=== PATIENT | male | born 1955 | race Caucasian/White ===

== ENCOUNTER 2020-12-04 16:47 | Emergency (ER) | payer BC, SELFPAY ==
--- NOTE | ~2020-12-04 | US_ITS ---
EXAMINATION: US VENOUS ULTRASOUND WITH DOPPLER LOWER EXTREMITY, RIGHT CLINICAL INFORMATION: Right lower extremity swelling COMPARISON: None TECHNIQUE: Ultrasound of the deep veins is performed from the hip to the calf with compression sonography and color and pulse Doppler assessment. Spectral analysis with color-flow imaging is performed. FINDINGS: There is normal venous compression and respiratory variation and augmented flow. The visualized common femoral vein, superficial femoral vein, profunda femoral vein, popliteal vein, and the trifurcation region shows no evidence of deep venous thrombosis. There is no significant popliteal fossa cyst. Prominent right groin lymph nodes are seen. If the patient's symptoms persist, followup ultrasound in 5 days 7 days might be of value to exclude proximal propagation from a non-visualized calf vein. US/US venous duplex LE RT IMPRESSION: No DVT demonstrated in the right lower extremity.
--- NOTE | ~2020-12-04 | XR_ITS ---
EXAMINATION: XR TIBIA AND FIBULA, RIGHT CLINICAL INFORMATION: Leg swelling and tenderness. Concern for osteomyelitis. COMPARISON: None TECHNIQUE: AP and lateral views of the right tibia and fibula were obtained. FINDINGS: No radiographic evidence for ostomy myelitis. No bone destruction or abnormal periosteal reaction. The bones and soft tissues are normal. No fracture. No osseous lesions. Small vessel calcifications in the distal calf. XR/XR tibia fibula RT 2V IMPRESSION: Normal right tibia and fibula.
[2020-12-04 16:50] VITALS: BP 137/77; PULSE 130; RESP 18; TEMP 37.7; O2SAT 96; BMI 37.8
--- NOTE | 2020-12-04 18:47 | ED.EXTPRO ---
HPI - Extremity Problem General Chief complaint: Extremity Problem Stated complaint: CELLULITIS? Time Seen by Provider: 12/04/20 18:42 History of Present Illness HPI Narrative: Patient presents to ED for right lower quadrant swelling and redness. Patient states known history of cellulitis. Pain, shortness of breath, dizziness, weakness, chest pain, or shortness of breath. Related Data Previous Rx's Medication Instructions Recorded cephalexin 500 mg PO Q12H #28 cap 12/04/20 doxycycline hyclate 100 mg PO BID #14 tab 12/04/20 Allergies Allergy/AdvReac Type Severity Reaction Status Date / Time No Known Allergies Allergy Unverified 06/06/20 14:40 Review of Systems Review of Systems: Yes all other systems are reviewed and are negative Constitutional: Constitutional: Reports as per HPI and Reports no additional constitutional complaints Eyes: Eyes: Reports as per HPI and Reports no additional eye complaints ENT: Reports system reviewed and no additional complaints, except as documented and Reports as per HPI Cardiovascular: Cardiovascular: Reports as per HPI and Reports no additional cardiovascular complaints Respiratory: Respiratory: Reports as per HPI and Reports no additional respiratory complaints Gastrointestinal: Gastrointestinal: Reports as per HPI and Reports no additional gastrointestinal complaints Genitourinary: Genitourinary: Reports no additional male genitourinary complaints and Reports as per HPI Musculoskeletal: Musculoskeletal: Reports no additional musculoskeletal complaints and Reports as per HPI Comments: Right leg swelling and redness Neurologic: Reports system reviewed and no additional complaints, except as documented and Reports as per HPI Psychiatric: Psychiatric: Reports no additional psychiatric complaints and Reports as per HPI [facility] Past Medical History Medical History (Updated 12/04/20 @ 21:47 by CINDA Garibay) No known health problems Social History Social History Advance Directives: No Advance Directives Information Provided: No Physical Exam Vital Signs: Vital Signs: Last Vital Signs Temp 98.7 F 12/04/20 20:33 Pulse 92 12/04/20 20:33 Resp 18 12/04/20 20:33 BP 144/95 H 12/04/20 20:33 Pulse Ox 95 12/04/20 20:33 Body Mass Index 37.8 Const: General: cooperative, healthy appearing, comfortable, no acute distress, well developed, alert, awake and Physically active Orientation/consciousness: patient oriented x3 HENMT: Head: Yes normal to inspection, Yes No palpable skull fracture present, Yes normocephalic, Yes atraumatic and No abrasion Eyes: General: appearance normal, both eyes and all related structures Neck: Neck: Yes normal visual inspection, Yes full ROM, Yes no lymphadenopathy, Yes no meningeal signs, Yes trachea midline, Yes supple and No tender Chest: Chest palpation & inspection: normal inspection of the chest and normal palpation of entire chest wall Resp: Effort & Inspection: normal respiratory effort and able to speak in complete sentences Auscultation: clear to auscultation bilaterally Cardio: Jugular venous distension: no JVD Heart sounds: S1 normal heart sound present and S2 normal heart sound present GI: Inspection: Yes normal to inspection and No abdominal wall ecchymosis Palpation (GI): Soft to palpation, not firm, nontender, no guarding and not rigid : General: No CVA tenderness and Yes no CVA tenderness Back/Spine/Pelvis: Back: no CVA tenderness, No CVA tenderness and No back tenderness Skin: General skin exam: no rashes or lesions noted and elasticity normal Neuro: General: patient oriented x3, no meningeal signs and CN's II-XI intact bilaterally Cranial nerves: Yes CN's II-XII intact bilaterally Extrem: Other: Right lower extremity positive for swelling, redness, and pitting edema. ( negative calf tenderness) Left lower extremity normal General: Yes normal to inspection and Yes full ROM Course Course Course Narrative: Patient diagnosis seems more cellulitis but due to swelling of 1 leg patient was sent for ultrasound to rule out DVT. Reevaluation(s) Reevaluation #1: Ultrasound negative for DVT. X-ray negative for osteomyelitis. Patient has mild white blood cell count. Are improved. ESR normal. Patient's chemistry hemolyzed. Will be signed out DANYELLE Riddle and she will follow up chemistry. Discharge papers will be prepared Time: 21:46 MDM - Extremity (Nontraumatic) MDM Narrative Medical decision making narrative: Cellulitis Lab Data Result diagrams: 12/04/20 19:13 12/04/20 19:13 Labs: Lab Results 12/04/20 12/04/20 12/04/20 Range/Units 19:13 19:13 19:13 WBC 14.1 H (4.8-10.8) X10*3/uL RBC 4.93 (4.60-5.80) X10*6/uL Hgb 15.2 (14.0-18.0) g/dl Hct 44.3 (42-52) % MCV 89.9 (80-98) fL MCH 30.8 (27.0-33.0) pg MCHC 34.3 (31.0-36.0) g/dl RDW 13.1 (11.0-16.0) % Plt Count 87 L (160-400) X10*3/uL MPV 10.8 (9.4-12.4) fL Immature Gran % (Auto) 0.7 H (0.0-0.4) % Neut % (Auto) 92.8 H (45-73) % Lymph % (Auto) 4.2 L (20-40) % [place] % (Auto) 2.1 (2-11) % Eos % (Auto) 0.1 (0-4) % Baso % (Auto) 0.1 (0-2) % Lymph # (Auto) 0.6 L (1.2-4.9) X10*3/uL [place] # (Auto) 0.3 (0.1-1.2) X10*3/uL Eos # (Auto) 0.0 (0.0-0.4) X10*3/uL Baso # (Auto) 0.0 (0.0-0.2) X10*3/uL Abs Immat Gran (auto) 0.10 H (0.00-0.03) X10*3/uL Absolute Neuts (auto) 13.0 H (2.0-8.3) X10*3/uL Absolute Nucleated RBC 0.000 (0.0-0.012) X10*3/uL Nucleated RBC % (auto) 0.0 (0.0-0.2) /100WBC Smear Tech's Comments VERIFIED ESR 5 (0-15) MM/HR PT 14.8 H (10.8-13.0) SEC INR 1.2 H (0.9-1.1) APTT 35.7 (24.1-38.0) SEC Lactic Acid (0.5-2.0) mmol/L COVID-19 ([facility]LAN) (Negative) COVID-19 Clin Com 12/04/20 12/04/20 Range/Units 19:13 19:13 WBC (4.8-10.8) X10*3/uL RBC (4.60-5.80) X10*6/uL Hgb (14.0-18.0) g/dl Hct (42-52) % MCV (80-98) fL MCH (27.0-33.0) pg MCHC (31.0-36.0) g/dl RDW (11.0-16.0) % Plt Count (160-400) X10*3/uL MPV (9.4-12.4) fL Immature Gran % (Auto) (0.0-0.4) % Neut % (Auto) (45-73) % Lymph % (Auto) (20-40) % [place] % (Auto) (2-11) % Eos % (Auto) (0-4) % Baso % (Auto) (0-2) % Lymph # (Auto) (1.2-4.9) X10*3/uL [place] # (Auto) (0.1-1.2) X10*3/uL Eos # (Auto) (0.0-0.4) X10*3/uL Baso # (Auto) (0.0-0.2) X10*3/uL Abs Immat Gran (auto) (0.00-0.03) X10*3/uL Absolute Neuts (auto) (2.0-8.3) X10*3/uL Absolute Nucleated RBC (0.0-0.012) X10*3/uL Nucleated RBC % (auto) (0.0-0.2) /100WBC Smear Tech's Comments ESR (0-15) MM/HR PT (10.8-13.0) SEC INR (0.9-1.1) APTT (24.1-38.0) SEC Lactic Acid 1.2 (0.5-2.0) mmol/L COVID-19 ([facility]LAN) Negative (Negative) COVID-19 Clin Com See Note Discharge Plan Discharge Clinical Impression: Cellulitis Patient Disposition: Home, Self-Care Instructions: Cellulitis (ED) Additional Instructions: Return to the ED immediately for any increased leg swelling, worsening redness, chest pain, shortness of breath, dizziness, intractable fever, chills, weakness, or any other concerning symptoms. Patient follow-up with PCP Prescriptions: New cephalexin 500 mg capsule 500 mg PO Q12H Qty: 28 RF: 0 doxycycline hyclate 100 mg tablet 100 mg PO BID Qty: 14 RF: 0 Print Language: Bulgarian
[2020-12-04 19:22] LABS: Basophils Percent Auto 0.1 % (0-2); Eosinophils Percent Auto 0.1 % (0-4); MANUAL DIFF FLAG SCAN; Mean Corpuscular Hemoglobin 30.8 pg (27.0-33.0); PLT CLUMP 1; Red Cell Distribution Width 13.1 % (11.0-16.0); SCAN SMEAR FLAG 1
--- NOTE | 2020-12-04 19:23 | PC.NURSE ---
20g IV Access established in right hand. Labs drawn and sent for analysis. Awaiting results. Pt away for ultrasound at this time, will initiate NS infusion upon return to ED bed 4. Pt's brother (Raf) at bedside.
[2020-12-04 19:24] LABS: Hematocrit 44.3 % (42-52); Hemoglobin 15.2 g/dl (14.0-18.0); Imm Gran Pct Auto 0.7 % (0.0-0.4); Lymphocytes Absolute Auto 0.6 X10*3/uL (1.2-4.9); Lymphocytes Percent Auto 4.2 % (20-40); Mean Corpuscular HGB Conc 34.3 g/dl (31.0-36.0); Mean Corpuscular Volume 89.9 fL (80-98); Mean Platelet Volume 10.8 fL (9.4-12.4); Monocytes Absolute Auto 0.3 X10*3/uL (0.1-1.2); Monocytes Percent Auto 2.1 % (2-11); Neutrophils Percent Auto 92.8 % (45-73); Red Blood Count 4.93 X10*6/uL (4.60-5.80); White Blood Count 14.1 X10*3/uL (4.8-10.8)
[2020-12-04 19:29] LABS: INTERNATIONAL NORM RATIO 1.2 (0.9-1.1); Prothrombin Time 14.8 SEC (10.8-13.0)
[2020-12-04 19:32] LABS: Partial Thromboplastin Time 35.7 SEC (24.1-38.0)
[2020-12-04 19:40] LABS: COVID-19 Test Negative (Negative)
[2020-12-04 19:45] LABS: Platelet Count 87 X10*3/uL (160-400); SLIDE REVIEW VERIFIED
[2020-12-04 19:53] LABS: Lactic Acid 1.2 mmol/L (0.5-2.0)
[2020-12-04 20:01] LABS: Erythrocyte Sedimentation Rate 5 MM/HR (0-15)
[2020-12-04 20:33] VITALS: BP 144/95; PULSE 92; RESP 18; TEMP 37.1; O2SAT 95
[2020-12-04] MEDS: 0.9 % Sodium Chloride 1,000 ML 999 ML IV (20:33)
--- NOTE | 2020-12-04 21:54 | PC.NURSE ---
Spoke with pharmacy regarding pending Chemistry. Chemistry needs to be re-collected. Pt aware, agrees to Chemistry recollect, but states I just really don't want to stay here if I don't have to . CINDA Anderson aware. Plan for discharge pending chemistry results.
[2020-12-04 22:31] LABS: Alanine Aminotransferase 55 U/L (0-40); Albumin Level 3.3 g/dL (3.5-5.0); Alkaline Phosphatase 52 U/L (39-117); Anion Gap 13 (12-20); Aspartate Amino Transferase 43 U/L (5-37); Bilirubin Total 1.6 mg/dL (0.0-1.0); Blood Urea Nitrogen 19 mg/dL (9-16); Calcium 8.1 mg/dL (8.4-10.2); Carbon Dioxide 23 mmol/L (22-29); Chloride 104 mmol/L (96-108); Creatinine Clr Calc Pharmacy 124.5; Estimated Glomerular Filt Rate > 60; Glucose Random 105 mg/dL (60-115); Potassium 3.9 mmol/L (3.3-5.1); Sodium 136 mmol/L (135-145); Total Protein 6.3 g/dL (6.5-8.0)
== END 2020-12-04 23:00 | disposition home or self-care (01) ==
PROVIDERS: Physician Assistant; Emergency Provider Emergency Medicine Emergency Medical Services
DX: L03.115 Cellulitis of right lower limb (principal); Z20.822 Contact with and (suspected) exposure to COVID-19; R74.01 Elevation of levels of liver transaminase levels
CPT/HCPCS: 36415; 73590; 80053; 83605; 85025; 85610; 85652; 85730; 86140; 87040; 87635; 93971; 96360; 99283; 99284

== ENCOUNTER 2020-12-09 13:53 | Emergency (ER) | payer BC, SELFPAY ==
--- NOTE | ~2020-12-09 | US_ITS ---
EXAMINATION: US VENOUS ULTRASOUND WITH DOPPLER LOWER EXTREMITY, RIGHT CLINICAL INFORMATION: Right lower extremity swelling. Assess for occult DVT. COMPARISON: Right lower extremity venous ultrasound with Doppler 12/04/2020. Radiographs right lower extremity 12/04/2020. TECHNIQUE: Ultrasound of the deep veins is performed from the hip to the calf with compression sonography and color and pulse Doppler assessment. Spectral analysis with color-flow imaging is performed. FINDINGS: There is normal venous compression and respiratory variation and augmented flow. The visualized common femoral vein, superficial femoral vein, profunda femoral vein, popliteal vein, and the trifurcation region shows no evidence of deep venous thrombosis. There is no popliteal fossa cyst. Right inguinal nodes are again noted measuring up to 1.1 cm short axis with normal dru architecture. US/US venous duplex LE RT IMPRESSION: No DVT demonstrated in the right lower extremity.
[2020-12-09 14:04] VITALS: BP 155/88; PULSE 88; RESP 16; TEMP 36.8; O2SAT 97; BMI 37.8
--- NOTE | 2020-12-09 14:32 | ED_ITS ---
HPI - Extremity Problem General Chief complaint: Extremity Problem Stated complaint: rt leg cellulitis Time Seen by Provider: 12/09/20 14:13 Source: patient Mode of arrival: ambulatory Limitations: no limitations History of Present Illness HPI Narrative: 65 y/o male with history of recurrent LE cellulitis, diabetes who was seen here on 12/04 for RLE swelling and redness and diagnosed with cellulitis presents back to the ED today with worsening LE swelling. He reports the redness is improving but the swelling is worsening. He has been taking the cephalexin and doxycycline that he was prescribed. He admits to not sitting with his legs elevated and he does not own compression stockings. He denies fevers at home. No chills. MD Complaint: extremity swelling Onset (ago): day(s) (5) Pain Consistency: constant Location: right and lower extremity Severity scale (1-10): 5 Quality: aching Radiation: none Relieving factors: immobilization Exacerbating factors: palpation Related Data Previous Rx's Medication Instructions Recorded cephalexin 500 mg PO Q12H #28 cap 12/04/20 doxycycline hyclate 100 mg PO BID #14 tab 12/04/20 Allergies Allergy/AdvReac Type Severity Reaction Status Date / Time No Known Allergies Allergy Verified 12/09/20 14:11 Review of Systems Review of Systems: Constitutional: No Fever, No Chills Cardiovascular: No Chest Pain, No SOB, No Orthopnea, + Edema Respiratory: No Cough, No Sputum Gastrointestinal: No Nausea, No Vomiting, No Diarrhea, No abdominal Pain Musculoskeletal: No joint pain, + Myalgias Skin: + Skin Lesions, No rash Neuro: No Weakness, No Numbness Heme/Lymph: No Bruising, No Lymphadenopathy PMFSH Past Medical History Attestation statement: The following information was validated with the patient. Medical History No known health problems Social History Social History Advance Directives: No Advance Directives Information Provided: Yes Physical Exam Vital Signs: Vital Signs: Last Vital Signs Temp 98.2 F 12/09/20 14:04 Pulse 88 12/09/20 14:04 Resp 16 12/09/20 14:04 BP 155/88 H 12/09/20 14:04 Pulse Ox 97 12/09/20 14:04 Body Mass Index 37.8 Appearance: Alert. Oriented X3. No acute distress. HEENT: normal inspection CVS: Normal heart rate and rhythm. Pulses normal. Respiratory: No respiratory distress. Skin: Skin warm and dry. Normal skin color. Normal skin turgor. No rashes. Extremities: RLE with 3+ pitting edema to below the knee, erythema of lower leg, chronic venous stasis changes of bilateral lower legs. NV intact distally. Neuro: Oriented X 3. No motor deficit. No sensory deficit. Steady gait Course Course Course Narrative: 65 y/o male presenting with worsening LE edema in the setting of cellulitis. He recently had negative XR and U/S on 12/04. It seems like the infection is improving with decrease in redness, warmth. No fevers at home. Will need to r/o DVT with repeat U/S given worsening swelling. Concern he has underlying PVD that is also contributing. He has no history of heart failure and is not on diuretics. He has chronic venous stasis changes on both lower extremities. Reevaluation(s) Reevaluation #1: LE doppler negative for DVT. Will plan to continue treatment with oral antibiotics as overall his symptoms are improving. Recommend referral to Vascular to evaluation for venous ins ufficiency. Stable for d/c - encouraged to come back to the ER if symptoms worse. Patient agrees with plan. Critical Care Time Critical Care Time Critical Care Time: No Discharge Plan Discharge Clinical Impression: Cellulitis Qualifiers: Site of cellulitis: extremity Site of cellulitis of extremity: lower extremity Laterality: right Qualified Code(s): L03.115 - Cellulitis of right lower limb Patient Disposition: Home, Self-Care Instructions: Cellulitis (ED), Leg Edema (ED) Additional Instructions: Your ultrasound was negative for blood clot. It is likely the swelling is due to poorly functioning veins as well as slowly improving skin infection. Continue to take the antibiotics as previously prescribed. Recommend compression stockings that go up to your knees to help with swelling. You must sit with your legs elevated whenever possible. Follow up with your doctor this week. Follow up with Vascular doctor for further assessment of your swelling. Prescriptions: No Action cephalexin 500 mg capsule 500 mg PO Q12H Qty: 28 RF: 0 doxycycline hyclate 100 mg tablet 100 mg PO BID Qty: 14 RF: 0 Referrals: Joshua Angel MD [Physician] - 2 days (acute on chronic LE swelling)
--- NOTE | 2020-12-09 14:42 | PC.NURSE ---
US TECH AT BEDSIDE FOR EXAM AT PRESENT TIME
== END 2020-12-09 15:53 | disposition home or self-care (01) ==
PROVIDERS: Emergency Provider Emergency Medicine
DX: L03.115 Cellulitis of right lower limb (principal); M79.661 Pain in right lower leg; I87.8 Other specified disorders of veins
CPT/HCPCS: 93971; 99283; 99284

== ENCOUNTER → 2020-12-19 09:49 | Outpatient (BNVA) | payer BC, SELFPAY | PROVIDERS: Visit Provider Surgery Vascular Surgery ==

== ENCOUNTER 2020-12-31 12:42 | Outpatient (REF) | payer BC, SELFPAY ==
--- NOTE | ~2020-12-31 | US_ITS ---
EXAMINATION: US VENOUS DOPPLER LOWER EXTREMITY, BILATERAL ) CLINICAL INFORMATION: Lower extremity varicose veins. Concern for venous insufficiency. COMPARISON: Venous Doppler ultrasound, right, on 12/09/2020. TECHNIQUE: Color-flow triplex imaging and compression Doppler were performed to evaluate both the deep and the superficial systems bilaterally. To evaluate the superficial system, the examination was performed in the upright position. Color-flow Doppler ultrasound and compression ultrasound were utilized. In addition, maneuvers were utilized to demonstrate reflux. FINDINGS: 1. DEEP VENOUS ULTRASOUND OF THE RIGHT LOWER EXTREMITY: Common Femoral Vein: Compressible, normal respiratory variation and augmented flow. Femoral vein: Compressible, normal color flow and augmentation. Popliteal Vein: Compressible, normal augmentation. Deep Reflux: There is no evidence of reflux in the deep system in either the common femoral vein or the popliteal vein. There is no evidence of a [place]'s cyst. 2. SUPERFICIAL ULTRASOUND WITH DOPPLER OF RIGHT LOWER EXTREMITY: GREAT SAPHENOUS VEIN: Saphenofemoral Junction: 0.7 cm. No evidence of reflux. Proximal Thigh: 0.5 cm. No evidence of reflux. Mid Thigh: 0.5 cm. No evidence of reflux. Above Knee: 0.5 cm. No evidence of reflux. At Knee: 0.5 cm. No evidence of reflux. Below Knee: 0.5 cm. No evidence of reflux. Mid Calf: 0.4 cm. No evidence of reflux. Ankle: 0.3 cm. No evidence of reflux. DUPLICATED GREAT SAPHENOUS VEIN: Lateral, 0.3 cm, no reflux. SMALL SAPHENOUS VEIN: Saphenopopliteal Junction: 0.3 cm. No evidence of reflux. Mid Calf: 0.3 cm. No evidence of reflux. Distal Calf: 0.3 cm. No evidence of reflux. VEIN OF GIACOMINI: None imaged. PERFORATORS: Mid thigh, 0.2 cm, no reflux. VARICOSITIES: Proximal thigh, 0.3 cm, no reflux. Proximal calf, 0.3 cm, no reflux. 3. DEEP VENOUS ULTRASOUND OF THE LEFT LOWER EXTREMITY: Common Femoral Vein: Compressible, normal respiratory variation and augmented flow. Femoral vein: Compressible, normal color-flow and augmentation. Popliteal Vein: Compressible, normal augmentation. Deep Reflux: There is no evidence of reflux in the deep system in either the common femoral vein or the popliteal vein. There is no evidence of a [place]'s cyst. 4. SUPERFICIAL ULTRASOUND WITH DOPPLER OF LEFT LOWER EXTREMITY: GREAT SAPHENOUS VEIN: Saphenofemoral Junction: 0.8 cm. No evidence of reflux. Proximal Thigh: 0.5 cm. No evidence of reflux. Mid Thigh: 0.3 cm. No evidence of reflux. Above Knee: 0.4 cm. No evidence of reflux. At Knee: 0.4 cm. No evidence of reflux. Below Knee: 0.3 cm. No evidence of reflux. Mid Calf: 0.3 cm; greater than 0.7 seconds of reflux. Ankle: 0.2 cm; greater than 1 second of reflux. DUPLICATED GREAT SAPHENOUS VEIN: Medial, 0.3 cm, no reflux. SMALL SAPHENOUS VEIN: Saphenopopliteal Junction: 0.4 cm. No evidence of reflux. Mid Calf: 0.3 cm. No evidence of reflux. Distal Calf: 0.2 cm. No evidence of reflux. VEIN OF GIACOMINI: None imaged. PERFORATORS: Proximal thigh, 0.2 cm, greater than 1.8 seconds of reflux. Mid thigh, 0.3 cm, no reflux. Proximal thigh, 0.2 cm, no reflux. VARICOSITIES: Proximal thigh, 0.4 cm, no reflux. Proximal thigh, 0.3 cm, no reflux. US/US venous duplex LE BI IMPRESSION: 1. No evidence of DVT or deep venous reflux. 2. No evidence of right great or small saphenous venous insufficiency. 3. There is reflux involving the distal left GSV at the mid calf and ankle. 4. Bilateral non-refluxing varicosities.
== END 2020-12-31 12:43 | disposition home or self-care (01) ==
LOC: HO.US 12:42
PROVIDERS: Visit Provider Surgery Vascular Surgery
DX: I83.893 Varicose veins of bilateral lower extremities with other complications (principal); I83.11 Varicose veins of right lower extremity with inflammation
CPT/HCPCS: 93970

== ENCOUNTER → 2021-01-14 10:02 | Outpatient (BNVA) | payer BC, SELFPAY | PROVIDERS: Visit Provider Surgery Vascular Surgery ==

== ENCOUNTER 2021-05-14 07:21 | Emergency (ER) | payer BC, SELFPAY ==
--- NOTE | ~2021-05-14 | XR_ITS ---
EXAMINATION: XR TIBIA AND FIBULA, LEFT CLINICAL INFORMATION: Left lower extremity cellulitis, erythema, swelling. Assess for osteomyelitis. COMPARISON: None TECHNIQUE: AP and lateral views of the left lower leg are obtained with additional AP and lateral views coned to the knee. There are total of 4 views. Marker denoting site of symptoms is pointed to the lower third of the lower leg, 16 cm proximal to the ankle. FINDINGS: There is no acute or healing fracture, dislocation, destructive process. There is no focal periostitis or focal cortical decreased attenuation. There is no gas tracking in soft tissue planes. Hoffa's fat pad appears normal. There is trace suprapatellar effusion. The deep infrapatellar recess is preserved. No joint narrowing or erosive change or chondrocalcinosis. XR/XR tibia fibula LT 2V IMPRESSION: 1. No bony destructive process. No periostitis. 2. Trace suprapatellar effusion.
--- NOTE | ~2021-05-14 | US_ITS ---
EXAMINATION: US VENOUS ULTRASOUND WITH DOPPLER LOWER EXTREMITY, LEFT CLINICAL INFORMATION: Cellulitis. Assess for occult DVT COMPARISON: Leg venous ultrasound with Doppler 12/31/2020 TECHNIQUE: Ultrasound of the deep veins is performed from the hip to the calf with compression sonography and color and pulse Doppler assessment. Spectral analysis with color-flow imaging is performed. FINDINGS: There is normal venous compression and respiratory variation and augmented flow. The visualized common femoral vein, superficial femoral vein, profunda femoral vein, popliteal vein, and the trifurcation region shows no evidence of deep venous thrombosis. No popliteal fossa cyst. There are some nodes seen in the inguinal region, largest only 0.9 cm short axis with normal dru architecture. US/US venous duplex LE LT IMPRESSION: No DVT demonstrated in the left lower extremity.
[2021-05-14 07:28] VITALS: BP 129/84; PULSE 81; RESP 16; TEMP 36.5; O2SAT 100; BMI 37.2
--- NOTE | 2021-05-14 07:35 | ED_ITS ---
HPI - Skin/Abscess/Foreign Bdy General Chief complaint: Skin/Abscess/Foreign Body Stated complaint: ?cellulitis Time Seen by Provider: 05/14/21 07:33 Source: patient Mode of arrival: ambulatory Limitations: no limitations History of Present Illness HPI narrative: 65 years old male came in for evaluation of left leg cellulitis. Left leg redness and hotness started 2 days ago, no fever, no chills, no trauma to the left leg. Patient had a previous episode of cellulitis in both legs. Related Data Previous Rx's Medication Instructions Recorded cephalexin 500 mg capsule 500 mg PO Q12H #28 cap 12/04/20 doxycycline hyclate 100 mg tablet 100 mg PO BID #14 tab 12/04/20 doxycycline hyclate 100 mg tablet 100 mg PO BID #20 tab 05/14/21 Allergies Allergy/AdvReac Type Severity Reaction Status Date / Time No Known Allergies Allergy Verified 05/14/21 07:30 Review of Systems Review of Systems: All other systems are reviewed and are negative Constitutional: Reports as per HPI and Reports no additional constitutional complaints Eyes: Reports as per HPI and Reports no additional eye complaints Reports system reviewed and no additional complaints, except as documented Cardiovascular: Reports as per HPI and Reports no additional cardiovascular complaints Respiratory: Reports as per HPI and Reports no additional respiratory complaints Gastrointestinal: Reports as per HPI and Reports no additional gastrointestinal complaints Genitourinary: Reports no additional female genitourinary complaints Musculoskeletal: Reports no additional musculoskeletal complaints Skin/Breast: Reports system reviewed and no additional complaints, except as docu Psychiatric: Reports no additional psychiatric complaints Endocrine: Reports no additional endocrine complaints Hematologic/Lymphatic: Reports no additional hematologic/lymphatic complaints Allergic/Immunologic: Reports no additional allergic/immunologic complaints Reports system reviewed and no additional complaints, except as documented and Reports Abnormal speech present [facility] Past Medical History Medical History No known health problems Social History Social History Cigarette Packs Per Day: 1 Years Smoked: 30 Advance Directives: Yes Advance Directives Information Provided: Yes Advance Directives on File: No Physical Exam Vital Signs: Vital Signs: Last Vital Signs Temp 97.7 F 05/14/21 07:28 Pulse 81 05/14/21 07:28 Resp 18 05/14/21 09:14 BP 116/85 05/14/21 09:14 Pulse Ox 99 05/14/21 09:14 Body Mass Index 37.2 Vital signs have been reviewed as appeared to be correct. Blood pressure normal. Heart rate normal. Respiration rate normal. Temperature normal. Oxygen saturation normal. Appearance: Alert. Oriented X3. No acute distress. Head: Normal external exam. Normocephalic. Atraumatic. No Miner signs noted. No raccoon eyes noted Eyes: PERRLA. EOMI. Conjunctiva and sclera normal. Eyelids normal. ENT: TM's Normal. Pharynx normal. Uvula midline. Moist mucous membranes. No trismus noted. No drooling noted. No muffled voice noted. Neck: Normal inspection. Neck supple. FROM. No adenopathy. Thyroid Normal. No meningeal signs. No neck mass noted. CVS: Normal heart rate and rhythm. Heart sound normal. No murmurs noted. Pulses normal throughout. Respiratory: No respiratory distress. Painless inspiration. Breath sounds normal. No wheezes/rales/rhonchi noted. Chest nontender. No accessory muscle usage noted or decreased air movement noted. Abdomen: Soft and nontender. Bowel sounds normal in all 4 quadrants. No distention noted. No organomegaly noted. No visible injury noted. Back: No CVA tenderness. Full range of motion noted. Skin: Skin warm and dry. Normal skin color. Normal skin turgor. No rashes/lesions/lacerations noted. Extremities: 3 x 5 cm area of redness, hotness, mild tenderness, no fluctuation or abscess. Neuro: Oriented X 3. Cranial nerve exam: II-XII are grossly intact No motor deficit. No sensory deficit. Reflexes normal. Course Course Course Narrative: Assessment and plan. 65-year-old male came in for evaluation of left leg cellulitis, patient has no DVT, no osteomyelitis, do not meet criteria for SIRS. Start the patient on doxycycline as oral antibiotic. MDM - Skin/Abscess/Foreign Bdy Lab Data Attestation: I reviewed the patient's lab results. Result diagrams: 05/14/21 07:57 05/14/21 07:57 Labs: Lab Results 05/14/21 05/14/21 05/14/21 Range/Units 07:57 07:57 07:57 WBC 3.7 L (4.8-10.8) X10*3/uL RBC 4.71 (4.60-5.80) X10*6/uL Hgb 14.5 (14.0-18.0) g/dl Hct 42.3 (42-52) % MCV 89.8 (80-98) fL MCH 30.8 (27.0-33.0) pg MCHC 34.3 (31.0-36.0) g/dl RDW 13.2 (11.0-16.0) % Plt Count 87 L (160-400) X10*3/uL MPV 10.9 (9.4-12.4) fL Immature Gran % (Auto) 0.3 (0.0-0.4) % Neut % (Auto) 59.4 (45-73) % Lymph % (Auto) 29.2 (20-40) % Mcduffie % (Auto) 8.9 (2-11) % Eos % (Auto) 1.9 (0-4) % Baso % (Auto) 0.3 (0-2) % Lymph # (Auto) 1.1 L (1.2-4.9) X10*3/uL Mcduffie # (Auto) 0.3 (0.1-1.2) X10*3/uL Eos # (Auto) 0.1 (0.0-0.4) X10*3/uL Baso # (Auto) 0.0 (0.0-0.2) X10*3/uL Abs Immat Gran (auto) 0.01 (0.00-0.03) X10*3/uL Absolute Neuts (auto) 2.2 (2.0-8.3) X10*3/uL Absolute Nucleated RBC 0.000 (0.0-0.012) X10*3/uL Nucleated RBC % (auto) 0.0 (0.0-0.2) /100WBC Sodium 139 (135-145) mmol/L Potassium 4.0 (3.3-5.1) mmol/L Chloride 108 (96-108) mmol/L Carbon Dioxide 23 (22-29) mmol/L Anion Gap 12 (12-20) BUN 17 H (9-16) mg/dL Creatinine 0.76 (0.5-1.4) mg/dL Estim Creat Clear Calc 139.7 Estimated GFR > 60 Random Glucose 109 (60-115) mg/dL Lactic Acid 0.8 (0.5-2.0) mmol/L Calcium 8.7 D (8.4-10.2) mg/dL Imaging Data Left leg x-ray: Radiologist's impression: 1. No bony destructive process. No periostitis. 2. Trace suprapatellar effusion. ? Venous Doppler left lower extremity: Radiologist's impression: No DVT demonstrated in the left lower extremity. Discharge Plan Discharge Clinical Impression: Cellulitis Qualifiers: Site of cellulitis of extremity: lower extremity Laterality: left Patient Disposition: Home, Self-Care Instructions: Cellulitis (ED) Prescriptions: New doxycycline hyclate 100 mg tablet 100 mg PO BID Qty: 20 RF: 0 No Action cephalexin 500 mg capsule 500 mg PO Q12H Qty: 28 RF: 0 doxycycline hyclate 100 mg tablet 100 mg PO BID Qty: 14 RF: 0 Referrals: Physician,None [Primary Care Provider] - 2 days
[2021-05-14 08:04] LABS: MANUAL DIFF FLAG NO
[2021-05-14 08:06] LABS: Basophils Percent Auto 0.3 % (0-2); Eosinophils Absolute Auto 0.1 X10*3/uL (0.0-0.4); Eosinophils Percent Auto 1.9 % (0-4); Hematocrit 42.3 % (42-52); Hemoglobin 14.5 g/dl (14.0-18.0); Imm Gran Abs Auto 0.01 X10*3/uL (0.00-0.03); Imm Gran Pct Auto 0.3 % (0.0-0.4); Lymphocytes Absolute Auto 1.1 X10*3/uL (1.2-4.9); Lymphocytes Percent Auto 29.2 % (20-40); Mean Corpuscular HGB Conc 34.3 g/dl (31.0-36.0); Mean Corpuscular Hemoglobin 30.8 pg (27.0-33.0); Mean Corpuscular Volume 89.8 fL (80-98); Mean Platelet Volume 10.9 fL (9.4-12.4); Monocytes Absolute Auto 0.3 X10*3/uL (0.1-1.2); Monocytes Percent Auto 8.9 % (2-11); Neutrophils Absolute Auto 2.2 X10*3/uL (2.0-8.3); Neutrophils Percent Auto 59.4 % (45-73); Red Blood Count 4.71 X10*6/uL (4.60-5.80); Red Cell Distribution Width 13.2 % (11.0-16.0); White Blood Count 3.7 X10*3/uL (4.8-10.8)
[2021-05-14 08:10] LABS: Platelet Count 87 X10*3/uL (160-400)
[2021-05-14 08:40] LABS: Lactic Acid 0.8 mmol/L (0.5-2.0)
[2021-05-14 08:43] LABS: Anion Gap 12 (12-20); Blood Urea Nitrogen 17 mg/dL (9-16); Calcium 8.7 mg/dL (8.4-10.2); Carbon Dioxide 23 mmol/L (22-29); Chloride 108 mmol/L (96-108); Creatinine Clr Calc Pharmacy 139.7; Estimated Glomerular Filt Rate > 60; Glucose Random 109 mg/dL (60-115); Sodium 139 mmol/L (135-145)
[2021-05-14 09:14] VITALS: BP 116/85; RESP 18; O2SAT 99
--- NOTE | 2021-05-14 09:36 | PC.NURSE ---
patient brought to ultrasound
== END 2021-05-14 11:04 | disposition home or self-care (01) ==
PROVIDERS: Emergency Provider Emergency Medicine
DX: L03.116 Cellulitis of left lower limb (principal); R60.0 Localized edema; Z87.891 Personal history of nicotine dependence; Z79.899 Other long term (current) drug therapy
CPT/HCPCS: 36415; 73590; 80048; 83605; 85025; 87040; 93971; 99284

== ENCOUNTER 2021-10-08 12:34 | Emergency (ER) | payer MEDICARE, SELFPAY ==
[2021-10-08 13:46] VITALS: BP 149/83; PULSE 100; RESP 19; TEMP 36.6; O2SAT 96; BMI 38.1
[2021-10-08 14:06] LABS: MANUAL DIFF FLAG NO
[2021-10-08 14:08] LABS: Basophils Percent Auto 0.1 % (0-2); Hemoglobin 14.9 g/dl (14.0-18.0); Imm Gran Abs Auto 0.05 X10*3/uL (0.00-0.03); Imm Gran Pct Auto 0.3 % (0.0-0.4); Lymphocytes Percent Auto 6.6 % (20-40); Mean Corpuscular HGB Conc 34.7 g/dl (31.0-36.0); Mean Corpuscular Hemoglobin 30.8 pg (27.0-33.0); Mean Corpuscular Volume 88.8 fL (80.0-98.0); Mean Platelet Volume 10.6 fL (9.4-12.4); Monocytes Absolute Auto 0.5 X10*3/uL (0.1-1.2); Monocytes Percent Auto 3.5 % (2-11); Neutrophils Absolute Auto 12.9 x10*3/uL (2.0-8.3); Neutrophils Percent Auto 89.5 % (45-73); Red Blood Count 4.84 X10*6/uL (4.60-5.80); Red Cell Distribution Width 12.9 % (11.0-16.0); White Blood Count 14.4 X10*3/uL (4.8-10.8)
[2021-10-08 14:09] LABS: Platelet Count 78 X10*3/uL (160-400)
[2021-10-08 14:23] LABS: Anion Gap 12 (12-20); Blood Urea Nitrogen 13 mg/dL (9-16); Carbon Dioxide 23 mmol/L (22-29); Chloride 105 mmol/L (96-108); Creatinine Clr Calc Pharmacy 112.7; Estimated Glomerular Filt Rate > 60; Glucose Random 176 mg/dL (60-115); Potassium 3.7 mmol/L (3.3-5.1); Sodium 136 mmol/L (135-145)
== END 2021-10-08 16:11 | disposition left against medical advice (07) ==
PROVIDERS: Emergency Provider Emergency Medicine
DX: L03.119 Cellulitis of unspecified part of limb (principal); Z79.899 Other long term (current) drug therapy
CPT/HCPCS: 36415; 80048; 85025; 99282; 99283

== ENCOUNTER 2021-10-09 04:44 | Emergency (ER) | payer MEDICARE, SELFPAY ==
[2021-10-09 04:54] VITALS: BP 146/86; PULSE 88; RESP 20; TEMP 36.9; O2SAT 97; BMI 38.1
--- NOTE | 2021-10-09 08:12 | ED_ITS ---
HPI - Skin/Abscess/Foreign Bdy General Chief complaint: Skin/Abscess/Foreign Body Stated complaint: cellulitis reccurring Time Seen by Provider: 10/09/21 07:43 Source: patient Mode of arrival: ambulatory Limitations: no limitations History of Present Illness HPI narrative: 65-year-old male who presents emergency department for evaluation of cellulitis of his left lower extremity. Patient states that he gets recur rent cellulitis of both lower extremities. His last episode of cellulitis was in May of 2021. Patient states that approximately 4 days prior he notice redness and swelling of his left lower extremity. He states that the redness and swelling got worse so yesterday he came to the emergency department for evaluation. However, given the long wait, the patient went home. He states that he return in the morning cuts he was concerned that he still had cellulitis. He states that his left lower leg is swollen, red and mildly painful. He describes the pain is a constant, dull ache. He has had similar pain in the past with his cellulitis. He denied fever, chills, nausea, vomiting or fatigue. He states he has had multiple episodes and is only had to be hospitalized once overnight for the cellulitis. Related Data Previous Rx's Medication Instructions Recorded cephalexin 500 mg capsule 500 mg PO Q12H #28 cap 12/04/20 doxycycline hyclate 100 mg tablet 100 mg PO BID #14 tab 12/04/20 doxycycline hyclate 100 mg tablet 100 mg PO BID #20 tab 05/14/21 cephalexin 500 mg capsule 500 mg PO QID 10 Days #40 cap 10/09/21 doxycycline hyclate 100 mg tablet 100 mg PO Q12H 10 Days #20 tab 10/09/21 Allergies Allergy/AdvReac Type Severity Reaction Status Date / Time No Known Allergies Allergy Verified 10/09/21 05:00 Review of Systems Review of Systems: Yes all other systems are reviewed and are negative [facility] Past Medical History [facility] Narrative: Past medical history: Recurrent cellulitis of the lower extremities. Past surgical history, right knee arthroscopic surgery. Social history: He smokes 1/2 pack of cigarettes per day times 30 years. He occasionally drinks alcohol. He denies drug use. Medical History No known health problems Social History Social History Cigarette Packs Per Day: 1 Years Smoked: 30 Advance Directives: No Advance Directives Information Provided: No Physical Exam Vital Signs: Vital Signs: Last Vital Signs Temp 98.5 F 10/09/21 04:54 Pulse 88 10/09/21 04:54 Resp 20 10/09/21 04:54 BP 146/86 H 10/09/21 04:54 Pulse Ox 97 10/09/21 04:54 BMI result Body Mass Index 38.1 Const: Other: Awake, alert, male patient, very pleasant and cooperative, does not appear to be in distress, answers all questions appropriately. HENMT: Head: Yes normal to inspection, Yes normocephalic and Yes atraumatic Ears: external ears normal General nose exam: Normal external nose present Face and sinus: Yes normal facial exam Mouth: Normal oral and palatal mucosa present Throat: Yes posterior oropharynx normal Eyes: General: appearance normal, both eyes and all related structures Pupils: Equal, round and reactive pupils present Neck: Neck: Yes normal visual inspection, Yes no lymphadenopathy, Yes trachea midline and Yes supple Chest: Chest palpation & inspection: normal inspection of the chest and normal palpation of entire chest wall Resp: Effort & Inspection: normal respiratory effort and able to speak in complete sentences Auscultation: clear to auscultation bilaterally Cardio: Rate: regular rate Rhythm: regular rhythm Heart sounds: S1 normal heart sound present, S2 normal heart sound present and no murmurs GI: Inspection: Yes normal to inspection Palpation (GI): Soft to palpation, nontender and no guarding Auscultation: normal bowel sounds : General: Yes no CVA tenderness Back/Spine/Pelvis: Back: no CVA tenderness Skin: Other: Cellulitis to the left lower extremity, see extremity exam Neuro: Cranial nerves: Yes CN's II-XII intact bilaterally and Yes Equal, round and reactive pupils present Cognition (Neuro): normal cognition Motor exam (neuro): 5/5 motor strength present throughout Extrem: Other: Patient has circumferential erythema of from his mid calf to his ankle, the erythema is warm to the touch and blanches minimally with pressure, there is no skin breakdown, there is no drainage of fluid noted, patient has trace to 1+ pitting edema Psych: Appearance: grossly normal Speech and movement: Normal speech and movement present Affect: normal affect Attitude: cooperative Thought process: Normal thought process present Thought content: Normal thought content present Course Course Course Narrative: 65-year-old male who presents emergency department for evaluation of recurrent cellulitis of his right lower extremity. Vital signs revealed an elevated blood pressure otherwise were unremarkable. Exam is consistent with circumferential cellulitis from the mid calf to the ankle on the right lower extremity. The patient had blood work yesterday which [place] [address] [place] [address]. The patient was unaware of having thrombocytopenia and he has been thrombocytopenic as far back as 12/04/2020 was platelet count was 16702. Patient has had no evidence of increased bleeding. The patient will be treated for cellulitis with doxycycline 100 mg twice a day for 10 days and Keflex 500 mg 4 times a day for 10 days. He was given printed and verbal instructions. I did tell me should talk to his PCP about his low platelet count and he was also given the name of our school standards coach, Dr. Kingsley advised to follow-up for further evaluation of his thrombocytopenia. Discharge Plan Discharge Clinical Impression: Thrombocytopenia Cellulitis Qualifiers: Site of cellulitis: extremity Site of cellulitis of extremity: lower extremity Laterality: left Qualified Code(s): L03.116 - Cellulitis of left lower limb Patient Disposition: Home, Self-Care Instructions: Cellulitis (ED), Thrombocytopenia (ED) Additional Instructions: Cellulitis Discharge Instructions You have an infection of your skin. This is called cellulitis. This is usually caused by bacteria on your skin that gets under your skin and then causes the infection Take doxycycline 100 mg every 12 hours for 10 days. Take Keflex (cephalexin) 500 mg 4 times a day for 10 days. These medications are antibiotic that should help your body fight off the infection. Keep the area of cellulitis elevated to help reduce swelling in the infected area and this helps with the healing process Also apply a heating pad on low or a warm compress for 15 minutes, 4-6 times a day. This will increase the blood flow to the area and will bring white blood cells to the area which will help your body fight off the infection. Also take Tylenol( acetaminophen) 325 mg pills, 2 pills every 4 hours as needed for pain. The redness should withdraw from the above margin and get maintenance mechanic supervisor in color over the next 1-3 days. If the redness gets worse or spread up your leg, this is a sign that the infection is getting worse and you should see your doctor or return to the Emergency Department for a recheck. Apply a moisturizing cream at night to both your legs to keep your skin from drying and cracking Other signs of worsening infection include fever, chills, weakness, increased pain, increased redness, increased swelling or red streaks going away from the area of infection. If you develop any of these symptoms or any other symptoms that are concerning to you, see your doctor immediately or return to the Emergency Department. Follow up with your doctor in 3 days for a recheck. Please read the other printed instructions that we printed for you. Thrombocytopenia Your platelet count today was low at 78,000 (normal is 473807 to 666148). Your platelet count on December 04, 2020 was also low at 87,000 seven thousand so this is something that may have been going on for some time. If this is not been worked up before in the past then you should see a school standards coach to determine if there is anything that needs to be done about this low platelet count. Usually we do not worry about a low platelet count it is less than 20,000 in your having difficulty with bleeding. Please follow-up with our school standards coach, DR. KINGSLEY to further evaluate this condition. Prescriptions: New cephalexin 500 mg capsule 500 mg PO QID 10 Days Qty: 40 RF: 0 doxycycline hyclate 100 mg tablet 100 mg PO Q12H 10 Days Qty: 20 RF: 0 No Action cephalexin 500 mg capsule 500 mg PO Q12H Qty: 28 RF: 0 doxycycline hyclate 100 mg tablet 100 mg PO BID Qty: 14 RF: 0 doxycycline hyclate 100 mg tablet 100 mg PO BID Qty: 20 RF: 0 Referrals: Chantal Kingsley MD [Physician] - 2 weeks Interventions: ED Discharge Assessment Last Done: 10/09/21 08:56 Discharge Date/Time: 10/09/21 08:57
== END 2021-10-09 08:57 | disposition home or self-care (01) ==
PROVIDERS: Emergency Provider Emergency Medicine Emergency Medical Services; PCP Internal Medicine
DX: D69.6 Thrombocytopenia, unspecified (principal); L03.116 Cellulitis of left lower limb; M79.662 Pain in left lower leg; F17.200 Nicotine dependence, unspecified, uncomplicated
CPT/HCPCS: 99283

== ENCOUNTER 2022-04-15 13:59 | Emergency (ER) | payer MEDICARE, SELFPAY ==
[2022-04-15 15:27] VITALS: BP 126/80; PULSE 97; RESP 18; TEMP 36.8; O2SAT 94; BMI 34.9
[2022-04-15 15:41] LABS: Basophils Percent Auto 0.1 % (0-2); Hematocrit 42.7 % (42.0-52.0); Hemoglobin 14.7 g/dl (14.0-18.0); Imm Gran Abs Auto 0.08 X10*3/uL (0.00-0.03); Imm Gran Pct Auto 0.7 % (0.0-0.4); Lymphocytes Absolute Auto 0.3 X10*3/uL (1.2-4.9); MANUAL DIFF FLAG SCAN; Mean Corpuscular HGB Conc 34.4 g/dl (31.0-36.0); Mean Corpuscular Hemoglobin 30.4 pg (27.0-33.0); Mean Corpuscular Volume 88.4 fL (80.0-98.0); Mean Platelet Volume 10.5 fL (9.4-12.4); Monocytes Absolute Auto 0.3 X10*3/uL (0.1-1.2); Monocytes Percent Auto 2.9 % (2-11); Neutrophils Absolute Auto 10.1 x10*3/uL (2.0-8.3); Neutrophils Percent Auto 93.3 % (45-73); Red Blood Count 4.83 X10*6/uL (4.60-5.80); Red Cell Distribution Width 13.5 % (11.0-16.0); SCAN SMEAR FLAG 1; White Blood Count 10.8 X10*3/uL (4.8-10.8)
[2022-04-15 15:50] LABS: Platelet Count 72 X10*3/uL (160-400)
[2022-04-15 16:09] LABS: Anion Gap 16 (12-20); Blood Urea Nitrogen 15 mg/dL (9-16); Calcium 8.6 mg/dL (8.4-10.2); Carbon Dioxide 20 mmol/L (22-29); Chloride 103 mmol/L (96-108); Creatinine Clr Calc Pharmacy 93.1; Estimated Glomerular Filt Rate > 60; Glucose Random 220 mg/dL (60-115); Potassium 3.5 mmol/L (3.3-5.1); Sodium 135 mmol/L (135-145)
[2022-04-15 16:24] LABS: SLIDE REVIEW VERIFIED
== END 2022-04-15 17:17 | disposition left against medical advice (07) ==
PROVIDERS: Emergency Provider Emergency Medicine; PCP Internal Medicine
DX: M79.661 Pain in right lower leg (principal); L03.115 Cellulitis of right lower limb; F17.200 Nicotine dependence, unspecified, uncomplicated
CPT/HCPCS: 36415; 80048; 85025; 99281; 99283

== ENCOUNTER 2022-04-16 05:20 | Emergency (ER) | payer MEDICARE, SELFPAY ==
--- NOTE | ~2022-04-16 | US_ITS ---
EXAMINATION: US VENOUS ULTRASOUND WITH DOPPLER LOWER EXTREMITY, RIGHT CLINICAL INFORMATION: Swelling redness COMPARISON: None TECHNIQUE: Ultrasound of the deep veins is performed from the hip to the calf with compression sonography and color and pulse Doppler assessment. Spectral analysis with color-flow imaging is performed. FINDINGS: There is normal venous compression and respiratory variation and augmented flow. The visualized common femoral vein, superficial femoral vein, profunda femoral vein, popliteal vein, and the trifurcation region shows no evidence of deep venous thrombosis. There is no significant popliteal fossa cyst. Mild edema of the calf with limited evaluation of the peroneal and posterior tibial veins. Mildly prominent right inguinal lymph node noted measuring up to 1.0 cm in short axis. If the patient's symptoms persist, followup ultrasound in 5 days 7 days might be of value to exclude proximal propagation from a non-visualized calf vein. US/US venous duplex LE RT IMPRESSION: 1. No DVT demonstrated in the right lower extremity. 2. Mild edema of the calf with limited evaluation of the peroneal and posterior tibial veins. 3. Mildly prominent right inguinal lymph node noted measuring up to 1.0 cm in short axis.
[2022-04-16 06:01] VITALS: BP 103/65; PULSE 93; RESP 15; TEMP 38.3; O2SAT 93; BMI 34.9
[2022-04-16] MEDS: Acetaminophen 325 MG TABLET 975 MG PO (06:15)
[2022-04-16 06:36] LABS: Basophils Percent Auto 0.1 % (0-2); Hemoglobin 14.5 g/dl (14.0-18.0); Imm Gran Abs Auto 0.05 X10*3/uL (0.00-0.03); Imm Gran Pct Auto 0.5 % (0.0-0.4); Lymphocytes Absolute Auto 0.5 X10*3/uL (1.2-4.9); MANUAL DIFF FLAG SCAN; Mean Corpuscular HGB Conc 34.5 g/dl (31.0-36.0); Mean Corpuscular Hemoglobin 30.2 pg (27.0-33.0); Mean Corpuscular Volume 87.5 fL (80.0-98.0); Mean Platelet Volume 10.8 fL (9.4-12.4); Monocytes Absolute Auto 0.2 X10*3/uL (0.1-1.2); Monocytes Percent Auto 2.2 % (2-11); Neutrophils Absolute Auto 8.8 x10*3/uL (2.0-8.3); Neutrophils Percent Auto 92.2 % (45-73); Red Cell Distribution Width 13.4 % (11.0-16.0); SCAN SMEAR FLAG 1; White Blood Count 9.5 X10*3/uL (4.8-10.8)
[2022-04-16 06:39] LABS: Platelet Count 64 X10*3/uL (160-400)
[2022-04-16 06:52] LABS: Lactic Acid 1.7 mmol/L (0.5-2.0)
[2022-04-16 06:54] LABS: SLIDE REVIEW VERIFIED
[2022-04-16 06:57] LABS: Alanine Aminotransferase 42 U/L (0-40); Albumin Level 3.7 g/dL (3.5-5.0); Alkaline Phosphatase 50 U/L (39-117); Anion Gap 11 (12-20); Aspartate Amino Transferase 38 U/L (5-37); Bilirubin Total 1.4 mg/dL (0.0-1.0); Blood Urea Nitrogen 16 mg/dL (9-16); Calcium 8.7 mg/dL (8.4-10.2); Carbon Dioxide 23 mmol/L (22-29); Chloride 104 mmol/L (96-108); Creatinine Clr Calc Pharmacy 94.8; Estimated Glomerular Filt Rate > 60; Glucose Random 180 mg/dL (60-115); Potassium 3.8 mmol/L (3.3-5.1); Sodium 134 mmol/L (135-145); Total Protein 6.9 g/dL (6.5-8.0)
[2022-04-16 08:15] VITALS: BP 104/55; PULSE 72; RESP 18; TEMP 36.8; O2SAT 96
--- NOTE | 2022-04-16 08:22 | ED.SKABFB ---
HPI - Skin/Abscess/Foreign Bdy General Chief complaint: Skin/Abscess/Foreign Body Stated complaint: Cellulitis Time Seen by Provider: 04/16/22 07:37 Source: patient Mode of arrival: ambulatory History of Present Illness HPI narrative: 66-year-old male who presents with redness and swelling to the right lower extremity, this has happened before and started again yesterday and is not been associated with any insect bite/scratch or injury that he is aware of and he denies any associated fever or chills. Patient denies any prescription medications, is a daily smoker. Patient denies any shortness of breath, chest pain/palpitations, recent travel. Related Data Previous Rx's Medication Instructions Recorded cephalexin 500 mg capsule 500 mg PO BID 5 days #10 caps 04/16/22 doxycycline hyclate 100 mg capsule 100 mg PO BID 5 days #10 caps 04/16/22 Allergies Allergy/AdvReac Type Severity Reaction Status Date / Time No Known Allergies Allergy Verified 04/15/22 15:27 Review of Systems Review of Systems: Pertinent positives and negatives as stated in HPI 10 point review of systems otherwise negative. PMFSH Past Medical History Source: nursing notes reviewed Medical History No known health problems Social History Social History Cigarette Packs Per Day: 1 Years Smoked: 30 Advance Directives: No Advance Directives Information Provided: Yes Physical Exam Vital Signs: Vital Signs: Last Vital Signs Temp 98.3 F 04/16/22 08:15 Pulse 72 04/16/22 08:15 Resp 18 04/16/22 08:15 BP 104/55 L 04/16/22 08:15 Pulse Ox 96 04/16/22 08:15 O2 Del Method 04/16/22 08:15 BMI result Body Mass Index 34.9 VITAL SIGNS: Reviewed. GENERAL: Well developed, well nourished, in no acute distress. HEAD: Normocephalic/atraumatic EYES: PERRLA, EOMI EARS: Ext canals without abnormality OROPHARYNX: no oral lesions noted, posterior pharynx clear LUNGS: Normal breath sounds. No adventitious sounds or accessory muscle use. SpO2<96> CARDIOVASCULAR: Regular rate and rhythm without noted murmurs ABDOMEN: Soft, non-tender, non-distended with bowel sounds. MUSCULOSKELETAL: No tenderness, deformities, or effusions noted on gross inspection. EXTREMITIES: No cyanosis, clubbing or edema; RIGHT LOWER EXTREMITY: Redness, warmth, primarily on anterior aspect but beginning to wrap around behind, foot is warm. SKIN: Inspection of the skin reveals rash as described above. NEUROLOGIC: Alert and oriented x 4. Strength and sensation to light touch were grossly intact x 4. Course Course Course Narrative: 66-year-old male with history and clinical presentation most consistent with a cellulitis and no history of diabetes or PAD although patient is noted to have followed up with vascular surgeon in the past. Low clinical suspicion for DVT but will pursue venous duplex. Review of all investigations consistent with cellulitis, no ultrasound evidence of DVT, patient received initial antibiotics here in the emergency room is otherwise stable for discharge to home on remaining course of antibiotics. [facility] was also provided. MDM - Skin/Abscess/Foreign Bdy Lab Data Result diagrams: 04/16/22 06:28 04/16/22 06:27 Labs: Lab Results 04/16/22 04/16/22 04/16/22 Range/Units 06:27 06:27 06:28 WBC 9.5 (4.8-10.8) X10*3/uL RBC 4.80 (4.60-5.80) X10*6/uL Hgb 14.5 (14.0-18.0) g/dl Hct 42.0 (42.0-52.0) % MCV 87.5 (80.0-98.0) fL MCH 30.2 (27.0-33.0) pg MCHC 34.5 (31.0-36.0) g/dl RDW 13.4 (11.0-16.0) % Plt Count 64 L (160-400) X10*3/uL MPV 10.8 (9.4-12.4) fL Immature Gran % (Auto) 0.5 H (0.0-0.4) % Neut % (Auto) 92.2 H (45-73) % Lymph % (Auto) 5.0 L (20-40) % Esmeralda % (Auto) 2.2 (2-11) % Eos % (Auto) 0.0 (0-4) % Baso % (Auto) 0.1 (0-2) % Lymph # (Auto) 0.5 L (1.2-4.9) X10*3/uL Esmeralda # (Auto) 0.2 (0.1-1.2) X10*3/uL Eos # (Auto) 0.0 (0.0-0.4) X10*3/uL Baso # (Auto) 0.0 (0.0-0.2) X10*3/uL Abs Immat Gran (auto) 0.05 H (0.00-0.03) X10*3/uL Absolute Neuts (auto) 8.8 H (2.0-8.3) x10*3/uL Absolute Nucleated RBC 0.000 (0.0-0.012) X10*3/uL Nucleated RBC % (auto) 0.0 (0.0-0.2) /100WBC Smear Tech's Comments VERIFIED Sodium 134 L (135-145) mmol/L Potassium 3.8 (3.3-5.1) mmol/L Chloride 104 (96-108) mmol/L Carbon Dioxide 23 (22-29) mmol/L Anion Gap 11 L (12-20) BUN 16 (9-16) mg/dL Creatinine 1.10 (0.5-1.4) mg/dL Estim Creat Clear Calc 94.8 Estimated GFR > 60 Random Glucose 180 H (60-115) mg/dL Lactic Acid 1.7 (0.5-2.0) mmol/L Calcium 8.7 (8.4-10.2) mg/dL Total Bilirubin 1.4 H (0.0-1.0) mg/dL AST 38 H (5-37) U/L ALT 42 H (0-40) U/L Alkaline Phosphatase 50 (39-117) U/L Total Protein 6.9 (6.5-8.0) g/dL Albumin 3.7 (3.5-5.0) g/dL COVID-19 ([facility]) (Negative) COVID-19 Clin Com 04/16/22 Range/Units 08:19 WBC (4.8-10.8) X10*3/uL RBC (4.60-5.80) X10*6/uL Hgb (14.0-18.0) g/dl Hct (42.0-52.0) % MCV (80.0-98.0) fL MCH (27.0-33.0) pg MCHC (31.0-36.0) g/dl RDW (11.0-16.0) % Plt Count (160-400) X10*3/uL MPV (9.4-12.4) fL Immature Gran % (Auto) (0.0-0.4) % Neut % (Auto) (45-73) % Lymph % (Auto) (20-40) % Esmeralda % (Auto) (2-11) % Eos % (Auto) (0-4) % Baso % (Auto) (0-2) % Lymph # (Auto) (1.2-4.9) X10*3/uL Esmeralda # (Auto) (0.1-1.2) X10*3/uL Eos # (Auto) (0.0-0.4) X10*3/uL Baso # (Auto) (0.0-0.2) X10*3/uL Abs Immat Gran (auto) (0.00-0.03) X10*3/uL Absolute Neuts (auto) (2.0-8.3) x10*3/uL Absolute Nucleated RBC (0.0-0.012) X10*3/uL Nucleated RBC % (auto) (0.0-0.2) /100WBC Smear Tech's Comments Sodium (135-145) mmol/L Potassium (3.3-5.1) mmol/L Chloride (96-108) mmol/L Carbon Dioxide (22-29) mmol/L Anion Gap (12-20) BUN (9-16) mg/dL Creatinine (0.5-1.4) mg/dL Estim Creat Clear Calc Estimated GFR Random Glucose (60-115) mg/dL Lactic Acid (0.5-2.0) mmol/L Calcium (8.4-10.2) mg/dL Total Bilirubin (0.0-1.0) mg/dL AST (5-37) U/L ALT (0-40) U/L Alkaline Phosphatase (39-117) U/L Total Protein (6.5-8.0) g/dL Albumin (3.5-5.0) g/dL COVID-19 ([facility]LAN) Negative (Negative) COVID-19 Clin Com See Note Discharge Plan Discharge Clinical Impression: Varicose veins of right lower extremity with inflammation, Cellulitis Patient Disposition: Home, Self-Care Instructions: Cellulitis (ED) Additional Instructions: 1. Complete the entire course of antibiotics as prescribed. Recommended to you use a compression stocking to the right lower extremity for improved relief. 2. Please follow-up with your primary care provider by calling the office today and setting up an appointment for re-evaluation. Return to the ER for worsening symptoms. Prescriptions: New cephalexin 500 mg capsule 500 mg PO BID 5 Days Qty: 10 0RF doxycycline hyclate 100 mg capsule 100 mg PO BID 5 Days Qty: 10 0RF
[2022-04-16 08:50] LABS: COVID-19 Test Negative (Negative)
[2022-04-16] MEDS: cephALEXin 500 MG CAPSULE PO (10:25)
== END 2022-04-16 10:30 | disposition home or self-care (01) ==
PROVIDERS: Emergency Provider Student in an Organized Health Care Education/Training Program
DX: I83.11 Varicose veins of right lower extremity with inflammation (principal); L03.115 Cellulitis of right lower limb; R60.0 Localized edema; F17.210 Nicotine dependence, cigarettes, uncomplicated; Z71.6 Tobacco abuse counseling; Z20.822 Contact with and (suspected) exposure to COVID-19; Z79.899 Other long term (current) drug therapy
CPT/HCPCS: 36415; 80053; 83605; 85025; 87040; 87205; 87635; 93971; 99283; 99284

== ENCOUNTER 2022-04-22 06:55 | Emergency (ER) | payer MEDICARE, SELFPAY ==
--- NOTE | ~2022-04-22 | US_ITS ---
EXAMINATION: US VENOUS ULTRASOUND WITH DOPPLER LOWER EXTREMITY, RIGHT CLINICAL INFORMATION: Swelling and edema COMPARISON: 04/16/2022 TECHNIQUE: Ultrasound of the deep veins is performed from the hip to the calf with compression sonography and color and pulse Doppler assessment. Spectral analysis with color-flow imaging is performed. FINDINGS: There is normal venous compression and respiratory variation and augmented flow. The visualized common femoral vein, superficial femoral vein, profunda femoral vein, popliteal vein, and the trifurcation region shows no evidence of deep venous thrombosis. There is no significant popliteal fossa cyst. Some views of the calf veins are suboptimal due to edema. A right renal noted 32 x 8 x 21 mm noted. If the patient's symptoms persist, followup ultrasound in 5 days 7 days might be of value to exclude proximal propagation from a non-visualized calf vein. US/US venous duplex LE RT IMPRESSION: No DVT demonstrated in the right lower extremity.
[2022-04-22 07:03] VITALS: BP 152/82; PULSE 85; RESP 18; O2SAT 97; BMI 34.9
[2022-04-22 07:07] VITALS: TEMP 36.7
[2022-04-22 07:40] LABS: MANUAL DIFF FLAG NO
[2022-04-22 07:57] LABS: Anion Gap 12 (12-20); Blood Urea Nitrogen 11 mg/dL (9-16); Calcium 8.9 mg/dL (8.4-10.2); Carbon Dioxide 25 mmol/L (22-29); Chloride 108 mmol/L (96-108); Creatinine Clr Calc Pharmacy 135.4; Estimated Glomerular Filt Rate > 60; Glucose Random 104 mg/dL (60-115); Sodium 141 mmol/L (135-145)
[2022-04-22 08:02] LABS: Basophils Percent Auto 0.5 % (0-2); Eosinophils Absolute Auto 0.1 X10*3/uL (0.0-0.4); Eosinophils Percent Auto 1.9 % (0-4); Hematocrit 42.5 % (42.0-52.0); Hemoglobin 14.7 g/dl (14.0-18.0); Imm Gran Abs Auto 0.03 X10*3/uL (0.00-0.03); Imm Gran Pct Auto 0.7 % (0.0-0.4); Lymphocytes Absolute Auto 1.3 X10*3/uL (1.2-4.9); Lymphocytes Percent Auto 31.2 % (20-40); Mean Corpuscular HGB Conc 34.6 g/dl (31.0-36.0); Mean Corpuscular Hemoglobin 30.1 pg (27.0-33.0); Mean Corpuscular Volume 86.9 fL (80.0-98.0); Mean Platelet Volume 10.6 fL (9.4-12.4); Monocytes Absolute Auto 0.3 X10*3/uL (0.1-1.2); Neutrophils Absolute Auto 2.5 x10*3/uL (2.0-8.3); Neutrophils Percent Auto 59.7 % (45-73); Platelet Count 124 X10*3/uL (160-400); Red Blood Count 4.89 X10*6/uL (4.60-5.80); Red Cell Distribution Width 13.4 % (11.0-16.0); White Blood Count 4.2 X10*3/uL (4.8-10.8)
--- NOTE | 2022-04-22 09:29 | ED.EXTPRO ---
HPI - Extremity Problem General Chief complaint: Extremity Problem Stated complaint: R leg pain Time Seen by Provider: 04/22/22 09:15 Source: patient Mode of arrival: ambulatory History of Present Illness HPI Narrative: 66-year-old male who presents to the emergency department for evaluation of cellulitis to the right lower extremity. The patient states he came to the ED on 04/16/22 for an initial evaluation and was started on Cephalexin and Doxycycline for 5-days. He reports previous episodes of cellulitis where he was given a 10-day course with complete symptom resolution. Reports compliance with antibiotics, states overall symptoms improved however still present. At this time, he denies any shortness of breath, chest pain/palpitations, numbness or tingling in the RLE, weakness, fever, chills, nausea, vomiting, diarrhea, or abdominal pain. MD Complaint: extremity swelling Onset (ago): day(s) Related Data Previous Rx's Medication Instructions Recorded cephalexin 500 mg capsule 500 mg PO BID 5 days #10 caps 04/16/22 doxycycline hyclate 100 mg capsule 100 mg PO BID 5 days #10 caps 04/16/22 cephalexin 500 mg capsule 500 mg PO QID 5 days #20 caps 04/22/22 doxycycline hyclate 100 mg tablet 100 mg PO BID 5 days #10 tabs 04/22/22 Allergies Allergy/AdvReac Type Severity Reaction Status Date / Time No Known Allergies Allergy Verified 04/15/22 15:27 Review of Systems Review of Systems: Constitutional: No Weight loss, No Fever, No Chills ENT/Mouth: No Nasal Congestion, No Hoarseness, No Sore Throat, No Rhinorrhea Cardiovascular: No Chest Pain, No SOB Respiratory: No Cough, No Sputum, No Wheezing Gastrointestinal: No Nausea, No Vomiting, No Diarrhea, No Constipation, No Abdominal pain Genitourinary: No Dysuria, No Urinary Frequency, No Urinary Incontinence Musculoskeletal: No Joint Pain, No Myalgias, No Joint Swelling, +edema Skin: +Rash/cellulitis Neuro: No Weakness, No Numbness, No Paresthesias Yes all other systems are reviewed and are negative Constitutional: Constitutional: Reports as per [facility] Past Medical History Attestation statement: The following information was validated with the patient. Medical History No known health problems Social History Social History Cigarette Packs Per Day: 1 Years Smoked: 30 Advance Directives: Yes Advance Directives Information Provided: No Advance Directives on File: No Physical Exam Vital Signs: Vital Signs: Last Vital Signs Temp 97.7 F 04/22/22 12:13 Pulse 66 04/22/22 12:13 Resp 17 04/22/22 12:13 BP 133/86 04/22/22 12:13 Pulse Ox 96 04/22/22 12:13 O2 Del Method 04/22/22 12:13 BMI result Body Mass Index 34.9 Const: General: cooperative, healthy appearing and no acute distress Orientation/consciousness: patient oriented x3 Limitations: no limitations HEENT: Head: Yes normal to inspection and Yes atraumatic Ears: hearing grossly normal bilaterally General nose exam: Normal external nose present Face and sinus: Yes normal facial exam Eyes: General: appearance normal, both eyes and all related structures EOM: EOMs intact bilaterally Neck: Neck: Yes normal visual inspection and Yes no meningeal signs Resp: Effort & Inspection: normal respiratory effort and no respiratory distress Auscultation: clear to auscultation bilaterally Cardio: Rate: regular rate Heart sounds: S1 normal heart sound present and S2 normal heart sound present Skin: Other: +erythema & warmth noted to the anterior aspect of the right tibia w/ 4+ pitting edema. There is no skin breakdown and no fluid drainage/fluctuance or induration. No streaking. RLE 1+ pitting edema. pedal pulses intact. Neuro: General: patient oriented x3, tone normal and no meningeal signs Gait exam (Neuro): Normal gait present Extrem: General: Yes normal to inspection Course Course Course Narrative: 12:00 US/US venous duplex LE RT IMPRESSION: No DVT demonstrated in the right lower extremity. Reevaluation(s) Reevaluation #1: Received patient's blood cultures which grew Gram-positive rods 1 of 2 sets and cornea bacterium species. Cellulitis looks overall improved, labs were reassuring, no leukocytosis. Antibiotics were extended Time: 17:50 MDM - Extremity (Nontraumatic) MDM Narrative Medical decision making narrative: 66-year-old male who presents to the emergency department for evaluation of cellulitis to the right lower extremity. He was recently treated for cellulitis on 04/16, reports overall symptomatic improvement however erythema/warmth stool present. Vital signs revealed an elevated blood pressure otherwise unremarkable. Blood cultures pending and laboratory results showing a WBC of 4.2. Concern for partially treated cellulitis requiring extension prescribed antibiotics. Due to continued symptoms, 4+ pitting edema on exam, a repeat venous duplex US was ordered to rule out DVT. Compartments soft/low suspicion for compartment syndrome. Plan: Venous Duplex US, continue course of Cephalexin/Doxycycline for additional 5 days Differential Diagnosis Differential diagnosis: Likely cellulitis and lower extremity edema Medical Records Attestation: I reviewed the patient's medical records. Lab Data Attestation: I reviewed the patient's lab results. Result diagrams: 04/22/22 07:34 04/22/22 07:34 Labs: Lab Results 04/22/22 04/22/22 Range/Units 07:34 07:34 WBC 4.2 L (4.8-10.8) X10*3/uL RBC 4.89 (4.60-5.80) X10*6/uL Hgb 14.7 (14.0-18.0) g/dl Hct 42.5 (42.0-52.0) % MCV 86.9 (80.0-98.0) fL MCH 30.1 (27.0-33.0) pg MCHC 34.6 (31.0-36.0) g/dl RDW 13.4 (11.0-16.0) % Plt Count 124 L D (160-400) X10*3/uL MPV 10.6 (9.4-12.4) fL Immature Gran % (Auto) 0.7 H (0.0-0.4) % Neut % (Auto) 59.7 (45-73) % Lymph % (Auto) 31.2 (20-40) % [place] % (Auto) 6.0 (2-11) % Eos % (Auto) 1.9 (0-4) % Baso % (Auto) 0.5 (0-2) % Lymph # (Auto) 1.3 (1.2-4.9) X10*3/uL [place] # (Auto) 0.3 (0.1-1.2) X10*3/uL Eos # (Auto) 0.1 (0.0-0.4) X10*3/uL Baso # (Auto) 0.0 (0.0-0.2) X10*3/uL Abs Immat Gran (auto) 0.03 (0.00-0.03) X10*3/uL Absolute Neuts (auto) 2.5 (2.0-8.3) x10*3/uL Absolute Nucleated RBC 0.000 (0.0-0.012) X10*3/uL Nucleated RBC % (auto) 0.0 (0.0-0.2) /100WBC Sodium 141 (135-145) mmol/L Potassium 4.0 (3.3-5.1) mmol/L Chloride 108 (96-108) mmol/L Carbon Dioxide 25 (22-29) mmol/L Anion Gap 12 (12-20) BUN 11 (9-16) mg/dL Creatinine 0.77 (0.5-1.4) mg/dL Estim Creat Clear Calc 135.4 Estimated GFR > 60 Random Glucose 104 D (60-115) mg/dL Calcium 8.9 (8.4-10.2) mg/dL Discharge Plan Discharge Clinical Impression: Cellulitis Patient Disposition: Home, Self-Care Instructions: Cellulitis (ED) Additional Instructions: You have an infection of your skin. This is called cellulitis. This is usually caused by bacteria on your skin that gets under your skin and then causes the infection Take doxycycline 100 mg every 12 hours for 5 days. Take Keflex (cephalexin) 500 mg 4 times a day for 5 days. These medications are antibiotic that should help your body fight off the infection. Keep the area of cellulitis elevated to help reduce swelling in the infected area and this helps with the healing process. Also take Tylenol( acetaminophen) 325 mg pills, 2 pills every 4 hours as needed for pain. The redness should withdraw from the above margin and get electronic systems security assessment in color over the next 1-3 days.? If the redness gets worse or spread up your leg, this is a sign that the infection is getting worse and you should see your doctor or return to the Emergency Department for a recheck. Other signs of worsening infection include fever, chills, weakness, increased pain, increased redness, increased swelling or red streaks going away from the area of infection. If you develop any of these symptoms or any other symptoms that are concerning to you, see your doctor immediately or return to the Emergency Department. Follow up with your doctor in 3 days for a recheck. Prescriptions: New cephalexin 500 mg capsule 500 mg PO QID 5 Days Qty: 20 0RF doxycycline hyclate 100 mg tablet 100 mg PO BID 5 Days Qty: 10 0RF No Action cephalexin 500 mg capsule 500 mg PO BID 5 Days Qty: 10 0RF doxycycline hyclate 100 mg capsule 100 mg PO BID 5 Days Qty: 10 0RF Referrals: Physician,Unknown J [Primary Care Provider] - Interventions: ED Discharge Assessment Last Done: 04/22/22 12:17 Discharge Date/Time: 04/22/22 12:18
[2022-04-22 12:13] VITALS: BP 133/86; PULSE 66; RESP 17; TEMP 36.5; O2SAT 96
== END 2022-04-22 12:18 | disposition home or self-care (01) ==
PROVIDERS: Emergency Provider Emergency Medicine Emergency Medical Services
DX: L03.115 Cellulitis of right lower limb (principal); M79.604 Pain in right leg; R60.0 Localized edema; Z79.899 Other long term (current) drug therapy; F17.210 Nicotine dependence, cigarettes, uncomplicated; Z71.6 Tobacco abuse counseling
CPT/HCPCS: 36415; 80048; 85025; 87040; 93971; 99283; 99284

== ENCOUNTER 2022-04-28 06:22 | Emergency (ER) | payer MEDICARE, SELFPAY ==
[2022-04-28 06:24] VITALS: BP 137/66; PULSE 89; RESP 18; TEMP 36.9; O2SAT 98; BMI 36.6
--- NOTE | 2022-04-28 09:33 | ED.LOWEXIN ---
HPI - Extremity Injury (Lower) General Chief Complaint: Skin/Abscess/Foreign Body Stated Complaint: celluitis Time Seen by Provider: 04/28/22 09:32 Source: patient Mode of arrival: ambulatory History of Present Illness HPI Narrative: 66-year-old male without history of diabetes comes in with persistent swelling of the right lower extremity and had been placed on a course of antibiotics which he completed and patient states that the redness and swelling has greatly improved but he is concerned because the leg remains swollen. He denies any fevers, chills, shortness of breath and has intermittently been wearing compression stockings. Related Data Previous Rx's Medication Instructions Recorded cephalexin 500 mg capsule 500 mg PO BID 5 days #10 caps 04/16/22 doxycycline hyclate 100 mg capsule 100 mg PO BID 5 days #10 caps 04/16/22 cephalexin 500 mg capsule 500 mg PO QID 5 days #20 caps 04/22/22 doxycycline hyclate 100 mg tablet 100 mg PO BID 5 days #10 tabs 04/22/22 Allergies Allergy/AdvReac Type Severity Reaction Status Date / Time No Known Allergies Allergy Verified 04/28/22 06:26 Review of Systems Review of Systems: Pertinent positives and negatives as stated in HPI 10 point review of systems is otherwise negative. [facility] Past Medical History Source: nursing notes reviewed Medical History No known health problems Social History Social History Cigarette Packs Per Day: 1 Years Smoked: 30 Advance Directives: No Advance Directives Information Provided: No Physical Exam Vital Signs: Vital Signs: Last Vital Signs Temp 98.4 F 04/28/22 06:24 Pulse 89 04/28/22 06:24 Resp 18 04/28/22 06:24 BP 137/66 04/28/22 06:24 Pulse Ox 98 04/28/22 06:24 O2 Del Method 04/28/22 06:24 BMI result Body Mass Index 36.6 VITAL SIGNS: Reviewed. GENERAL: Well developed, well nourished, in no acute distress. HEAD: Normocephalic/atraumatic EYES: PERRLA, EOMI EARS: Ext canals without abnormality OROPHARYNX: no oral lesions noted, posterior pharynx clear LUNGS: Normal breath sounds. No adventitious sounds or accessory muscle use. SpO2<98> CARDIOVASCULAR: Regular rate and rhythm without noted murmurs ABDOMEN: Soft, non-tender, non-distended with bowel sounds. MUSCULOSKELETAL: No tenderness, deformities, or effusions noted on gross inspection. EXTREMITIES: No cyanosis, clubbing or edema; RIGHT LOWER EXTREMITY: No pitting edema noted, no erythema or warmth noted. SKIN: Inspection of the skin reveals no rashes, ulcerations NEUROLOGIC: Alert and oriented x 4. Strength and sensation to light touch were grossly intact x 4. Course Course Course Narrative: 66-year-old male with history and clinical presentation most consistent with what appears to be lymphedema or venous insufficiency, no clinical evidence of cellulitis at this time and patient is not diabetic. Who is otherwise instructed to follow-up with his primary care provider whom patient reports he has had extreme difficulty in contacting and instructed to wear the compression stocking during the day at all times and then ensure nighttime elevation the extremity. Discharge Plan Discharge Clinical Impression: Venous insufficiency, Leg edema Patient Disposition: Home, Self-Care Instructions: Venous Insufficiency (DC), Leg Edema (ED) Additional Instructions: 1. Continue to try to call your primary care provider's office, my note has been sent over as additional effort. Recommend that you try compression stockings to bilateral lower extremities during the day and make sure that both lower extremities are elevated at night. Return to the ER for worsening symptoms. Prescriptions: No Action cephalexin 500 mg capsule 500 mg PO BID 5 Days Qty: 10 0RF doxycycline hyclate 100 mg capsule 100 mg PO BID 5 Days Qty: 10 0RF cephalexin 500 mg capsule 500 mg PO QID 5 Days Qty: 20 0RF doxycycline hyclate 100 mg tablet 100 mg PO BID 5 Days Qty: 10 0RF Referrals: Isaak Beal MD [Primary Care Provider] - (Please call the patient so that he can get a follow-up appointment from your office. He is made several attempts and needs re-evaluation after being discharged from the emergency room.)
== END 2022-04-28 09:55 | disposition home or self-care (01) ==
PROVIDERS: Emergency Provider Student in an Organized Health Care Education/Training Program; PCP Internal Medicine
DX: I87.2 Venous insufficiency (chronic) (peripheral) (principal); R60.0 Localized edema; Z87.891 Personal history of nicotine dependence
CPT/HCPCS: 99283

== ENCOUNTER 2022-05-28 06:08 | Outpatient (REF) | payer MEDICARE, SELFPAY ==
[2022-05-28 12:21] LABS: Estimated Average Glucose 103 mg/dL; Hemoglobin A1c % 5.2 %
[2022-05-28 12:35] LABS: TSH reflex Free T4 1.87 uIU/mL (0.32-4.0)
[2022-05-28 12:51] LABS: Cholesterol 126 mg/dL; HDL Cholesterol 42 mg/dL; LDL Cholesterol Calculated 73 mg/dl; Triglycerides 56 mg/dL
== END 2022-05-28 06:09 | disposition home or self-care (01) ==
LOC: HO.HMGCLDS 06:08
PROVIDERS: PCP Internal Medicine; Visit Provider Internal Medicine
DX: Z00.01 Encounter for general adult medical examination with abnormal findings (principal); E66.01 Morbid (severe) obesity due to excess calories; I83.11 Varicose veins of right lower extremity with inflammation; R73.9 Hyperglycemia, unspecified
CPT/HCPCS: 36415; 80061; 83036; 84443

== ENCOUNTER → 2022-07-09 14:09 | Outpatient (BNVA) | payer MEDICARE, SELFPAY | PROVIDERS: PCP Internal Medicine; Visit Provider Surgery Vascular Surgery | DX: I83.11 Varicose veins of right lower extremity with inflammation (principal) | CPT/HCPCS: 99212 ==

== ENCOUNTER 2022-09-01 08:05 | Outpatient (REF) | payer MEDICARE, SELFPAY ==
--- NOTE | ~2022-09-01 | US_ITS ---
EXAMINATION: US LOWER EXTREMITY VENOUS (REFLUX EXAM), BILATERAL CLINICAL INDICATION: Chronic venous insufficiency with lower extremity varicose veins COMPARISON: None. TECHNIQUE: Color flow triplex imaging and compression Doppler was performed to evaluate both the deep and the superficial systems bilaterally. To evaluate the superficial system, the examination was performed in the upright position. Color-flow Doppler ultrasound and compression ultrasound were utilized. In addition, maneuvers were utilized to demonstrate reflux. FINDINGS: 1. DEEP VENOUS ULTRASOUND OF THE RIGHT LOWER EXTREMITY: Common Femoral Vein: Compressible, normal respiratory variation and augmented flow. Femoral Vein: Compressible, normal color flow and augmentation. Popliteal Vein: Compressible, normal augmentation. Deep Reflux: There is no evidence of reflux in the deep system in either the common femoral vein or the popliteal vein. There is no evidence of a [place]'s cyst. 2. SUPERFICIAL ULTRASOUND WITH DOPPLER OF RIGHT LOWER EXTREMITY: GREAT SAPHENOUS VEIN: Saphenofemoral Junction: 1.0 cm; Reflux: 0 ms Proximal Thigh: 0.5 cm; Reflux: 0 ms Mid Thigh: 0.4 cm; Reflux: 0 ms Above Knee: 0.4 cm; Reflux: 0 ms At Knee: 0.4 cm; Reflux: 0 ms Below Knee: 0.2 cm; Reflux: 0 ms Mid Calf: 0.2 cm; Reflux: 0 ms Ankle: 0.2 cm; Reflux: 0 ms DUPLICATED MEDIAL GREAT SAPHENOUS VEIN: Diameter: None Imaged Reflux: NA DUPLICATED LATERAL GREAT SAPHENOUS VEIN: Diameter: 0.4 cm Reflux: None SMALL SAPHENOUS VEIN: Proximal: 0.2 cm; Reflux: 0 ms Distal: 0.2 cm; Reflux: 0 ms VEIN OF GIACOMINI: None Imaged. PERFORATORS: Location: None Imaged Size: NA Reflux: NA VARICOSITIES: Location: None Imaged Size: NA Reflux: NA 3. DEEP VENOUS ULTRASOUND OF THE LEFT LOWER EXTREMITY: Common Femoral Vein: Compressible, normal respiratory variation and augmented flow. Femoral Vein: Compressible, normal color flow and augmentation. Popliteal Vein: Compressible, normal augmentation. Deep Reflux: There is no evidence of reflux in the deep system in either the common femoral vein or the popliteal vein. There is no evidence of a [place]'s cyst. 4. SUPERFICIAL ULTRASOUND WITH DOPPLER OF LEFT LOWER EXTREMITY: GREAT SAPHENOUS VEIN: Saphenofemoral Junction: 1.0 cm; Reflux: 0 ms Proximal Thigh: 0.6 cm; Reflux: 0 ms Mid Thigh: 0.4 cm; Reflux: 0 ms Above Knee: 0.4 cm; Reflux: 0 ms At Knee: 0.4 cm; Reflux: 0 ms Below Knee: 0.3 cm; Reflux: 0 ms Mid Calf: 0.2 cm; Reflux: 0 ms Ankle: 0.1 cm; Reflux: 0 ms DUPLICATED MEDIAL GREAT SAPHENOUS VEIN: Diameter: None Imaged Reflux: NA DUPLICATED LATERAL GREAT SAPHENOUS VEIN: Diameter: None Imaged Reflux: NA SMALL SAPHENOUS VEIN: Proximal: 0.3 cm; Reflux: 0 ms Distal: 0.1 cm; Reflux: 0 ms VEIN OF GIACOMINI: None Imaged. PERFORATORS: Location: None Imaged Size: NA Reflux: NA VARICOSITIES: Location: None Imaged Size: NA Reflux: NA US/US venous duplex LE BI IMPRESSION: Right: No significant venous insufficiency or reflux Left: No significant venous insufficiency or reflux
== END 2022-09-01 08:06 | disposition home or self-care (01) ==
LOC: HO.US 08:05
PROVIDERS: Visit Provider Surgery Vascular Surgery
DX: I83.893 Varicose veins of bilateral lower extremities with other complications (principal)
CPT/HCPCS: 93970

== ENCOUNTER → 2022-09-03 08:57 | Outpatient (BNVA) | payer MEDICARE, SELFPAY | PROVIDERS: PCP Internal Medicine; Visit Provider Surgery Vascular Surgery | DX: I83.11 Varicose veins of right lower extremity with inflammation (principal) | CPT/HCPCS: 99212 ==

== ENCOUNTER 2023-06-16 11:15 | Outpatient (AMB) | payer MEDICARE, SELFPAY ==
[2023-06-16 11:17] VITALS: BP 146/76; PULSE 97; O2SAT 97; BMI 42.8
--- NOTE | 2023-06-16 11:17 | A.OFFPC_ITS ---
Vital Signs 3 06/16/23 11:17 Height 6 ft 2 in Weight 333 lb 2 oz BMI 42.8 BP 146/76 H Blood Pressure Location Rt brachial Position Sitting Pulse 97 Pulse Source Pulse Oximeter Pulse Oximetry (%) 97 Oxygen Delivery Method Room Air Intake Visit Reasons: phy rebooked per office 06/02 Allergies No Known Allergies Allergy (Verified 06/16/23 11:18) Medication List - Last Reconciled 06/16/23 by Isaak Beal MD No Known Home Meds Tobacco use date assessed: 06/16/23 Fall risk assessment: No Falls in past year Last assessed Fall Risk: 06/16/23 Dental Screening Dental Screen Date: 06/16/23 Did you have a dental visit in the last 12 months?: Yes Did you have a dental problem in the last 6 months where you did not have access to dental care?: No Was dental information given to patient?: Patient has dentist HPI phy rebooked per office 06/02 2 HPI0 Details Physical exam appointment Patient is 67-year-old gentlemen who has only been seen once last year he has had colonoscopy 3 years ago in [place] patient does not know the name but he says that they will get in touch with him when he is due for next colonoscopy. Morbid obesity with BMI of 41.8 patient says that he is aware that he needs to lose weight. History of recurrent lower extremity cellulitis with edema right lower extremity, patient has been evaluated by vascular specialist Blood pressure is 146/76 Tobacco abuse: Smoking 1/2 pack every day he is trying to wean himself off and has cut down since last year Labs done last year shows thrombocytopenia with platelets of 124 which has improved from before White count was 4.2 LFTs are elevated We need to repeat labs He has developed deformity of his right big toenail which has not been clipped in months, he needs to see a certified corporate travel executive, referral placed Patient is to return again in 4 weeks for blood pressure monitoring and to go over lab reports. [facility] Medical History No known health problems Social History Housing: House Patient Tobacco Use Status: Current everyday Tobacco user Cigarette Packs Per Day: 1 Years Smoked: 30 e-Cigarette/Vaping Use: Never Used service: No Current occupational status: retired Cognitive needs: No Hearing needs: No Vision needs: Yes Questionnaire PHQ-9 Over the last 2 weeks, how often have you been bothered by any of the following problems? 1. Little interest or pleasure in doing things: not at all 2. Feeling down, depressed, or hopeless: not at all 3. Trouble falling or staying asleep, or sleeping too much: not at all 4. Feeling tired or having little energy: not at all 5. Poor appetite or overeating: not at all 6. Feeling bad about yourself - or that you are a failure or have let yourself or your family down: not at all 7. Trouble concentrating on things, such as reading the newspaper or watching television: not at all 8. Moving or speaking so slowly that other people could have noticed. Or the opposite - being so fidgety or restless that you have been moving around a lot more than usual: not at all 9. Thoughts that you would be better off or of hurting yourself in some way: not at all Total score: 0 Depression Screening Interpretation: Negative 15765 - PHQ-9 Billing: Yes Source: Developed by Drs. Neftali Dale, Jessi Jones, Natanael Castro and colleagues, with an educational muna from [employer]. Thrive Questionnaire Date Thrive assessed: 06/16/23 I am a: Patient What is your living situation today?: I have a steady place to live Within the past 12 months, did the food you bought not last and you didn't have the money to get more?: Never true Within the past 12 months, did you worry whether your food would run out before you got money to buy more?: Never true Do you have trouble paying for medicines?: No Do you have trouble getting transportation to medical appointments?: No Do you have trouble paying your heating and electricity bill?: No Do you have trouble taking care of your child, family member or friend?: No Do you have trouble with day-to-day activities such as bathing, preparing meals, shopping, managing finances, etc.?: No Are you currently unemployed and looking for a job?: No Are you interested in more education?: No AUDIT C Alcohol Use Questionnaire (AUDIT-C) 1. How often do you have a drink containing alcohol?: Monthly or less 2. How many drinks containing alcohol do you have on a typical day when you are drinking?: 1 or 2 3. How often do you have six or more drinks on one occasion?: Never Total Score: 1 Score Reviewed/Action Taken: Yes SHANICE-7 AMB Questionnaire SHANICE-7 Date SHANICE - 7 assessed: 06/16/23 Feeling nervous, anxious, or on edge: 0 = Not at all Not being able to stop or control worryin = Not at all Worrying too much about different things: 0 = Not at all Trouble relaxin = Not at all Being so restless that it is hard to sit still: 0 = Not at all Becoming easily annoyed or irritable: 0 = Not at all Feeling afraid as if something awful might happen: 0 = Not at all Total SHANICE-7 score (0-4 normal; 5-9 mild; 10-14 moderate; 15-21 severe): 0 Source: Developed by Drs. Neftali Dale, Jessi Jones, Natanael Castro and colleagues, with an educational muna from [employer]. SHANICE-7 Assessment Billing SHANICE-7 Assessment Tool: SHANICE-7 Assessment 36236 Review of Systems Const Denies chills, Denies fever(s) and Denies headache(s) Eyes Denies blurry vision ENT Denies headache(s), Denies nasal discharge, Denies nasal obstruction, Denies odynophagia and Denies sinus pain Card Denies chest pain at rest and Denies chest pain with activity Resp Denies cough and Denies hemoptysis GI Denies diarrhea, Denies odynophagia, Denies vomiting and Denies hematemesis Reports as per HPI Musc Denies abnormal gait Skin/Breast Reports as per HPI Neuro Denies Neuro-related abnormal movements, Denies Abnormal speech present, Denies abnormal gait, Denies headache(s) and Denies Sensory deficit (Neuro) Psych Denies mood swings and Denies paranoia Endo Reports as per HPI Darnell/Lymph Reports as per HPI Aller/Immun Reports as per HPI Physical exam (Primary Care) Vital Signs: Last Vital Signs Pulse 97 06/16/23 11:17 BP 146/76 H 06/16/23 11:17 Pulse Ox 97 06/16/23 11:17 Oxygen Delivery Method Room Air 06/16/23 11:17 BMI result Body Mass Index 42.8 Tobacco/Smoking Status: Tobacco use Status Tobacco use date assessed 06/16/23 06/16/23 11:18 Patient Tobacco Use Status Current everyday Tobacco 06/16/23 11:18 e-Cigarette/Vaping Use Never Used 06/16/23 11:18 Depression Screening Interpretation: Negative Const General: cooperative, comfortable and no acute distress Orientation/consciousness: patient oriented x3 HENMT Head: Yes normocephalic and Yes atraumatic Eyes General: appearance normal, both eyes and all related structures Pupils: Equal, round and reactive pupils present EOM: EOMs intact bilaterally Neck Neck: Yes supple and No lymphadenopathy Thyroid: Thyroid normal Lymphatic: no lymphadenopathy noted Resp Effort & Inspection: normal respiratory effort and able to speak in complete sentences Auscultation: clear to auscultation bilaterally Cardio Heart sounds: S1 normal heart sound present and S2 normal heart sound present GI Palpation (GI): Soft to palpation and nontender Auscultation: normal bowel sounds General: Yes no CVA tenderness Back/Spine/Pelvis Back: no CVA tenderness Skin General skin exam: elasticity normal and turgor normal Neuro General: patient oriented x3 and gait normal Cranial nerves: Yes Equal, round and reactive pupils present Speech: No Abnormal speech present Sensory Exam: No Sensory deficit (Neuro) Coordination: Romberg test negative Extrem General: Yes normal exam except as noted and No edema Ankle/foot/toe images: 2 1. Because toenail, thick deformed and has turned laterally Assessment and Plan Assessment & Plan (1) Encounter for general adult medical examination with abnormal findings: Code(s): Z00.01 - Encounter for general adult medical examination with abnormal findings (2) Morbid obesity due to excess calories: Code(s): E66.01 - Morbid (severe) obesity due to excess calories (3) Thrombocytopenia: Code(s): D69.6 - Thrombocytopenia, unspecified (4) Varicose veins of right lower extremity: Code(s): I83.91 - Asymptomatic varicose veins of right lower extremity Qualifiers: Varicose vein complication: inflammation Qualified Code(s): I83.11 - Varicose veins of right lower extremity with inflammation (5) Neutropenia: Code(s): D70.9 - Neutropenia, unspecified Qualifiers: Neutropenia type: other Qualified Code(s): D70.8 - Other neutropenia (6) Toenail deformity: Code(s): L60.8 - Other nail disorders Plan Physical exam appointment Patient is 67-year-old gentlemen who has only been seen once last year he has had colonoscopy 3 years ago in [place] patient does not know the name but he says that they will get in touch with him when he is due for next colonoscopy. Morbid obesity with BMI of 41.8 patient says that he is aware that he needs to lose weight. History of recurrent lower extremity cellulitis with edema right lower extremity, patient has been evaluated by vascular specialist Patient was recommended to wear compression stocking which he has been hand has not developed any more cellulitis since Blood pressure is 146/76 Tobacco abuse: Smoking 1/2 every day patient , he is trying to cut down Labs done last year shows thrombocytopenia with platelets of 124 which has improved from before White count was 4.2 LFTs are elevated We need to repeat labs He has developed deformity of his right big toenail which has not been clipped in months, he needs to see a certified corporate travel executive, referral placed Patient is to return again in 4 weeks for blood pressure monitoring and to go over lab reports. Orders: Orders 2 Complete Blood Count Auto Diff Today D69.6 - Thrombocytopenia, unspecified, D70.9 - Neutropenia, unspecified, E66.01 - Morbid (severe) obesity due to excess calories, I83.91 - Asymptomatic varicose veins of right lower extremity, Z00.01 - Encounter for general adult medical examination with abnormal findings Comprehensive Met. Panel Today D69.6 - Thrombocytopenia, unspecified, D70.9 - Neutropenia, unspecified, E66.01 - Morbid (severe) obesity due to excess calories, I83.91 - Asymptomatic varicose veins of right lower extremity, Z00.01 - Encounter for general adult medical examination with abnormal findings Referrals 2 Podiatry Referral L60.8 - Other nail disorders Coding Level of Care Code Est Pt Prev Care >65y(82507) Diagnoses Encounter for general adult medical examination with abnormal findings Z00.01 Morbid obesity due to excess calories E66.01 Thrombocytopenia D69.6 Varicose veins of right lower extremity with inflammation I83.11 Varicose vein complication: inflammation Other neutropenia D70.8 Neutropenia type: other Toenail deformity L60.8 Additional Codes SHANICE-7 Assessment Billing - SHANICE-7 Assessment Tool: SHANICE-7 Assessment [id number] ([id number])
== END 2023-06-16 12:10 | disposition home or self-care (01) ==
LOC: HO.HMGC 11:15
PROVIDERS: PCP Internal Medicine; Visit Provider Internal Medicine
DX: Z00.00 Encounter for general adult medical examination without abnormal findings (principal); E66.01 Morbid (severe) obesity due to excess calories; D69.6 Thrombocytopenia, unspecified; Z68.41 Body mass index [BMI] 40.0-44.9, adult; D70.8 Other neutropenia; I83.11 Varicose veins of right lower extremity with inflammation; L60.8 Other nail disorders
CPT/HCPCS: 99397

== ENCOUNTER 2023-06-16 11:40 | Outpatient (REF) | payer MEDICARE, SELFPAY ==
[2023-06-16 13:08] LABS: MANUAL DIFF FLAG NO
[2023-06-16 13:16] LABS: Basophils Percent Auto 0.7 % (0-2); Hematocrit 45.2 % (42.0-52.0); Hemoglobin 15.4 g/dl (14.0-18.0); Imm Gran Abs Auto 0.01 X10*3/uL (0.00-0.03); Imm Gran Pct Auto 0.2 % (0.0-0.4); Lymphocytes Absolute Auto 1.1 X10*3/uL (1.2-4.9); Lymphocytes Percent Auto 26.8 % (20-40); Mean Corpuscular HGB Conc 34.1 g/dl (31.0-36.0); Mean Corpuscular Hemoglobin 30.2 pg (27.0-33.0); Mean Corpuscular Volume 88.6 fL (80.0-98.0); Mean Platelet Volume 11.4 fL (9.4-12.4); Monocytes Absolute Auto 0.2 X10*3/uL (0.1-1.2); Monocytes Percent Auto 5.7 % (2-11); Neutrophils Absolute Auto 2.7 x10*3/uL (2.0-8.3); Neutrophils Percent Auto 65.6 % (45-73); Platelet Count 83 X10*3/uL (160-400); Red Cell Distribution Width 13.1 % (11.0-16.0); White Blood Count 4.2 X10*3/uL (4.8-10.8)
[2023-06-16 13:52] LABS: Alanine Aminotransferase 39 U/L (0-40); Albumin Level 3.9 g/dL (3.5-5.0); Alkaline Phosphatase 62 U/L (39-117); Anion Gap 14 (12-20); Aspartate Amino Transferase 43 U/L (5-37); Blood Urea Nitrogen 9 mg/dL (9-16); Calcium 9.5 mg/dL (8.4-10.2); Carbon Dioxide 25 mmol/L (22-29); Chloride 105 mmol/L (96-108); Estimated Glomerular Filt Rate > 60; Glucose Random 105 mg/dL (60-115); Sodium 140 mmol/L (135-145); Total Protein 7.7 g/dL (6.5-8.0)
== END 2023-06-16 11:41 | disposition home or self-care (01) ==
LOC: HO.HMGCLDS 11:40
PROVIDERS: PCP Internal Medicine; Visit Provider Internal Medicine
DX: Z00.01 Encounter for general adult medical examination with abnormal findings (principal); E66.01 Morbid (severe) obesity due to excess calories; I83.91 Asymptomatic varicose veins of right lower extremity; D69.6 Thrombocytopenia, unspecified; D70.9 Neutropenia, unspecified
CPT/HCPCS: 36415; 80053; 85025

== ENCOUNTER 2023-07-20 08:40 | Outpatient (AMB) | payer MEDICARE, SELFPAY ==
[2023-07-20 08:38] VITALS: BP 136/72; PULSE 84; O2SAT 98; BMI 44.7
--- NOTE | 2023-07-20 08:38 | MHC.PC.OV ---
Vital Signs 07/20/23 08:38 Height 6 ft 2 in Weight 348 lb 6 oz BMI 44.7 BP 136/72 Blood Pressure Location Lt brachial Position Sitting Pulse 84 Pulse Source Pulse Oximeter Pulse Oximetry (%) 98 Oxygen Delivery Method Room Air Intake Visit Reasons: 1 Month follow up Pt needs early mornings Allergies No Known Allergies Allergy (Verified 07/20/23 08:38) Medication List - Last Reconciled 07/20/23 by Isaak Beal MD No Known Home Meds Tobacco use date assessed: 07/20/23 Fall risk assessment: No Falls in past year Last assessed Fall Risk: 07/20/23 Dental Screening Dental Screen Date: 07/20/23 Did you have a dental visit in the last 12 months?: No Did you have a dental problem in the last 6 months where you did not have access to dental care?: No Was dental information given to patient?: Patient has dentist HPI 1 Month follow up Pt needs early mornings HPI Details Patient is 67-year-old gentleman came in today for his follow-up appointment on blood pressure His blood pressure is slightly better today at 136/72 He has started monitoring his blood pressure at home which is running anywhere from 120s systolic to 150s systolic Patient says that usually after he has had his coffee blood pressure is little bit high He will continue to monitor blood pressure if his readings start staying above 140 most of the time patient is to give me a call He does not take extra salt in his diet Patient is morbidly obese he is trying to lose weight Tobacco use: Patient has cut down on smoking as well to 4 cigarettes a day and he will continue to work on that. Labs reviewed with the patient his white count is slightly low at 4.2 we will continue to monitor that And 1 of his liver enzyme is also elevated at 43 AST He has appointment with the primary teaching assistant on August 26. [facility] Medical History No known health problems Social History Housing: House Patient Tobacco Use Status: Current everyday Tobacco user Cigarette Packs Per Day: 1 Years Smoked: 30 e-Cigarette/Vaping Use: Never Used service: No Current occupational status: retired Cognitive needs: No Hearing needs: No Vision needs: Yes Questionnaire PHQ-9 Over the last 2 weeks, how often have you been bothered by any of the following problems? 1. Little interest or pleasure in doing things: not at all 2. Feeling down, depressed, or hopeless: not at all 3. Trouble falling or staying asleep, or sleeping too much: not at all 4. Feeling tired or having little energy: not at all 5. Poor appetite or overeating: not at all 6. Feeling bad about yourself - or that you are a failure or have let yourself or your family down: not at all 7. Trouble concentrating on things, such as reading the newspaper or watching television: not at all 8. Moving or speaking so slowly that other people could have noticed. Or the opposite - being so fidgety or restless that you have been moving around a lot more than usual: not at all 9. Thoughts that you would be better off or of hurting yourself in some way: not at all Total score: 0 Depression Screening Interpretation: Negative Depression Screening Done: Yes 61746 - PHQ-9 Billing: Yes Source: Developed by Drs. Neftali Dale, Jessi Jones, Natanael Castro and colleagues, with an educational muna from [employer]. Thrive Questionnaire Date Thrive assessed: 06/16/23 AUDIT C Alcohol Use Questionnaire (AUDIT-C) 1. How often do you have a drink containing alcohol?: Monthly or less 2. How many drinks containing alcohol do you have on a typical day when you are drinking?: 1 or 2 3. How often do you have six or more drinks on one occasion?: Never Total Score: 1 Score Reviewed/Action Taken: Yes SHANICE-7 AMB Questionnaire SHANICE-7 Date SHANICE - 7 assessed: 06/16/23 Source: Developed by Drs. Neftali Dale, Natanael Peoples and colleagues, with an educational muna from [employer]. Review of Systems Const Denies chills and Denies fever(s) ENT Denies epistaxis and Denies nasal discharge Card Denies chest pain Resp Denies chest congestion, Denies cough and Denies hemoptysis GI Denies diarrhea and Denies nausea Skin/Breast Denies rash Neuro Reports no additional complaints Psych Reports no additional complaints Endo Reports no additional complaints Physical exam (Primary Care) Vital Signs: Last Vital Signs Pulse 84 07/20/23 08:38 BP 136/72 07/20/23 08:38 Pulse Ox 98 07/20/23 08:38 Oxygen Delivery Method Room Air 07/20/23 08:38 BMI result Body Mass Index 44.7 BMI Assessment/Plan discussion: High BMI High, discussed plan: lifestyle, weight reduction, dietary and physical activity Tobacco/Smoking Status: Tobacco use Status Tobacco use date assessed 07/20/23 07/20/23 08:39 Patient Tobacco Use Status Current everyday Tobacco 07/20/23 08:39 e-Cigarette/Vaping Use Never Used 07/20/23 08:39 Are you ready to quit: Yes Tobacco cessation counseling provided: Yes Relapse Prevention: discussed the importance of a supportive environment CPT code: 73848 - 4-10 Minutes PHQ-9: PHQ-9 Score PHQ-9: Total score 0 07/20/23 08:56 Depression Screening Interpretation: Negative Thrive Assessment: Date of Thrive Assessment Date Thrive assessed 06/16/23 07/20/23 08:39 Const General: cooperative, comfortable and no acute distress Orientation/consciousness: patient oriented x3 HENMT Head: Yes normocephalic Eyes General: appearance normal, both eyes and all related structures Neck Neck: Yes supple Resp Effort & Inspection: normal respiratory effort, no cough and no stridor Cardio Rhythm: regular rhythm Heart sounds: S1 normal heart sound present and S2 normal heart sound present Skin General skin exam: turgor normal Neuro General: patient oriented x3, tone normal and moves all extremities Extrem Right lower extremity: no edema Left lower extremity: no edema Assessment and Plan Assessment & Plan (1) Labile blood pressure: Code(s): R09.89 - Other specified symptoms and signs involving the circulatory and respiratory systems (2) LFT elevation: Code(s): R79.89 - Other specified abnormal findings of blood chemistry (3) Morbid obesity due to excess calories: Code(s): E66.01 - Morbid (severe) obesity due to excess calories (4) Neutropenia: Code(s): D70.9 - Neutropenia, unspecified Qualifiers: Neutropenia type: other Qualified Code(s): D70.8 - Other neutropenia (5) Tobacco use disorder: Code(s): F17.200 - Nicotine dependence, unspecified, uncomplicated Plan Patient is 67-year-old gentleman came in today for his follow-up appointment on blood pressure His blood pressure is slightly better today at 136/72 He has started monitoring his blood pressure at home which is running anywhere from 120s systolic to 150s systolic Patient says that usually after he has had his coffee blood pressure is little bit high He will continue to monitor blood pressure if his readings start staying above 140 most of the time patient is to give me a call He does not take extra salt in his diet Patient is morbidly obese he is trying to lose weight Tobacco use: Patient has cut down on smoking as well to 4 cigarettes a day and he will continue to work on that. Labs reviewed with the patient his white count is slightly low at 4.2 we will continue to monitor that And 1 of his liver enzyme is also elevated at 43 AST He has appointment with the primary teaching assistant on August 26. Coding Level of Care Code Est Pt Level 4 (15106) Diagnoses Labile blood pressure R09.89 LFT elevation R79.89 Morbid obesity due to excess calories E66.01 Other neutropenia D70.8 Neutropenia type: other Tobacco use disorder F17.200 Additional Codes Vital Signs *Quality* - CPT code: 75724 - 4-10 Minutes ([id number])
== END 2023-07-20 10:45 | disposition home or self-care (01) ==
PROVIDERS: PCP Internal Medicine; Visit Provider Internal Medicine
DX: R03.0 Elevated blood-pressure reading, without diagnosis of hypertension (principal); R74.01 Elevation of levels of liver transaminase levels; E66.01 Morbid (severe) obesity due to excess calories; Z68.41 Body mass index [BMI] 40.0-44.9, adult; F17.210 Nicotine dependence, cigarettes, uncomplicated
CPT/HCPCS: 99214; 99406

== ENCOUNTER 2024-06-27 11:22 | Outpatient (AMB) | payer MEDICARE, SELFPAY ==
[2024-06-27 11:24] VITALS: BP 132/78; PULSE 88; O2SAT 96; BMI 44.0
--- NOTE | 2024-06-27 11:24 | A.OFFPC_ITS ---
Vital Signs 06/27/24 11:24 Height 6 ft 2 in Weight 343 lb 2 oz BMI 44.0 BP 132/78 Blood Pressure Location Rt brachial Position Sitting Pulse 88 Pulse Source Pulse Oximeter Pulse Oximetry (%) 96 Oxygen Delivery Method Room Air Intake Visit Reasons: phy rebooked per office 06/02 Allergies No Known Allergies Allergy (Verified 06/27/24 11:24) Medication List - Last Reconciled 06/27/24 by Isaak Beal MD No Known Home Meds Tobacco use date assessed: 06/27/24 Fall risk assessment: No Falls in past year Last assessed Fall Risk: 06/27/24 Dental Screening Dental Screen Date: 06/27/24 Did you have a dental visit in the last 12 months?: Yes Did you have a dental problem in the last 6 months where you did not have access to dental care?: No Was dental information given to patient?: Patient has dentist HPI solomon rebooked per office 06/02 HPI Details Patient is 68-year-old gentleman came in today for physical exam He suffers from osteoarthritis in his knees I see that he is not very stable on his feet He failed tandem walk today However he does not want to see an orthopedic Tells me that colonoscopies due in 2025, he had 1 in [place] 1 noncancerous polyp was found And he was told to have it repeated in 5 years Patient have a chronic neutropenia and thrombocytopenia I discussed the findings with him in detail, I would like him to be evaluated by Hematology Labs done recently reviewed Mild liver enzyme elevation is there but stable Patient is morbidly obese and having difficulty losing weight He will return in 1 year for physical exam or earlier for acute problems. [facility] Medical History No known health problems Social History Housing: House Patient Tobacco Use Status: Current everyday Tobacco user Cigarette Packs Per Day: 1 Years Smoked: 30 e-Cigarette/Vaping Use: Never Used service: No Current occupational status: retired Cognitive needs: No Hearing needs: No Vision needs: Yes Questionnaire PHQ-9 Over the last 2 weeks, how often have you been bothered by any of the following problems? 1. Little interest or pleasure in doing things: not at all 2. Feeling down, depressed, or hopeless: not at all 3. Trouble falling or staying asleep, or sleeping too much: not at all 4. Feeling tired or having little energy: not at all 5. Poor appetite or overeating: not at all 6. Feeling bad about yourself - or that you are a failure or have let yourself or your family down: not at all 7. Trouble concentrating on things, such as reading the newspaper or watching television: not at all 8. Moving or speaking so slowly that other people could have noticed. Or the opposite - being so fidgety or restless that you have been moving around a lot more than usual: not at all 9. Thoughts that you would be better off or of hurting yourself in some way: not at all Total score: 0 Depression Screening Interpretation: Negative Depression Screening Done: Yes 96263 - PHQ-9 Billing: Yes Source: Developed by Drs. Neftali Dale, Jessi Jones, Natanael Castro and colleagues, with an educational muna from [employer]. Thrive Questionnaire Date Thrive assessed: 06/27/24 I am a: Patient What is your living situation today?: I have a steady place to live Within the past 12 months, did the food you bought not last and you didn't have the money to get more?: Never true Within the past 12 months, did you worry whether your food would run out before you got money to buy more?: Never true Do you have trouble paying for medicines?: No Do you have trouble getting transportation to medical appointments?: No Do you have trouble paying your heating and electricity bill?: No Do you have trouble taking care of your child, family member or friend?: No Do you have trouble with day-to-day activities such as bathing, preparing meals, shopping, managing finances, etc.?: No Are you currently unemployed and looking for a job?: No Are you interested in more education?: No Please select the resources that you would like help with: None Currently or been in a relationship where the following occur: No concerns reported THRIVE Score: 0 AUDIT C Alcohol Use Questionnaire (AUDIT-C) 1. How often do you have a drink containing alcohol?: Monthly or less 2. How many drinks containing alcohol do you have on a typical day when you are drinking?: 3 or 4 3. How often do you have six or more drinks on one occasion?: Never Total Score: 2 SHANICE-7 AMB Questionnaire SHANICE-7 Date SHANICE - 7 assessed: 06/27/24 Feeling nervous, anxious, or on edge: 0 = Not at all Not being able to stop or control worryin = Not at all Worrying too much about different things: 0 = Not at all Trouble relaxin = Not at all Being so restless that it is hard to sit still: 0 = Not at all Becoming easily annoyed or irritable: 0 = Not at all Feeling afraid as if something awful might happen: 0 = Not at all Total SHANICE-7 score (0-4 normal; 5-9 mild; 10-14 moderate; 15-21 severe): 0 Source: Developed by Drs. Neftali Dale, Jessi Jonse, Natanael Castro and colleagues, with an educational muna from [employer]. SHANICE-7 Assessment Billing SHANICE-7 Assessment Tool: SHANICE-7 Assessment 12649 Review of Systems Const Denies chills, Denies fever(s) and Denies headache(s) Eyes Denies blurry vision ENT Denies headache(s), Denies nasal discharge, Denies nasal obstruction, Denies odynophagia and Denies sinus pain Card Denies chest pain at rest and Denies chest pain with activity Resp Denies cough and Denies hemoptysis GI Denies diarrhea, Denies odynophagia, Denies vomiting and Denies hematemesis Reports as per HPI Musc Denies abnormal gait Skin/Breast Reports as per HPI Neuro Denies Neuro-related abnormal movements, Denies Abnormal speech present, Denies abnormal gait, Denies headache(s) and Denies Sensory deficit (Neuro) Psych Denies mood swings and Denies paranoia Endo Reports as per HPI Darnell/Lymph Reports as per HPI Aller/Immun Reports as per HPI Physical exam (Primary Care) Vital Signs: Last Vital Signs Pulse 88 06/27/24 11:24 BP 132/78 06/27/24 11:24 Pulse Ox 96 06/27/24 11:24 Oxygen Delivery Method Room Air 06/27/24 11:24 BMI result Body Mass Index 44.0 Tobacco/Smoking Status: Tobacco use Status Tobacco use date assessed 06/27/24 06/27/24 11:25 Patient Tobacco Use Status Current everyday Tobacco 06/27/24 11:25 e-Cigarette/Vaping Use Never Used 06/27/24 11:25 PHQ-9: PHQ-9 Score PHQ-9: Total score 0 06/27/24 11:34 Depression Screening Interpretation: Negative Thrive Assessment: Date of Thrive Assessment Date Thrive assessed 06/27/24 06/27/24 11:25 Currently or been in a relationship where the following occur: No concerns reported Const General: cooperative, comfortable and no acute distress Orientation/consciousness: patient oriented x3 HENMT Head: Yes normocephalic and Yes atraumatic Eyes General: appearance normal, both eyes and all related structures Pupils: Equal, round and reactive pupils present EOM: EOMs intact bilaterally Neck Neck: Yes supple and No lymphadenopathy Thyroid: Thyroid normal Lymphatic: no lymphadenopathy noted Resp Effort & Inspection: normal respiratory effort and able to speak in complete sentences Auscultation: clear to auscultation bilaterally Cardio Heart sounds: S1 normal heart sound present and S2 normal heart sound present GI Palpation (GI): Soft to palpation and nontender Auscultation: normal bowel sounds General: Yes no CVA tenderness Back/Spine/Pelvis Back: no CVA tenderness Skin General skin exam: elasticity normal and turgor normal Neuro General: patient oriented x3 Cranial nerves: Yes Equal, round and reactive pupils present Speech: No Abnormal speech present Sensory Exam: No Sensory deficit (Neuro) Coordination: Romberg test negative Extrem General: Yes normal exam except as noted Coding Level of Care Code Est Pt Level 3 (86611) Est Pt Prev Care >65y(80415) Diagnoses Encounter for general adult medical examination with abnormal findings Z00. 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 Varicose vein complication: inflammation Morbid obesity due to excess calories E66.01 Abnormal tandem walk R26.9 Additional Codes SHANICE-7 Assessment Billing - SHANICE-7 Assessment Tool: SHANICE-7 Assessment 08874 ([id number]) Assessment & Plan Assessment & Plan (1) Encounter for general adult medical examination with abnormal findings: Code(s): Z00.01 - Encounter for general adult medical examination with abnormal findings Category: Medical (2) Neutropenia: Code(s): D70.9 - Neutropenia, unspecified Category: Medical Qualifiers: Neutropenia type: other Qualified Code(s): D70.8 - Other neutropenia (3) Thrombocytopenia: Code(s): D69.6 - Thrombocytopenia, unspecified Category: Medical (4) LFT elevation: Code(s): R79.89 - Other specified abnormal findings of blood chemistry Category: Medical (5) Elevated blood sugar: Code(s): R73.9 - Hyperglycemia, unspecified Category: Medical (6) Varicose veins of right lower extremity: Code(s): I83.91 - Asymptomatic varicose veins of right lower extremity Category: Medical Qualifiers: Varicose vein complication: inflammation Qualified Code(s): I83.11 - Varicose veins of right lower extremity with inflammation (7) Morbid obesity due to excess calories: Code(s): E66.01 - Morbid (severe) obesity due to excess calories Category: Medical (8) Abnormal tandem walk: Code(s): R26.9 - Unspecified abnormalities of gait and mobility Category: Medical Plan Patient is 68-year-old gentleman came in today for physical exam He suffers from osteoarthritis in his knees I see that he is not very stable on his feet He failed tandem walk today However he does not want to see an orthopedic Tells me that colonoscopies due in 2025, he had 1 in [place] 1 noncancerous polyp was found And he was told to have it repeated in 5 years Patient have a chronic neutropenia and thrombocytopenia I discussed the findings with him in detail, I would like him to be evaluated by Hematology Labs done recently reviewed Mild liver enzyme elevation is there but stable Patient is morbidly obese and having difficulty losing weight He will return in 1 year for physical exam or earlier for acute problems. Orders: Orders Hemoglobin A1c Today R73.9 - Hyperglycemia, unspecified Complete Blood Count Auto Diff Today I83.11 - Varicose veins of right lower extremity with inflammation, R73.9 - Hyperglycemia, unspecified, R79.89 - Other specified abnormal findings of blood chemistry, Z00.01 - Encounter for general adult medical examination with abnormal findings Comprehensive [place]. Panel Fast Today I83.11 - Varicose veins of right lower extremity with inflammation, R73.9 - Hyperglycemia, unspecified, R79.89 - Other specified abnormal findings of blood chemistry, Z00.01 - Encounter for general adult medical examination with abnormal findings Lipid Panel Today I83.11 - Varicose veins of right lower extremity with inflammation, R73.9 - Hyperglycemia, unspecified, R79.89 - Other specified abnormal findings of blood chemistry, Z00.01 - Encounter for general adult me dical examination with abnormal findings Referrals Hematology & Oncology Referral D69.6 - Thrombocytopenia, unspecified, D70.8 - Other neutropenia
== END 2024-06-27 12:20 | disposition home or self-care (01) ==
PROVIDERS: PCP Internal Medicine; Visit Provider Internal Medicine
DX: Z00.00 Encounter for general adult medical examination without abnormal findings (principal); D70.8 Other neutropenia; E66.813 Obesity, class 3; Z68.41 Body mass index [BMI] 40.0-44.9, adult; D69.6 Thrombocytopenia, unspecified; R79.89 Other specified abnormal findings of blood chemistry; R73.9 Hyperglycemia, unspecified; I83.11 Varicose veins of right lower extremity with inflammation; R26.9 Unspecified abnormalities of gait and mobility

== ENCOUNTER → 2024-06-27 11:22 | Outpatient (BNVA) | payer MEDICARE, SELFPAY | PROVIDERS: PCP Internal Medicine; Visit Provider Internal Medicine | DX: Z00.01 Encounter for general adult medical examination with abnormal findings (principal); D70.8 Other neutropenia; D69.6 Thrombocytopenia, unspecified; R73.9 Hyperglycemia, unspecified; I83.11 Varicose veins of right lower extremity with inflammation; E66.01 Morbid (severe) obesity due to excess calories; R26.9 Unspecified abnormalities of gait and mobility | CPT/HCPCS: 96127; 99397 ==

== ENCOUNTER 2024-06-29 07:43 | Outpatient (REF) | payer MEDICARE, SELFPAY ==
[2024-06-29 10:06] LABS: MANUAL DIFF FLAG NO
[2024-06-29 10:13] LABS: Basophils Percent Auto 0.6 % (0-2); Eosinophils Absolute Auto 0.1 X10*3/uL (0.0-0.4); Eosinophils Percent Auto 2.8 % (0-4); Hematocrit 43.1 % (42.0-52.0); Hemoglobin 14.7 g/dl (14.0-18.0); Lymphocytes Absolute Auto 1.2 X10*3/uL (1.2-4.9); Lymphocytes Percent Auto 37.7 % (20-40); Mean Corpuscular HGB Conc 34.1 g/dl (31.0-36.0); Mean Corpuscular Hemoglobin 31.6 pg (27.0-33.0); Mean Corpuscular Volume 92.7 fL (80.0-98.0); Mean Platelet Volume 11.5 fL (9.4-12.4); Monocytes Absolute Auto 0.3 X10*3/uL (0.1-1.2); Monocytes Percent Auto 8.4 % (2-11); Neutrophils Absolute Auto 1.6 x10*3/uL (2.0-8.3); Neutrophils Percent Auto 50.5 % (45-73); Platelet Count 61 X10*3/uL (160-400); Red Blood Count 4.65 X10*6/uL (4.60-5.80); Red Cell Distribution Width 13.9 % (11.0-16.0); White Blood Count 3.2 X10*3/uL (4.8-10.8)
[2024-06-29 10:18] LABS: Estimated Average Glucose 100 mg/dL; Hemoglobin A1C 122.0963 umol/L; Hemoglobin A1c % 5.1 % (<6.0); Total Hemoglobin (HGBA1C) 3798.9919 umol/L
[2024-06-29 10:53] LABS: Alanine Aminotransferase 53 U/L (0-40); Albumin Level 3.6 g/dL (3.5-5.0); Alkaline Phosphatase 72 U/L (39-117); Anion Gap 10 (12-20); Aspartate Amino Transferase 54 U/L (5-37); Bilirubin Total 1.1 mg/dL (0.0-1.0); Blood Urea Nitrogen 9 mg/dL (9-16); Calcium 9.2 mg/dL (8.4-10.2); Carbon Dioxide 28 mmol/L (22-29); Chloride 108 mmol/L (96-108); Cholesterol 112 mg/dL (<200); Estimated Glomerular Filt Rate > 60; Glucose Fasting 101 mg/dL (60-99); HDL Cholesterol 53 mg/dL (>40); LDL Cholesterol Calculated 51 mg/dL (<100); Potassium 4.3 mmol/L (3.3-5.1); Sodium 142 mmol/L (135-145); Triglycerides 40 mg/dL (<150)
== END 2024-06-29 07:44 | disposition home or self-care (01) ==
LOC: HO.HMGCLDS 07:43
PROVIDERS: PCP Internal Medicine; Visit Provider Internal Medicine
DX: Z00.01 Encounter for general adult medical examination with abnormal findings (principal); R73.9 Hyperglycemia, unspecified; R79.89 Other specified abnormal findings of blood chemistry; I83.11 Varicose veins of right lower extremity with inflammation
CPT/HCPCS: 36415; 80053; 80061; 83036; 85025

== ENCOUNTER → 2024-08-09 08:53 | Outpatient (BNV) | payer MEDICARE, SELFPAY | PROVIDERS: PCP Internal Medicine; Referring Provider Internal Medicine; Visit Provider Internal Medicine | DX: D69.6 Thrombocytopenia, unspecified (principal); D72.819 Decreased white blood cell count, unspecified | CPT/HCPCS: 99204 ==

== ENCOUNTER 2024-08-23 09:35 | Outpatient (REF) | payer MEDICARE, SELFPAY ==
--- NOTE | ~2024-08-23 | US_ITS ---
EXAMINATION: US ABDOMEN COMPLETE CLINICAL INFORMATION: Immediate liver enzymes. Question liver disease. COMPARISON: None available. TECHNIQUE: Real-time imaging of the abdominal viscera. FINDINGS: PANCREAS: Not well seen due to overlying bowel gas. ABDOMINAL AORTA: The proximal and middle segments are normal in caliber. The distal aorta is not well seen. INFERIOR VENA CAVA: Visualized portions are normal. LIVER: Mildly enlarged measuring up to 19.8 cm. The liver contour is normal. Increased hepatic parenchymal echogenicity. No focal hepatic lesion. There is no intrahepatic biliary duct dilatation seen. GALLBLADDER: The gallbladder is physiologically distended without evidence of stones, sludge, polyps, wall thickening or pericholecystic fluid. COMMON BILE DUCT: Partially visualized measuring 0.5 cm in diameter. RIGHT KIDNEY: No hydronephrosis. No renal calculi or focal parenchymal lesions. The kidney measures 10.5 cm in maximum dimension. LEFT KIDNEY: No hydronephrosis. No renal calculi or focal parenchymal lesions. The kidney measures 11.8 cm in maximum dimension. SPLEEN: The spleen is enlarged measuring 14.9 cm in maximum dimension. FREE FLUID: None. US/US abdomen complete IMPRESSION: 1. Mild hepatosplenomegaly. 2. Increased hepatic parenchymal echogenicity, which can be seen in the setting of steatosis. Underlying hepatocellular disease cannot be excluded. No hepatic parenchymal lesion or biliary ductal dilatation. Electronically signed by: Joe Lake MD 08/24/2024 11:03 AM TAMANNA LOZANO
== END 2024-08-23 09:36 | disposition home or self-care (01) ==
LOC: HO.US 09:35
PROVIDERS: PCP Internal Medicine; Visit Provider Internal Medicine
DX: R74.8 Abnormal levels of other serum enzymes (principal)
CPT/HCPCS: 76700

== ENCOUNTER 2024-12-20 13:27 | Outpatient (AMB) | payer MEDICARE, SELFPAY ==
--- NOTE | 2024-12-20 13:47 | MHC.OFFVIS ---
Vital Signs 12/20/24 13:49 Height 6 ft 2 in Weight 330 lb 11.094 oz BMI 42.5 BP 141/69 H Blood Pressure Location Lt brachial Position Sitting Pulse 85 Intake Visit Reasons: HEP C , Cirrhosis Intake Note: Gomez presents in the office as a new patient for Hep C and Cirrhosis. CC: He states his Dr told hi his liver was enlarged. He states he gets gurgles every now and then but no concerns. 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 Pt reports no GI issues to include abd pain, N,V,D. No pruritus, increase in abd girth, rash. Was referred to us from Heme office which in turn he was referred for bicytopenia. US Abd reviewed with hepatosplenomegaly. Laboratory Tests 12/04/20 12/04/20 04/22/22 19:13 21:54 07:34 WBC 4.2 L Hgb Plt Count 87 L INR 1.2 H AST 43 H ALT 55 H Albumin IgG Total KEREN Titer Hep Bs Antigen Hep B Core Total Ab Hepatitis C Ab (EIA) 06/29/24 08/09/24 10/20/24 07:46 09:41 10:08 WBC 3.2 L 3.1 L 3.4 L Hgb 14.7 14.0 Plt Count 55 L 59 L INR AST 49 H ALT 46 H Albumin 3.4 L IgG Total 1814 H KEREN Titer 1:80 H Hep Bs Antigen Negative Hep B Core Total Ab Nonreactive Hepatitis C Ab (EIA) Reactive H PFSH Medical History No known health problems Surgical History Hx of colonoscopy Social History Household Members: Family Housing: House Patient Tobacco Use Status: Current everyday Tobacco user Tobacco use type: Cigarette Cigarette Packs Per Day: 1 Years Smoked: 30 e-Cigarette/Vaping Use: Never Used service: No Current occupational status: retired Gender identity: Male Cognitive needs: No Hearing needs: No Vision needs: Yes Physical Exam Vital Signs: Last Vital Signs Pulse 85 12/20/24 13:49 BP 141/69 H 12/20/24 13:49 BMI result Body Mass Index 42.5 Gen Appear: NAD, well nourished HEENT: No scleral icterus, no bitemporal wasting noted Abd: soft, nontender, nondistended, no shifting dullness to percussion, bowel sounds active Ext: ++ peripheral edema bilaterally Neuro: A/Ox3, no asterixis Derm: Spider angioma and palmar erythema noted Results Reviewed Results Reviewed: US Abd 08/2024: 1. Mild hepatosplenomegaly. 2. Increased hepatic parenchymal echogenicity, which can be seen in the setting of steatosis. Underlying hepatocellular disease cannot be excluded. No hepatic parenchymal lesion or biliary ductal dilatation. Assessment & Plan Assessment & Plan (1) LFT elevation: Code(s): R79.89 - Other specified abnormal findings of blood chemistry Category: Medical (2) Bicytopenia: Code(s): D75.89 - Other specified diseases of blood and blood-forming organs Category: Medical (3) Hepatosplenomegaly: Code(s): R16.2 - Hepatomegaly with splenomegaly, not elsewhere classified Category: Medical (4) Personal history of colonic polyps: Code(s): Z86.0100 - Personal history of colon polyps, unspecified Category: Medical Plan Based on clinical exam and data available so far, suspicious for underlying advanced fibrosis versus early cirrhosis. Typically would not see enlarged liver with cirrhosis however. At the same time, patient also with a large be than low platelet count suspicious for portal hypertension, which would only be present with cirrhosis. Ddx includes chronic HCV vs metALD vs MAFLD/TRINH. Plan: -workup ordered for exclusion of other causes of chronic liver disease. -hep C RNA check -AIH w.up also ordered given elevated IgG and + KEREN in past -Will likely need EGD to r/o varices based on work up -Hx of polyps in 2020 (Dr Alis Short) repeat recommended in 3 years. If due for colo, can be done alongside EGD. This is to be reviewed at next visit. Close follow up in 4-6 weeks Orders: Orders Complete Blood Count no Diff Today D75.89 - Other specified diseases of blood and blood-forming organs Prothrombin Time INR Today D75.89 - Other specified diseases of blood and blood-forming organs Alpha 1 Anti-trypsin Today D75.89 - Other specified diseases of blood and blood-forming organs Alpha Fetoprotein Today D75.89 - Other specified diseases of blood and blood-forming organs KEREN Reflex Titer and Pattern Today D75.89 - Other specified diseases of blood and blood-forming organs HCV RNA QN PROG TO GENOTYPE Today D75.89 - Other specified diseases of blood and blood-forming organs Alkaline Phosphatase Isoenzyme Today D75.89 - Other specified diseases of blood and blood-forming organs Ceruloplasmin Today D75.89 - Other specified diseases of blood and blood-forming organs IRON PROFILE Today D75.89 - Other specified diseases of blood and blood-forming organs Immunoglobulin A Today D75.89 - Other specified diseases of blood and blood-forming organs HIV Ab/Ag Today D75.89 - Other specified diseases of blood and blood-forming organs Hepatitis A IgG Today D75.89 - Other specified diseases of blood and blood-forming organs Lipid Panel Today D75.89 - Other specified diseases of blood and blood-forming organs Smooth Muscle Antibody Today D75.89 - Other specified diseases of blood and blood-forming organs Transglutaminase IgA Today D75.89 - Other specified diseases of blood and blood-forming organs Comprehensive Met. Panel Today D75.89 - Other specified diseases of blood and blood-forming organs C Reactive Protein Today D75.89 - Other specified diseases of blood and blood-forming organs Immunoglobulin G Today D75.89 - Other specified diseases of blood and blood-forming organs Liver Kidney Microsomal Ab Today D75.89 - Other specified diseases of blood and blood-forming organs Mitochondrial Antibody Today D75.89 - Other specified diseases of blood and blood-forming organs Phosphatidylethanol, Blood Today D75.89 - Other specified diseases of blood and blood-forming organs TSH reflex Free T4 Today D75.89 - Other specified diseases of blood and blood-forming organs Hemoglobin A1c Today D75.89 - Other specified diseases of blood and blood-forming organs Liver Fibrosis Pnl Today R79.89 - Other specified abnormal findings of blood chemistry Coding Level of Care Code New Pt Level 5 (49184) Complex EM visit Add On G2211 Diagnoses LFT elevation R79.89 Bicytopenia D75.89 Hepatosplenomegaly R16.2 Personal history of colonic polyps Z86.0100
[2024-12-20 13:49] VITALS: BP 141/69; PULSE 85; BMI 42.5
--- OUTSIDE RECORDS SUMMARY | 2024-12-20 16:06 | XMS_ITS ---
Author Organization [facility] Address [address] [facility] [place] [address] Care Team Providers Care Assistant Manager Airside Operations Name Role Phone Emigdio TUCKER, [facility] Primary Care Provider Garcia Villareal Unavailable [phone] Allergies No Known Allergies REASON FOR VISIT At Risk Footcare, Painful Nail(s) aggrevated by shoes and causing difficulty standing/walking., Painful Toe(s) Social History Tobacco Use: Social History Observation Description Date Details (start date - stop date) Current Smoker NA - NA Tobacco Use/Smoking Question Answer Notes Are you a: current smoker Alcohol Screen Question Answer Notes Did you have a drink contain ing alcohol in the past year? Yes How often did you have a dri nk containing alcohol in the past year? Monthly or less (1 point) Points 1 Interpretation Negative Tobacco use other than smoking: Question Answer Notes Are you an other tobacco user? No Problems Problem Type SNOMED Code ICD Code Onset Dates Problem Status W/U Status Risk Notes Problem Atherosclerosis of big sandy artery of both lower extremities, with unspecified presence of clinical manifestation (I70.203) Active confirmed Vital Signs Height 6ft 2in in 08/26/2023 Weight 330 lbs 08/26/2023 BMI 42.36 kg/m2 08/26/2023 Procedures Procedure Date Ordered Date Performed Result Body Sit e 01445-TLYOBZB NAIL, 6 OR MORE 08/26/2023 N/A 14513-DDGK SKIN LESIONS, 2 TO 4 08/26/2023 N/A Encounters Encounter Location Date [facility] [address] [address] 08/26/2023 Garcia Hassan Atherosclerosis of big sandy artery of both lower extremities, with unspecified presence of clinical manifestation I70.203 ; Tinea unguium B35.1 ; Pain in right toe(s) M79.674 ; Pain in left toe(s) M79.675 ; Other hammer toe(s) (acquired), right foot M20.41 ; Arthritis of joint of lesser toe, right M19.071 ; Other hammer toe(s) (acquired), left foot M20.42 and Arthritis of joint of lesser toe, left M19.072 Assessments Encounter Date Diagnosis (ICD Code) Assessment Notes Treatment Notes Treatment Clinical Notes Section Notes 08/26/2023 Atherosclerosis of big sandy artery of both lower extremities, with unspecified presence of clinical manifestation (ICD-10 - I70.203) 08/26/2023 Tinea unguium (ICD-10 - B35.1) 08/26/2023 Pain in right toe(s) (ICD-10 - M79.674) 08/26/2023 Pain in left toe(s) (ICD-10 - M79.675) 08/26/2023 Other hammer toe(s) (acquired), right foot (ICD-10 - M20.41) 08/26/2023 Arthritis of joint of lesser toe, right (ICD-10 - M19.071) 08/26/2023 Other hammer toe(s) (acquired), left foot (ICD-10 - M20.42) 08/26/2023 Arthritis of joint of lesser toe, left (ICD-10 - M19.072) Plan Of Treatment Pending Test Test Name Order Date [id number] NAIL, 6 OR MORE 08/26/2023 06114-LHPY SKIN LESIONS, 2 TO 4 08/26/20 23 Next Appt Details Follow Up: prn, Reason: Procedure Notes * Category Sub-Category Detail Notes Debride Nail 6-10 Nail debridement Nail debridem ent performed extensively to reduce/remove overall nail length, girth, thickness, subungual debris, and necrotic tissue, by manual and electrical means through the use of a nail nipper and/or dremel, to more viable healthy nail plate or bed tissue 1-5. Silver nitrate used for any petechial bleeding as necessary. Patient chooses, no pharmaceutical tx (08713) Keratoma Treatment Parring or Cutting o f Benign Hyperkeratotic Lesion(s) 26060 ( 2-4 Lesions ) - The Benign hyperkeratotic lesions, as described above were pared, and/or cut utilizing a sterile 15 blade, tissue nippers, and/or dremel , Q8 Progress Notes * Gomez MEYERDOB:1955 (67 yo M)Acc No.[id number]:08/26/2023 Progress Notes Patient:?Gomez Meyer Provider:?Garcia Hassan DPM :1955???Age:67 Y???Sex:Male Negro e:08/26/2023 Address:[address] [place] [id number] Pcp:Isaak Beal MD Subjective: * Chief Complaints: * ???At Risk FootcarePainful N ail(s) aggrevated by shoes and causing difficulty standing/walking.Painful Toe(s) * HPI: ???At Risk footcare:?Pt States Last PCP Visit:?Date?05/27/2023 ???Toe pain:?Nature:?tenderness.?Location:?B/L feet.?Duration:?several months.?Course:?worse.?Aggrevated by:?shoes, any pressure.?Treatments:?change in shoes , rest.? * ROS:?General/Constitutional:?Nausea?denies.?Vomiting?denies.?Hunger Thirst?denies.?Loss appetite?denies.?Chills?denies.?Fatigue?denies.?Fever?denies.?Night Sweats?denies.?Unexplained weight loss?denies.?Unexplained weight gain?denies.?HEENTM:?Dentures?denies.?Dizziness?denies.?Glasses/contacts?admits.?Retinopathy?de nies.?Blurred/double vision?denies.?TMJ?denies.?Discharge/drainage?denies.?Implants?denies.?Sore throat?denies.?Dental implants?denies.?Hard of hearing ?denies.?Difficulty chewing/swallowing/speaking?denies.?Nose bleeds?denies.?Sore mouth?denies.?Respiratory:?On Oxygen?denies.?Pneumonia/pleurisy?denies.?Bronchitis?denies.?Emphysema?denies.?C oughing?denies.?Cough blood?denies.?Shortness of breath?denies.?Wheezing?denies.?Cardiovascular:?Pacemaker?denies.?MVP?denies.?WPW?denies.?CHF?denies.?Heart attack?denies.?Septal defect?denies.?Rapid beat?denies.?Chest pain ?denies.?Atrial Fib.?denies.?Murmur/Palpitations?denies.?Gastrointestinal:?Hemorrhoids?admits.?Stomach/Abdominal pain?denies.?Dark blood stool?denies.?Irritable bowel ?denies.?Constipation?denies.?Diarrhea?denies.?Hematology:?Swelling?admits.?Clots?denies.?Varicose Veins?denies.?Bruising?denies.?Bleeding problem?denies.?Genitourinary:?Blood urine?denies.?Frequent/Painfu/urination/bladder control?denies.?Kidney stones?denies.?Infection (UTI)?denies.?Nephropathy?denies.?sex trans dis (STD)?denies.?Prostate?denies.?Musculoskeletal:?Hammertoes?admits.?Bunions?denies.?Back Pain?denies.?Muscle Cramps/ Resting?denies.?Muscle cramps / walking?denies.?Generalized aches and pains?denies.?Weakness?denies.?Integ.:?[place]?denies.?Scars?denies.?Corns/calluses?admits.?Ingrown nails?admits.?Painful nails?admits.?Open Sores?denies.?Rashes?denies.?Neurologic:?Difficulty sleeping?denies.?Brain disorder?denies.?Numbness?denies.?Balance trouble?denies.?Confusion?denies.?Fainting/blackouts?denies.?Tingling?denies.?Tr emors?denies.? * Medical History:? * Surgical History:?No Surgica l History documented. * Hospitalization/Major Diagno stic Procedure:?No Hospitalization History. * Family History:?Mother: dece ased.?Father: .? * Social History:?Tobacco Use:?Tobacco Use/Smoking?Are you a:?current smoker ?Tobacco use other than smoking?Are you an other tobacco user??No ???Drugs/Alcohol:?Drugs?Have you used drugs other than those for medical reasons in the past 12 months??Yes ?Marijuana??Yes ?Alcohol Screen?Did you have a drink containing alcohol in the past year??Yes ?How often did you have a drink containing alcohol in the past year??Monthly or less (1 point) ?Points?1 ?Interpretation?Negative ???Miscellaneous:?Caffeine: yes, 1-2 cups per day. ?Exercise: yes, fishing. ?Marital status: single. ?Occupation: Retired. * Medications:?None * Allergies:?N.K.D.A.yes[Aller gies Verified] Objective: * Vitals:?Ht:6ft 2in, Wt:330, BMI:42.36, Shoe size:12-13. * Examination: ???Vascular: ?DP PULSES:? 0/4, B/L.?PT PULSES:? 0/4, B/L.?CAPILLARY FILL TIME:? delayed, all digits, B/L.?SKIN TEMPERTURE GRADIENT OF THE LOWER EXTERMITIES:? decreased, cool to cool, proximal to distal, B/L.?HAIR GROWTH/TEXTURE/ELASTICITY/TURGOR:? decreased, B/L.?PIGMENTATION:?brawny, B/L.?EDEMA:?2/4 , pitting , without aching pain , Leg(s) , Ankle(s) , Foot , B/L.?CLAUDICATION:?denies, B/L.?REST PAIN:?denies, B/L.?Nails: ?NAILS are:? Elongated, overgrown, dystrophic, lytic, greater than 3mm thick, discolored and friable with crumbly malodorous subungual debris, with pain on palpation, TA, T1, T3, T4, T5, T6, T7, remaining nails are elongated, overgrown, dystrophic.?Dermatologic: ?SKIN FINDINGS:?Skin exam reveals Keratotic lesion(s) located at , SUB MTH (s) , 1 , B/L.?Orthopedic: ?MUSCLE STRENGTH:?5/5 all groups in a symmetrical fashion, B/L.?DIGITAL DEFORMITIES:?Digital contracture, PIPJ, 2-5 B/L, incompl-reducible with WB, or to push-up test, no over, nor underlapping.?FOOTWEAR:? shoe gear properties exacerbate patients foot/toe deformity.?Neurological: ?SENSORY:?Neurological exam reveals intact sensorium, pain sensation normal, vibration sensation intact, pinprick sensation is normal in the lower extremities, Pt denies, anesthesia, burning, paresthesia, tingling, B/L.?General Examination: ?GENERAL APPEARANCE:?Reveals a pleasant, alert, well nourished, well- developed, well hydrated individual, who demonstrates proper attention to hygiene/body habitus, and is in no acute distress, Pt serves as own historian for office visit today.?ORIENTED:?person, place, and time.? Assessment: * Assessment: 1.?Tinea unguium - B35.1?2.? Atherosclerosis of big sandy artery of both lower extremities, with unspecified presence of clinical manifestation - I70.203?3.?Pain in right toe(s) - M79.674?4.?Pain in left toe(s) - M79.675?5.?Other hammer toe(s) (acquired), right foot - M20.41, Acute problem, Uncomplicated (3)?6.?Arthritis of joint of lesser toe, right - M19.071?7.?Other hammer toe(s) (acquired), left foot - M20.42, Acute problem, Uncomplicated (3)?8.?Arthritis of joint of lesser toe, left - M19.072? Plan: * Treatment: 2.?Atherosclerosis of big sandy artery of both lower extremities, with unspecified presence of clinical manifestation?Procedure: 89983-ZZOR SKIN LESIONS, 2 TO 4 * Procedures:?Debride Nail 6-10:?Nail debridement?Nail debridement performed extensively to reduce/remove overall nail length, girth, thickness, subungual debris, and necrotic tissue, by manual and electrical means through the use of a nail nipper and/or dremel, to more viable healthy nail plate or bed tissue 1-5. Silver nitrate used for any petechial bleeding as necessary. Patient chooses, no pharmaceutical tx (96480).?Keratoma Treatment:?Parring or Cutting of Benign Hyperkeratotic Lesion(s)?65900 ( 2-4 Lesions ) - The Benign hyperkeratotic lesions, as described above were pared, and/or cut utilizing a sterile 15 blade, tissue nippers, and/or dremel , Q8.? * Procedure Codes:?38246 DEBRI DE NAIL, 6 OR MORE, Modifiers: XS 69807 TRIM SKIN LESIONS, 2 TO 4, Modifiers: XS , Q8 * Preventive Medicine:? ??Counseling:?Discussion:?-03: Office or other outpatient visit for the evaluation and management of a new patient, which required a medically appropriate history and/or examination and LOW level of DECISION MAKING for: 1 STABLE ACUTE UNCOMPLICATED PROBLEM, 2 OR MORE MINOR PROBLEMS, OR 1 STABLE CHRONIC PROBLEM, THAT POSE(S) A LOW RISK FOR MORBIDITY/MORTALITY. The visit on the day of the encounter encompassed interpreting the data and educating the patient as to the nature of their condition, treatment options available according to their individual PMH, meds, allergies, and overall health/living conditions, as well as any potential risks or complications that may occur from a failure to adhere to, and participate in, the recommended course of therapy. The discussion included a complete verbal, and/or written explanation of the examination results, any x-rays taken, the proposed diagnosis, and outline of the treatment plan. A schedule for future care needs was also explained. The patient verbalized an understanding of the instructions at this time and agreed to be an active participant in their treatment. If the patient should think of any questions or concerns after the visit, I have encouraged the patient to call the office.?Digital Surgery:?We elected to try conservative treatment at the present time, due to the patients age, medical history, and circulatory constraints.?Digital Treatment:?I explained to the patient the possible etiologies of Hammertoes, including genetics/foot type/shoegear/activity level/exercise routine and the risks/benefits of all the different treatment options for pain including: No treatment at all, Rest, Ice, New/supportive/wider/deeper Shoegear, Digital Padding/Strapping/Taping/Bracing/Gel protective sleeves, Foot/Ankle AFO Bracing, Stretching exercises, Deep Tissue Massage, Arch support/shoe inserts with splay metatarsal padding, and Custom orthoses. I insisted that any digital devices be removed daily and not worn overnight for safety. The patient is to carefully examine the toes daily for any skin irritation while using any splinting or padding device. The advantages and disadvantages of each option were discussed and the patients questions re: shoegear, padding, custom vs prefabricated inserts, activity level, and consistency in home treatment regimens for optimal success were answered to their verbally confirmed satisfaction.?Shoe Gear Counseling:?The patient and I reviewed the types of shoes they should be wearing. My recommendation included obtaining a well-fitted shoe with a good supportive, non-foldable nor twistable sole, plenty of toe/room for the forefoot, and proper arch support. Based on todays examination, I recommended the patient look for new shoes, by having their feet professionally measured. We discussed that generally the best time of the day for a shoe fitting is the afternoon. Different shoes types and brands to best match the patients occupation and vocation were discussed. Specific brand selection will be up to the patient, their individual foot condition/deformities, and fit. The patient and I reviewed the standard new shoe break in period by wearing them for a few hours a day while checking for redness or sores as wear time is increased. The patient verbally confirmed to understanding the information discussed.? * Follow Up:?prn * Images: * Sign off status: Completed true * Provider:?Garcia Hassan DPM Date:?2022 Generated for Di osei/Yodit/Tarun on:?12/20/2024 04:06 PM EDT History and Physical Notes * HPI (History of Present Illness) Category Sub-Category Detail Notes Category Not es Toe pain Nature: tenderness Location: B/L feet Duration: several months Course: worse Aggravated by: shoes, any pressure Treatments: change in shoes , re st At Risk footcare Pt States Last PCP Visit: Date: 3 Examination Category Sub-Category Detail Notes Category Not es Neurological SENSORY: Neurological exa m reveals intact sensorium, pain sensation normal, vibration sensation intact, pinprick sensation is normal in the lower extremities, Pt denies, anesthesia, burning, paresthesia, tingling, B/L Dermatologic SKIN FINDINGS: Skin exam reveal s Keratotic lesion(s) located at , SUB MTH (s) , 1 , B/L Orthopedic FOOTWEAR EVALUATION: shoe gear p roperties exacerbate patients foot/toe deformity DIGITAL DEFORMITIES: Digital contracture , PIPJ, 2-5 B/L, incompl-reducible with WB, or to push-up test, no over, nor underlapping MUSCLE STRENGTH: 5/5 all groups in a symmetrical fashion, B/L General Examination GENERAL APPEARANCE: Reveals a pleasant, alert, well nourished, well-developed, well hydrated individual, who demonstrates proper attention to hygiene/body habitus, and is in no acute distress, Pt serves as own historian for office visit today ORIENTED: person, place, and t chucky Vascular DP PULSES (B): 0/4, B/L PT PULSES (B): 0/4, B/L CAPILLARY FILL TIME: delayed, all digits , B/L TEMPERTURE GRADIENT (C): decreased, cool to cool, proximal to distal, B/L TROPHIC CONDITION-TEXTURE/ELASTICITY/TURGOR/HAIR GROWTH (B): decreased, B/L EDEMA (C): 2/4 , pitting , with out aching pain , Leg(s) , Ankle(s) , Foot , B/L CLAUDICATION (C): denies, B/L REST PAIN: denies, B/L PIGMENTATION: brawny, B/L Nails NAILS are: Elongated, overg rown, dystrophic, lytic, greater than 3mm thick, discolored and friable with crumbly malodorous subungual debris, with pain on palpation, TA, T1, T3, T4, T5, T6, T7, remaining nails are elongated, overgrown, dystrophic
--- OUTSIDE RECORDS SUMMARY | 2024-12-20 16:06 | XMS_ITS | Clinical Summary ---
Author Organization [facility] Address [id number] [place] [address] Care Team Providers Care Grounds Maintenance Worker Name Role Phone Milena Ghotra MD Primary Care Provider [phone] Medical History Medical History Date Comments Transaminitis 10/23/2020 DX:Transaminitis Family History Medical History Relation Name Comments Heart attack Brother Relation Name Status Comments Brother Social History Tobacco Use Types Packs/Day Years Used Date Smoking Tobacco: Every Day Cigarettes 1 47.2 Started: 09/20/1977 Smokeless Tobacco: Never Alcohol Use Standard Drinks/Week Comments Yes 3 (1 standard drink = 0.6 oz pur e alcohol) Sex and Gender Information Value Date Recorded Sex Assigned at Not on file Legal Sex Male 12:09 PM EST Gender Identity Not on file Sexual Orientation Not on file Obstetrics History Plan of Treatment Health Maintenance Due Date Last Done Comments DTaP,Tdap,and Td Vaccines (1 - Tdap) 11/27/1974 Pneumococcal Vaccine: 50+ Ye ars (1 of 2 - PCV) 11/27/1974 Zoster Vaccines (1 of 2) 11/27/2005 COVID-19 Vaccine ( - 2023-2 5 season) 2024 Influenza Vaccine (#1) 2024 Abdominal Aortic Aneurysm (A AA) Screen 12/03/2024 Cholesterol Screening (Lipid Panel) 12/03/2024 Colorectal Cancer Screening: Colonoscopy 12/03/2024 Depression Screening 12/03/2024 Falls Risk Assessment 12/03/2024 Hepatitis C Screening 12/03/2024 Social Influencers of Health Screening 12/03/2024 RSV Immunization Adult Patie nts (1 - 1-dose 75+ series) 11/27/2030 HIB Vaccines Aged Out No longer eligi ble based on patient's age to complete this topic HPV Vaccines Aged Out No longer eligi ble based on patient's age to complete this topic Hepatitis A Vaccines Aged Out No long er eligible based on patient's age to complete this topic Hepatitis B Vaccines Aged Out No long er eligible based on patient's age to complete this topic IPV Vaccines Aged Out No longer eligi ble based on patient's age to complete this topic MMR Vaccines Aged Out No longer eligi ble based on patient's age to complete this topic Meningococcal ACWY Vaccine Aged Out N o longer eligible based on patient's age to complete this topic Meningococcal B Vacine Aged Out No lo nger eligible based on patient's age to complete this topic RSV Immunization Patients Un yanet 20 months Aged Out No longer eligible b ased on patient's age to complete this topic Varicella Vaccines Aged Out No longer eligible based on patient's age to complete this topic Care Teams Grounds Maintenance Worker Relationship Specialty Start Date End Date Milena Ghotra MD PCP - General Internal Medicine 07/26/20
--- OUTSIDE RECORDS SUMMARY | 2024-12-20 16:06 | XMS_ITS | Patient Health Record ---
Author Organization [facility] Address [address] [facility] [place] [address] Care Team Providers Care Dredge Operator Supervisor Name Role Phone Emigdio [facility]UCKER, [facility] Primary [facility] Provider Garcia Villareal Unavailable [phone] Allergies No Known Allergies Reason For Referral No Information Social History Tobacco Use: Social History Observation [...] W/U Status Risk Notes Problem Atherosclerosis of wiyot artery of both lower extremities, with unspecified presence of clinical manifestation (I70.203) Active confirmed Plan Of Treatment Pending Test Test Name Order Date [id number] NAIL, 6 OR MORE 08/26/2023 [id number]-ICWV SKIN LESIONS, 2 TO 4 08/26/20 23 Insurance Providers Payer Name Payer Address Payer Phone Subscriber Number Group Number Insured Name Patient Relationship to Insured Coverage Start Date Coverage End Date [employer] Medicare [id number] [address] [address] [place] [address] [id number] Gomez Meyer Self - patient is the insured Medical (General) History Medical History History ICD Code High blood pressure Surgical History Surgery Date(Month/Year)
== END 2024-12-20 14:27 | disposition home or self-care (01) ==
LOC: HO.HGI 13:28
PROVIDERS: PCP Internal Medicine; Visit Provider Internal Medicine
DX: R74.01 Elevation of levels of liver transaminase levels (principal); D75.89 Other specified diseases of blood and blood-forming organs; R16.2 Hepatomegaly with splenomegaly, not elsewhere classified; Z86.0100 Personal history of colon polyps, unspecified
CPT/HCPCS: 99204; G2211

== ENCOUNTER → 2024-12-20 13:27 | Outpatient (BNVA) | payer MEDICARE, SELFPAY | PROVIDERS: PCP Internal Medicine; Visit Provider Internal Medicine | DX: R16.2 Hepatomegaly with splenomegaly, not elsewhere classified (principal); R79.89 Other specified abnormal findings of blood chemistry; D75.89 Other specified diseases of blood and blood-forming organs; Z86.0100 Personal history of colon polyps, unspecified | CPT/HCPCS: 99202 ==

== ENCOUNTER 2024-12-25 06:22 | Outpatient (REF) | payer MEDICARE, SELFPAY ==
--- OUTSIDE RECORDS SUMMARY | 2024-12-25 06:24 | XMS_ITS | Patient Health Record ---
Author Organization [facility] Address [address] [facility] [place] [address] Care Team Providers Care Health Care / Medical Job Titles Name Role Phone Emigdio [facility], [facility] Primary Care Provider Garcia Villareal Unavailable [phone] Allergies No Known Allergies Reason For Referral [...] W/U Status Risk Notes Problem Atherosclerosis of yuhaaviatam artery of both lower extremities, with unspecified presence of clinical manifestation (I70.203) Active confirmed Plan Of Treatment Pending Test Test Name Order Date [id number] NAIL, 6 OR MORE 08/26/2023 83567-FFSK SKIN LESIONS, 2 TO 4 08/26/20 23 Insurance Providers Payer Name Payer Address Payer Phone Subscriber Number Group Number Insured Name Patient Relationship to Insured Coverage Start Date Coverage End Date [employer] Medicare [id number] [address] [address] [place] [address] [id number] Gomez Meyer Self - patient is the insured Medical (General) History Medical History History ICD Code High blood pressure Surgical History Surgery Date(Month/Year)
--- OUTSIDE RECORDS SUMMARY | 2024-12-25 06:25 | XMS_ITS ---
Author Organization [facility] Address [address] [facility] [place] [address] Care Team Providers Care Directory Assistance Operator Name Role Phone Emigdio TUCKER, [facility] Primary Care Provider Garcia Villareal Unavailable [phone] Allergies No Known Allergies REASON FOR VISIT [...] W/U Status Risk Notes Problem Atherosclerosis of [place] artery of both lower extremities, with unspecified presence of clinical manifestation (I70.203) Active confirmed Vital Signs Height 6ft 2in in 08/26/2023 Weight 330 lbs 08/26/2023 BMI 42.36 kg/m2 08/26/2023 Procedures Procedure Date Ordered Date Performed Result Body Sit e 77853-SIHHBDW NAIL, 6 OR MORE 08/26/2023 N/A 10763-XDXI SKIN LESIONS, 2 TO 4 08/26/2023 N/A Encounters Encounter Location Date Provider [facility] [address] [address] 08/26/2023 Garcia Hassan Atherosclerosis of [place] artery of both lower extremities, with unspecified [...] Clinical Notes Section Notes 08/26/2023 Atherosclerosis of [place] artery of both lower extremities, with unspecified [...] Treatment Pending Test Test Name Order Date 81365-MOMOBMZ NAIL, 6 OR MORE 08/26/2023 50864-BMIZ SKIN LESIONS, 2 TO 4 08/26/20 23 [...] as necessary. Patient chooses, no pharmaceutical tx (54440) Keratoma Treatment Parring or Cutting o f Benign Hyperkeratotic Lesion(s) 55209 ( 2-4 Lesions ) - The Benign hyperkeratotic lesions, as described above were pared, and/or cut utilizing a sterile 15 blade, tissue nippers, and/or dremel , Q8 Progress Notes * Gomez MEYERDOB:1955 (67 yo M)Acc No.[id number]:08/26/2023 Progress Notes Patient:?Gomez Meyer Provider:?Garcia Hassan DPM :1955???Age:67 Y???Sex:Male Negro e:08/26/2023 Address:[address] [place] [address] Pcp:Isaak Beal MD Subjective: * Chief Complaints: [...] Assessment: 1.?Tinea unguium - B35.1?2.? Atherosclerosis of [place] artery of both lower extremities, with unspecified [...] - M19.072? Plan: * Treatment: 2.?Atherosclerosis of [place] artery of both lower extremities, with unspecified presence of clinical manifestation?Procedure: 84919-WIEP SKIN LESIONS, 2 TO 4 * Procedures:?Debride Nail 6-10:?Nail debridement?Nail debridement performed extensively to reduce/remove overall nail length, girth, thickness, subungual debris, and necrotic tissue, by manual and electrical means through the use of a nail nipper and/or dremel, to more viable healthy nail plate or bed tissue 1-5. Silver nitrate used for any petechial bleeding as necessary. Patient chooses, no pharmaceutical tx (62257).?Keratoma Treatment:?Parring or Cutting of Benign Hyperkeratotic Lesion(s)?73348 ( 2-4 Lesions ) - The Benign hyperkeratotic lesions, as described above were pared, and/or cut utilizing a sterile 15 blade, tissue nippers, and/or dremel , Q8.? * Procedure Codes:?25732 DEBRI DE NAIL, 6 OR MORE, Modifiers: XS 82659 TRIM SKIN LESIONS, 2 TO 4, Modifiers: [...] Hassan DPM Date:?2022 Generated for Di osei/Yodit/Tarun on:?12/25/2024 06:24 AM EDT History and Physical Notes * HPI [...]
--- OUTSIDE RECORDS SUMMARY | 2024-12-25 06:25 | XMS_ITS | Clinical Summary ---
Author Organization [facility] Address [address] [place] [address] Care Team Providers Care Jig And Fixture Repairer Name Role Phone Milena Ghotra MD Primary Care Provider [phone] Medical History Medical History Date Comments Transaminitis 10/23/2020 DX:Transaminitis Family History Medical History Relation Name Comments Heart attack Brother Relation Name Status Comments Brother Social History Tobacco Use Types Packs/Day Years Used Date Smoking Tobacco: Every Day Cigarettes 1 47.3 Started: 09/20/1977 Smokeless Tobacco: Never Alcohol Use [...] age to complete this topic Care Teams Jig And Fixture Repairer Relationship Specialty Start Date End Date Milena Ghotra MD PCP - General Internal Medicine 07/26/20
[2024-12-25 10:49] LABS: INTERNATIONAL NORM RATIO 1.1 (0.9-1.1); Prothrombin Time 12.7 SEC (10.9-12.4)
[2024-12-25 10:52] LABS: Hematocrit 41.8 % (42.0-52.0); Hemoglobin 14.6 g/dl (14.0-18.0); Mean Corpuscular HGB Conc 34.9 g/dl (31.0-36.0); Mean Corpuscular Hemoglobin 31.3 pg (27.0-33.0); Mean Corpuscular Volume 89.7 fL (80.0-98.0); Mean Platelet Volume 11.3 fL (9.4-12.4); Platelet Count 62 X10*3/uL (160-400); Red Blood Count 4.66 X10*6/uL (4.60-5.80); Red Cell Distribution Width 13.6 % (11.0-16.0); White Blood Count 3.2 X10*3/uL (4.8-10.8)
[2024-12-25 10:56] LABS: Estimated Average Glucose 105 mg/dL; Hemoglobin A1C 132.1424 umol/L; Hemoglobin A1c % 5.3 % (<6.0); Total Hemoglobin (HGBA1C) 3841.4493 umol/L
[2024-12-25 11:20] LABS: HIV AB/AG Nonreactive (Nonreactive); HIV Num 1 0.07 S/CO (0.00-0.99)
[2024-12-25 12:54] LABS: Alanine Aminotransferase 45 U/L (0-40); Albumin Level 3.4 g/dL (3.5-5.0); Anion Gap 13 (12-20); Aspartate Amino Transferase 51 U/L (5-37); Bilirubin Total 0.7 mg/dL (0.0-1.0); Blood Urea Nitrogen 12 mg/dL (9-16); C Reactive Protein < 0.04 mg/dL (< or = 0.50); Calcium 8.9 mg/dL (8.4-10.2); Carbon Dioxide 24 mmol/L (22-29); Chloride 109 mmol/L (96-108); Cholesterol 108 mg/dL (<200); Estimated Glomerular Filt Rate > 60; Glucose Random 109 mg/dL (60-115); HDL Cholesterol 45 mg/dL (>40); Iron 86 mcg/dL (45-160); LDL Cholesterol Calculated 53 mg/dL (<100); Percent Iron Saturation 33 % (15-50); Potassium 4.3 mmol/L (3.3-5.1); Sodium 142 mmol/L (135-145); TSH reflex Free T4 1.72 uIU/mL (0.32-4.0); Total Iron Binding Capacity 263 mcg/dL (228-428); Total Protein 6.8 g/dL (6.5-8.0); Triglycerides 53 mg/dL (<150); Unsaturated Iron Binding 177 ug/dL
[2024-12-25 13:41] LABS: Alkaline Phosphatase 79 U/L (39-117)
[2024-12-26 09:53] LABS: Alpha 1 Anti-trypsin 144 mg/dL (83-199); Ceruloplasmin 23 mg/dL (14-30)
[2024-12-26 11:43] LABS: Alpha Fetoprotein 6.3 ng/mL (<6.1)
[2024-12-26 18:03] LABS: Immunoglobulin A 171 mg/dL (70-320); Immunoglobulin G 1837 mg/dL (600-1540)
[2024-12-26 22:52] LABS: Transglutaminase IgA <1.0 U/mL
[2024-12-27 04:40] LABS: Hepatitis A Antibody IgG REACTIVE (Nonreactive); ~Hepatitis A Antibody IgG 6.64 S/CO (0.00-0.99)
[2024-12-27 08:44] LABS: HCV RNA PCR Qn 2000000 IU/mL (NOT DETECTED)
[2024-12-28 09:38] LABS: Liver Kidney Microsomal Ab <=20.0 U (<=20.0); Smooth Muscle Antibody <20 U (<20)
[2024-12-28 10:15] LABS: Mitochondrial Antibodies NEGATIVE (NEGATIVE)
[2024-12-29 11:58] LABS: Alk.Phos Iso. Macrohepatic 0 % (<=0); Alk.Phos Isoenzymes Bone 28 % (28-66); Alk.Phos Isoenzymes Intest 36 % (1-24); Alk.Phos Isoenzymes Liver 36 % (25-69); Alk.Phos Isoenzymes Placental 0 % (<=0); Alk.Phos Isoenzymes Total 70 U/L (35-144)
[2024-12-30 18:38] LABS: HCV Genotype LiPA 1b
[2025-01-03 10:41] LABS: Liver Fibrosis Score 0.69; Liver Fibrosis Stage F3
[2025-01-03 10:42] LABS: FIB-Alpha-2-Macroglobulin 259; Nec Inflam Act Grade A0-A1; Nec Inflam Act Score 0.28
[2025-01-03 10:43] LABS: FIB-Apolipoprotein A1 126; FIB-GGT 47; FIB-Haptoglobin 60; FIB-Total Bilirubin 0.6
[2025-01-03 10:44] LABS: FIB-ALT 34; Reference ID 5432580
[2025-01-03 10:45] LABS: Phosphatidylethanol 16:0-18:1 59; Phosphatidylethanol 16:0-18:2 105
[2025-01-03 10:46] LABS: Liver Fibrosis Interpretation advanced fibrosis
[2025-01-03 10:47] LABS: Nec Inflam Act Interpretation no activity
[2025-01-03 11:33] LABS: Anti Nuclear Antibody Screen POSITIVE (NEGATIVE)
== END 2024-12-25 06:23 | disposition home or self-care (01) ==
LOC: HO.HMGCLDS 06:22
PROVIDERS: PCP Internal Medicine; Visit Provider Internal Medicine
DX: D75.89 Other specified diseases of blood and blood-forming organs (principal); R79.89 Other specified abnormal findings of blood chemistry
CPT/HCPCS: 36415; 80053; 80061; 80321; 81596; 82103; 82105; 82390; 82784; 83036; 83540; 84080; 84443; 85027; 85610; 86015; 86038; 86039; 86140; 86364; 86376; 86381; 86708; 87389; 87522; 87902

== ENCOUNTER 2025-01-17 10:53 | Outpatient (AMB) | payer MEDICARE, SELFPAY ==
--- NOTE | 2025-01-17 10:56 | MHC.OFFVIS ---
Vital Signs 01/17/25 10:58 Height 6 ft 2 in Weight 339 lb 8.19 oz BMI 43.6 BP 143/76 H Blood Pressure Location Lt brachial Position Sitting Pulse 81 Intake Visit Reasons: Hep C treatment and to discuss scopes Intake Note: Gomez presents in the office as a follow up for HEp C. CC: States that he is only concerned that he was asked to come in sooner. Dimmer Board Operator Required: No Allergies No Known Allergies Allergy (Verified 01/17/25 10:58) HPI Comments Details: 69 y.o M with PMH of smoking disorder who is here for elevated LFTs. Pt reports no GI issues to include abd pain, N,V,D. No pruritus, increase in abd girth, rash. Was referred to us from Heme office which in turn he was referred for bicytopenia. US Abd reviewed with hepatosplenomegaly. Laboratory Tests 12/04/20 12/04/20 04/22/22 19:13 21:54 07:34 WBC 4.2 L Hgb Plt Count 87 L INR 1.2 H AST 43 H ALT 55 H Albumin IgG Total KEREN Titer Hep Bs Antigen Hep B Core Total Ab Hepatitis C Ab (EIA) 06/29/24 08/09/24 10/20/24 07:46 09:41 10:08 WBC 3.2 L 3.1 L 3.4 L Hgb 14.7 14.0 Plt Count 55 L 59 L INR AST 49 H ALT 46 H Albumin 3.4 L IgG Total 1814 H KEREN Titer 1:80 H Hep Bs Antigen Negative Hep B Core Total Ab Nonreactive Hepatitis C Ab (EIA) Reactive H 01/07/25: Here for follow up after lab work done. Pos for Hepatitis C geotype 1b. Tx naiive. F3 on fibrosure. Low platelets suspicious for CSPH. Reviewed labs with pt. He does not report any abd pain, N,V,D. No pruritus. No change in abd girth. PETH reviewed - discussed strict abstinence with etOH. Also continues to smoke - cut down to 0.5 PPD. PFSH Medical History No known health problems Surgical History Hx of colonoscopy Social History Household Members: Family Housing: House Patient Tobacco Use Status: Current everyday Tobacco user Tobacco use type: Cigarette Cigarette Packs Per Day: 1 Years Smoked: 30 e-Cigarette/Vaping Use: Never Used service: No Current occupational status: retired Gender identity: Male Cognitive needs: No Hearing needs: No Vision needs: Yes Review of Systems Const All systems reviewed & are unremarkable except as noted in HPI and below Physical Exam Vital Signs: Last Vital Signs Pulse 81 01/17/25 10:58 BP 143/76 H 01/17/25 10:58 BMI result Body Mass Index 43.6 No apparent distress Nonicteric Abdomen soft, nondistended Alert and oriented x3, normal gait Assessment & Plan Assessment & Plan (1) Chronic hepatitis C: Code(s): B18.2 - Chronic viral hepatitis C Category: Medical (2) Bicytopenia: Code(s): D75.89 - Other specified diseases of blood and blood-forming organs Category: Medical (3) LFT elevation: Code(s): R79.89 - Other specified abnormal findings of blood chemistry Category: Medical (4) Hepatosplenomegaly: Code(s): R16.2 - Hepatomegaly with splenomegaly, not elsewhere classified Category: Medical (5) Personal history of colonic polyps: Code(s): Z86.0100 - Personal history of colon polyps, unspecified Category: Medical Plan Elevated LFTs and bicytopenia likely 2/2 chronic liver disease 2/2 chronic hep C. Treatment naive Will favor treating this as compensated cirrhosis given US appearance and thrombocytopenia suggestive of portal HTN. Plan: - Check if PA needed for glecaprevir (300 mg)/pibrentasvir (120 mg) x 8 weeks vs sofosbuvir (400 mg)/velpatasvir (100 mg) x 12 weeks vs ledipasvir (90 mg)/sofosbuvir (400 mg) x 12 weeks - Will need HCV labs at completion and then 12w after for SVR - Pt counseled ext re compliance with meds - Also counseled on etOH abstinence and smoking cessation - EGD to be booked to r/o varices - US Abd due next month for HCC screening - No HE or ascites on exam today Pt also with hx of x4 polyps in 2019 (Deja Snell) Due for repeat colo. This is to be done at the same time as EGD. PEG prep sent. Follow up after egd/colo. Orders: Orders US abdomen complete 4 Weeks B18.2 - Chronic viral hepatitis C Medications: New peg 3350-electrolytes 236-22.74-6.74 -5.86 gram (Golytely) as per split prep instructions, until fecal effluent is clear 240 mL PO Q10M 4,000 mL 0RF colonoscopy Coding Level of Care Code Est Pt Level 5 (48915) Diagnoses Chronic hepatitis C B18.2 Bicytopenia D75.89 LFT elevation R79.89 Hepatosplenomegaly R16.2 Personal history of colonic polyps Z86.0100
[2025-01-17 10:58] VITALS: BP 143/76; PULSE 81; BMI 43.6
--- OUTSIDE RECORDS SUMMARY | 2025-01-17 12:24 | XMS_ITS | Clinical Summary ---
Author Organization [facility] Address [address] [place] [address] Care Team Providers Care Final Finisher Name Role Phone Milena Ghotra MD Primary Care Provider [phone] Medical History Medical History Date Comments Transaminitis [...] Vaccine ( - 2023-2 5 season) 2024 Abdominal Aortic Aneurysm (A AA) Screen 12/03/2024 Cholesterol Screening (Lipid Panel) 12/03/2024 Colorectal Cancer Screening: Colonoscopy 12/03/2024 Depression Screening 12/03/2024 Falls Risk Assessment 12/03/2024 Hepatitis C Screening 12/03/2024 Social Influencers of Health Screening 12/03/2024 Influenza Vaccine (Season Ended) 2025 RSV Immunization Adult Patie nts (1 - [...] age to complete this topic Meningococcal B Vaccine Aged Out No l onger eligible based on patient's age to complete this topic RSV Immunization Patients Un yanet 20 months Aged Out No longer eligible b ased on patient's age to complete this topic Varicella Vaccines Aged Out No longer eligible based on patient's age to complete this topic Care Teams Final Finisher Relationship Specialty Start Date End Date Milena Ghotra MD PCP - General Internal Medicine 07/26/20
--- OUTSIDE RECORDS SUMMARY | 2025-01-17 12:24 | XMS_ITS | Patient Health Record ---
[facility] Address [address] [facility] [place] [address] Care Team Providers Care Dressing Machine Operator Name Role Phone Emigdio TUCKER, [facility] Primary Care Provider Garcia Villareal Unavailable [phone] Allergies No Known Allergies Reason For Referral [...] Problem Status W/U Status Risk Notes Problem Bilateral atherosclerosis of arteries of lower limbs (disorder) ([id number] ) Atherosclerosis of [place] artery of both lower extremities, with unspecified presence of clinical manifestation (I70.203) Active confirmed Plan Of Treatment Pending Test Test Name Order Date 42537-FQXSYNC NAIL, 6 OR MORE 08/26/2023 51574-EABJ SKIN LESIONS, 2 TO 4 08/26/20 23 Insurance Providers Payer Name Payer Address Payer Phone Subscriber Number Group Number Insured Name Patient Relationship to Insured Coverage Start Date Coverage End Date [employer] Medicare Adv-[id number] [address] [address] [place] [address] [id number] Gomez Meyer Self - patient is the insured Medical (General) History Medical History History ICD Code High blood pressure Surgical History Surgery Date(Month/Year)
--- OUTSIDE RECORDS SUMMARY | 2025-01-17 12:25 | XMS_ITS ---
[facility] Address [address] [facility] [place] [address] Care Team Providers Care Transport Aircrewman Name Role Phone Emigdio TUCKER, [facility] Primary Care Provider Garcia Villareal Unavailable [phone] Allergies No Known Allergies REASON FOR VISIT [...] atherosclerosis of arteries of lower limbs (disorder) ([id number] ) Atherosclerosis of [place] artery of both lower extremities, with unspecified presence of clinical manifestation (I70.203) Active confirmed Vital Signs Height 6ft 2in in 08/26/2023 Weight 330 lbs 08/26/2023 BMI 42.36 kg/m2 08/26/2023 Procedures Procedure Date Ordered Date Performed Result Body Sit e 95073-NKFHDTP NAIL, 6 OR MORE 08/26/2023 N/A 11304-DDFK SKIN LESIONS, 2 TO 4 08/26/2023 N/A Encounters Encounter Location Date Provider Diagnosis [facility] [address] [place] [address] 08/26/2023 Garcia Finkunier Atherosclerosis of [place] artery of both lower extremities, with unspecified [...] Clinical Notes Section Notes 08/26/2023 Atherosclerosis of [place] artery of both lower extremities, with unspecified [...] Treatment Pending Test Test Name Order Date 70746-MDOPOEE NAIL, 6 OR MORE 08/26/2023 57149-PLIV SKIN LESIONS, 2 TO 4 08/26/20 23 [...] as necessary. Patient chooses, no pharmaceutical tx (72026) Keratoma Treatment Parring or Cutting o f Benign Hyperkeratotic Lesion(s) 25006 ( 2-4 Lesions ) - The Benign hyperkeratotic lesions, as described above were pared, and/or cut utilizing a sterile 15 blade, tissue nippers, and/or dremel , Q8 Progress Notes * Gomez MEYERDOB:1955 (67 yo M)Acc No.[id number]:08/26/2023 Progress Notes Patient:?Gomez Meyer Provider:?Garcia Hassan DPM :1955???Age:67 Y???Sex:Male Negro e:08/26/2023 Address:[address] [place] [address], [facility] Pcp:Isaak Beal MD Subjective: * Chief Complaints: [...] Assessment: 1.?Tinea unguium - B35.1?2.? Atherosclerosis of [place] artery of both lower extremities, with unspecified [...] - M19.072? Plan: * Treatment: 2.?Atherosclerosis of [place] artery of both lower extremities, with unspecified presence of clinical manifestation?Procedure: 36501-SZTC SKIN LESIONS, 2 TO 4 * Procedures:?Debride Nail 6-10:?Nail debridement?Nail debridement performed extensively to reduce/remove overall nail length, girth, thickness, subungual debris, and necrotic tissue, by manual and electrical means through the use of a nail nipper and/or dremel, to more viable healthy nail plate or bed tissue 1-5. Silver nitrate used for any petechial bleeding as necessary. Patient chooses, no pharmaceutical tx (39171).?Keratoma Treatment:?Parring or Cutting of Benign Hyperkeratotic Lesion(s)?07587 ( 2-4 Lesions ) - The Benign hyperkeratotic lesions, as described above were pared, and/or cut utilizing a sterile 15 blade, tissue nippers, and/or lindenmel , Cari8.? * Procedure Codes:?04542 DEBRI DE NAIL, 6 OR MORE, Modifiers: XS 98756 TRIM SKIN LESIONS, 2 TO 4, Modifiers: [...] Hassan DPM Date:?2022 Generated for Di osei/Yodit/Tarun on:?01/17/2025 12:24 PM EDT History and Physical Notes * [...]
== END 2025-01-17 13:39 | disposition home or self-care (01) ==
LOC: HO.HGI 10:54
PROVIDERS: PCP Internal Medicine; Visit Provider Internal Medicine
DX: B18.2 Chronic viral hepatitis C (principal); D75.89 Other specified diseases of blood and blood-forming organs; R74.01 Elevation of levels of liver transaminase levels; R16.2 Hepatomegaly with splenomegaly, not elsewhere classified; Z86.0100 Personal history of colon polyps, unspecified
CPT/HCPCS: 99214

== ENCOUNTER → 2025-01-17 10:53 | Outpatient (BNVA) | payer MEDICARE, SELFPAY | PROVIDERS: PCP Internal Medicine; Visit Provider Internal Medicine | DX: B18.2 Chronic viral hepatitis C (principal); D75.89 Other specified diseases of blood and blood-forming organs; R79.89 Other specified abnormal findings of blood chemistry; R16.2 Hepatomegaly with splenomegaly, not elsewhere classified; Z86.0100 Personal history of colon polyps, unspecified | CPT/HCPCS: 99212 ==

== ENCOUNTER 2025-02-19 09:49 | Outpatient (REF) | payer MEDICARE, SELFPAY ==
--- NOTE | ~2025-02-19 | US_ITS ---
CLINICAL HISTORY: B18.2 - Chronic viral hepatitis C US abdomen complete. COMPARISON: Report from US abdomen dated 08/23/24 at 09:57 EST Technique: Real time sonographic imaging, including color-flow imaging, was performed by the brick setter operator. Multiple medical detail representative static images were saved for review. FINDINGS: The visualized aorta and inferior vena cava are normal caliber. The visualized portions of the pancreas appear normal. The liver has normal echotexture. The main portal vein is antegrade. Liver, right lobe size: 13.2 cm, normal. The gallbladder is normal in size. No cholelithiasis or sludge identified. Pericholecystic fluid present. There is a negative sonographic Barragan's sign. Gallbladder wall: 5 mm, thickened Common bile duct: 4 mm, normal. Right kidney: Cortical medullary differentiation is maintained. Normal color flow by Doppler. No calculus or focal parenchymal abnormality identified. No hydronephrosis. Right kidney length: 11.7 cm Left kidney: Cortical medullary differentiation is maintained. Normal color flow by Doppler. No calculus or focal parenchymal abnormality identified. No hydronephrosis. Left kidney length: 12.0 cm The spleen has normal echogenicity. Splenule present. Splenic length: 16.9 cm, enlarged. Small amount of perihepatic ascites present IMPRESSION: 1. Gallbladder wall thickening with small amount of pericholecystic fluid. Nonspecific finding can be associated with hepatic dysfunction (favored, right heart failure or cholecystitis. 2. Splenomegaly. 3. Small volume perihepatic ascites. This document has been electronically signed by: Pradip Noyola MD on 02/19/2025 16:31:06
--- OUTSIDE RECORDS SUMMARY | 2025-02-19 10:34 | XMS_ITS | Patient Health Record ---
Author Organization [facility] Address [address] [facility] [place] [address] Care Team Providers Care Business Control Specialist Name Role Phone Emigdio TUCKER, [facility] Primary Care Provider Garcia Villareal Unavailable [phone] Allergies No Known Allergies Reason For Referral [...] W/U Status Risk Notes Problem Atherosclerosis of [place] artery of both lower extremities, with unspecified presence of clinical manifestation (I70.203) Active confirmed Plan Of Treatment Pending Test Test Name Order Date 60465-XEZCICJ NAIL, 6 OR MORE 08/26/2023 82692-UVCP SKIN LESIONS, 2 TO 4 08/26/20 23 Insurance Providers Payer Name Payer Address Payer Phone Subscriber Number Group Number Insured Name Patient Relationship to Insured Coverage Start Date Coverage End Date [employer] Medicare Adv-[id number] [address] [address] [place] [address] [id number] Gomez Meyer Self - patient is the insured Medical (General) History Medical History History ICD Code High blood pressure Surgical History Surgery Date(Month/Year)
== END 2025-02-19 09:50 | disposition home or self-care (01) ==
LOC: HO.HMGCX 09:49
PROVIDERS: PCP Internal Medicine; Visit Provider Internal Medicine
DX: B18.2 Chronic viral hepatitis C (principal)
CPT/HCPCS: 76700

== ENCOUNTER → 2025-02-19 09:52 | Outpatient (BNV) | payer MEDICARE, SELFPAY | PROVIDERS: PCP Internal Medicine; Visit Provider Radiology Diagnostic Radiology | DX: R16.1 Splenomegaly, not elsewhere classified (principal) | CPT/HCPCS: 76700 ==

== ENCOUNTER → 2025-04-11 07:47 | Outpatient (REF) | payer MEDICARE, SELFPAY ==
--- NOTE | 2025-04-11 07:50 | CA_ITS ---
Transthoracic Echocardiogram Patient (Last, First, Middle): Gomez Meyer, Gender: Male Date of : 1955 Age: 69 Procedure Date: 04/11/2025 Procedure Type: Transthoracic Echocardiogram Location: OP Height: 187.96 cm Weight: 153.77 kg BSA: 2.72 m2 Heart Rate: 89 bpm BP: 143 / 68 mmHg Ladies Underwear Operator: SB Referring MD: Kristen Crabtree MD Hull Outfit Supervisor: Shawn Sanchez MD Symptoms: R16.2 - Hepatomegaly with splenomegaly, not elsewhere classified Study Quality: Technically Difficult ECG Rhythm: Sinus Conclusions: - 1. Technically limited study due to body habitus as well as positioning 2. LV ejection fraction appears to be normal with LV EF of 65-70% 3. Limited evaluation of cardiac valve and pulmonary pressures Findings Procedure Information Contrast agent, definity, is being given per protocol without apparent complications. The quality of the study was technically difficult. The study quality is limited by patients body habitus. Left Ventricle Normal left ventricular size, thickness, and systolic function. The visually estimated ejection fraction is between 65-70%. Regional wall motion abnormalities can not be excluded due to suboptimal endocardial definition. Diastolic function is indeterminate on the basis of available data. Right Ventricle Moderately increased right ventricular cavity size. Atria The left atrium was not well visualized. Interatrial shunt cannot be excluded. The right atrium was not well visualized. Aortic Valve The aortic valve was not well visualized. The peak aortic gradient is 15 mmHg.There is no aortic valve regurgitation. Mitral Valve The mitral valve was not well visualized. Pulmonic Valve The pulmonic valve was not well visualized. Tricuspid Valve The tricuspid valve was not well visualized. Tricuspid regurgitation envelope is inadequate for calculation of right ventricular systolic pressure. Indeterminate right atrial pressure. Great Vessels The aorta was not well visualized. The pulmonary artery was not well visualized. Venous The inferior vena cava was not well visualized. The inferior vena cava is moderately dilated. Pericardium/Pleural The pericardium was not well visualized. Prior Study Comparison No prior study available for comparison. Measurements 2D Linear Measurements IVSd: 0.97 0.6-0.9/0.6-1.0 cm LVIDd: 4.42 3.9-5.3/4.2-5.9 cm LVIDd Index: 1.63 2.4-3.2/2.2-3.1 cm/m2 LVPWd: 0.98 0.7-1.1 cm LA Diam: 3.30 2.7-3.8/3.0-4.0 cm LAIDs Index: 1.21 1.5-2.3 cm/m2 LV Mass: 179.26 67-162/88-224 g LV Mass Index: 65.91 43-95/49-115 g/m2 LVOT Diam: 2.30 3.0+(-)1.3 cm 2D Systolic Function EF 4C: 70.70 >55% EF 2C: 70.50 >55% EF BiP: 70.80 >55% Mitral Valve MV Pk E: 0.70 MV PK A: 0.64 MV Decel Time: 223.00 E/A: 1.10 E'Lateral: 9.79 E'Medial: 7.29 E/E' Med: 9.60 E/E' Lat: 7.20 PHT: 65.00 MVA PHT: 3.38 Decel [place]: 3.15 Aortic Valve AoV Pk Guzman: 1.95 AoV Pk Grad: 15.00 JAGRUTI: 3.00 LVOT LVOT Pk Guzman: 1.41 LVOT Mn Guzman: 0.94 LVOT VTI: 0.28 LVOT Pk Grad: 8.00 LVOT Mn Grad: 4.00 LVOT Diam: 2.30 LVOT Area: 4.15 Diastolic Function MV Pk E: 0.70 MV Pk A: 0.64 E/A: 1.10 E'Medial: 7.29 E/E' Med: 9.60 E' Laterial: 9.79 E/E' Lat: 7.20 Right Ventricle TAPSE (mm): 24.20 TVS' Guzman: 13.20 Tricuspid Valve RA Press: 15.00 Great Vessels Aorta Sinus of Valsalva: 3.90 2.0-3.5 cm Ao Asc: 3.90 2.1-3.4 cm Pulmonary Valve PV Pk Guzman: 1.05 Peak PV Grad: 4.00 Updated in Other Vendor System with Status of Final Shawn Sanchez MD electronically signed on 04/11/2025 2:18:38 PM with status of Final
--- OUTSIDE RECORDS SUMMARY | 2025-04-11 07:50 | XMS_ITS | Clinical Summary ---
Author Organization [facility] Address [address] [place] [address] Care Team Providers Care Fire Engine Pump Operator Name Role Phone Milena Ghotra MD Primary Care Provider [phone] Medical History Medical History Date Comments Transaminitis 10/23/2020 DX:Transaminitis Family History Medical History Relation Name Comments Heart attack Brother Relation Name Status Comments Brother Social History Tobacco Use Types Packs/Day Years Used Date Smoking Tobacco: Every Day Cigarettes 1 47.6 Started: 09/20/1977 Smokeless Tobacco: Never Alcohol Use [...] Vaccine ( - 2023-2 5 season) 2024 Depression Screening 09/20/2024 Abdominal Aortic Aneurysm (A AA) Screen 12/03/2024 Cholesterol Screening (Lipid Panel) 12/03/2024 Colorectal Cancer Screening: Colonoscopy 12/03/2024 Falls Risk Assessment 12/03/2024 Hepatitis C Screening 12/03/2024 Social Influencers of Health Screening 12/03/2024 Influenza Vaccine (#1) 2025 RSV Immunization Adult Patie nts (1 [...] age to complete this topic Care Teams Fire Engine Pump Operator Relationship Specialty Start Date End Date Milena Ghotra MD PCP - General Internal Medicine 07/26/20
--- OUTSIDE RECORDS SUMMARY | 2025-04-11 07:50 | XMS_ITS | Patient Health Record ---
Author Organization [facility] Address [address] [facility] [place] [address] Care Team Providers Care Termite Control Technician Name Role Phone Emigdio TUCKER, [facility] Primary Care Provider Garcia Villareal Unavailable [phone] Allergies No Known Allergies Reason For Referral [...] W/U Status Risk Notes Problem Atherosclerosis of [place] artery of both lower extremities, with unspecified presence of clinical manifestation (I70.203) Active confirmed Plan Of Treatment Pending Test Test Name Order Date [id number] NAIL, 6 OR MORE 08/26/2023 83797-KFXP SKIN LESIONS, 2 TO 4 08/26/20 23 Insurance Providers Payer Name Payer Address Payer Phone Subscriber Number Group Number Insured Name Patient Relationship to Insured Coverage Start Date Coverage End Date [employer] Medicare Adv-[id number] [address] [address] [place] [address] [id number] Gomez Meyer Self - patient is the insured Medical (General) History Medical History History ICD Code High blood pressure Surgical History Surgery Date(Month/Year)
== END ==
LOC: HO.CARD 07:47
PROVIDERS: PCP Internal Medicine; Visit Provider Internal Medicine
DX: R16.2 Hepatomegaly with splenomegaly, not elsewhere classified (principal); R09.89 Other specified symptoms and signs involving the circulatory and respiratory systems
CPT/HCPCS: 93306; Q9957

== ENCOUNTER → 2025-04-11 07:50 | Outpatient (BNV) | payer MEDICARE, SELFPAY | PROVIDERS: PCP Internal Medicine; Visit Provider Internal Medicine Cardiovascular Disease | DX: R16.2 Hepatomegaly with splenomegaly, not elsewhere classified (principal) | CPT/HCPCS: 93306 ==

== ENCOUNTER 2025-05-08 06:01 | Outpatient (REF) | payer MEDICARE, SELFPAY ==
--- OUTSIDE RECORDS SUMMARY | 2025-05-08 06:04 | XMS_ITS | Patient Health Record ---
Author Organization [facility] Address [address] [place] [address] Care Team Providers Care Datastage Consultant Name Role Phone Emigdio TUCKER, [facility] Primary [facility] Provider Garcia Villareal Unavailable [phone] Allergies No Known Allergies Reason For Referral [...] atherosclerosis of arteries of lower limbs (disorder) ([id number] ) Atherosclerosis of [place] artery of both lower extremities, with unspecified presence of clinical manifestation (I70.203) Active confirmed Plan Of Treatment Pending Test Test Name Order Date [id number]-[id number] NAIL, 6 OR MORE 08/26/2023 [id number] SKIN LESIONS, 2 TO 4 08/26/20 23 Insurance Providers Payer Name Payer Address Payer Phone Subscriber Number Group Number Insured Name Patient Relationship to Insured Coverage Start Date Coverage End Date [employer] Medicare [id number] [address] [address] [place] [address] [id number] Gomez Meyer Self - patient is the insured Medical (General) History Medical History History ICD Code High blood pressure Surgical History Surgery Date(Month/Year)
--- OUTSIDE RECORDS SUMMARY | 2025-05-08 06:04 | XMS_ITS | Clinical Summary ---
Author Organization [facility] Address [address] [place] [id number] Care Team Providers Care Casino Slot Supervisor Name Role Phone Milena Ghotra MD Primary Care Provider [phone] Medical History Medical History Date Comments Transaminitis [...] age to complete this topic Care Teams Casino Slot Supervisor Relationship Specialty Start Date End Date Milena Ghotra MD PCP - General Internal Medicine 07/26/20
[2025-05-08 10:24] LABS: Alanine Aminotransferase 8 U/L (0-40); Albumin Level 3.8 g/dL (3.5-5.0); Alkaline Phosphatase 67 U/L (39-117); Aspartate Amino Transferase 24 U/L (5-37); Total Protein 6.9 g/dL (6.5-8.0)
[2025-05-09 16:39] LABS: HCV Log PCR <1.18 NOT DETECTED Log IU/mL (NOT DETECTED); HepC Viral Load <15 NOT DETECTED IU/mL (NOT DETECTED)
== END 2025-05-08 06:02 | disposition home or self-care (01) ==
LOC: HO.HMGCLDS 06:01
PROVIDERS: PCP Internal Medicine; Visit Provider Internal Medicine
DX: B18.2 Chronic viral hepatitis C (principal); Z11.59 Encounter for screening for other viral diseases
CPT/HCPCS: 36415; 80076; 87522

== ENCOUNTER 2025-05-13 16:56 | Inpatient (IN) | payer MEDICARE, SELFPAY ==
[2025-05-13] VITALS (8 sets, daily range): BP systolic 116–156; BP diastolic 48–74; PULSE 77–99; RESP 16–24; TEMP 37.1–39.3; O2SAT 91–99; BMI 42.5
--- NOTE | 2025-05-13 | ECG_ITS ---
Test Reason : REPEAT EKG- ELEVATED TROP Blood Pressure : */* mmHG Vent. Rate : 84 BPM Atrial Rate : 84 BPM P-R Int : 154 ms QRS Dur : 86 ms QT Int : 388 ms P-R-T Axes : 26 36 48 degrees QTcB Int : 458 ms Normal sinus rhythm Nonspecific ST abnormality Abnormal ECG When compared with ECG of 13-May-2025 17:17, Premature supraventricular complexes are no longer Present Referred By: Erwin Campbell Electronically Signed By: TRESA JOHNSON
--- NOTE | ~2025-05-13 | CT_ITS ---
CLINICAL HISTORY: sepsis unclear source CT abdomen and pelvis with contrast Comparison: US - US ABDOMEN COMPLETE - 02/19/25 09:59 EDT Findings: Mild motion artifact present. Edema identified throughout the intra-abdominal compartment. This limits evaluation of the hepatic contour. Subtle nodularity of the hepatic contour is not excluded. There is minimal perihepatic ascites. The spleen is enlarged. Motion limited evaluation of the gallbladder. Subtle gallbladder wall thickening is not excluded on this exam. No radiopaque gallstones visualized. The pancreas and bilateral adrenal glands are within normal limits for appearance. No hydronephrosis or hydroureter. No bowel obstruction, pneumoperitoneum, or pneumatosis. Scattered calcifications are present within the prostate gland. Tiny, fat containing left inguinal hernia. The bladder is underdistended, mildly limiting its evaluation. Normal appendix. Schmorl's node present at the superior L3 vertebral body endplate. IMPRESSION: 1. Mild motion artifact present. There is edema throughout the intra-abdominal compartment with minimal perihepatic ascites. These findings limit evaluation for subtle inflammatory processes. 2. Motion limited evaluation of the gallbladder. Subtle gallbladder wall thickening is not excluded. May consider gallbladder ultrasound examination and/or nuclear medicine HIDA scan if there is clinical concern for acute cholecystitis. 3. Subtle nodularity of the hepatic contour in the setting of cirrhosis is not excluded on this examination. There is splenomegaly. This document has been electronically signed by: Kory Carlin MD on 05/13/2025 21:48:06
--- NOTE | ~2025-05-13 | CT_ITS ---
CLINICAL HISTORY: Nonfocal encephalopathy, thrombocytopenia CT head without contrast Comparison: None provided. Findings: No intracranial mass, midline shift, hydrocephalus, or acute hemorrhage. Old lacunar infarct versus dilated perivascular space identified near the inferior aspect of the left lentiform nucleus. There is generalized cerebral and cerebellar volume loss. Small focus of encephalomalacia present at the inferior aspect of the right cerebellar hemisphere. [id number] nonspecific periventricular and subcortical white matter changes are identified, which may be seen in the setting of chronic small vessel ischemic disease. Visualized paranasal sinuses and mastoid air cells appear clear. No acute skull fracture. Impression: 1. No acute intracranial abnormality. No acute intracranial hemorrhage. This document has been electronically signed by: Kory Carlin MD on 05/13/2025 21:42:09
--- NOTE | ~2025-05-13 | CT_ITS ---
CLINICAL HISTORY: sepsis unclear etiology CT chest with contrast Comparison: CR - XR CHEST 1V - 05/13/25 17:46 EDT Findings: Normal heart,size. No significant pericardial effusion. Coronary artery calcifications are present. No thoracic aorta aneurysm. The main pulmonary artery appears dilated, suggesting pulmonary arterial hypertension. No focal pulmonary consolidation, pneumothorax, or pleural effusion. Minimal subsegmental atelectasis identified within the lungs, most prominent at the bilateral lower lobes. No acute fractures. Multilevel degenerative endplate changes are present at the thoracic spine. Impression: 1. Minimal bilateral subsegmental atelectasis, predominantly at the bilateral lower lobes. No focal pulmonary consolidation. This document has been electronically signed by: Kory Carlin MD on 05/13/2025 21:50:59
--- NOTE | ~2025-05-13 | XR_ITS ---
CLINICAL HISTORY: fever unknown source Chest Radiographs, AP Comparison: None available Findings: No cardiomegaly. Normal mediastinal contours. No pneumothorax. No opacity. No pleural effusion. Normal upper abdomen. No acute fracture. Impression: No acute findings. This document has been electronically signed by: Chanda Collier MD on 05/13/2025 18:19:02
--- NOTE | 2025-05-13 17:07 | ECG_ITS ---
Test Reason : AMS Blood Pressure : */* mmHG Vent. Rate : 88 BPM Atrial Rate : 88 BPM P-R Int : 192 ms QRS Dur : 82 ms QT Int : 360 ms P-R-T Axes : 34 31 47 degrees QTcB Int : 435 ms Sinus rhythm with Premature supraventricular complexes cannot exclude old Septal infarct , age undetermined Abnormal ECG No previous ECGs available Referred By: Generic ED Physician Electronically Signed By: TRESA JOHNSON
[2025-05-13 17:21] LABS: MANUAL DIFF FLAG NO
[2025-05-13 17:23] LABS: Appearance Urine Clear; Glucose Urine UA Negative (Negative); PH 5.0 (5.0-9.0); Specific Gravity - Urine 1.025 (1.005-1.025); UMIC TRIGGER UACC YES
[2025-05-13 17:27] LABS: NRBC Abs Auto 0.000 X10*3/uL (0.0-0.012); NRBC Pct Auto 0.0 /100WBC (0.0-0.2); PLT CLUMP 1; SCAN SMEAR FLAG 1
--- NOTE | 2025-05-13 17:28 | PC.NURSE ---
Primary RN Tracie alerted MD Mckenna about pt temp and situation alerting of potential sepsis alert. Labs ordered and started at this time, awaiting medication orders
[2025-05-13 17:29] LABS: Hematocrit 38.5 % (42.0-52.0); Hemoglobin 13.4 g/dl (14.0-18.0); Imm Gran Abs Auto 0.03 X10*3/uL (0.00-0.03); Imm Gran Pct Auto 0.5 % (0.0-0.4); Lymphocytes Absolute Auto 0.3 X10*3/uL (1.2-4.9); Mean Corpuscular HGB Conc 34.8 g/dl (31.0-36.0); Mean Corpuscular Hemoglobin 31.1 pg (27.0-33.0); Mean Corpuscular Volume 89.3 fL (80.0-98.0); Red Blood Count 4.31 X10*6/uL (4.60-5.80)
[2025-05-13 17:30] LABS: White Blood Count 6.3 X10*3/uL (4.8-10.8)
[2025-05-13 17:31] LABS: Platelet Count 42 X10*3/uL (160-400)
[2025-05-13 17:32] LABS: Cannabinoid Screen Urine Not Detected (Not Detect)
[2025-05-13 17:36] LABS: UACC Culture Trigger YES
--- NOTE | 2025-05-13 17:37 | ED_ITS ---
HPI - Altered Mental Status General Chief Complaint: Altered Mental Status Stated Complaint: fever, lethargic, weakness, hx of cellulitis Time Seen by Provider: 05/13/25 17:36 History of Present Illness ED Provider: Erwin Campbell MD HPI narrative: 69-year-old f male found by family who lives upstairs to him today appearing to them altered without focal deficits or facial droop and found to be febrile. The patient himself is a poor historian probably due to clinical status/condition. The patient denied any recent falls or injuries no abdominal pain he reported a remote cellulitis episode of the right leg but denied any skin lesions at this time denies cough headache neck pain chest pain difficulty breathing or any anginal equivalents symptomatology. Related Data Previous Rx's ?Medication ?Instructions ?Recorded peg 3350-electrolytes 236 240 ml PO Q10M colonoscopy # 4,000 01/17/25 gram-22.74 gram-6.74 gram-5.86 mL gram solution (Golytely) glecaprevir 100 mg-pibrentasvir 40 3 tab PO DAILY 12 w eeks #252 tabs 01/24/25 mg tablet Allergies Allergy/AdvReac Type Severity Reaction Status Date / Time No Known Allergies Allergy Verified 05/13/25 17:03 [facility] Past Medical History Medical History Tobacco use disorder Morbid obesity Cirrhosis Bicytopenia Chronic hepatitis C No known health problems Surgical History Hx of colonoscopy Social History Social History Household Members: Family Housing: House Alcohol intake: current Alcohol intake frequency: a few times a week Alcohol type: beer Patient Tobacco Use Status: Current everyday Tobacco user Tobacco use type: Cigarette Cigarette Packs Per Day: 1 Years Smoked: 30 Smoked in Last 30 Days: Yes e-Cigarette/Vaping Use: Never Used Use of substances other than those prescribed or required for medical reasons: No Advance Directives: No Advance Directives Information Provided: Yes Do you have a plan to hurt others: No Plan service: No Current occupational status: retired Gender identity: Male Cognitive needs: No Hearing needs: No Vision needs: Yes Physical Exam ED Exam Exam: EXAM: Gen: Alert, awake, febrile warmth to the touch slightly confused/disoriented appearing but he was oriented to person, place. He told me it was winter and was not sure of the year. Family feels this is slightly off from his baseline. Head: Atraumatic Eyes: Anicteric, Normal conjunctiva. ENT: Moist mucosa, no pallor. ? Neck: Supple. Skin: ?No observable rash or bruising on exposed or examined skin Respiratory: Breathing comfortably, No distress.Clear to auscultation bilaterally, symmetric chest expansion, No wheeze, rales, ronchi. Cardiovascular: Rapid and regular rhythm. No murmurs or rub. Well perfused periphery, warm extremities. No edema. ? Abdominal: Obese. No focal tenderness. Soft, no objective distension. No palpable masses or obvious organomegaly. ?No guarding, no rebound tenderness or other peritoneal findings. : No flank tenderness. Neuro: Alert. Gross movement of all extremities intact. ? Psych: Calm. Cooperative. MSK: No grossly visible deformity. Vital signs: See flowsheet Vital Signs: Vital Signs - 24 hr 05/13/25 17:01 05/13/25 17:24 05/13/25 17:42 Temperature 98.8 F 102.7 F H 102.7 F H Pulse Rate 92 91 91 Respiratory Rate 16 16 24 H Blood Pressure 156/74 H 122/48 L Pulse Oximetry 95 96 Oxygen Delivery Method Room Air Room Air 05/13/25 17:56 05/13/25 18:46 05/13/25 19:02 Temperature 102.2 F H 101.8 F H Pulse Rate 91 81 77 Respiratory Rate 22 H 16 18 Blood Pressure 142/60 H 140/74 H 144/68 H Pulse Oximetry 98 94 91 L Oxygen Delivery Method Room Air Room Air Room Air 05/13/25 22:15 Temperature 101.3 F H Pulse Rate 79 Respiratory Rate 21 H Blood Pressure 116/53 L Pulse Oximetry 95 Oxygen Delivery Method Room Air BMI result Body Mass Index 42.5 Course Reevaluation(s) Reevaluation #1: After initial resuscitation the patient does not have lactate greater than 4 nor hypotension does not meet severe sepsis or septic shock criteria. We will broaden the antibiotic coverage to include vancomycin. Continue antipyretics. Given the lack of clearly identifiable fever source CT chest abdomen pelvis performed. There was only bibasilar atelectasis no convincing infiltrate. Patient does have nonspecific edema of the gallbladder wall given lack of tenderness in this area and the fact that he has portal hypertension, cirrhosis/small volume ascites this is likely secondary to hepatic etiology and not acute cholecystitis. Impression: Presumed working diagnosis sepsis unclear cause at this time with infectious encephalopathy. 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 I did consider spontaneous bacterial peritonitis however the patient has very small volume ascites nor any abdominal pain or tenderness and I do not think risks benefit analysis favors an attempt at paracentesis at this time. Medications Administered Discontinued Medications Generic Name Dose Route Start Last Admin Trade Name Freq PRN Reason Stop Dose Admin Ceftriaxone Sodium 2 gm 05/13/25 17:38 05/13/25 17:51 Ceftriaxone Sodium 2 Gm Vial IVPUSH 05/13/25 17:39 2 gm ONCE ONE Administration Acetaminophen 1,000 mg in 100 mls @ 400 mls/hr 05/13/25 17:38 05/13/25 18:45 Ofirmev IV 05/13/25 17:52 Infused ONCE ONE Infusion Lactated Ringer's 1,000 mls @ 999 mls/hr 05/13/25 17:45 05/13/25 18:45 Lr IV 05/13/25 18:45 Infused .Q1H1M [id number] Infusion Iohexol 100 ml 05/13/25 21:00 05/13/25 21:00 Iohexol 350 Mg/Ml 100 Ml Infus..Btl IV 05/13/25 21:01 100 ml ONCE ONE Administration Medical Decision Making Medical Decision Making MDM Narrative: Medical Decision Makin-year-old male found slightly disoriented febrile. Likely infectious encephalopathy. No focal neuro deficits. As above history patient was found slightly confused by family. There was no apparent focal motor or sensory deficits on my exam and he likely has an infectious encephalopathy of unclear etiology at this time. No evidence of trauma. Previously had cellulitis I do not see clinical evidence to suggest this at this time. He is normotensive and has lactate under for does not meet severe sepsis or septic shock criteria. Sepsis however was activated. We will initiate antipyretics antibiotics fluids mc scan due to no clear infectious source. Ammonia not elevated the patient does have a history of hep C with previous hepatosplenomegaly and bicytopenia. No active bleeding Preliminary Favored Differential Diagnosis: Infectious versus metabolic versus less likely toxic encephalopathy. Sepsis, pneumonia, UTI, skin or intra- abdominal source. among additional considered etiologies Testing Interpreted Independently: ?See below for details Radiology or Lab testing Results Reviewed: ?See below for details Consults: ?See below for details Independent Historians/External Chart Reviews: ?See below for details Social Determinants of Health Impacting MDM/Planning: ?See below for details Differential Diagnosis Preliminary Favored Differential Diagnosis: Infectious versus metabolic versus less likely toxic encephalopathy. Sepsis, pneumonia, UTI, skin or intra- abdominal source. among additional considered etiologies Admission/Observation Consideration of admission/observation: Escalation of care including admission/observation considered Consult Healthcare Provider Management of the patient was discussed with: Hospitalist Lab Data MDM Lab Attestation statement: I reviewed the patient's lab results. 05/13/25 17:16 05/13/25 17:16 Labs: Lab Results 05/13/25 05/13/25 05/13/25 Range/Units 17:13 17:16 17:39 WBC 6.3 (4.8-10.8) X10*3/uL RBC 4.31 L (4.60-5.80) X10*6/uL Hgb 13.4 L (14.0-18.0) g/dl Hct 38.5 L (42.0-52.0) % MCV 89.3 (80.0-98.0) fL MCH 31.1 (27.0-33.0) pg MCHC 34.8 (31.0-36.0) g/dl RDW 13.8 (11.0-16.0) % Plt Count 42 L D (160-400) X10*3/uL MPV 12.0 (9.4-12.4) fL Immature Gran % (Auto) 0.5 H (0.0-0.4) % Neut % (Auto) 89.4 H (45-73) % Lymph % (Auto) 4.6 L (20-40) % [place] % (Auto) 5.0 (2-11) % Eos % (Auto) 0.2 (0-4) % Baso % (Auto) 0.3 (0-2) % Lymph # (Auto) 0.3 L (1.2-4.9) X10*3/uL [place] # (Auto) 0.3 (0.1-1.2) X10*3/uL Eos # (Auto) 0.0 (0.0-0.4) X10*3/uL Baso # (Auto) 0.0 (0.0-0.2) X10*3/uL Abs Immat Gran (auto) 0.03 (0.00-0.03) X10*3/uL Absolute Neuts (auto) 5.7 (2.0-8.3) x10*3/uL Absolute Nucleated RBC 0.000 (0.0-0.012) X10*3/uL Nucleated RBC % (auto) 0.0 (0.0-0.2) /100WBC Sodium 138 (135-145) mmol/L Potassium 4.3 (3.3-5.1) mmol/L Chloride 105 (96-108) mmol/L Carbon Dioxide 23 (22-29) mmol/L Anion Gap 14 (12-20) BUN 15 (9-16) mg/dL Creatinine 0.92 (0.5-1.4) mg/dL Estim Creat Clear Calc 120.5 Estimated GFR > 60 Random Glucose 133 H (60-115) mg/dL Lactic Acid 2.5 H* (0.5-2.0) mmol/L Lactic Acid F/U @ 2Hr (0.5-2.0) mmol/L Calcium 8.9 (8.4-10.2) mg/dL Magnesium 1.5 L (1.6-2.6) mg/dL Total Bilirubin 1.8 H (0.0-1.0) mg/dL AST 31 (5-37) U/L ALT 10 (0-40) U/L Alkaline Phosphatase 53 (39-117) U/L Ammonia 39 (13-55) umol/L Troponin I High Sens 94.4 H (<3.5-35.0) ng/L Total Protein 7.4 (6.5-8.0) g/dL Albumin 3.9 (3.5-5.0) g/dL Urine Color Dark Yellow Urine Appearance Clear Urine pH 5.0 (5.0-9.0) Ur Specific [place] 1.025 (1.005-1.025) Urine Protein Trace (Neg-Trace) mg/dL Urine Glucose (UA) Negative (Negative) mg/dL Urine Ketones Trace (Negative) mg/dL Urine Blood Trace H (Negative) Urine Nitrite Negative (Negative) Ur Leukocyte Esterase Small (1+) H (Negative) Urine RBC 3-5 H (0-2) /HPF Urine WBC 0-5 (0-5) /HPF Ur Squamous Epith Cells 0-2 (0-2) /HPF Urine Bacteria None Seen (None Seen) Hyaline Casts 0-2 (0-2) /LPF Urine Opiates Screen Not Detected (Not Detect) Ur Buprenorphine Scrn Not Detected (Not Detect) ng/mL Ur Oxycodone Screen Not Detected (Not Detect) ng/mL Urine Methadone Screen Not Detected (Not Detect) ng/mL Urine Fentanyl Screen Not Detected (Not Detect) Ur Barbiturates Screen Not Detected (Not Detect) Ur Phencyclidine Scrn Not Detected (Not Detect) Ur Amphetamines Screen Not Detected (Not Detect) U Benzodiazepines Scrn Not Detected (Not Detect) Urine Cocaine Screen Not Detected (Not Detect) U Marijuana (THC) Screen Not Detected (Not Detect) Ethyl Alcohol < 10 mg/dL COVID-19 (RYLAN) Negative (Negative) COVID-19 Clin Com See Note Influenza Type A (KASIA) Negative (Negative) Influenza Type B (KASIA) Negative (Negative) Influenza A & B Note See Note 05/13/25 Range/Units 19:53 WBC (4.8-10.8) X10*3/uL RBC (4.60-5.80) X10*6/uL Hgb (14.0-18.0) g/dl Hct (42.0-52.0) % MCV (80.0-98.0) fL MCH (27.0-33.0) pg MCHC (31.0-36.0) g/dl RDW (11.0-16.0) % Plt Count (160-400) X10*3/uL MPV (9.4-12.4) fL Immature Gran % (Auto) (0.0-0.4) % Neut % (Auto) (45-73) % Lymph % (Auto) (20-40) % [place] % (Auto) (2-11) % Eos % (Auto) (0-4) % Baso % (Auto) (0-2) % Lymph # (Auto) (1.2-4.9) X10*3/uL [place] # (Auto) (0.1-1.2) X10*3/uL Eos # (Auto) (0.0-0.4) X10*3/uL Baso # (Auto) (0.0-0.2) X10*3/uL Abs Immat Gran (auto) (0.00-0.03) X10*3/uL Absolute Neuts (auto) (2.0-8.3) x10*3/uL Absolute Nucleated RBC (0.0-0.012) X10*3/uL Nucleated RBC % (auto) (0.0-0.2) /100WBC Sodium (135-145) mmol/L Potassium (3.3-5.1) mmol/L Chloride (96-108) mmol/L Carbon Dioxide (22-29) mmol/L Anion Gap (12-20) BUN (9-16) mg/dL Creatinine (0.5-1.4) mg/dL Estim Creat Clear Calc Estimated GFR Random Glucose (60-115) mg/dL Lactic Acid (0.5-2.0) mmol/L Lactic Acid F/U @ 2Hr 1.4 (0.5-2.0) mmol/L Calcium (8.4-10.2) mg/dL Magnesium (1.6-2.6) mg/dL Total Bilirubin (0.0-1.0) mg/dL AST (5-37) U/L ALT (0-40) U/L Alkaline Phosphatase (39-117) U/L Ammonia (13-55) umol/L Troponin I High Sens 198.8 H* D (<3.5-35.0) ng/L Total Protein (6.5-8.0) g/dL Albumin (3.5-5.0) g/dL Urine Color Urine Appearance Urine pH (5.0-9.0) Ur Specific [place] (1.005-1.025) Urine Protein (Neg-Trace) mg/dL Urine Glucose (UA) (Negative) mg/dL Urine Ketones (Negative) mg/dL Urine Blood (Negative) Urine Nitrite (Negative) Ur Leukocyte Esterase (Negative) Urine RBC (0-2) /HPF Urine WBC (0-5) /HPF Ur Squamous Epith Cells (0-2) /HPF Urine Bacteria (None Seen) Hyaline Casts (0-2) /LPF Urine Opiates Screen (Not Detect) Ur Buprenorphine Scrn (Not Detect) ng/mL Ur Oxycodone Screen (Not Detect) ng/mL Urine Methadone Screen (Not Detect) ng/mL Urine Fentanyl Screen (Not Detect) Ur Barbiturates Screen (Not Detect) Ur Phencyclidine Scrn (Not Detect) Ur Amphetamines Screen (Not Detect) U Benzodiazepines Scrn (Not Detect) Urine Cocaine Screen (Not Detect) U Marijuana (THC) Screen (Not Detect) Ethyl Alcohol mg/dL COVID-19 (RYLAN) (Negative) COVID-19 Clin Com Influenza Type A (KASIA) (Negative) Influenza Type B (KASIA) (Negative) Influenza A & B Note Radiology Impression Discussion of test interpretation with radiology: I have reviewed the radiologist's reading. Independent Historian Clinical information obtained from an independent historian. History obtained from or confirmed by: Other (Family members who live above him provided additional history) Prescription Management I considered prescription management with: Antibiotic Chronic Conditions Patient?s care impacted by: Other (Chronic hepatitis cirrhosis) Critical Care Time Critical Care Time Critical Care Time: Yes Total Critical Care Time: 50 Attestation: ED Critical Care: Authorized and Performed by: Erwin Campbell MD Total critical care time: Approximately 50 Due to a high probability of clinically significant, life threatening deterioration, the patient required my highest level of preparedness to intervene emergently and I personally spent this critical care time directly and personally managing the patient. This critical care time included obtaining a history; examining the patient; pulse oximetry; ordering and review of studies; arranging urgent treatment with development of a management plan; evaluation of patient's response to treatment; frequent reassessment; and, discussions with other providers. This critical care time was performed to assess and manage the high probability of imminent, life-threatening deterioration that could result in multi-organ failure. It was exclusive of separately billable procedures and treating other patients and teaching time. Discharge Plan Discharge Clinical Impression: Sepsis Patient Disposition: Admitted As Inpatient
[2025-05-13 17:39] LABS: Alanine Aminotransferase 10 U/L (0-40); Albumin Level 3.9 g/dL (3.5-5.0); Alkaline Phosphatase 53 U/L (39-117); Anion Gap 14 (12-20); Aspartate Amino Transferase 31 U/L (5-37); Blood Urea Nitrogen 15 mg/dL (9-16); Calcium 8.9 mg/dL (8.4-10.2); Carbon Dioxide 23 mmol/L (22-29); Chloride 105 mmol/L (96-108); Creatinine Clr Calc Pharmacy 120.5; Estimated Glomerular Filt Rate > 60; Magnesium 1.5 mg/dL (1.6-2.6); Potassium 4.3 mmol/L (3.3-5.1); Sodium 138 mmol/L (135-145); Total Protein 7.4 g/dL (6.5-8.0)
[2025-05-13 17:43] LABS: Troponin-I High Sensitivity 94.4 ng/L (<3.5-35.0)
[2025-05-13] MEDS: Lactated Ringers 1,000 ML 999 ML IV (17:51)
[2025-05-13 17:57] LABS: Ammonia 39 umol/L (13-55)
[2025-05-13 18:08] LABS: COVID-19 Test Negative (Negative); IDNOW Serial# 55D5AD1C
[2025-05-13 18:09] LABS: IDNOW Serial# 58CA691E; Influenza B2 Negative (Negative)
[2025-05-13 19:20] LABS: Reflex Lactate? Lactic Acid Added
--- OUTSIDE RECORDS SUMMARY | 2025-05-13 19:39 | XMS_ITS | Clinical Summary ---
Author Organization [facility] Address [id number] [place] [id number] Care Team Providers Care Production Dispatcher Name Role Phone Milena Ghotra MD Primary Care Provider [phone] Medical History Medical History Date Comments Transaminitis [...] age to complete this topic Care Teams Production Dispatcher Relationship Specialty Start Date End Date Milena Ghotra MD PCP - General Internal Medicine 07/26/20
[2025-05-13 20:19] LABS: ~Lactic Acid-LAB USE ONLY 1.4 mmol/L (0.5-2.0)
[2025-05-13 20:31] LABS: Troponin-I High Sensitivity 198.8 ng/L (<3.5-35.0)
[2025-05-13] MEDS: iohexoL 350 MG/ML 100 ML INFUS..BTL IV (21:00)
--- NOTE | 2025-05-13 22:54 | PM.IMHP ---
History of Present Illness Date of Service: 05/13/25 Attending physician on admission: Angel Pratt Chief Complaint: AMS, fever Patient is a 69-year-old male with a past medical history significant for hep C, cirrhosis, bicytopenia, morbid obesity, and tobacco use disorder, who presented to the ED via EMS due to AMS and feeling ?unwell . The patient is a poor historian, likely due to altered mental status, and reports he has not felt well for the past few days, symptoms are vague. He denies chest pain, shortness of breath, nausea, vomiting, abdominal pain, urinary symptoms, rash or upper respiratory symptoms. No recent travel or sick contacts. He denies diarrhea, sore throat, headache, photosensitivity or neck pain. He only reports not feeling well, fever and chills. Review of Systems Constitutional: Constitutional: Denies body ache(s), Reports chills, Denies fatigue, Reports fever(s) and Denies headache(s) Eyes: Eyes: Denies change in vision ENT: Denies headache(s), Denies nasal congestion and Denies sore throat Cardiovascular: Cardiovascular: Denies chest pain, Denies rapid heart rate, Denies leg edema, Denies lightheadedness and Denies dyspnea Respiratory: Respiratory: Denies chest congestion, Denies cough, Denies dyspnea and Denies wheezing Gastrointestinal: Gastrointestinal: Denies abdominal pain, Denies diarrhea, Denies nausea and Denies vomiting Genitourinary: Genitourinary: Denies dysuria and Denies urinary urgency Musculoskeletal: Musculoskeletal: Denies myalgias Integumentary/Breasts: Skin/Breast: Denies rash Neurologic: Reports confusion and Denies headache(s) Psychiatric: Psychiatric: Reports confusion Endocrine: Endocrine: Denies fatigue Hematologic/Lymphatic: Hematologic/Lymphatic: Denies easy bleeding and Denies easy bruising Allergic/Immunologic: Allergic/Immunologic: Denies wheezing [facility] Medical History Tobacco use disorder Morbid obesity Cirrhosis Bicytopenia Chronic hepatitis C No known health problems Functional capacity: independent ambulation Surgical History Hx of colonoscopy Social History Household Members: Family Housing: House Alcohol intake: current Alcohol intake frequency: a few times a week Alcohol type: beer Patient Tobacco Use Status: Current everyday Tobacco user Tobacco use type: Cigarette Cigarette Packs Per Day: 1 Years Smoked: 30 Smoked in Last 30 Days: Yes e-Cigarette/Vaping Use: Never Used Use of substances other than those prescribed or required for medical reasons: No Advance Directives: No Advance Directives Information Provided: Yes Do you have a plan to hurt others: No Plan service: No Current occupational status: retired Gender identity: Male Cognitive needs: No Hearing needs: No Vision needs: Yes Narrative: smoker (amount unable to be quantified), no alcohol or drug use Meds Allergies Allergy/AdvReac Type Severity Reaction Status Date / Time No Known Allergies Allergy Verified 05/13/25 17:03 Active Medications: Current Medications Acetaminophen (Acetaminophen 325 Mg Tablet) 975 mg PO Q6H PRN PRN Reason: Pain, Mild 1-3,fever,headache Calcium Carbonate (Calcium Carbonate 750 Mg Tab.Chew) 750 mg PO Q4H PRN PRN Reason: Heartburn Vancomycin HCl (Vancomycin/Ns) 2,000 mg in 500 mls @ 250 mls/hr IV ONCE ONE Stop: 05/14/25 00:07 Piperacillin Sod/Tazobactam (Sod 3.375 gm/ Sodium Chloride) 50 mls @ 100 mls/hr IV Q6H KRZYSZTOF Magnesium Hydroxide (Milk Of Magnesia 30 Ml Oral.Susp) 30 ml PO DAILY PRN PRN Reason: Constipation Melatonin (Melatonin 3 Mg Tablet) 6 mg PO BEDTIME PRN PRN Reason: Insomnia Ondansetron HCl (Ondansetron Hcl 4 Mg/2 Ml Vial) 4 mg IVPUSH Q8H PRN PRN Reason: Nausea and Vomiting Oxycodone HCl (Oxycodone Hcl Immed Release 5 Mg Tablet) 5 mg PO Q6H PRN PRN Reason: Pain, Severe (Pain Scale 7-10) Pharmacy Consult (Consult Rx Vancomycin Dosing) 1 each MISCELLANE DAILY PRN PRN Reason: Consult order Sodium Chloride (0.9 % Sodium Chloride Flush 3 Ml Syringe) 3 ml IVFLUSH QSHIFT [id number] Tramadol HCl (Tramadol Hcl 50 Mg Tablet) 50 mg PO Q6H PRN PRN Reason: Pain, Moderate(Pain Scale 4-6) Physical Exam Vital Signs and Narrative: Vital Signs: Last Vital Signs Temp 101.3 F H 05/13/25 22:15 Pulse 79 05/13/25 22:15 Resp 21 H 05/13/25 22:15 BP 116/53 L 05/13/25 22:15 Pulse Ox 95 05/13/25 22:15 O2 Del Method Room Air 05/13/25 22:15 BMI result Body Mass Index 42.5 General: Alert oriented to person and place, not oriented to time, no acute distress Resp: CTA bilaterally, diminished throughout, difficult to assess, not following commands well CVS: S1, S2, RRR GI: +BS, NT, distended (patient reports this is baseline) Skin: Warm, dry Neuro: Cranial nerves II-XII grossly intact bilaterally. Motor grossly intact bilaterally. No photosensitivity, no focal neuro deficits Extremities: 1+ pitting edema Psych: confused at times. poor historian. Const: General: confusion Orientation/consciousness: confusion Neuro: General: confusion Results Labs 05/13/25 17:16 05/13/25 17:16 Labs: Laboratory Results - last 24 hr 05/13/25 05/13/25 05/13/25 17:13 17:16 17:39 MCV 89.3 MCH 31.1 MCHC 34.8 RDW 13.8 Plt Count 42 L D MPV 12.0 Immature Gran % (Auto) 0.5 H Neut % (Auto) 89.4 H Lymph % (Auto) 4.6 L [place] % (Auto) 5.0 Eos % (Auto) 0.2 Baso % (Auto) 0.3 Lymph # (Auto) 0.3 L [place] # (Auto) 0.3 Eos # (Auto) 0.0 Baso # (Auto) 0.0 Abs Immat Gran (auto) 0.03 Absolute Neuts (auto) 5.7 Absolute Nucleated RBC 0.000 Nucleated RBC % (auto) 0.0 Anion Gap 14 Estim Creat Clear Calc 120.5 Estimated GFR > 60 Random Glucose 133 H Lactic Acid 2.5 H* Lactic Acid F/U @ 2Hr Calcium 8.9 Magnesium 1.5 L Total Bilirubin 1.8 H AST 31 ALT 10 Alkaline Phosphatase 53 Ammonia 39 Total Protein 7.4 Albumin 3.9 Urine Color Dark Yellow Urine Appearance Clear Urine pH 5.0 Ur Specific [place] 1.025 Urine Protein Trace Urine Glucose (UA) Negative Urine Ketones Trace Urine Blood Trace H Urine Nitrite Negative Ur Leukocyte Esterase Small (1+) H Urine RBC 3-5 H Urine WBC 0-5 Ur Squamous Epith Cells 0-2 Urine Bacteria None Seen Hyaline Casts 0-2 Urine Opiates Screen Not Detected Ur Buprenorphine Scrn Not Detected Ur Oxycodone Screen Not Detected Urine Methadone Screen Not Detected Urine Fentanyl Screen Not Detected Ur Barbiturates Screen Not Detected Ur Phencyclidine Scrn Not Detected Ur Amphetamines Screen Not Detected U Benzodiazepines Scrn Not Detected Urine Cocaine Screen Not Detected U Marijuana (THC) Screen Not Detected Ethyl Alcohol < 10 COVID-19 (RYLAN) Negative COVID-19 Clin Com See Note Influenza Type A (KASIA) Negative Influenza Type B (KASIA) Negative Influenza A & B Note See Note 05/13/25 19:53 MCV MCH MCHC RDW Plt Count MPV Immature Gran % (Auto) Neut % (Auto) Lymph % (Auto) [place] % (Auto) Eos % (Auto) Baso % (Auto) Lymph # (Auto) [place] # (Auto) Eos # (Auto) Baso # (Auto) Abs Immat Gran (auto) Absolute Neuts (auto) Absolute Nucleated RBC Nucleated RBC % (auto) Anion Gap Estim Creat Clear Calc Estimated GFR Random Glucose Lactic Acid Lactic Acid F/U @ 2Hr 1.4 Calcium Magnesium Total Bilirubin AST ALT Alkaline Phosphatase Ammonia Total Protein Albumin Urine Color Urine Appearance Urine pH Ur Specific [place] Urine Protein Urine Glucose (UA) Urine Ketones Urine Blood Urine Nitrite Ur Leukocyte Esterase Urine RBC Urine WBC Ur Squamous Epith Cells Urine Bacteria Hyaline Casts Urine Opiates Screen Ur Buprenorphine Scrn Ur Oxycodone Screen Urine Methadone Screen Urine Fentanyl Screen Ur Barbiturates Screen Ur Phencyclidine Scrn Ur Amphetamines Screen U Benzodiazepines Scrn Urine Cocaine Screen U Marijuana (THC) Screen Ethyl Alcohol COVID-19 (RYLAN) COVID-19 Clin Com Influenza Type A (KASIA) Influenza Type B (KASIA) Influenza A & B Note Assessment and Plan (1) Altered mental status: Status: Acute (2) SIRS (systemic inflammatory response syndrome): Status: Acute (3) Morbid obesity due to excess calories: Status: Acute (4) Tobacco use disorder: Status: Acute Plan Patient is a 69-year-old male with a past medical history significant for hep C, cirrhosis, bicytopenia, morbid obesity, and tobacco use disorder, who presented to the ED via EMS due to AMS and feeling ?unwell . AMS, SIRS+ - no leukocytosis, febrile at 102.7, tachycardic and tachypneic, lactic acid 2.5, 1.4 on repeat, blood cultures x2 pending - chest x-ray negative - chest CT negative - head CT negative - abdominopelvic CT with edema throughout the intra-abdominal compartment with minimal perihepatic ascites. Subtle gall bladder wall thickening is not excluded, may consider gallbladder ultrasound examination and/or HIDA scan if there is clinical concern for acute cholecystitis. Subtle nodularity of the hepatic contour in the setting of cirrhosis - AST and ALT at baseline, T bili slightly elevated at 1.8, alk-phos normal, ammonia normal - UA negative for infection, small leuks, trace blood, culture pending - COVID/flu/RSV negative - no neck pain, headache or photosensitivity - patient given 1 L LR in ED, lactic acid improved from 2.5-1.4 - started on ceftriaxone and vancomycin prophylactically, switch to Zosyn and vancomycin - check respiratory panel - blood pressure stable, avoid further fluids due to risk fo fluid overload with cirrhosis - monitor CBC and BMP Acute lactic acidosis, likely secondary to infectious etiology, SIRS+ - lactic acid 2.5, 1.4 on repeat after receiving 1 L LR - BP stable, avoid further fluids due to risk of fluid overload with cirrhosis Elevated troponin - troponin 94.4, 198.8 on repeat - no chest pain - EKG negative - likely troponin leak due to SIRS - monitor on tele - no anticoagulation due to thrombocytopenia Thrombocytopenia, chronic, secondary to cirrhosis - platelets 42 - avoid anticoagulants - monitor CBC Hypomagnesemia - magnesium 1.5 - give 1g IV mag - recheck in AM Mild anemia - hemoglobin 13.4, hematocrit 38.5, MCV normal - does not meet criteria for blood transfusion at this time - monitor CBC Morbid obesity - BMI 42.5 - weight loss encouraged Tobacco use disorder - patient declines nicotine replacement therapy - smoking cessation encouraged Med rec pending Full code VTE prophylaxis: Pneumoboots Patient with altered mental status complicated by SIRS positive criteria, requiring admission for at least 2 midnights stay for monitoring and further evaluation. Quality Stroke Does the patient have a stroke diagnosis?: No VTE Prior VTE?: No VTE Risk Level:: Medical - moderate - high VTE Device Contraindication: N/A - Device Ordered VTE Drug Contraindication: Treatment Not Indicated
[2025-05-13] MEDS: 0.9 % Sodium Chloride Flush 3 ML SYRINGE IVFLUSH (23:32)
[2025-05-13] MEDS: vancomycin/NS 2,000 MG/500 ML PLAST..BAG 250 MG IV (23:43)
[2025-05-14] VITALS (9 sets, daily range): BP systolic 121–152; BP diastolic 60–72; PULSE 70–84; RESP 14–20; TEMP 36.8–38.9; O2SAT 93–98; BMI 42.9
[2025-05-14 05:20] LABS: Hemoglobin 12.7 g/dl (14.0-18.0); NRBC Abs Auto 0.000 X10*3/uL (0.0-0.012); NRBC Pct Auto 0.0 /100WBC (0.0-0.2); PLT CLUMP 1; SCAN SMEAR FLAG 1
[2025-05-14 05:23] LABS: Hematocrit 37.1 % (42.0-52.0); Imm Gran Abs Auto 0.02 X10*3/uL (0.00-0.03); Imm Gran Pct Auto 0.4 % (0.0-0.4); Lymphocytes Absolute Auto 0.5 X10*3/uL (1.2-4.9); MANUAL DIFF FLAG SCAN; Mean Corpuscular HGB Conc 34.2 g/dl (31.0-36.0); Mean Corpuscular Hemoglobin 31.0 pg (27.0-33.0); Mean Corpuscular Volume 90.5 fL (80.0-98.0); Red Blood Count 4.10 X10*6/uL (4.60-5.80)
[2025-05-14 05:40] LABS: Alanine Aminotransferase 12 U/L (0-40); Albumin Level 3.6 g/dL (3.5-5.0); Alkaline Phosphatase 48 U/L (39-117); Anion Gap 16 (12-20); Aspartate Amino Transferase 33 U/L (5-37); Blood Urea Nitrogen 15 mg/dL (9-16); Calcium 8.7 mg/dL (8.4-10.2); Carbon Dioxide 21 mmol/L (22-29); Chloride 105 mmol/L (96-108); Creatinine Clr Calc Pharmacy 127.4; Estimated Glomerular Filt Rate > 60; Potassium 3.7 mmol/L (3.3-5.1); Sodium 138 mmol/L (135-145); Total Protein 6.7 g/dL (6.5-8.0)
[2025-05-14 06:02] LABS: Platelet Count 36 X10*3/uL (160-400); White Blood Count 5.2 X10*3/uL (4.8-10.8)
[2025-05-14 09:02] LABS: Chlamydia pneumoniae PCR Not Detected (Not Detect.); Coronavirus 229E PCR Not Detected (Not Detect.); Coronavirus HKU1 PCR Not Detected (Not Detect.); Coronavirus NL63 PCR Not Detected (Not Detect.); Coronavirus OC43 PCR Not Detected (Not Detect.); RSV PCR Not Detected (Not Detect.); Rhino/Enterovirus PCR Not Detected (Not Detect.)
[2025-05-14 09:45] LABS: Influenza A H1 PCR Not Detected (Not Detect.); Influenza A H1-2009 PCR Not Detected (Not Detect.); Influenza A H3 PCR Not Detected (Not Detect.); SARS-CoV-2 PCR Not Detected (Not Detect.)
--- NOTE | 2025-05-14 10:34 | PHA.MEDREC ---
Addendum entered by Graham Cook RP 05/14/25 11:22: Reviewed by [facility]. Will let provider know. Original Note: Pharmacy Consult ? Medication Reconciliation Pharmacy has completed the medication reconciliation. Patient states he is not taking any medications. Mavyret 100-40 mg last fill date 05/04/25 patient states he is not taking.
--- NOTE | 2025-05-14 17:45 | HO.PM.IMPN ---
Subjective Subjective Date of Service: 05/14/25 Interval History: Patient feels well today. Is questioning the need for admission. Informed the patient that his blood cultures have positive for GPCs, and had fever 102. Source of infection needs to be identified. Patient denies chest pain, palpitations, dizziness, diaphoresis. He denies abdominal discomfort pain or swelling. Denies coughing phlegm wheezing or difficulty breathing Denies dysuria, pyuria, hematuria. Denies diarrhea or painful defecation Review of Systems Review of Systems: Yes all other systems are reviewed and are negative Physical Exam Exam: Exam: General: A&O x3, oriented to time place person and situation, comfortable, no pain Cardiac: S1, S2 auscultated with no S3/4, no MRG. Well perfused. Respiratory: Normal breath sounds auscultated throughout all lung zones, without wheezing, rales. Normal rate. GI/ : Abdominal distention noted, without evidence of ascites. No tenderness to abdominal palpation on light or deep. Can not elucidate hepatosplenomegaly MSK: Normal ambulation without pain at bony prominences or musculature Neurological: Normal neurological examination on overview, without obvious CN II-XII abnormalities. Vital Signs: Vital Signs: Last Vital Signs Temp 102.1 F H 05/14/25 16:00 Pulse 84 05/14/25 16:00 Resp 18 05/14/25 16:00 BP 152/69 H 05/14/25 16:00 Pulse Ox 93 05/14/25 16:00 O2 Del Method Room Air 05/14/25 16:00 BMI result Body Mass Index 42.9 Objective Data Active Medications Acetaminophen (Acetaminophen 325 Mg Tablet) 975 mg PO Q6H PRN PRN Reason: Pain, Mild 1-3,fever,headache Last Admin: 05/14/25 16:47 Dose: 975 mg Documented By: USHA Calcium Carbonate (Calcium Carbonate 750 Mg Tab.Chew) 750 mg PO Q4H PRN PRN Reason: Heartburn Piperacillin Sod/Tazobactam (Sod 3.375 gm/ Sodium Chloride) 50 mls @ 100 mls/hr IV Q6H [id number] Last Infusion: 05/14/25 12:31 Dose: Infused Documented By: DAYRON Vancomycin HCl 1,500 mg/ (Sodium Chloride) 500 mls @ 333.333 mls/hr IV Q12H REPLACED BY [facility] Last Infusion: 05/14/25 14:32 Dose: Infused Documented By: DAYRON Magnesium Hydroxide (Milk Of Magnesia 30 Ml Oral.Susp) 30 ml PO DAILY PRN PRN Reason: Constipation Melatonin (Melatonin 3 Mg Tablet) 6 mg PO BEDTIME PRN PRN Reason: Insomnia Ondansetron HCl (Ondansetron Hcl 4 Mg/2 Ml Vial) 4 mg IVPUSH Q8H PRN PRN Reason: Nausea and Vomiting Oxycodone HCl (Oxycodone Hcl Immed Release 5 Mg Tablet) 5 mg PO Q6H PRN PRN Reason: Pain, Severe (Pain Scale 7-10) Pharmacy Consult (Consult Rx Vancomycin Dosing) 1 each MISCELLANE DAILY PRN PRN Reason: Consult order Sodium Chloride (0.9 % Sodium Chloride Flush 3 Ml Syringe) 3 ml IVFLUSH QSHIFT REPLACED BY [facility] Last Admin: 05/14/25 16:30 Dose: Not Given Documented By: USHA Non-Admin Reason: Previously Administered Tramadol HCl (Tramadol Hcl 50 Mg Tablet) 50 mg PO Q6H PRN PRN Reason: Pain, Moderate(Pain Scale 4-6) Labs 05/14/25 03:55 05/14/25 03:55 Labs: Laboratory Results - last 24 hr 05/13/25 05/13/25 05/14/25 17:39 19:53 00:08 MCV MCH MCHC RDW Plt Count MPV Immature Gran % (Auto) Neut % (Auto) Lymph % (Auto) [place] % (Auto) Eos % (Auto) Baso % (Auto) Lymph # (Auto) [place] # (Auto) Eos # (Auto) Baso # (Auto) Abs Immat Gran (auto) Absolute Neuts (auto) Absolute Nucleated RBC Nucleated RBC % (auto) Smear Tech's Comments Anion Gap Estim Creat Clear Calc Estimated GFR Random Glucose Lactic Acid F/U @ 2Hr 1.4 Calcium Total Bilirubin AST ALT Alkaline Phosphatase Ammonia 39 Total Protein Albumin Respiratory Panel [place] See Note Adenovirus (Rapid PCR) Not Detected B.pert (TEM-PCR) Not Detected B.parapertussis DNA PCR Not Detected C. pneumoniae DNA (PCR) Not Detected Coronavirus OC43 (PCR) Not Detected Coronavirus HKU1 (PCR) Not Detected Coronavirus 229E (PCR) Not Detected COVID-19 (RYLAN) Negative COVID-19 Clin Com See Note Coronavirus NL63 (PCR) Not Detected Human Metapneumovir PCR Not Detected Influenza Type A (KASIA) Negative Influenza A (RT-PCR) Not Detected Influenza A (H1) PCR Not Detected Influ A (H1/09) PCR Not Detected Influenza A (H3) PCR Not Detected Influenza Type B (KASIA) Negative Influenza B (RT-PCR) Not Detected Influenza A & B Note See Note M. pneumoniae (PCR) Not Detected Parainfluenza 1 (PCR) Not Detected Parainfluenza 2 (PCR) Not Detected Parainfluenza 3 (PCR) Not Detected Parainfluenza 4 (PCR) Not Detected RSV (PCR) Not Detected Entero/Rhino (PCR) Not Detected SARS-CoV-2 RNA (RT-PCR) Not Detected 05/14/25 03:55 MCV 90.5 MCH 31.0 MCHC 34.2 RDW 13.9 Plt Count 36 L MPV 11.1 Immature Gran % (Auto) 0.4 Neut % (Auto) 85.2 H Lymph % (Auto) 9.4 L [place] % (Auto) 5.0 Eos % (Auto) 0.0 Baso % (Auto) 0.0 Lymph # (Auto) 0.5 L [place] # (Auto) 0.3 Eos # (Auto) 0.0 Baso # (Auto) 0.0 Abs Immat Gran (auto) 0.02 Absolute Neuts (auto) 4.4 Absolute Nucleated RBC 0.000 Nucleated RBC % (auto) 0.0 Smear Tech's Comments VERIFIED Anion Gap 16 Estim Creat Clear Calc 127.4 Estimated GFR > 60 Random Glucose 105 Lactic Acid F/U @ 2Hr Calcium 8.7 Total Bilirubin 1.7 H AST 33 ALT 12 Alkaline Phosphatase 48 Ammonia Total Protein 6.7 Albumin 3.6 Respiratory Panel [place] Adenovirus (Rapid PCR) B.pert (TEM-PCR) B.parapertussis DNA PCR C. pneumoniae DNA (PCR) Coronavirus OC43 (PCR) Coronavirus HKU1 (PCR) Coronavirus 229E (PCR) COVID-19 (RYLAN) COVID-19 Clin Com Coronavirus NL63 (PCR) Human Metapneumovir PCR Influenza Type A (KASIA) Influenza A (RT-PCR) Influenza A (H1) PCR Influ A (H1/09) PCR Influenza A (H3) PCR Influenza Type B (KASIA) Influenza B (RT-PCR) Influenza A & B Note M. pneumoniae (PCR) Parainfluenza 1 (PCR) Parainfluenza 2 (PCR) Parainfluenza 3 (PCR) Parainfluenza 4 (PCR) RSV (PCR) Entero/Rhino (PCR) SARS-CoV-2 RNA (RT-PCR) Microbiology Microbiology Results: Microbiology 05/13/25 17:39 Blood Culture - Preliminary Blood - Venous Prelim: GPC Gram Stain only 05/13/25 17:28 Blood Culture - Preliminary Blood - Venous Prelim: GPC Gram Stain only 05/13/25 17:37 Urine Culture - Preliminary Urine clean catch - Clean Catch Midstream Culture too young to evaluate. Assessment and Plan (1) Sepsis: Status: Acute (2) Bacteremia: Status: Acute (3) Hepatosplenomegaly: Status: Acute (4) Chronic hepatitis C: Status: Acute (5) Cirrhosis: Status: Acute (6) Neutropenia: Status: Acute Plan 69-year-old male with a past medical history significant for hep C, cirrhosis, bicytopenia, morbid obesity, and tobacco use disorder, who presented to the ED via EMS due to AMS and feeling ?unwell , admitted with Gram-positive cocci sepsis of unknown source, and type 2 demand NSTEMI. Gram-positive cocci Sepsis Acute lactic acidosis The patient is normally leukopenic, presents with a normal white cell count, with 85% neutrophilic shift. Febrile 102.7, tachycardic, tachypneic. Lactic acid 2.5, 1.4 on repeat post fluid Blood culture x2: Positive GPCs - pending final culture. Chest x-ray, chest CT, head CT negative. CT-TAP; minimal perihepatic ascites, GB wall thickening possible (normal LFTs). T bili is mildly elevated UA negative for infection Respiratory panel negative No evidence of meningism PLAN - continue Zosyn and vancomycin - pending form of blood culture - echo pending - tick panel pending - consider white cell tagged scan - ID consult NSTEMI Troponin 94.4, 198.8 on repeat Asymptomatic, no complaints of chest pain. ECG unremarkable On telemetry PLAN - repeat troponin - echo pending - continue telemetry Thrombocytopenia, chronic, secondary to cirrhosis - platelets 42 - avoid anticoagulants - monitor CBC Hypomagnesemia magnesium 1.5 - recheck in AM Mild anemia - hemoglobin 13.4, hematocrit 38.5, MCV normal - does not meet criteria for blood transfusion at this time - monitor CBC Morbid obesity - BMI 42.5 - weight loss encouraged Tobacco use disorder - patient declines nicotine replacement therapy - smoking cessation encouraged Med rec pending Full code VTE prophylaxis: Pneumoboots Total time managing care of this patient today: 45 minutes. Quality Stroke Does the patient have a stroke diagnosis?: No VTE Prior VTE?: No VTE Risk Level:: Medical - moderate - high VTE Device Contraindication: N/A - Device Ordered VTE Drug Contraindication: Treatment Not Indicated
[2025-05-14 18:23] LABS: MANUAL DIFF FLAG NO
[2025-05-14 18:31] LABS: Hematocrit 35.1 % (42.0-52.0); Hemoglobin 12.1 g/dl (14.0-18.0); Imm Gran Abs Auto 0.02 X10*3/uL (0.00-0.03); Imm Gran Pct Auto 0.5 % (0.0-0.4); Lymphocytes Absolute Auto 0.4 X10*3/uL (1.2-4.9); Mean Corpuscular HGB Conc 34.5 g/dl (31.0-36.0); Mean Corpuscular Hemoglobin 30.9 pg (27.0-33.0); Mean Corpuscular Volume 89.8 fL (80.0-98.0); NRBC Abs Auto 0.000 X10*3/uL (0.0-0.012); NRBC Pct Auto 0.0 /100WBC (0.0-0.2); Platelet Count 40 X10*3/uL (160-400); Red Blood Count 3.91 X10*6/uL (4.60-5.80); White Blood Count 4.3 X10*3/uL (4.8-10.8)
[2025-05-14 18:36] LABS: Anion Gap 12 (12-20); Blood Urea Nitrogen 15 mg/dL (9-16); Calcium 8.3 mg/dL (8.4-10.2); Carbon Dioxide 23 mmol/L (22-29); Chloride 106 mmol/L (96-108); Creatinine Clr Calc Pharmacy 118.5; Estimated Glomerular Filt Rate > 60; Potassium 3.7 mmol/L (3.3-5.1); Sodium 137 mmol/L (135-145)
[2025-05-14 18:43] LABS: Troponin-I High Sensitivity 78.5 ng/L (<3.5-35.0)
[2025-05-15] VITALS (7 sets, daily range): BP systolic 122–154; BP diastolic 60–85; PULSE 60–78; RESP 16–20; TEMP 36.2–37.6; O2SAT 93–98
[2025-05-15] MEDS: 0.9 % Sodium Chloride Flush 3 ML SYRINGE IVFLUSH ×3 (00:24→15:42)
[2025-05-15 06:04] LABS: MANUAL DIFF FLAG NO
[2025-05-15 06:21] LABS: Alanine Aminotransferase 10 U/L (0-40); Albumin Level 3.0 g/dL (3.5-5.0); Alkaline Phosphatase 47 U/L (39-117); Anion Gap 8 (12-20); Aspartate Amino Transferase 31 U/L (5-37); Blood Urea Nitrogen 14 mg/dL (9-16); Calcium 7.8 mg/dL (8.4-10.2); Carbon Dioxide 24 mmol/L (22-29); Chloride 108 mmol/L (96-108); Creatinine Clr Calc Pharmacy 132.6; Estimated Glomerular Filt Rate > 60; Potassium 3.4 mmol/L (3.3-5.1); Sodium 137 mmol/L (135-145); Total Protein 5.7 g/dL (6.5-8.0)
[2025-05-15 06:57] LABS: Hematocrit 33.1 % (42.0-52.0); Hemoglobin 11.4 g/dl (14.0-18.0); Imm Gran Abs Auto 0.01 X10*3/uL (0.00-0.03); Imm Gran Pct Auto 0.3 % (0.0-0.4); Lymphocytes Absolute Auto 0.5 X10*3/uL (1.2-4.9); Mean Corpuscular HGB Conc 34.4 g/dl (31.0-36.0); Mean Corpuscular Hemoglobin 30.9 pg (27.0-33.0); Mean Corpuscular Volume 89.7 fL (80.0-98.0); NRBC Abs Auto 0.000 X10*3/uL (0.0-0.012); NRBC Pct Auto 0.0 /100WBC (0.0-0.2); Red Blood Count 3.69 X10*6/uL (4.60-5.80); White Blood Count 3.0 X10*3/uL (4.8-10.8)
[2025-05-15 06:58] LABS: Platelet Count 34 X10*3/uL (160-400)
--- NOTE | 2025-05-15 09:16 | MHC.CM.PN ---
IMM 05/15/25, Pt. does not use home health services or DME. PCP confirmed: Isaak Beal, HCP pt. states is his sister, Alexandria Rosas, he declined to complete form. Pt. is able to arrange transport home at [place], DCP: home, self care. CM to follow for DC needs.
--- NOTE | 2025-05-15 10:52 | HE.PHANOTE ---
Re: Lyly Good renal function and improving. Trough returned at 14.5. Continue current dose of 1500mg q12h with predicted AUC 569, predicted trough 17.5. Next trough 05/16 @ 1000.
--- NOTE | 2025-05-15 11:49 | P.PNIM_ITS ---
Subjective Subjective Date of Service: 05/15/25 Review of Systems Follow up bacteremia No complaints of nausea, vomiting, diarrhea No complaints of pain Physical Exam 2 Exam: Exam: Appearing in no acute distress head is normocephalic atraumatic eyes pupils are PERRLA sclera is anicteric mouth throat mucous membranes are intact and moist neck is supple no lymphadenopathy, no JVD noted lung sounds are clear to auscultation heart regular rate rhythm, clear S1, S2 positive bowel sounds, abdomen is soft, nontender neuro patient is alert x3, no focal deficits Vital Signs: Vital Signs: Last Vital Signs Temp 98.7 F 05/15/25 11:18 Pulse 70 05/15/25 11:18 Resp 20 05/15/25 11:18 BP 129/73 05/15/25 11:18 Pulse Ox 97 05/15/25 11:18 O2 Del Method Room Air 05/15/25 11:18 BMI result Body Mass Index 42.9 Objective Data Active Medications Acetaminophen (Acetaminophen 325 Mg Tablet) 975 mg PO Q6H PRN PRN Reason: Pain, Mild 1-3,fever,headache Last Admin: 05/14/25 16:47 Dose: 975 mg Documented By: USHA Calcium Carbonate (Calcium Carbonate 750 Mg Tab.Chew) 750 mg PO Q4H PRN PRN Reason: Heartburn Piperacillin Sod/Tazobactam (Sod 3.375 gm/ Sodium Chloride) 50 mls @ 100 mls/hr IV Q6H [facility] Last Admin: 05/15/25 11:25 Dose: 100 mls/hr Documented By: UZIEL Vancomycin HCl 1,500 mg/ (Sodium Chloride) 500 mls @ 333.333 mls/hr IV Q12H [facility] Last Admin: 05/15/25 11:46 Dose: 333.33 mls/hr Documented By: UZIEL Magnesium Hydroxide (Milk Of Magnesia 30 Ml Oral.Susp) 30 ml PO DAILY PRN PRN Reason: Constipation Melatonin (Melatonin 3 Mg Tablet) 6 mg PO BEDTIME PRN PRN Reason: Insomnia Ondansetron HCl (Ondansetron Hcl 4 Mg/2 Ml Vial) 4 mg IVPUSH Q8H PRN PRN Reason: Nausea and Vomiting Oxycodone HCl (Oxycodone Hcl Immed Release 5 Mg Tablet) 5 mg PO Q6H PRN PRN Reason: Pain, Severe (Pain Scale 7-10) Pharmacy Consult (Consult Rx Vancomycin Dosing) 1 each MISCELLANE DAILY PRN PRN Reason: Consult order Sodium Chloride (0.9 % Sodium Chloride Flush 3 Ml Syringe) 3 ml IVFLUSH QSHIFT [facility] Last Admin: 05/15/25 08:57 Dose: 3 ml Documented By: UZIEL Tramadol HCl (Tramadol Hcl 50 Mg Tablet) 50 mg PO Q6H PRN PRN Reason: Pain, Moderate(Pain Scale 4-6) Labs 05/15/25 05:57 05/15/25 05:57 Labs: Laboratory Results - last 24 hr 05/14/25 05/15/25 05/15/25 18:15 05:57 10:08 MCV 89.8 89.7 MCH 30.9 30.9 MCHC 34.5 34.4 RDW 13.9 13.7 Plt Count 40 L 34 L MPV 11.6 11.3 Immature Gran % (Auto) 0.5 H 0.3 Neut % (Auto) 83.2 H 72.1 Lymph % (Auto) 8.8 L 16.8 L [place] % (Auto) 7.1 8.9 Eos % (Auto) 0.2 1.6 Baso % (Auto) 0.2 0.3 Lymph # (Auto) 0.4 L 0.5 L [place] # (Auto) 0.3 0.3 Eos # (Auto) 0.0 0.1 Baso # (Auto) 0.0 0.0 Abs Immat Gran (auto) 0.02 0.01 Absolute Neuts (auto) 3.6 2.2 Absolute Nucleated RBC 0.000 0.000 Nucleated RBC % (auto) 0.0 0.0 Anion Gap 12 8 L Estim Creat Clear Calc 118.5 132.6 Estimated GFR > 60 > 60 Random Glucose 127 H 135 H Lactic Acid 1.0 Calcium 8.3 L 7.8 L D Total Bilirubin 0.8 AST 31 ALT 10 Alkaline Phosphatase 47 Total Protein 5.7 L Albumin 3.0 L Random Vancomycin 14.5 L Microbiology Microbiology Results: Microbiology 05/13/25 17:39 Blood Culture - Preliminary Blood - Venous Group G streptococcus 05/13/25 17:28 Blood Culture - Preliminary Blood - Venous Group G streptococcus 05/13/25 17:37 Urine Culture - Final Urine clean catch - Clean Catch Midstream Assessment and Plan (1) Bacteremia: Status: Acute Plan 69-year-old man presented to the ED with altered mental status feeling unwell, noted to have Gram-positive cocci bacteremia Bacteremia. Group G strep Continue vancomycin, Zosyn Unknown source at this time ID consultation Await final culture Elevated troponins no chest pain, no ischemic changes noted on EKG Likely secondary to bacteremia Thrombocytopenia, chronic Secondary to cirrhosis Hypomagnesemia. Repleted and resolved Normocytic anemia Within normal limits No obvious bleeding Tobacco use Discussed importance of smoking cessation, declines nicotine replacement therapy Morbid obesity. BMI 42.5 Discussed importance of weight management as this may be contributing to worsening of other comorbidities DVT prophylaxis with heparin Quality Stroke Does the patient have a stroke diagnosis?: No VTE Prior VTE?: No VTE Risk Level:: Medical - moderate - high VTE Device Contraindication: N/A - Device Ordered VTE Drug Contraindication: Treatment Not Indicated
[2025-05-16] MEDS: 0.9 % Sodium Chloride Flush 3 ML SYRINGE IVFLUSH ×3 (01:32→16:27)
[2025-05-16 03:47] VITALS: BP 145/76; PULSE 64; RESP 16; TEMP 36.7; O2SAT 95
--- NOTE | 2025-05-16 07:00 | CA_ITS ---
Transthoracic Echocardiogram Patient (Last, First, Middle): Gomez Meyer, Gender: Male Date of : 1955 Age: 69 Procedure Date: 05/16/2025 Procedure Type: Transthoracic Echocardiogram Location: [facility] [place] Height: 190.5 cm Weight: 155.58 kg BSA: 2.76 m2 Heart Rate: bpm BP: 129 / 73 mmHg Principal Cloud Architect: TO Referring MD: Breanna Pino NP Symptoms: bacteremia Study Quality: Technically Difficult, contrast ECG Rhythm: Sinus Conclusions: - The left ventricular systolic function is normal. The visually estimated ejection fraction is between 55-60%. - There is moderate calcification of the aortic valve. There is mild aortic valve stenosis. - No obvious vegetation noted based on available image quality. Findings Procedure Information Contrast agent, definity, is being given per protocol without apparent complications. Left Ventricle Normal left ventricular cavity size. There is normal left ventricular wall thickness. The left ventricular systolic function is normal. The visually estimated ejection fraction is between 55-60%. There is no evidence of regional wall motion abnormalities. Diastolic function is normal for age. Right Ventricle Mildly increased right ventricular cavity size. There is normal right ventricular systolic function. Atria Both atria are normal in size. Aortic Valve There is moderate calcification of the aortic valve. There is mild aortic valve stenosis. There is no aortic valve regurgitation. Mitral Valve The mitral valve appears normal. There is no mitral valve regurgitation. There is no mitral valve stenosis. Pulmonic Valve The pulmonic valve is likely normal. Tricuspid Valve There is trace tricuspid valve regurgitation. There is no evidence of pulmonary hypertension. Great Vessels The asc aorta is normal in size. Venous The inferior vena cava is dilated and collapses greater than 50% with inspiration. Pericardium/Pleural There is no evidence of pericardial effusion. Prior Study Comparison No significant change compared to prior study dated: 04/11/2025. Measurements 2D Linear Measurements IVSd: 1.06 0.6-0.9/0.6-1.0 cm LVIDd: 5.10 3.9-5.3/4.2-5.9 cm LVIDd Index: 1.85 2.4-3.2/2.2-3.1 cm/m2 LVIDs: 3.37 2.0-3.6 cm LVPWd: 0.94 0.7-1.1 cm LV Mass: 233.48 67-162/88-224 g LV Mass Index: 84.60 43-95/49-115 g/m2 LVOT Diam: 2.40 3.0+(-)1.3 cm 2D Systolic Function EF 4C: 63.80 >55% Mitral Valve MV Pk E: 1.07 MV PK A: 0.57 MV Decel Time: 183.00 E/A: 1.90 E'Lateral: 10.20 E'Medial: 8.27 E/E' Med: 12.90 E/E' Lat: 10.50 PHT: 54.00 MVA PHT: 4.07 Decel [place]: 5.84 Aortic Valve AoV Pk Guzman: 2.06 AoV Mn Guzman: 1.54 AoV VTI: 0.48 AoV Pk Grad: 17.00 Aov Mn Grad: 10.00 JAGRUTI Cont.VTI: 1.91 LVOT LVOT Pk Guzman: 1.01 LVOT Mn Guzman: 0.63 LVOT VTI: 0.21 LVOT Pk Grad: 4.00 LVOT Mn Grad: 2.00 LVOT Diam: 2.40 LVOT Area: 4.52 Diastolic Function MV Pk E: 1.07 MV Pk A: 0.57 E/A: 1.90 E'Medial: 8.27 E/E' Med: 12.90 E' Laterial: 10.20 E/E' Lat: 10.50 Right Ventricle TAPSE (mm): 25.80 TVS' Guzman: 12.80 Tricuspid Valve RA Press: 8.00 Great Vessels Aorta Sinus of Valsalva: 3.75 2.0-3.5 cm Ao Asc: 3.80 2.1-3.4 cm Updated in Other Vendor System with Status of Final Freddie Fuentes MD electronically signed on 05/16/2025 3:48:19 PM with status of Final
[2025-05-16 07:29] VITALS: BP 128/65; PULSE 59; RESP 18; TEMP 36.4; O2SAT 96
[2025-05-16 07:47] LABS: Hematocrit 32.3 % (42.0-52.0); Hemoglobin 11.0 g/dl (14.0-18.0); Imm Gran Abs Auto 0.01 X10*3/uL (0.00-0.03); Imm Gran Pct Auto 0.4 % (0.0-0.4); Lymphocytes Absolute Auto 0.8 X10*3/uL (1.2-4.9); Mean Corpuscular HGB Conc 34.1 g/dl (31.0-36.0); Mean Corpuscular Hemoglobin 31.2 pg (27.0-33.0); Mean Corpuscular Volume 91.5 fL (80.0-98.0); NRBC Abs Auto 0.000 X10*3/uL (0.0-0.012); NRBC Pct Auto 0.0 /100WBC (0.0-0.2); Red Blood Count 3.53 X10*6/uL (4.60-5.80); SCAN SMEAR FLAG 1
[2025-05-16 07:49] LABS: Platelet Count 40 X10*3/uL (160-400); White Blood Count 2.3 X10*3/uL (4.8-10.8)
[2025-05-16 07:50] LABS: MANUAL DIFF FLAG NO
[2025-05-16 07:59] LABS: Alanine Aminotransferase 9 U/L (0-40); Albumin Level 2.9 g/dL (3.5-5.0); Alkaline Phosphatase 39 U/L (39-117); Anion Gap 9 (12-20); Aspartate Amino Transferase 30 U/L (5-37); Blood Urea Nitrogen 12 mg/dL (9-16); Calcium 7.9 mg/dL (8.4-10.2); Carbon Dioxide 26 mmol/L (22-29); Chloride 108 mmol/L (96-108); Creatinine Clr Calc Pharmacy 135.8; Estimated Glomerular Filt Rate > 60; Potassium 3.8 mmol/L (3.3-5.1); Sodium 139 mmol/L (135-145); Total Protein 5.6 g/dL (6.5-8.0)
[2025-05-16 08:48] LABS: Lyme Abs Screen <0.90 index
[2025-05-16 11:09] VITALS: BP 114/63; PULSE 63; RESP 18; TEMP 36.6; O2SAT 98
--- NOTE | 2025-05-16 13:03 | MHC.CM.PN ---
Per rounds, pt. needs treatment for sepsis, ID consult, Echo, may need IV ABX.
--- NOTE | 2025-05-16 13:25 | HO.PM.IMPN ---
Subjective Subjective Date of Service: 05/16/25 Interval History: feels well, no fever Review of Systems Review of Systems: Yes all other systems are reviewed and are negative Physical Exam Vital Signs: Vital Signs: Last Vital Signs Temp 97.9 F 05/16/25 11:09 Pulse 63 05/16/25 11:09 Resp 18 05/16/25 11:09 BP 114/63 05/16/25 11:09 Pulse Ox 98 05/16/25 11:09 O2 Del Method Room Air 05/16/25 11:09 BMI result Body Mass Index 42.9 Gen: in no acute distress HEENT: sclera anicteric, moist mucus membranes Neck: supple Lungs: clear to auscultation bilaterally Heart: regular rate and rhythm, no murmurs Abd: soft, non-tender, non-distended, obese Ext: no edema Skin: warm/well-perfused Neuro: alert and oriented x3, no focal findings Psych: appropriate affect Objective Data Active Medications Acetaminophen (Acetaminophen 325 Mg Tablet) 975 mg PO Q6H PRN PRN Reason: Pain, Mild 1-3,fever,headache Last Admin: 05/14/25 16:47 Dose: 975 mg Documented By: USHA Calcium Carbonate (Calcium Carbonate 750 Mg Tab.Chew) 750 mg PO Q4H PRN PRN Reason: Heartburn Ceftriaxone Sodium (Ceftriaxone Sodium 2 Gm Vial) 2 gm IVPUSH Q24H [facility] Last Admin: 05/16/25 11:48 Dose: 2 gm Documented By: MICHAEL Heparin Sodium (Porcine) (Heparin Sodium,Porcine 5,000 Unit/Ml Vial) 5,000 unit SUBCUT Q12H [facility] Last Admin: 05/16/25 11:49 Dose: 5,000 unit Documented By: MICHAEL Magnesium Hydroxide (Milk Of Magnesia 30 Ml Oral.Susp) 30 ml PO DAILY PRN PRN Reason: Constipation Melatonin (Melatonin 3 Mg Tablet) 6 mg PO BEDTIME PRN PRN Reason: Insomnia Ondansetron HCl (Ondansetron Hcl 4 Mg/2 Ml Vial) 4 mg IVPUSH Q8H PRN PRN Reason: Nausea and Vomiting Oxycodone HCl (Oxycodone Hcl Immed Release 5 Mg Tablet) 5 mg PO Q6H PRN PRN Reason: Pain, Severe (Pain Scale 7-10) Sodium Chloride (0.9 % Sodium Chloride Flush 3 Ml Syringe) 3 ml IVFLUSH QSHIFT [facility] Last Admin: 05/16/25 11:45 Dose: 3 ml Documented By: MICHAEL Tramadol HCl (Tramadol Hcl 50 Mg Tablet) 50 mg PO Q6H PRN PRN Reason: Pain, Moderate(Pain Scale 4-6) Labs 05/16/25 06:37 05/16/25 06:37 Labs: Laboratory Results - last 24 hr 05/14/25 05/16/25 18:15 06:37 MCV 91.5 MCH 31.2 MCHC 34.1 RDW 13.8 Plt Count 40 L MPV 11.9 Immature Gran % (Auto) 0.4 Neut % (Auto) 51.1 Lymph % (Auto) 34.1 [place] % (Auto) 9.6 Eos % (Auto) 3.9 Baso % (Auto) 0.9 Lymph # (Auto) 0.8 L [place] # (Auto) 0.2 Eos # (Auto) 0.1 Baso # (Auto) 0.0 Abs Immat Gran (auto) 0.01 Absolute Neuts (auto) 1.2 L Absolute Nucleated RBC 0.000 Nucleated RBC % (auto) 0.0 Anion Gap 9 L Estim Creat Clear Calc 135.8 Estimated GFR > 60 Random Glucose 93 Calcium 7.9 L Total Bilirubin 0.7 AST 30 ALT 9 Alkaline Phosphatase 39 Total Protein 5.6 L Albumin 2.9 L Lyme Screen IgG & IgM <0.90 Malaria/Babesia Smear SEE NOTE Microbiology Microbiology Results: Microbiology 05/13/25 17:39 Blood Culture - Final Blood - Venous Group G streptococcus 05/13/25 17:28 Blood Culture - Final Blood - Venous Group G streptococcus Assessment and Plan (1) Bacteremia: Status: Acute Plan d4, 6yo M with HCV cirrhosis presenting with AMS and found to have Group G streptococcus bacteremia Group G streptococcus bacteremia - narrow from vanco/piperacillin-tazobactam to ceftriaxone 2 grams IV daily - no clear source, ID consult pending, TTE pending, repeat BCx today troponin elevation - no chest pain nor ischemic EKG changes, likely demand from bacteremia, TTE pending pancytopenia - due to cirrhosis hypoMg - repleted HCV cirrhosis - HCV RNA clear as of 05/08/25 tobacco abuse - declined NRT morbid obesity - diet/exercise counseling VTE ppx - SCDs; no heparin given low platelets dispo - likely home with VNA/home infusion services In my clinical judgment, the patient requires continued inpatient hospitalization for the following reasons: bacteremia, IV ABX Total time managing care of this patient today: 35 minutes. Quality Stroke Does the patient have a stroke diagnosis?: No VTE Prior VTE?: No VTE Risk Level:: Medical - moderate - high VTE Device Contraindication: N/A - Device Ordered VTE Drug Contraindication: Treatment Not Indicated
[2025-05-16 15:21] VITALS: BP 116/70; PULSE 58; RESP 18; TEMP 37.1; O2SAT 96
--- NOTE | 2025-05-16 16:46 | P.CNID_ITS ---
History of Present Illness Data of Consult Service Date: 05/16/25 Requesting physician: Joseluis English Primary Care Provider: Isaak Beal MD HPI Reason for consult: bacteremia, Group G strep He presents with confusion and weakness. He has cirrhosis. He has Group G strep bacteremia. Review of Systems 2 Review of Systems: Yes all other systems are reviewed and are negative PMFSH Past Medical History Medical History Tobacco use disorder Morbid obesity Cirrhosis Bicytopenia Chronic hepatitis C No known health problems Family History Family history: reviewed and not pertinent Surgical History Surgical History Hx of colonoscopy Social History Social History Household Members: Family Housing: House Do you presently have visiting nurse or other home services: No Alcohol intake: current Alcohol intake frequency: a few times a week Alcohol type: beer Patient Tobacco Use Status: Never used Tobacco Tobacco use type: Cigarette Cigarette Packs Per Day: 0.5 Cigarettes Per Day: 10.0 Years Smoked: 30 e-Cigarette/Vaping Use: Never Used service: No Current occupational status: retired Gender identity: Male Cognitive needs: No Hearing needs: No Vision needs: Yes Meds Allergies Allergy/AdvReac Type Severity Reaction Status Date / Time No Known Allergies Allergy Verified 05/13/25 17:03 Active Medications: Current Medications Acetaminophen (Acetaminophen 325 Mg Tablet) 975 mg PO Q6H PRN PRN Reason: Pain, Mild 1-3,fever,headache Last Admin: 05/14/25 16:47 Dose: 975 mg Calcium Carbonate (Calcium Carbonate 750 Mg Tab.Chew) 750 mg PO Q4H PRN PRN Reason: Heartburn Ceftriaxone Sodium (Ceftriaxone Sodium 2 Gm Vial) 2 gm IVPUSH Q24H [id number] Last Admin: 05/16/25 11:48 Dose: 2 gm Magnesium Hydroxide (Milk Of Magnesia 30 Ml Oral.Susp) 30 ml PO DAILY PRN PRN Reason: Constipation Melatonin (Melatonin 3 Mg Tablet) 6 mg PO BEDTIME PRN PRN Reason: Insomnia Ondansetron HCl (Ondansetron Hcl 4 Mg/2 Ml Vial) 4 mg IVPUSH Q8H PRN PRN Reason: Nausea and Vomiting Oxycodone HCl (Oxycodone Hcl Immed Release 5 Mg Tablet) 5 mg PO Q6H PRN PRN Reason: Pain, Severe (Pain Scale 7-10) Sodium Chloride (0.9 % Sodium Chloride Flush 3 Ml Syringe) 3 ml IVFLUSH QSHIFT [facility] Last Admin: 05/16/25 16:27 Dose: 3 ml Tramadol HCl (Tramadol Hcl 50 Mg Tablet) 50 mg PO Q6H PRN PRN Reason: Pain, Moderate(Pain Scale 4-6) Home Medications ?Medication ?Instructions ?Recorded ?Confirmed ?Last Taken ?Type No Known Home Meds 05/14/25 05/14/25 Un known History Physical Exam 2 Vital Signs: Vital Signs: Last Vital Signs Temp 98.7 F 05/16/25 15:21 Pulse 58 05/16/25 15:21 Resp 18 05/16/25 15:21 BP 116/70 05/16/25 15:21 Pulse Ox 96 05/16/25 15:21 O2 Del Method Room Air 05/16/25 15:21 BMI result Body Mass Index 42.9 Const: General: cooperative HEENT: Head: Yes normal to inspection Face and sinus: Yes normal facial exam Mouth: Normal oral and palatal mucosa present Teeth and gingiva: d entition normal Eyes: General: appearance normal, both eyes and all related structures P upils: Equal, round and reactive pupils present Resp: Effort & Inspection: normal respiratory effort Cardio: Rate: regular rate Rhythm: regular rhythm GI: Palpation (GI): Soft to palpation and nontender : General: Yes no CVA tenderness Back/Spine/Pelvis: Back: no CVA tenderness Skin: General skin exam: no rashes or lesions noted Neuro: General: moves all extremities Cranial nerves: Yes Equal, round and reactive pupils present Extrem: General: Yes normal to inspection Psych: Appearance: grossly normal Results Labs 05/16/25 06:37 05/16/25 06:37 Labs: Short CBC 05/16/25 Range/Units 06:37 WBC 2.3 L (4.8-10.8) X10*3/uL Hgb 11.0 L (14.0-18.0) g/dl Hct 32.3 L (42.0-52.0) % Plt Count 40 L (160-400) X10*3/uL BMP 05/16/25 06:37 Sodium 139 Potassium 3.8 Chloride 108 Carbon Dioxide 26 BUN 12 Creatinine 0.82 Calcium 7.9 L Liver Function 05/16/25 Range/Units 06:37 Total Bilirubin 0.7 (0.0-1.0) mg/dL AST 30 (5-37) U/L ALT 9 (0-40) U/L Alkaline Phosphatase 39 (39-117) U/L Albumin 2.9 L (3.5-5.0) g/dL Microbiology Microbiology Results: Microbiology 05/13/25 17:39 Blood - Venous Blood Culture - Final Group G streptococcus 05/13/25 17:28 Blood - Venous Blood Culture - Final Group G streptococcus 05/13/25 17:37 Urine clean catch - Clean Catch Midstream Urine Culture - Final Assessment and Plan (1) Cirrhosis: Status: Acute (2) Sepsis: Status: Acute Plan Group G strep bacteremia He should finish 14 days antibiotics, oral cephalosporin or Levaquin 14 d total.
[2025-05-16 17:17] VITALS: BP 145/77; PULSE 63; RESP 16; TEMP 36.8; O2SAT 97
[2025-05-16 20:00] VITALS: BP 132/94; PULSE 64; RESP 16; TEMP 36.3; O2SAT 96
[2025-05-16 21:54] LABS: A. Phagocytphilium DNA,RT-PCR NOT DETECTED (NOT DETECTED); Babesia Microti DNA, RT-PCR NOT DETECTED (NOT DETECTED); Borrelia Miyamotoi,DNA RT-PCR NOT DETECTED (NOT DETECTED); E.Chaffeensis DNA RT-PCR NOT DETECTED (NOT DETECTED); Lyme(Borrelia ssp)DNA RT-PCR NOT DETECTED (NOT DETECTED)
[2025-05-17 04:00] VITALS: BP 138/70; PULSE 64; RESP 16; TEMP 36.4; O2SAT 97
[2025-05-17 07:21] VITALS: BP 125/69; PULSE 60; RESP 20; TEMP 36.6; O2SAT 96
[2025-05-17] MEDS: 0.9 % Sodium Chloride Flush 3 ML SYRINGE IVFLUSH ×3 (10:45→20:41)
[2025-05-17 12:00] VITALS: BP 124/64; PULSE 65; RESP 18; TEMP 36.6; O2SAT 92
--- NOTE | 2025-05-17 12:27 | HO.PM.IMPN ---
Subjective Subjective Date of Service: 05/17/25 Interval History: feels well, no fever Review of Systems Review of Systems: Yes all other systems are reviewed and are negative Physical Exam Vital Signs: Vital Signs: Last Vital Signs Temp 97.8 F 05/17/25 07:21 Pulse 60 05/17/25 07:21 Resp 20 05/17/25 07:21 BP 125/69 05/17/25 07:21 Pulse Ox 96 05/17/25 07:21 O2 Del Method Room Air 05/17/25 07:21 BMI result Body Mass Index 42.9 Gen: in no acute distress HEENT: sclera anicteric, moist mucus membranes Neck: supple Lungs: clear to auscultation bilaterally Heart: regular rate and rhythm, no murmurs Abd: soft, non-tender, non-distended, obese Ext: no edema Skin: warm/well-perfused Neuro: alert and oriented x3, no focal findings Psych: appropriate affect Objective Data Active Medications Acetaminophen (Acetaminophen 325 Mg Tablet) 975 mg PO Q6H PRN PRN Reason: Pain, Mild 1-3,fever,headache Last Admin: 05/14/25 16:47 Dose: 975 mg Documented By: USHA Calcium Carbonate (Calcium Carbonate 750 Mg Tab.Chew) 750 mg PO Q4H PRN PRN Reason: Heartburn Ceftriaxone Sodium (Ceftriaxone Sodium 2 Gm Vial) 2 gm IVPUSH Q24H [facility] Last Admin: 05/17/25 10:53 Dose: 2 gm Documented By: SONIA Magnesium Hydroxide (Milk Of Magnesia 30 Ml Oral.Susp) 30 ml PO DAILY PRN PRN Reason: Constipation Melatonin (Melatonin 3 Mg Tablet) 6 mg PO BEDTIME PRN PRN Reason: Insomnia Ondansetron HCl (Ondansetron Hcl 4 Mg/2 Ml Vial) 4 mg IVPUSH Q8H PRN PRN Reason: Nausea and Vomiting Oxycodone HCl (Oxycodone Hcl Immed Release 5 Mg Tablet) 5 mg PO Q6H PRN PRN Reason: Pain, Severe (Pain Scale 7-10) Sodium Chloride (0.9 % Sodium Chloride Flush 3 Ml Syringe) 3 ml IVFLUSH QSHIFT [facility] Last Admin: 05/17/25 10:45 Dose: 3 ml Documented By: SONIA Tramadol HCl (Tramadol Hcl 50 Mg Tablet) 50 mg PO Q6H PRN PRN Reason: Pain, Moderate(Pain Scale 4-6) Labs 05/16/25 06:37 05/16/25 06:37 Labs: Laboratory Results - last 24 hr 05/14/25 05/16/25 18:15 06:37 Smear Path Review SEE NOTE A.phagocytophil DNA PCR NOT DETECTED Babesia microti DNA PCR NOT DETECTED Borrelia sp DNA (PCR) NOT DETECTED Lyme Progressive Test TNP Borrelia miyamotoi (PCR) NOT DETECTED E.chaffeensis DNA (PCR) NOT DETECTED Malaria/Babesia Smear SEE NOTE Tick-borne Disease PCR SEE NOTE TTE 05/16/25 - The left ventricular systolic function is normal. The visually estimated ejection fraction is between 55-60%. - There is moderate calcification of the aortic valve. There is mild aortic valve stenosis. - No obvious vegetation noted based on available image quality. Assessment and Plan (1) Bacteremia: Status: Acute Plan d5, 69yo M with HCV cirrhosis presenting with AMS and found to have Group G streptococcus bacteremia Group G streptococcus bacteremia - narrowed from vanco/piperacillin-tazobactam to ceftriaxone 2 grams IV daily - no clear source, ID consulted, TTE without vegetations, repeated BCx 05/16, if negative will d/c on cefadroxil tomorrow, total 14d troponin elevation - no chest pain nor ischemic EKG changes, likely demand from bacteremia, TTE without WMAs pancytopenia - due to cirrhosis hypoMg - repleted HCV cirrhosis - HCV RNA clear as of 05/08/25, took Mavyret tobacco abuse - declined NRT morbid obesity - diet/exercise counseling VTE ppx - SCDs; no heparin given low platelets dispo - likely home tomorrow if BCx negative In my clinical judgment, the patient requires continued inpatient hospitalization for the following reasons: bacteremia, IV ABX Total time managing care of this patient today: 35 minutes. Quality Stroke Does the patient have a stroke diagnosis?: No VTE Prior VTE?: No VTE Risk Level:: Medical - moderate - high VTE Device Contraindication: N/A - Device Ordered VTE Drug Contraindication: Treatment Not Indicated
[2025-05-17 15:27] VITALS: BP 149/71; PULSE 65; RESP 14; TEMP 36.4; O2SAT 98
[2025-05-17 20:00] VITALS: BP 123/60; PULSE 63; RESP 16; TEMP 36; O2SAT 96
[2025-05-17 23:08] VITALS: BP 126/77; PULSE 60; RESP 18; TEMP 36.2; O2SAT 98
[2025-05-18 03:22] VITALS: BP 127/75; PULSE 63; RESP 18; TEMP 36.2; O2SAT 98
--- NOTE | 2025-05-18 07:14 | P.CDIM_ITS ---
PROVIDER RESPONSE TEXT: To clarify, the appropriate diagnosis supported by the clinical indicators: Sepsis is/was present: due to bacteremia QUERY TEXT: PHYSICIAN'S DOCUMENTATION REQUEST Date of Query: 05/17/2025 07:49 AM EDT Patient Name: Gomez Meyer Admit Date: 05/14/2025 Dear Joseluis English MD, A review of the medical record indicates additional documentation may be needed. Please review below and update the documentation accordingly. The patient's infectious clinical indicators include: H&P 05/13/25 - AMS, SIRS. Febrile 102.7, tachycardic and tachypneic, LA 2.5 on repeat 1.4. Progress note dated 05/14/25 - Gram-positive cocci Sepsis. Acute lactic acidosis, febrile 102.7, tachy and tachypneic. Continue Zosyn and Vancomycin. Progress note 05/15/25 - Bacteremia. Group G Strep, continue vancomycin and zosyn. ID dated 05/16/25- Assessment and Plan: Sepsis Plan: Group G strep bacteremia, should finish 14 days antibiotics, oral cephalosporin or Levaquin. Bacteremia Abnormal laboratory test - does not indicate a clinically ill patient Sepsis Systemic manifestations of infection, with 2 or more SIRS criteria which include: Fever > 100.4?F or hypothermia < 96.8?F Leukocytosis - WBC > 12,000 or leukopenia, WBC < 4,000, or > 10% bands Tachycardia- > 90 beats/minute Tachypnea- RR > 20 breaths/minute or PaCO2 < 32mmHg Severe Sepsis Sepsis with associated acute organ dysfunction, such as renal or respiratory failure Consistency and clarity of a diagnosis noted within the medical record: Sepsis is/was present possible, probable, cannot rule out etc. After study Sepsis has been ruled out Bacteremia Other (explain) Clinically unable to determine (explain) Thank you, Lea Aaron, CCS, CDIS Use of terms such as suspected, likely, concern for, or probable (associated with a specific diagnosis that is being evaluated, monitored, or treated as if it exists) are acceptable and can be coded in the inpatient setting, when documented at the time of discharge. Please use your independent medical judgment in providing your response. THIS QUERY IS PART OF THE PERMANENT MEDICAL RECORD
[2025-05-18 08:00] VITALS: BP 118/64; PULSE 58; RESP 16; TEMP 36.7; O2SAT 95
[2025-05-18] MEDS: 0.9 % Sodium Chloride Flush 3 ML SYRINGE IVFLUSH (08:03)
[2025-05-18 11:52] VITALS: BP 119/59; PULSE 55; RESP 16; TEMP 36.6; O2SAT 94
--- NOTE | 2025-05-18 13:15 | P.DS_ITS ---
DS: Providers Provider Date of Service: 05/18/25 Date of admission: 05/13/25 22:16 Date of discharge: 05/18/25 Primary care physician: Isaak Beal MD Consults: 05/15/25 11:49 Consult to Infectious Diseases Routine Consulting Provider: [facility] Reason for consultation: bacteremia DS: Diagnosis Discharge Diagnosis (1) Bacteremia: Status: Acute (2) Group G streptococcal infection: Status: Acute (3) Cirrhosis: Status: Acute (4) Sepsis: Status: Acute (5) Acute encephalopathy due to infection: Status: Acute (6) Morbid obesity: Status: Acute DS: Summary Hospital Course Hospital Course: From the history and physical by the admitting hospitalist, Yessi Ibrahim, 05/13/25: Patient is a 69-year-old male with a past medical history significant for hep C, cirrhosis, bicytopenia, morbid obesity, and tobacco use disorder, who presented to the ED via EMS due to AMS and feeling ?unwell . The patient is a poor historian, likely due to altered mental status, and reports he has not felt well for the past few days, symptoms are vague. He denies chest pain, shortness of breath, nausea, vomiting, abdominal pain, urinary symptoms, rash or upper res piratory symptoms. No recent travel or sick contacts. He denies diarrhea, sore throat, headache, photosensitivity or neck pain. He only reports not feeling well, fever and chills. 69yo M with HCV cirrhosis presenting with AMS and ultimately found to have Group G streptococcus bacteremia of unknown source. Initially treated with vancomycin and piperacillin-tazobactam and narrowed to ceftriaxone. ID consulted. TTE without vegetations. Repeat BCx 05/16 negative. D/c'ed on cefadroxil x 12 days to complete total 14 days from culture clearance. Mental status normalized with treating the infection. 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 Should follow up with Primary Care and Gastroenterology. Time Attestation Discharge Coordination Time (in mins): 45 Quality: Safe Use of Opioids Does Pt have an Active Cancer Diagnosis on the Problem List?: No Quality: Stroke Does the patient have a stroke diagnosis?: No Physical Exam Vital Signs: Vital Signs: Last Vital Signs Temp 97.8 F 05/18/25 11:52 Pulse 55 05/18/25 11:52 Resp 16 05/18/25 11:52 BP 119/59 L 05/18/25 11:52 Pulse Ox 94 05/18/25 11:52 O2 Del Method Room Air 05/18/25 11:52 BMI result Body Mass Index 42.9 Gen: in no acute distress HEENT: sclera anicteric, moist mucus membranes Neck: supple Lungs: clear to auscultation bilaterally Heart: regular rate and rhythm, no murmurs Abd: soft, non-tender, non-distended, obese Ext: no edema Skin: warm/well-perfused Neuro: alert and oriented x3, no focal findings Psych: appropriate affect DS: Data Data Completed and Pending Completed studies during hospitalization [Text1]: Laboratory Results WBC 2.3 X10*3/uL (4.8-10.8) L 05/16/25 06:37 RBC 3.53 X10*6/uL (4.60-5.80) L 05/16/25 06:37 Hgb 11.0 g/dl (14.0-18.0) L 05/16/25 06:37 Hct 32.3 % (42.0-52.0) L 05/16/25 06:37 MCV 91.5 fL (80.0-98.0) 05/16/25 06:37 MCH 31.2 pg (27.0-33.0) 05/16/25 06:37 MCHC 34.1 g/dl (31.0-36.0) 05/16/25 06:37 RDW 13.8 % (11.0-16.0) 05/16/25 06:37 Plt Count 40 X10*3/uL (160-400) L 05/16/25 06:37 MPV 11.9 fL (9.4-12.4) 05/16/25 06:37 Immature Gran % (Auto) 0.4 % (0.0-0.4) 05/16/25 06:37 Neut % (Auto) 51.1 % (45-73) 05/16/25 06:37 Lymph % (Auto) 34.1 % (20-40) 05/16/25 06:37 [place] % (Auto) 9.6 % (2-11) 05/16/25 06:37 Eos % (Auto) 3.9 % (0-4) 05/16/25 06:37 Baso % (Auto) 0.9 % (0-2) 05/16/25 06:37 Lymph # (Auto) 0.8 X10*3/uL (1.2-4.9) L 05/16/25 06:37 [place] # (Auto) 0.2 X10*3/uL (0.1-1.2) 05/16/25 06:37 Eos # (Auto) 0.1 X10*3/uL (0.0-0.4) 05/16/25 06:37 Baso # (Auto) 0.0 X10*3/uL (0.0-0.2) 05/16/25 06:37 Abs Immat Gran (auto) 0.01 X10*3/uL (0.00-0.03) 05/16/25 06:37 Absolute Neuts (auto) 1.2 x10*3/uL (2.0-8.3) L 05/16/25 06:37 Absolute Nucleated RBC 0.000 X10*3/uL (0.0-0.012) 05/16/25 06:37 Nucleated RBC % (auto) 0.0 /100WBC (0.0-0.2) 05/16/25 06:37 Smear Tech's Comments VERIFIED 05/14/25 03:55 Smear Path Review SEE NOTE 05/16/25 06:37 Sodium 139 mmol/L (135-145) 05/16/25 06:37 Potassium 3.8 mmol/L (3.3-5.1) 05/16/25 06:37 Chloride 108 mmol/L (96-108) 05/16/25 06:37 Carbon Dioxide 26 mmol/L (22-29) 05/16/25 06:37 Anion Gap 9 (12-20) L 05/16/25 06:37 BUN 12 mg/dL (9-16) 05/16/25 06:37 Creatinine 0.82 mg/dL (0.5-1.4) 05/16/25 06:37 Estim Creat Clear Calc 135.8 05/16/25 06:37 Estimated GFR > 60 05/16/25 06:37 Random Glucose 93 mg/dL (60-115) 05/16/25 06:37 Lactic Acid 1.0 mmol/L (0.5-2.0) 05/14/25 18:15 Lactic Acid F/U @ 2Hr 1.4 mmol/L (0.5-2.0) 05/13/25 19:53 Calcium 7.9 mg/dL (8.4-10.2) L 05/16/25 06:37 Magnesium 1.5 mg/dL (1.6-2.6) L 05/13/25 17:16 Total Bilirubin 0.7 mg/dL (0.0-1.0) 05/16/25 06:37 AST 30 U/L (5-37) 05/16/25 06:37 ALT 9 U/L (0-40) 05/16/25 06:37 Alkaline Phosphatase 39 U/L (39-117) 05/16/25 06:37 Ammonia 39 umol/L (13-55) 05/13/25 17:39 Troponin I High Sens 78.5 ng/L (<3.5-35.0) H D 05/14/25 18:15 Total Protein 5.6 g/dL (6.5-8.0) L 05/16/25 06:37 Albumin 2.9 g/dL (3.5-5.0) L 05/16/25 06:37 Urine Color Dark Yellow 05/13/25 17:13 Urine Appearance Clear 05/13/25 17:13 Urine pH 5.0 (5.0-9.0) 05/13/25 17:13 Ur Specific [place] 1.025 (1.005-1.025) 05/13/25 17:13 Urine Protein Trace mg/dL (Neg-Trace) 05/13/25 17:13 Urine Glucose (UA) Negative mg/dL (Negative) 05/13/25 17:13 Urine Ketones Trace mg/dL (Negative) 05/13/25 17:13 Urine Blood Trace (Negative) H 05/13/25 17:13 Urine Nitrite Negative (Negative) 05/13/25 17:13 Ur Leukocyte Esterase Small (1+) (Negative) H 05/13/25 17:13 Urine RBC 3-5 /HPF (0-2) H 05/13/25 17:13 Urine WBC 0-5 /HPF (0-5) 05/13/25 17:13 Ur Squamous Epith Cells 0-2 /HPF (0-2) 05/13/25 17:13 Urine Bacteria None Seen (None Seen) 05/13/25 17:13 Hyaline Casts 0-2 /LPF (0-2) 05/13/25 17:13 Random Vancomycin 14.5 mcg/mL (15-20) L 05/15/25 10:08 Urine Opiates Screen Not Detected (Not Detect) 05/13/25 17:13 Ur Buprenorphine Scrn Not Detected ng/mL (Not Detect) 05/13/25 17:13 Ur Oxycodone Screen Not Detected ng/mL (Not Detect) 05/13/25 17:13 Urine Methadone Screen Not Detected ng/mL (Not Detect) 05/13/25 17:13 Urine Fentanyl Screen Not Detected (Not Detect) 05/13/25 17:13 Ur Barbiturates Screen Not Detected (Not Detect) 05/13/25 17:13 Ur Phencyclidine Scrn Not Detected (Not Detect) 05/13/25 17:13 Ur Amphetamines Screen Not Detected (Not Detect) 05/13/25 17:13 U Benzodiazepines Scrn Not Detected (Not Detect) 05/13/25 17:13 Urine Cocaine Screen Not Detected (Not Detect) 05/13/25 17:13 U Marijuana (THC) Screen Not Detected (Not Detect) 05/13/25 17:13 Ethyl Alcohol < 10 mg/dL 05/13/25 17:16 Respiratory Panel [place]nell See Note 05/14/25 00:08 Adenovirus (Rapid PCR) Not Detected (Not Detect.) 05/14/25 00:08 A.phagocytophil DNA PCR NOT DETECTED (NOT DETECTED) 05/14/25 18:15 Babesia microti DNA PCR NOT DETECTED (NOT DETECTED) 05/14/25 18:15 B.pert (TEM-PCR) Not Detected (Not Detect.) 05/14/25 00:08 B.parapertussis DNA PCR Not Detected (Not Detect.) 05/14/25 00:08 Borrelia sp DNA (PCR) NOT DETECTED (NOT DETECTED) 05/14/25 18:15 Lyme Screen IgG & IgM <0.90 index 05/14/25 18:15 Lyme Progressive Test TNP 05/14/25 18:15 Borrelia miyamotoi (PCR) NOT DETECTED (NOT DETECTED) 05/14/25 18:15 C. pneumoniae DNA (PCR) Not Detected (Not Detect.) 05/14/25 00:08 Coronavirus OC43 (PCR) Not Detected (Not Detect.) 05/14/25 00:08 Coronavirus HKU1 (PCR) Not Detected (Not Detect.) 05/14/25 00:08 Coronavirus 229E (PCR) Not Detected (Not Detect.) 05/14/25 00:08 COVID-19 (RYLAN) Negative (Negative) 05/13/25 17:39 COVID-19 Clin Com See Note 05/13/25 17:39 Coronavirus NL63 (PCR) Not Detected (Not Detect.) 05/14/25 00:08 E.chaffeensis DNA (PCR) NOT DETECTED (NOT DETECTED) 05/14/25 18:15 Human Metapneumovir PCR Not Detected (Not Detect.) 05/14/25 00:08 Influenza Type A (KASIA) Negative (Negative) 05/13/25 17:39 Influenza A (RT-PCR) Not Detected (Not Detect.) 05/14/25 00:08 Influenza A (H1) PCR Not Detected (Not Detect.) 05/14/25 00:08 Influ A (H1/09) PCR Not Detected (Not Detect.) 05/14/25 00:08 Influenza A (H3) PCR Not Detected (Not Detect.) 05/14/25 00:08 Influenza Type B (KASIA) Negative (Negative) 05/13/25 17:39 Influenza B (RT-PCR) Not Detected (Not Detect.) 05/14/25 00:08 Influenza A & B Note See Note 05/13/25 17:39 Malaria/Babesia Smear SEE NOTE (NEGATIVE) 05/14/25 18:15 M. pneumoniae (PCR) Not Detected (Not Detect.) 05/14/25 00:08 Parainfluenza 1 (PCR) Not Detected (Not Detect.) 05/14/25 00:08 Parainfluenza 2 (PCR) Not Detected (Not Detect.) 05/14/25 00:08 Parainfluenza 3 (PCR) Not Detected (Not Detect.) 05/14/25 00:08 Parainfluenza 4 (PCR) Not Detected (Not Detect.) 05/14/25 00:08 RSV (PCR) Not Detected (Not Detect.) 05/14/25 00:08 Entero/Rhino (PCR) Not Detected (Not Detect.) 05/14/25 00:08 SARS-CoV-2 RNA (RT-PCR) Not Detected (Not Detect.) 05/14/25 00:08 Tick-borne Disease PCR SEE NOTE 05/14/25 18:15 Discharge Plan Discharge Anticipated Discharge Date/Time: 05/18/25 12:45 Patient Disposition: Home, Self-Care Discharge Diagnosis: sepsis due to bacteremia from group G streptococcus cirrhosis Referrals: Isaak Beal MD [Primary Care Provider, Internal Medicine] - 1 Week Kristen Crabtree MD [Physician, Gastroenterology] - 1 Month Discharge Medications: New cefadroxil 1 gram tablet 1,000 mg PO BID 12 Days Qty: 24 0RF Discharge Orders: Discharge Order (Routine); Ordered 05/18/25 Ordered By: Joseluis English Diet: Advance to usual diet Activity on Discharge: As tolerated Stand Alone Forms: Patient Portal Discharge page Print Language: Portuguese Care Plan Goals: cure infection Health Concerns: sepsis due to bacteremia from group G streptococcus cirrhosis Plan of Treatment: take cefadroxil 1 gram twice daily for 12 days Please follow up with your primary care doctor within 1 week. Return to the hospital if you experience recurrent or worsening symptoms. Follow up with your psychiatric registered nurse in 1 month. Quit smoking. Assessment: See Discharge Summary.
--- NOTE | 2025-05-18 14:04 | MHC.CM.PN ---
Addendum entered by Anusha James RN 05/18/25 15:31: Patient dc'd home self care via private transport Original Note: Patient not medically cleared for dc at this time. CM will continue to follow.
== END 2025-05-18 14:49 | disposition home or self-care (01) | DRG 872 ==
LOC: HO.ED 22:14 → HO.EDOVER 22:21 → HO.IMC 05-14 08:02 → HO.S3 05-17 08:57
PROVIDERS: Hospitalist; Physician Assistant; Admitting Provider Internal Medicine; Emergency Provider Emergency Medicine; PCP Internal Medicine; Visit Provider Family Medicine
DX: A40.8 Other streptococcal sepsis (principal); Z68.41 Body mass index [BMI] 40.0-44.9, adult; E87.21 Acute metabolic acidosis; D61.818 Other pancytopenia; K74.69 Other cirrhosis of liver; E66.01 Morbid (severe) obesity due to excess calories; Z71.3 Dietary counseling and surveillance; F17.210 Nicotine dependence, cigarettes, uncomplicated; Z71.6 Tobacco abuse counseling; E83.42 Hypomagnesemia; Z86.19 Personal history of other infectious and parasitic diseases; Z20.822 Contact with and (suspected) exposure to COVID-19
CPT/HCPCS: 36415; 70450; 71045; 71260; 74177; 80048; 80053; 80202; 80307; 81001; 82140; 83605; 83735; 84484; 85025; 86617; 86618; 86753; 87040; 87086; 87147; 87186; 87205; 87207; 87468; 87469; 87478; 87484; 87502; 87633; 87635; 87798; 93005; 93306; 97161; 99285; J0131; J0696; J1644; J2543; J3373; J3374; J3475; J7120; Q9957; Q9967

== ENCOUNTER → 2025-05-13 17:07 | Outpatient (BNV) | payer MEDICARE, SELFPAY | PROVIDERS: Admitting Provider Internal Medicine; Emergency Provider Emergency Medicine; PCP Internal Medicine; Visit Provider Internal Medicine | DX: R94.31 Abnormal electrocardiogram [ECG] [EKG] (principal); R79.89 Other specified abnormal findings of blood chemistry; I49.1 Atrial premature depolarization | CPT/HCPCS: 93010 ==

== ENCOUNTER → 2025-05-13 17:38 | Outpatient (BNV) | payer MEDICARE, SELFPAY | PROVIDERS: Emergency Provider Emergency Medicine; Visit Provider Radiology Diagnostic Radiology | DX: R19.07 Generalized intra-abdominal and pelvic swelling, mass and lump (principal); J98.11 Atelectasis; R90.82 White matter disease, unspecified; R50.9 Fever, unspecified | CPT/HCPCS: 70450; 71045; 71260; 74177 ==

== ENCOUNTER 2025-05-13 22:16 | Outpatient (BNV) | payer MEDICARE, SELFPAY | END 2025-05-16 07:00 | PROVIDERS: Admitting Provider Internal Medicine; Emergency Provider Emergency Medicine; PCP Internal Medicine; Visit Provider Internal Medicine | DX: I35.8 Other nonrheumatic aortic valve disorders (principal) | CPT/HCPCS: 93306 ==

== ENCOUNTER → 2025-05-13 22:16 | Outpatient (BNV) | payer MEDICARE, SELFPAY | PROVIDERS: Admitting Provider Internal Medicine; Emergency Provider Emergency Medicine; PCP Internal Medicine; Visit Provider Internal Medicine | DX: K74.60 Unspecified cirrhosis of liver (principal); A41.9 Sepsis, unspecified organism; B95.4 Other streptococcus as the cause of diseases classified elsewhere | CPT/HCPCS: 99222 ==

== ENCOUNTER → 2025-05-13 22:16 | Outpatient (BNV) | payer MEDICARE, SELFPAY | PROVIDERS: Admitting Provider Internal Medicine; Emergency Provider Emergency Medicine; PCP Internal Medicine; Visit Provider Physician Assistant | DX: R78.81 Bacteremia (principal) | CPT/HCPCS: 99232 ==

== ENCOUNTER 2025-05-23 12:21 | Outpatient (AMB) | payer MEDICARE, SELFPAY ==
[2025-05-23 12:23] VITALS: BP 132/74; PULSE 97; TEMP 36.8; O2SAT 94; BMI 42.1
--- NOTE | 2025-05-23 12:23 | A.OFFPC_ITS ---
Vital Signs 05/23/25 12:23 Height 6 ft 3 in Weight 337 lb BMI 42.1 BP 132/74 Blood Pressure Location Lt brachial Position Standing Pulse 97 Pulse Source Pulse Oximeter Temp 98.3 F Temp Source Oral Pulse Oximetry (%) 94 Oxygen Delivery Method Room Air Intake Visit Reasons: TCM Allergies No Known Allergies Allergy (Verified 05/23/25 12:23) Medication List - Last Reconciled 05/23/25 by Isaak Beal MD cefadroxil 1,000 mg PO BID 12 days Tobacco use date assessed: 05/23/25 Fall risk assessment: No Falls in past year Last assessed Fall Risk: 05/23/25 Dental Screening Dental Screen Date: 05/23/25 Did you have a dental visit in the last 12 months?: Yes Did you have a dental problem in the last 6 months where you did not have access to dental care?: No Was dental information given to patient?: Patient has dentist HPI TCM HPI Details Patient is 69-year-old gentleman came in today after hospital discharge follow-up Date of admission 05/13/2025, date of discharge 05/18/2025 He has medical history significant for hep C, cirrhosis, morbid obesity, tobacco abuse disorder, presented to emergency room with a feeling of unwell. Patient is a poor historian and found to have altered mental status He denied chest pain shortness a breath vomiting abdominal pain urinary symptoms or rash or any respiratory symptoms and denied diarrhea sore throat headache He presented with EMS and ultimately found to have a group G Streptococcus bacteremia of unknown source Which was initially treated with vancomycin and piperacillin tazobactam and then switched to ceftriaxone as per ID consultation. TTE without vegetations Repeat blood cultures on 05/16/2025 were negative Patient was discharged on cefadroxil for 12 days His mental status normalized after treatment He also have chronic pancytopenia due to cirrhosis He came in today for a follow-up appointment and presenting with antibiotic- associated diarrhea. Antibiotic-associated diarrhea: - The patient reported uncontrollable di arrhea that started after being discharged from the hospital on May 18. - Diarrhea has persisted for 6 days. - The patient describes the diarrhea as vicious and is afraid to stand up due to the severity. - Associated with the intake of ongoing antibiotics prescribed post-discharge. Social History: - The patient resides with his sister, b [id number], and nephew. Problem List - Antibiotic-associated diarrhea - Sepsis of unknown origin - Liver cirrhosis Patient Instructions - Stop taking the current antibiotic. - Consume plenty of yogurt to help pham re good bacteria in the stomach. - Monitor the diarrhea; it should improv e within 2-3 days after stopping the antibiotic. - Attend the upcoming appointment with puja corbin avionics electronics technician, scheduled for May 28. - push fluids Review of Systems - General: No fever no chills - Neurological: No headaches no dizziness - Ear nose throat: No sore throat no hearing difficulty no ear pain - Cardiovascular: No syncope, no chest pain, no palpitations - Gastrointestinal: No nausea vomiting - Endocrine: No polyuria polydipsia no heat intolerance - Genitourinary: No dysuria , no blood in urine Physical Exam General: No acute distress HEENT: No acute findings Neck: Supple Respiratory system: Able to talk in full sentences, no audible wheeze Cardiovascular: S1-S2 regular in rate and rhythm Gastrointestinal: Uncontrollable diarrhea, abdomen is soft nontender Extremities: No new findings DOUBLE CORNER CUTTER: Alert awake oriented x3 motor sensory intact Skin: Normal turgor TCM TCM Information Date of Discharge 05/18/25 Discharged From [facility] Interactive Contact Date (Reference documentation from this date) 05/22/25 HPI Comments 2 History of Present Illness Details Date of admission/discharge: 05/13-05/18/2025 Facility: [facility] Discharge 2/current location: Home Diagnosis/procedure: None New/DC medications: Antibiotic cefadroxil for 12 days after discharge Changed medication/dozing: None Pending labs/tests: None Call to patient: Date/time 05/22/2025 Outcome TCM discharge loca tion/reason [facility]/sepsis TCM discharge date 05/18/25 TCM Interactive Co ntact Date 05/22/25 TCM medications re conciled Yes TCM discharge foll ow-up appointment scheduled Yes TCM follow-up appo intment date 05/23/25 Patient received d ischarge instructi ons Yes All patient questi ons answered Yes Teach back Yes TCM details Pt. doing better, has tcm apt 05/23, m eds reconciled, ana cristina marin documents noted. no fevers o r bleeding. How are you feeling? Much better Any pain or discomfort? No Do you have any questions about your condition or discharge instructions? No Were you able to get her medications filled? Yes Do you have any questions about your medications? No Were you able to schedule your follow-up appointments? Yes has appointment with gastroenterology coming up If home health was ordered, have they contacted you? None ordered Any outpatient services, if so, are you scheduled? None needed Are there any additional resources like transportation you might need during your recovery? No Educational needs/resources: None needed What support system do you have? Patient lives with the family [facility] Medical History Tobacco use disorder Morbid obesity Cirrhosis Bicytopenia Chronic hepatitis C No known health problems Surgical History Hx of colonoscopy Social History Household Members: Family Housing: House Do you presently have visiting nurse or other home services: No Alcohol intake: current Alcohol intake frequency: a few times a week Alcohol type: beer Patient Tobacco Use Status: Never used Tobacco Tobacco use type: Cigarette Cigarette Packs Per Day: 0.5 Cigarettes Per Day: 10.0 Years Smoked: 30 e-Cigarette/Vaping Use: Never Used service: No Current occupational status: retired Gender identity: Male Cognitive needs: No Hearing needs: No Vision needs: Yes Questionnaire PHQ-9 Over the last 2 weeks, how often have you been bothered by any of the following problems? 1. Little interest or pleasure in doing things: not at all 2. Feeling down, depressed, or hopeless: not at all 3. Trouble falling or staying asleep, or sleeping too much: not at all 4. Feeling tired or having little energy: not at all 5. Poor appetite or overeating: not at all 6. Feeling bad about yourself - or that you are a failure or have let yourself or your family down: not at all 7. Trouble concentrating on things, such as reading the newspaper or watching television: not at all 8. Moving or speaking so slowly that other people could have noticed. Or the opposite - being so fidgety or restless that you have been moving around a lot more than usual: not at all 9. Thoughts that you would be better off or of hurting yourself in some way: not at all Total score: 0 Depression Screening Interpretation: Negative Depression Screening Done: Yes 39449 - PHQ-9 Billing: Yes Source: Developed by Drs. Neftali Dale, Jessi Jones, Natanael Castro and colleagues, with an educational muna from [employer]. Thrive Questionnaire Date Thrive assessed: 05/23/25 I am a: Patient What is your living situation today?: I have a steady place to live Within the past 12 months, did the food you bought not last and you didn't have the money to get more?: Never true Within the past 12 months, did you worry whether your food would run out before you got money to buy more?: Never true Do you have trouble paying for medicines?: No Do you have trouble getting transportation to medical appointments?: No Do you have trouble paying your heating and electricity bill?: No Do you have trouble taking care of your child, family member or friend?: No Do you have trouble with day-to-day activities such as bathing, preparing meals, shopping, managing finances, etc.?: No Are you interested in more education?: No Please select the resources that you would like help with: None Currently or been in a relationship where the following occur: No concerns reported THRIVE Score: 0 AUDIT C Alcohol Use Questionnaire (AUDIT-C) 1. How often do you have a drink containing alcohol?: Monthly or less 2. How many drinks containing alcohol do you have on a typical day when you are drinking?: 3 or 4 3. How often do you have six or more drinks on one occasion?: Never Total Score: 2 Score Reviewed/Action Taken: Yes SHANICE-7 AMB Questionnaire SHANICE-7 Date SHANICE - 7 assessed: 05/23/25 Feeling nervous, anxious, or on edge: 0 = Not at all Not being able to stop or control worryin = Not at all Worrying too much about different things: 0 = Not at all Trouble relaxin = Not at all Being so restless that it is hard to sit still: 0 = Not at all Becoming easily annoyed or irritable: 0 = Not at all Feeling afraid as if something awful might happen: 0 = Not at all Total SHANICE-7 score (0-4 normal; 5-9 mild; 10-14 moderate; 15-21 severe): 0 Source: Developed by Drs. Neftali Dale, Jessi Jones, Natanael Castro and colleagues, with an educational muna from [employer]. SHANICE-7 Assessment Billing SHANICE-7 Assessment Tool: SHANICE-7 Assessment 70454 Physical exam (Primary Care) Vital Signs: Last Vital Signs Temp 98.3 F 05/23/25 12:23 Pulse 97 05/23/25 12:23 BP 132/74 05/23/25 12:23 Pulse Ox 94 05/23/25 12:23 Oxygen Delivery Method Room Air 05/23/25 12:23 BMI result Body Mass Index 42.1 Tobacco/Smoking Status: Tobacco use Status Tobacco use date assessed 05/23/25 05/23/25 12:24 Patient Tobacco Use Status Never used Tobacco 05/23/25 12:24 Tobacco use type Cigarette 05/23/25 12:24 e-Cigarette/Vaping Use Never Used 05/23/25 12:24 PHQ-9: PHQ-9 Score PHQ-9: Total score 0 05/23/25 12:24 Depression Screening Interpretation: Negative Thrive Assessment: Date of Thrive Assessment Date Thrive assessed 05/23/25 05/23/25 12:24 Currently or been in a relationship where the following occur: No concerns reported Coding Level of Care Code TCM Mod MDM <= 7 Days Diagnoses Hospital discharge follow-up Z09 Drug-induced diarrhea K52.1 Sepsis due to Streptococcus species without acute organ dysfunction A40.9 Sepsis type: Streptococcus, unspecified Sepsis acute organ dysfunction status: without acute organ dysfunction Delirium R41.0 Altered mental status type: delirium Chronic hepatitis C without hepatic coma B18.2 Hepatic coma status: without hepatic coma Other cirrhosis of liver K74.69 Hepatic cirrhosis type: other cirrhosis Additional Codes SHANICE-7 Assessment Billing - SHANICE-7 Assessment Tool: SHANICE-7 Assessment 90327 ([id number]) PHQ-9 - 48891 - PHQ-9 Billing: Yes ([id number]) Assessment & Plan Assessment & Plan (1) Hospital discharge follow-up: Code(s): Z09 - Encounter for follow-up examination after completed treatment for conditions other than malignant neoplasm Category: Medical (2) Drug-induced diarrhea: Code(s): K52.1 - Toxic gastroenteritis and colitis Category: Medical (3) Sepsis: Code(s): A41.9 - Sepsis, unspecified organism Category: Medical Qualifiers: Sepsis type: Streptococcus, unspecified Sepsis acute organ dysfunction status: without acute organ dysfunction Qualified Code(s): A40.9 - Streptococcal sepsis, unspecified (4) Altered mental status: Code(s): R41.82 - Altered mental status, unspecified Category: Medical Qualifiers: Altered mental status type: delirium Qualified Code(s): R41.0 - Disorientation, unspecified (5) Chronic hepatitis C: Code(s): B18.2 - Chronic viral hepatitis C Category: Medical Qualifiers: Hepatic coma status: without hepatic coma Qualified Code(s): B18.2 - Chronic viral hepatitis C (6) Cirrhosis: Code(s): K74.60 - Unspecified cirrhosis of liver Category: Medical Qualifiers: Hepatic cirrhosis type: other cirrhosis Qualified Code(s): K74.69 - Other cirrhosis of liver Plan Patient is 69-year-old gentleman came in today after hospital discharge follow- up Date of admission 05/13/2025, date of discharge 05/18/2025 He has medical history significant for hep C, cirrhosis, morbid obesity, tobacco abuse disorder, presented to emergency room with a feeling of unwell. Patient is a poor historian and found to have altered mental status He denied chest pain shortness a breath vomiting abdominal pain urinary symptoms or rash or any respiratory symptoms and denied diarrhea sore throat headache He presented with EMS and ultimately found to have a group G Streptococcus bacteremia of unknown source Which was initially treated with vancomycin and piperacillin tazobactam and then switched to ceftriaxone as per ID consultation. TTE without vegetations Repeat blood cultures on 05/16/2025 were negative Patient was discharged on cefadroxil for 12 days His mental status normalized after treatment He also have chronic pancytopenia due to cirrhosis He came in today for a follow-up appointment and presenting with antibiotic- associated diarrhea. Antibiotic-associated diarrhea: - The patient reported uncontrollable diarrhea that started after being discharged from the hospital on May 18. - Diarrhea has persisted for 6 days. - The patient describes the diarrhea as vicious and is afraid to stand up due to the severity. - Associated with the intake of ongoing antibiotics prescribed post-discharge. Social History: - The patient resides with his sister, [id number], and nephew. Problem List - Antibiotic-associated diarrhea - Sepsis of unknown origin - Liver cirrhosis Patient Instructions - Stop taking the current antibiotic. - Consume plenty of yogurt to help restore good bacteria in the stomach. - Monitor the diarrhea; it should improve within 2-3 days after stopping the antibiotic. - Attend the upcoming appointment with the avionics electronics technician, scheduled for May 28. - push fluids
--- OUTSIDE RECORDS SUMMARY | 2025-05-23 14:54 | XMS_ITS | Clinical Summary ---
Author Organization [facility] Address [address] [place] [address] Care Team Providers Care Concierge Receptionist Name Role Phone Milena Ghotra MD Primary Care Provider Unavail able Medical History Medical History Date Comments Transaminitis 10/23/2020 DX:Transaminitis Family History Medical History Relation Name Comments Heart attack Brother Relation Name Status Comments Brother Social History Tobacco Use Types Packs/Day Years Used Date Smoking Tobacco: Every Day Cigarettes 1 47.7 Started: 09/20/1977 Smokeless Tobacco: Never Alcohol Use [...] Vaccines (1 of 2) 11/27/2005 COVID-19 Vaccine (2023-2 5 season) 2024 Depression Screening 09/20/2024 Abdominal [...] age to complete this topic Care Teams Concierge Receptionist Relationship Specialty Start Date End Date Milena Ghotra MD PCP - General Internal Medicine 07/26/20
--- OUTSIDE RECORDS SUMMARY | 2025-05-23 14:54 | XMS_ITS | Patient Health Record ---
[facility] Address [address] [place] [address] Care Team Providers Care Ore Puncher Name Role Phone Emigdio TUCKER, [facility] Primary Care Provider Garcia Villareal Unavailable [phone] Allergies No Known Allergies Reason For Referral [...] atherosclerosis of arteries of lower limbs (disorder) ([id number] ) Atherosclerosis of [place] artery of both lower extremities, with unspecified presence of clinical manifestation (I70.203) Active confirmed Plan Of Treatment Pending Test Test Name Order Date [id number] NAIL, 6 OR MORE 08/26/2023 [id number] SKIN LESIONS, 2 TO 4 08/26/20 23 Insurance Providers Payer Name Payer Address Payer Phone Subscriber Number Group Number Insured Name Patient Relationship to Insured Coverage Start Date Coverage End Date [employer] Medicare Adv-[id number] [address] [address] [place] [address] [id number] Gomez Meyer Self - patient is the insured Medical (General) History Medical History History ICD Code High blood pressure Surgical History Surgery Date(Month/Year)
== END 2025-05-23 13:29 | disposition home or self-care (01) ==
LOC: HO.HMCC 12:21
PROVIDERS: PCP Internal Medicine; Visit Provider Internal Medicine
DX: K52.1 Toxic gastroenteritis and colitis (principal); B18.2 Chronic viral hepatitis C; A40.9 Streptococcal sepsis, unspecified; K74.69 Other cirrhosis of liver; Z09 Encounter for follow-up examination after completed treatment for conditions other than malignant neoplasm; R41.0 Disorientation, unspecified

== ENCOUNTER → 2025-05-23 12:21 | Outpatient (BNVA) | payer MEDICARE, SELFPAY | PROVIDERS: PCP Internal Medicine; Visit Provider Internal Medicine | DX: Z09 Encounter for follow-up examination after completed treatment for conditions other than malignant neoplasm (principal); K52.1 Toxic gastroenteritis and colitis; A40.9 Streptococcal sepsis, unspecified; R41.0 Disorientation, unspecified; B18.2 Chronic viral hepatitis C; K74.69 Other cirrhosis of liver | CPT/HCPCS: 96127; 99495 ==

== ENCOUNTER 2025-05-28 08:35 | Outpatient (AMB) | payer MEDICARE, SELFPAY ==
--- NOTE | 2025-05-28 08:56 | A.OFFVIS_ITS ---
Vital Signs 05/28/25 09:07 Height 6 ft 3 in Weight 330 lb 11.094 oz BMI 41.3 BP 152/66 H Blood Pressure Location Lt brachial Position Sitting Pulse 73 Pulse Oximetry (%) 98 Intake Visit Reasons: ultrasound and lab results Intake Note: Gomez presents in the office as a follow up for US and Lab results. CC: States that he is here for results - he was in the ED around Labor day and was treating him for Sepsis. States he was told to eat yogurt and stop antibiotics. Fire Control Technician Required: No Allergies No Known Allergies Allergy (Verified 05/23/25 12:23) HPI Comments Details: 69 y.o M with PMH of smoking disorder who is here for elevated LFTs. Pt reports no GI issues to include abd pain, N,V,D. No pruritus, increase in abd girth, rash. Was referred to us from Heme office which in turn he was referred for bicytopenia. US Abd reviewed with hepatosplenomegaly. Laboratory Tests 12/04/20 12/04/20 04/22/22 19:13 21:54 07:34 WBC 4.2 L Hgb Plt Count 87 L INR 1.2 H AST 43 H ALT 55 H Albumin IgG Total KEREN Titer Hep Bs Antigen Hep B Core Total Ab Hepatitis C Ab (EIA) 06/29/24 08/09/24 10/20/24 07:46 09:41 10:08 WBC 3.2 L 3.1 L 3.4 L Hgb 14.7 14.0 Plt Count 55 L 59 L INR AST 49 H ALT 46 H Albumin 3.4 L IgG Total 1814 H KEREN Titer 1:80 H Hep Bs Antigen Negative Hep B Core Total Ab Nonreactive Hepatitis C Ab (EIA) Reactive H 01/07/25: Here for follow up after lab work done. Pos for Hepatitis C geotype 1b. Tx naiive. F3 on fibrosure. Low platelets suspicious for CSPH. Reviewed labs with pt. He does not report any abd pain, N,V,D. No pruritus. No change in abd girth. PETH reviewed - discussed strict abstinence with etOH. Also continues to smoke - cut down to 0.5 PPD. 05/28/25: Pt was hospitalized at the end of Apr for AMS, fevers and chills and found to have group G strep bacteremia. Was on IV piptazo and then ceftrioxine while he was hospitalized. He was then discharged on PO cefadroxil which he only took for 2-3 days and then stopped due to developing diarrhea. Reports now has 1-2 formed BMs. No blood in BM. Pt was also supposed to be booked for egd/colo which is still pending. In terms of HCV, his treatment was INTERRUPTED due to lapse in PA due to unclear reason. He took Mavyret for 8 weeks. PA was approved for the whole duration of treatment but pt did not receive the last 4 weeks of tx. Due to lapse in therapy > 20 days HCV VL was checked which is NEGATIVE. Pt currently does not report any abd pain, N,V. Appetite is good. No further episodes of AMS. [facility] Medical History Hepatosplenomegaly Neutropenia Morbid obesity due to excess calories Tobacco use disorder Morbid obesity Cirrhosis Bicytopenia Chronic hepatitis C No known health problems Surgical History Hx of colonoscopy Social History Household Members: Family Housing: House Do you presently have visiting nurse or other home services: No Alcohol intake: current Alcohol intake frequency: a few times a week Alcohol type: beer Patient Tobacco Use Status: Never used Tobacco Tobacco use type: Cigarette Cigarette Packs Per Day: 0.5 Cigarettes Per Day: 10.0 Years Smoked: 30 e-Cigarette/Vaping Use: Never Used service: No Current occupational status: retired Gender identity: Male Cognitive needs: No Hearing needs: No Vision needs: Yes Physical Exam Vital Signs: Last Vital Signs Pulse 73 05/28/25 09:07 BP 152/66 H 05/28/25 09:07 Pulse Ox 98 05/28/25 09:07 BMI result Body Mass Index 41.3 Assessment & Plan Assessment & Plan (1) Group G streptococcal infection: Code(s): B95.4 - Other streptococcus as the cause of diseases classified elsewhere Category: Medical (2) Bacteremia: Code(s): R78.81 - Bacteremia Category: Medical (3) Antibiotic-associated diarrhea: Code(s): K52.1 - Toxic gastroenteritis and colitis; T36.95XA - Adverse effect of unspecified systemic antibiotic, initial encounter Category: Medical (4) Chronic hepatitis C: Code(s): B18.2 - Chronic viral hepatitis C Category: Medical Qualifiers: Hepatic coma status: without hepatic coma Qualified Code(s): B18.2 - Chronic viral hepatitis C (5) LFT elevation: Code(s): R79.89 - Other specified abnormal findings of blood chemistry Category: Medical (6) Morbid obesity: Code(s): E66.01 - Morbid (severe) obesity due to excess calories Category: Medical (7) EtOH dependence: Code(s): F10.20 - Alcohol dependence, uncomplicated Category: Medical (8) Personal history of colonic polyps: Code(s): Z86.0100 - Personal history of colon polyps, unspecified Category: Medical Plan 1. Acute diarrhea This is likely antibiotic associated diarrhea. Patient reports improvement from before but was advised that if continues to have more than 2 loose bowel movements a day, to submit stool sample to rule out C diff. Plan: -stool studies as below -he was also advised to speak to his ID physician regarding interruption antibiotic therapy 2. Compensated cirrhosis Multifactorial 2/2 chronic hepatitis C 1b and metALD F3 on fibrosure Took mavyret only for 8 weeks due to lapse in PA despite approval documented on our end. Recent VL is NEGATIVE. - Check HCV VL again today and then in 2 months - MELD labs - Also counseled on etOH abstinence and smoking cessation - EGD pending to r/o varices - msg sent to schedulers - US Abd due 08/2025 - reminder set. - No HE or ascites on exam today 3. Personal hx of polyps Pt also with hx of x4 polyps in 2019 ([facility] - Dr Snell) Due for repeat colo - to be booked. Reminder sent to schedulers Pt already has PEG. Follow up after egd.colo Orders: Orders GI Panel Today K52.1 - Toxic gastroenteritis and colitis, T36.95XA - Adverse effect of unspecified systemic antibiotic, initial encounter Liver Panel Today B18.2 - Chronic viral hepatitis C CDiff Gene PCR Today K52.1 - Toxic gastroenteritis and colitis, T36.95XA - Adverse effect of unspecified systemic antibiotic, initial encounter Hepatitis C Viral Load Today B18.2 - Chronic viral hepatitis C Complete Blood Count no Diff Today B18.2 - Chronic viral hepatitis C Comprehensive Met. Panel Today B18.2 - Chronic viral hepatitis C Coding Level of Care Code Est Pt Level 5 (67718) Complex EM visit Add On G2211 Diagnoses Group G streptococcal infection B95.4 Bacteremia R78.81 Antibiotic-associated diarrhea K52.1; T36.95XA Chronic hepatitis C without hepatic coma B18.2 Hepatic coma status: without hepatic coma LFT elevation R79.89 Morbid obesity E66.01 EtOH dependence F10.20 Personal history of colonic polyps Z86.0100
[2025-05-28 09:07] VITALS: BP 152/66; PULSE 73; O2SAT 98; BMI 41.3
--- OUTSIDE RECORDS SUMMARY | 2025-05-28 09:35 | XMS_ITS | Patient Health Record ---
Author [facility] Address [address] [place] [address] Care Team Providers Care Remote Sensing Research Scientist Name Role Phone Emigdio TUCKER, [facility] Primary Care Provider Garcia Villareal Unavailable [phone] Allergies No Known Allergies Reason For Referral [...] atherosclerosis of arteries of lower limbs (disorder) ([id number] ) Atherosclerosis of [place] artery of both lower extremities, with unspecified presence of clinical manifestation (I70.203) Active confirmed Plan Of Treatment Pending Test Test Name Order Date [id number] NAIL, 6 OR MORE 08/26/2023 [id number] SKIN LESIONS, 2 TO 4 08/26/20 23 Insurance Providers Payer Name Payer Address Payer Phone Subscriber Number Group Number Insured Name Patient Relationship to Insured Coverage Start Date Coverage End Date [employer] Medicare Adv-[id number] [address] [address] [place] [address] [id number] Gomez Meyer Self - patient is the insured Medical (General) History Medical History History ICD Code High blood pressure Surgical History Surgery Date(Month/Year)
--- OUTSIDE RECORDS SUMMARY | 2025-05-28 09:35 | XMS_ITS | Clinical Summary ---
Author Organization [facility] Address [address] [place] [address] Care Team Providers Care Intelligence Officer Basic Name Role Phone Milena Ghotra MD Primary Care Provider [phone] Medical History Medical History Date Comments Transaminitis [...] 11/27/1974 Zoster Vaccines (1 of 2) 11/27/2005 Depression Screening 09/20/2024 Abdominal Aortic Aneurysm (A AA) Screen 12/03/2024 Cholesterol Screening (Lipid Panel) 12/03/2024 Colorectal Cancer Screening: Colonoscopy 12/03/2024 Falls Risk Assessment 12/03/2024 Hepatitis C Screening 12/03/2024 Social Influencers of Health Screening 12/03/2024 COVID-19 Vaccine ( - 2023-2 5 season) 2025 Influenza Vaccine (#1) 2025 RSV Immunization Adult [...] age to complete this topic Care Teams Intelligence Officer Basic Relationship Specialty Start Date End Date Milena Ghotra MD PCP - General Internal Medicine 07/26/20
== END 2025-05-28 10:26 | disposition home or self-care (01) ==
LOC: HO.HGI 08:35
PROVIDERS: PCP Internal Medicine; Visit Provider Internal Medicine
DX: R78.81 Bacteremia (principal); B95.4 Other streptococcus as the cause of diseases classified elsewhere; K52.1 Toxic gastroenteritis and colitis; T36.95XA Adverse effect of unspecified systemic antibiotic, initial encounter; B18.2 Chronic viral hepatitis C; R74.01 Elevation of levels of liver transaminase levels
CPT/HCPCS: 99214; G2211

== ENCOUNTER → 2025-05-28 08:35 | Outpatient (BNVA) | payer MEDICARE, SELFPAY | PROVIDERS: PCP Internal Medicine; Visit Provider Internal Medicine | DX: R79.89 Other specified abnormal findings of blood chemistry (principal); K52.1 Toxic gastroenteritis and colitis; T36.95XA Adverse effect of unspecified systemic antibiotic, initial encounter; B18.2 Chronic viral hepatitis C; E66.01 Morbid (severe) obesity due to excess calories; F10.20 Alcohol dependence, uncomplicated | CPT/HCPCS: 99212 ==

== ENCOUNTER 2025-05-29 06:03 | Outpatient (REF) | payer MEDICARE, SELFPAY ==
--- OUTSIDE RECORDS SUMMARY | 2025-05-29 06:07 | XMS_ITS | Clinical Summary ---
Author Organization [facility] Address [address] [place] [address] Care Team Providers Care Extracorporeal Circulation Specialist Name Role Phone Milena Ghotra MD Primary Care Provider [phone] Medical History Medical History Date Comments Transaminitis [...] age to complete this topic Care Teams Extracorporeal Circulation Specialist Relationship Specialty Start Date End Date Milena Ghotra MD PCP - General Internal Medicine 07/26/20
--- OUTSIDE RECORDS SUMMARY | 2025-05-29 06:07 | XMS_ITS | Patient Health Record ---
[facility] Address [address] [facility] [place] [address] Care Team Providers Care Hatch Supervisor Name Role Phone Emigdio TUCKER, [facility] Primary Care Provider Garcia Villareal Unavailable [phone] Allergies No Known Allergies Reason For Referral [...] atherosclerosis of arteries of lower limbs (disorder) ([id number] ) Atherosclerosis of [place] artery of both lower extremities, with unspecified presence of clinical manifestation (I70.203) Active confirmed Plan Of Treatment Pending Test Test Name Order Date [id number] NAIL, 6 OR MORE 08/26/2023 [id number] SKIN LESIONS, 2 TO 4 08/26/20 23 Insurance Providers Payer Name Payer Address Payer Phone Subscriber Number Group Number Insured Name Patient Relationship to Insured Coverage Start Date Coverage End Date [employer] Medicare Adv-[id number] [address] [address] [place] [address] [id number] Gomez Meyer Self - patient is the insured Medical (General) History Medical History History ICD Code High blood pressure Surgical History Surgery Date(Month/Year)
[2025-05-29 10:17] LABS: Hematocrit 38.0 % (42.0-52.0); Hemoglobin 12.5 g/dl (14.0-18.0); Mean Corpuscular HGB Conc 32.9 g/dl (31.0-36.0); Mean Corpuscular Hemoglobin 30.3 pg (27.0-33.0); Mean Corpuscular Volume 92.0 fL (80.0-98.0); NRBC Abs Auto 0.000 X10*3/uL (0.0-0.012); NRBC Pct Auto 0.0 /100WBC (0.0-0.2); Platelet Count 69 X10*3/uL (160-400); Red Blood Count 4.13 X10*6/uL (4.60-5.80); White Blood Count 2.5 X10*3/uL (4.8-10.8)
[2025-05-29 10:57] LABS: Alanine Aminotransferase 10 U/L (0-40); Albumin Level 3.6 g/dL (3.5-5.0); Alkaline Phosphatase 53 U/L (39-117); Anion Gap 11 (12-20); Aspartate Amino Transferase 28 U/L (5-37); Blood Urea Nitrogen 12 mg/dL (9-16); Calcium 8.7 mg/dL (8.4-10.2); Carbon Dioxide 25 mmol/L (22-29); Chloride 109 mmol/L (96-108); Estimated Glomerular Filt Rate > 60; Potassium 4.1 mmol/L (3.3-5.1); Sodium 141 mmol/L (135-145); Total Protein 6.9 g/dL (6.5-8.0)
[2025-05-30 17:00] LABS: HCV Log PCR <1.18 NOT DETECTED Log IU/mL (NOT DETECTED); HepC Viral Load <15 NOT DETECTED IU/mL (NOT DETECTED)
== END 2025-05-29 06:04 | disposition home or self-care (01) ==
LOC: HO.HMGCLDS 06:03
PROVIDERS: PCP Internal Medicine; Visit Provider Internal Medicine
DX: B18.2 Chronic viral hepatitis C (principal)
CPT/HCPCS: 36415; 80053; 82248; 85027; 87522

== ENCOUNTER 2025-06-05 08:49 | Day surgery (SDC) | payer MEDICARE, SELFPAY ==
--- NOTE | 2025-06-04 10:06 | P.CONAN_ITS ---
Documented by User: Jamia Aragon NP 06/04/25 10:15 HPI - Anesthesia Eval Consult details Narrative: 69yo M for Upper Endoscopy and Colonoscopy [facility] admit 05/13/25-05/18/25: 69yo M with HCV cirrhosis presenting with AMS and ultimately found to have Group G streptococcus bacteremia of unknown source. Initially treated with vancomycin and piperacillin-tazobactam and narrowed to ceftriaxone. ID consulted. TTE without vegetations. Repeat BCx 05/16 negative. D/c'ed on cefadroxil x 12 days to complete total 14 days from culture clearance. Mental status normalized with treating the infection. 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 Abx assoc diarrhea since discharge per PCP and GI office visits PMFSH Active Problems Active Problems: All Active Problems EtOH dependence (Acute) Chronic hepatitis C (Acute) Antibiotic-associated diarrhea (Acute) Drug-induced diarrhea (Acute) Hospital discharge follow-up (Acute) Acute encephalopathy due to infection (Acute) Group G streptococcal infection (Acute) Bacteremia (Acute) Sepsis (Acute) Morbid obesity (Acute) Personal history of colonic polyps (Acute) Bicytopenia (Chronic) Abnormal tandem walk (Acute) Labile blood pressure (Acute) LFT elevation (Acute) Toenail deformity (Acute) Varicose veins of right lower extremity (Acute) Recurrent cellulitis of lower extremity (Acute) Elevated blood sugar (Acute) Encounter for general adult medical examination with abnormal findings (Acute) Varicose veins of right lower extremity with inflammation (Acute) Past Medical History Medical History Chronic hepatitis C Hepatosplenomegaly Neutropenia Morbid obesity due to excess calories Tobacco use disorder Morbid obesity Cirrhosis Bicytopenia No known health problems Surgical History Surgical History Hx of colonoscopy Social History Social History Household Members: Family Housing: House Do you presently have visiting nurse or other home services: No Alcohol intake: current Alcohol intake frequency: former alcohol drinker Alcohol type: beer Patient Tobacco Use Status: Current everyday Tobacco user Tobacco use type: Cigarette Cigarette Packs Per Day: 0.5 Cigarettes Per Day: 10.0 Years Smoked: 30 e-Cigarette/Vaping Use: Never Used Use of substances other than those prescribed or required for medical reasons: No Are you DNR?: No Advance Directives: No Advance Directives Information Provided: Yes Poor oral hygiene: No service: No Current occupational status: retired Gender identity: Male Cognitive needs: No Hearing needs: No Vision needs: Yes Meds Allergies Allergy/AdvReac Type Severity Reaction Status Date / Time No Known Allergies Allergy Verified 05/23/25 12:23 Home Medications ?Medication ?Instructions ?Recorded ?Confirmed ?Last Taken ?Type No Known Home Meds 06/05/25 06/05/25 Un known History Exam Pertinent Lab Results Pertinent Lab Results: Laboratory Tests 05/29/25 06:15 Sodium 141 Potassium 4.1 Chloride 109 H Carbon Dioxide 25 BUN 12 Creatinine 0.73 Narrative Narrative: ECHO 04/2025 Conclusions: - The left ventricular systolic function is normal. The visually estimated ejection fraction is between 55-60%. - There is moderate calcification of the aortic valve. There is mild aortic valve stenosis. - No obvious vegetation noted based on available image quality. EKG 04/2025 Vent. Rate : 88 BPM Atrial Rate : 88 BPM P-R Int : 192 ms QRS Dur : 82 ms QT Int : 360 ms P-R-T Axes : 34 31 47 degrees QTcB Int : 435 ms Sinus rhythm with Premature supraventricular complexes cannot exclude old Septal infarct , age undetermined Abnormal ECG No previous ECGs available Abdomen CT 04/2025 IMPRESSION: 1. Mild motion artifact present. There is edema throughout the intra-abdominal compartment with minimal perihepatic ascites. These findings limit evaluation for subtle inflammatory processes. 2. Motion limited evaluation of the gallbladder. Subtle gallbladder wall thickening is not excluded. May consider gallbladder ultrasound examination and/or nuclear medicine HIDA scan if there is clinical concern for acute cholecystitis. 3. Subtle nodularity of the hepatic contour in the setting of cirrhosis is not excluded on this examination. There is splenomegaly. Assessment and Plan Assessment Anesthesia Assessment: Chart Reviewed Documented by User: Barrie Garcia MD 06/05/25 11:01 [facility] Past Medical History Medical History Chronic hepatitis C Hepatosplenomegaly Neutropenia Morbid obesity due to excess calories Tobacco use disorder Morbid obesity Cirrhosis Bicytopenia No known health problems Functional capacity: independent ambulation Family History Family history of problems with anesthesia: No Surgical History Surgical History Hx of colonoscopy History of Problems with Anesthesia: No Social History Social History Household Members: Family Housing: House Do you presently have visiting nurse or other home services: No Alcohol intake: current Alcohol intake frequency: former alcohol drinker Alcohol type: beer Patient Tobacco Use Status: Current everyday Tobacco user Tobacco use type: Cigarette Cigarette Packs Per Day: 0.5 Cigarettes Per Day: 10.0 Years Smoked: 30 e-Cigarette/Vaping Use: Never Used Use of substances other than those prescribed or required for medical reasons: No Are you DNR?: No Advance Directives: No Advance Directives Information Provided: Yes Poor oral hygiene: No service: No Current occupational status: retired Gender identity: Male Cognitive needs: No Hearing needs: No Vision needs: Yes Meds Allergies Allergy/AdvReac Type Severity Reaction Status Date / Time No Known Allergies Allergy Verified 05/23/25 12:23 Home Medications ?Medication ?Instructions ?Recorded ?Confirmed ?Last Taken ?Type No Known Home Meds 06/05/25 06/05/25 Un known History Exam Airway Mallampati Class: II TM Dist: >3cm Neck ROM: Full Loose/Missing/Broken Teeth: Yes (multiple) Heart: normal Lungs: normal Other: normal Assessment and Plan Final Anesthetic Review Family History of Problems with Anesthesia: No History of Problems with Anesthesia: No NPO: Yes ASA Class: III Final Preanesthetic Review: No Changes in Pt Med Stat, Consent Obtained/Reviewed and Anes Risks/Benef Reviewed Patient Risk: Low Procedure Risk: Low Anesthetic Plan Anesthetic Plan: MAC: Disposition: Standard PACU
[2025-06-05 09:29] VITALS: BMI 40.8
[2025-06-05 09:33] LABS: Hematocrit 38.6 % (42.0-52.0); Hemoglobin 13.0 g/dl (14.0-18.0); Mean Corpuscular HGB Conc 33.7 g/dl (31.0-36.0); Mean Corpuscular Hemoglobin 30.7 pg (27.0-33.0); Mean Corpuscular Volume 91.3 fL (80.0-98.0); NRBC Abs Auto 0.000 X10*3/uL (0.0-0.012); NRBC Pct Auto 0.0 /100WBC (0.0-0.2); Red Blood Count 4.23 X10*6/uL (4.60-5.80); White Blood Count 3.2 X10*3/uL (4.8-10.8)
[2025-06-05 09:34] LABS: Platelet Count 53 X10*3/uL (160-400)
[2025-06-05 09:38] LABS: INTERNATIONAL NORM RATIO 1.3 (0.9-1.1); Prothrombin Time 14.6 SEC (10.9-12.4)
[2025-06-05 09:45] VITALS: BP 125/76; PULSE 75; RESP 16; TEMP 36.8; O2SAT 95
[2025-06-05] MEDS: Lactated Ringers 1,000 ML 100 ML IVCONT (09:53)
--- NOTE | 2025-06-05 10:45 | MHC.SHP ---
Pre-Procedural Eval Section A - 24 Hr Update-Section A only Date of Service: 06/05/25 The patient is an INPATIENT: No The patient has been examined within 24 hours of the surgical procedure. The History & Physical has been completed within 30 days and I have reviewed it.: Yes Section B - Complete if H&P > 30 days Chief Complaint: Chronic viral hepatitis C,hx colon polyps Allergies: Allergies Allergy/AdvReac Type Severity Reaction Status Date / Time No Known Allergies Allergy Verified 05/23/25 12:23 Plan Diagnosis/Plan: Unchanged I have reviewed the history and physical and performed a pertinent physical examination on my patient. No changes have occurred unless specified. Time Spent With Patient Time: Total time managing care of this patient today ____ minutes.
--- NOTE | 2025-06-05 11:02 | P.OPN-COLO_ITS ---
Colonoscopy Operative Note Operative Note Date of Service: 06/05/25 Narrative: Procedure: Upper endoscopy and colonoscopy Indication: Cirrhosis, hx of polyps Endoscopist: Kristen Crabtree MD Anesthesia Provider: Dr Garcia Anesthesia type: MAC Instrument: [id number], [id number] and [id number] EGD Procedure:?? The procedure, indications, preparation and potential complications were reviewed with the patient, who indicated understanding and gave written informed consent to proceed. The endoscope was introduced through the mouth, and advanced to the 2nd part of the duodenum. The mucosa was carefully examined on slow withdrawal of the endoscope. The patient tolerated the procedure well. There were no immediate complications.? EGD Findings:? * Esophagus:? Normal esophageal mucosa was noted. The Z-line was at 45 cm. At least two cords of medium to large varices were noted in the lower esophagus. A [employer] 7-shooter was affixed to the scope in usual fashion and a band was deployed at 42 cm. Complete collapse of both varices was noted. * Stomach:? Erythema in a mosaic pattern consistent with portal hypertensive gastropathy. Retroflexion was performed in the cardia, no fundal varices noted. * Duodenum:? Normal duodenal mucosa. Colonoscopy Procedure:? The patient was then turned for the colonoscopy. A digital rectal exam was performed which was normal.? A distal attachment cap was affixed to the tip of the scope and the colonoscope was then inserted through the anus and advanced through the colon and advanced to the hepatic flexure. Scope could not be advanced to cecum despite abdominal pressure and position change. The scope was then changed to adult colonoscope and cecum was reached at 90 cm.? Appendiceal orifice and ileocecal valve were identified. Mucosa was carefully examined under high definition white light as the instrument was slowly withdrawn in a retrograde panoramic fashion. Retroflexion was performed in rectum. The procedure was somewhat difficult as above. The quality of the prep was BBPS: 2+3+3 = adequate Withdrawal time 9 minutes Limitations: No limitations Findings: Mucosa: Normal colon and terminal ileum mucosa. Protruding lesions: * 4 sessile polyps of size 3-8 mm noted in sigmoid colon. Cold snare polypectomy was performed. The polyps were completely removed and retrieved. * Large internal hemorrhoids without stigmata of recent bleeding. Impression: 1. Esophageal varices (EVBL x 1) 2. Portal hypertensive gastropathy 3. Normal duodenum 4. Normal colon mucosa 5. Total of 4 polyps removed 6. Internal hemorrhoids Recommendations:?? * Follow-up path results * Avoid NSAIDs * Start carvedilol 3.125 BID for variceal prophylaxis. * Take sucralfate 10 ml QID x 2 weeks for post-banding ulcer prophylaxis * Repeat colonoscopy in 3-5 years depending on pathology.
[2025-06-05 12:21] VITALS: BP 118/58; PULSE 69; RESP 20; TEMP 36.4; O2SAT 96
[2025-06-05 12:30] VITALS: BP 124/82; PULSE 69; RESP 20; O2SAT 96
== END 2025-06-05 13:06 | disposition home or self-care (01) ==
PROVIDERS: Nurse Practitioner; PCP Internal Medicine; Visit Provider Internal Medicine
PROC: (CPT 45385; principal; 2025-06-05 10:50)
DX: R10.9 Unspecified abdominal pain (principal); D12.5 Benign neoplasm of sigmoid colon; K64.8 Other hemorrhoids; Z86.0101 Personal history of adenomatous and serrated colon polyps; K76.6 Portal hypertension; B18.2 Chronic viral hepatitis C; I85.10 Secondary esophageal varices without bleeding; K31.89 Other diseases of stomach and duodenum; F10.20 Alcohol dependence, uncomplicated; E66.01 Morbid (severe) obesity due to excess calories; Z68.41 Body mass index [BMI] 40.0-44.9, adult; F17.210 Nicotine dependence, cigarettes, uncomplicated
CPT/HCPCS: 45385; 43244; 36415; 85027; 85610; 88305; J2003; J2704; J3010

== ENCOUNTER → 2025-06-05 08:49 | Outpatient (BNV) | payer MEDICARE, SELFPAY | PROVIDERS: PCP Internal Medicine; Visit Provider Internal Medicine | DX: Z12.11 Encounter for screening for malignant neoplasm of colon (principal); Z86.0100 Personal history of colon polyps, unspecified; D12.5 Benign neoplasm of sigmoid colon; K64.8 Other hemorrhoids; K74.60 Unspecified cirrhosis of liver; I85.00 Esophageal varices without bleeding; K76.6 Portal hypertension; K31.89 Other diseases of stomach and duodenum | CPT/HCPCS: 43244; 45385 ==

== ENCOUNTER 2025-06-13 15:09 | Inpatient (IN) | payer MEDICARE, SELFPAY ==
[2025-06-13] VITALS (10 sets, daily range): BP systolic 94–141; BP diastolic 43–77; PULSE 74–92; RESP 10–31; TEMP 38.1–39.6; O2SAT 94–98; BMI 44.6
--- NOTE | ~2025-06-13 | CT_ITS ---
CLINICAL HISTORY: altered mental status --- Additional Notes or Special Instructions: WAIT FOR CXR RESULTS PER PROVIDER CT Brain without contrast Comparison: CT/SR - CT HEAD/BRAIN WO IV CON - 05/13/25 20:51 EDT FINDINGS: Cortical sulci: There is diffuse prominence of the cortical sulci compatible with age-related atrophy. Ventricles: Normal for age. Brain parenchyma: There is patchy lucency throughout the deep white matter indicating chronic microvascular leukomalacia. Extra-axial spaces: Normal. Posterior Fossa: Normal. Extracranial soft tissues: Normal. Additional abnormality: None. IMPRESSION: Age-related atrophy with chronic microvascular leukomalacia. No hemorrhage, mass effect, or acute findings identified. This document has been electronically signed by: Hitesh Telles MD on 06/13/2025 18:39:19
--- NOTE | ~2025-06-13 | CT_ITS ---
CLINICAL HISTORY: fever, source unclear CT abdomen and pelvis with contrast Comparison: CT/SR - CT ABDOMEN PELVIS W IV CON - 05/13/25 20:54 EDT Findings: Examination is limited by motion artifact. The visualized portions of the lungs are normal in appearance. The liver is normal in size without suspicious focal hepatic lesions. No intrahepatic or extrahepatic ductal dilatation is seen. No calcified gallstones in the gallbladder. Limited evaluation of the gallbladder due to motion artifact. Pancreas, adrenals are normal in appearance. The spleen is enlarged. No suspicious focal lesion of the kidneys. No hydronephrosis or calculi. The abdominal aorta demonstrates no evidence of aneurysmal dilatation or dissection. Atherosclerosis calcification. The colon is without wall thickening or inflammatory change. No evidence of bowel obstruction. Appendix is normal. Status post TURP. Mild wall thickening of the bladder. Small ascites. Mild fat stranding of the mesentery. There are multiple subcentimeter retroperitoneal and pelvic lymph nodes. Degenerative changes of the spine. IMPRESSION: Limited evaluation due to motion artifact. Mild circumferential wall thickening of the bladder. Clinical correlation is recommended to exclude cystitis. Small ascites. Splenomegaly. Additional findings as above. This document has been electronically signed by: Hitesh Telles MD on 06/13/2025 18:48:43
--- NOTE | ~2025-06-13 | XR_ITS ---
EXAMINATION: XR CHEST CLINICAL INFORMATION: altered mental status COMPARISON: 05/13/2025 TECHNIQUE: Frontal view of the chest was obtained. FINDINGS: Heart and mediastinal contours are unremarkable. Lungs are grossly clear. No other abnormalities are seen. XR/XR chest 1V IMPRESSION: No acute disease. Electronically signed by: Vladislav Castelan MD 06/13/2025 04:54 PM EDT RP
--- NOTE | 2025-06-13 15:17 | ED_ITS ---
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 The patient was hospitalized several weeks ago with altered mental status and a fever. He was found to have blood cultures positive for group G Streptococcus. He was in the hospital for 5 days. The source of the infection was never determined. He had a negative transthoracic echocardiogram. At discharge she was to take cefadroxil 1000 mg b.i.d. times an additional 12 days. Today the patient was found very confused by his brother and an ambulance was called. The patient lives in the basement apartment of his sister's house. The sister says that she had seen him this morning and he seemed normal. She is not certain what time this was. However this afternoon the brother called him on the phone and there was no response. Ultimately the brother went to the basement apartment and found the patient very confused and called 911. Paramedics say the patient was confused and soiled with stool and urine and the paramedics thought that he had possibly rolled out of bed. He was found on the floor right next to his bed. He did not seem obviously injured in any way. The patient is very heavy and extracting him from the scene took a long time because of the patient's altered mental status and general flaccidity. Paramedics noted that he felt quite warm. According to the sister the patient did not complete the 12 days of antibiotics. According to the sister the patient developed diarrhea not long after leaving the hospital. The patient apparently called his PCP but told him that he could stop the antibiotics and the patient has stopped after just a few days. Apparently the diarrhea abated. In any event the patient was well since leaving the hospital until today. He was well enough to attend a scheduled colonoscopy 8 days ago on June 05 as an outpatient. Related Data Home Medications ?Medication ?Instructions ?Recorded ?Confirmed sucralfate 100 mg/mL oral 10 ml PO QID 06/13/25 suspension Previous Rx's ?Medication ?Instructions ?Recorded carvedilol 3.125 mg tablet 3.125 mg PO BID 90 days #18 0 tabs 06/05/25 Allergies Allergy/AdvReac Type Severity Reaction Status Date / Time No Known Allergies Allergy Verified 06/13/25 15:19 Review of Systems 2 Review of Systems: Yes Unobtainable due to mental status PMFSH Past Medical History Medical History Chronic hepatitis C Hepatosplenomegaly Neutropenia Morbid obesity due to excess calories Tobacco use disorder Morbid obesity Cirrhosis Bicytopenia Surgical History Hx of colonoscopy Social History Social History Household Members: Family Housing: House Do you presently have visiting nurse or other home services: No Unable to assess alcohol history related to: Unable to respond Alcohol intake: current Alcohol intake frequency: former alcohol drinker Alcohol type: beer Patient Tobacco Use Status: Current someday Tobacco user Tobacco use type: Cigarette Cigarette Packs Per Day: 0.5 Cigarettes Per Day: 10.0 Years Smoked: 30 Smoked in Last 30 Days: No e-Cigarette/Vaping Use: Never Used Use of substances other than those prescribed or required for medical reasons: Unable to respond Advance Directives: No Advance Directives Information Provided: Yes Do you have a plan to hurt others: No Plan Nutrition Risks: No Nutritional Risk service: No Current occupational status: retired Gender identity: Male Cognitive needs: No Hearing needs: No Vision needs: Yes Physical Exam ED Vital Signs: Vital Signs - 24 hr 06/13/25 15:18 06/13/25 16:27 06/13/25 16:51 Temperature 103.3 F H 103.1 F H Pulse Rate 92 85 83 Respiratory Rate 25 H 24 H 21 H Blood Pressure 117/43 L 141/77 H Pulse Oximetry 95 95 Oxygen Delivery Method Room Air Room Air Room Air 06/13/25 17:55 06/13/25 18:10 06/13/25 18:13 Temperature 101.1 F H 100.6 F H 100.6 F H Pulse Rate 84 80 84 Respiratory Rate 31 H 21 H 21 H Blood Pressure 102/48 L 101/46 L 94/46 L Pulse Oximetry 94 96 96 Oxygen Delivery Method Room Air Room Air Room Air 06/13/25 18:36 Temperature 100.6 F H Pulse Rate 84 Respiratory Rate 10 L Blood Pressure 100/57 L Pulse Oximetry 96 Oxygen Delivery Method Room Air BMI result Body Mass Index 44.6 Const Other: The patient is a chronically ill-appearing obese male who was awake but extremely confused. He was poorly oriented. HENMT Other: Face was symmetrical. Mucous membranes moist. Eyes Other: Pupils are round equal, conjunctivae are clear, extraocular movements intact General: appearance normal, both eyes and all related structures Neck Other: The neck is supple. The neck is thick. I can not appreciate JVD. Resp Effort & Inspection: normal respiratory effort Auscultation: clear to auscultation bilaterally Cardio Other: No murmur heard Rate: regular rate Rhythm: regular rhythm Heart sounds: S1 normal heart sound present and S2 normal heart sound present GI Other: The patient has a protuberant abdomen that is soft and is not apparently tender. Skin Other: The skin is pale and dry. Neuro Other: The patient was awake but quite confused and poorly oriented. He had no obvious cranial nerve deficit. He was diffusely weak but seemed to have symmetrical tone. No lateralizing findings. Extrem Other: No asymmetry or obvious size differential between the lower legs. Mild edema, not especially pitting. No apparent tenderness. Medications Administered Generic Name Dose Route Start Last Admin Trade Name Freq PRN Reason Stop Dose Admin Sucralfate 1 gm 06/13/25 21:00 06/13/25 21:22 Sucralfate Oral Suspension 1 Gm/10 Ml Oral.Susp PO 1 gm QID KRZYSZTOF Administration Discontinued Medications Generic Name Dose Route Start Last Admin Trade Name Freq PRN Reason Stop Dose Admin Piperacillin Sod/Tazobactam 100 mls @ 200 mls/hr 06/13/25 15:34 06/13/25 16:27 Sod 4.5 gm/ Sodium Chloride IV 06/13/25 16:03 Infused ONCE ONE Infusion Vancomycin HCl 2,000 mg in 500 mls @ 250 mls/hr 06/13/25 15:34 06/13/25 18:45 Vancomycin/Ns IV 06/13/25 17:33 Infused ONCE ONE Infusion Sodium Chloride 1,000 mls @ 999 mls/hr 06/13/25 16:00 06/13/25 18:08 Ns IV 06/13/25 17:00 Infused .Q1H1M KRZYSZTOF Infusion Sodium Chloride 4,356 mls @ 4,356 mls/hr 06/13/25 16:11 06/13/25 16:26 Ns 30 ml/kg infuse over 1 hr (4356 ml) 06/13/25 17:10 Infused IV Infusion .Q1H STA Acetaminophen 1,000 mg in 100 mls @ 400 mls/hr 06/13/25 16:11 06/13/25 16:39 Ofirmev IV 06/13/25 16:25 Infused ONCE ONE Infusion Sodium Chloride 1,000 mls @ 999 mls/hr 06/13/25 16:30 06/13/25 18:08 Ns IV 06/13/25 17:30 Infused .Q1H1M KRZYSZTOF Infusion Magnesium Sulfate 2 gm in 50 mls @ 150 mls/hr 06/13/25 17:00 06/13/25 18:08 Magnesium Sulfate/H2o IV 06/13/25 17:19 Infused ONCE ONE Infusion Lactated Ringer's 1,000 mls @ 999 mls/hr 06/13/25 18:45 06/13/25 21:28 Lr IV 06/13/25 19:45 Infused .Q1H1M KRZYSZTOF Infusion Iohexol 100 ml 06/13/25 17:21 06/13/25 17:21 Iohexol 350 Mg/Ml 100 Ml Infus..Btl IV 06/13/25 17:22 85 ml ONCE ONE Administration Medical Decision Making Medical Decision Making [facility] Narrative: The patient is a 69-year-old male with a history of hepatitis-C and cirrhosis who was hospitalized last month for bacteremia. His blood cultures grew Streptococcus group G, no definite source of this infection was ever identified however. At discharge he went home to finish 12 days of oral antibiotics. Apparently he stopped his antibiotics after only a couple of days because of diarrhea. Nevertheless he did well for the next few weeks until today when he became acutely ill at home with the an altered mental status and here he has a fever of 104.4. Blood cultures were obtained and empiric antibiotics were given. He was given IV fluids. His lactate was normal. He was not hypotensive. Chest x-ray showed no source of infection. Urine was clean. No obvious skin infection apparent. Since there was no obvious source of his infection a CT of the abdomen was done as well which also showed no source of infection. My suspicion is that the patient is bacteremic probably for the same reasons that he was bacteremic last month, which is to say that it is not clear. A head CT was done because of his altered mental status but his mental status improved dramatically with improvement in his fever. Overall this presentation is very similar to the presentation he had last month. He will again be hospitalized as I suspect the risk of bacteremia in his case is probably very high. Additionally he was very encephalopathic initially although this improved. Lab Data 06/13/25 15:52 06/13/25 15:52 Labs: Lab Results 06/13/25 06/13/25 06/13/25 Range/Units 15:16 15:52 16:05 WBC 8.4 (4.8-10.8) X10*3/uL RBC 4.13 L (4.60-5.80) X10*6/uL Hgb 12.7 L (14.0-18.0) g/dl Hct 37.1 L (42.0-52.0) % MCV 89.8 (80.0-98.0) fL MCH 30.8 (27.0-33.0) pg MCHC 34.2 (31.0-36.0) g/dl RDW 13.9 (11.0-16.0) % Plt Count 43 L (160-400) X10*3/uL MPV 12.0 (9.4-12.4) fL Immature Gran % (Auto) Cancelled Neut % (Auto) Cancelled Lymph % (Auto) Cancelled [place] % (Auto) Cancelled Eos % (Auto) Cancelled Baso % (Auto) Cancelled Lymph # (Auto) Cancelled [place] # (Auto) Cancelled Eos # (Auto) Cancelled Baso # (Auto) Cancelled Abs Immat Gran (auto) Cancelled Absolute Neuts (auto) Cancelled Absolute Nucleated RBC 0.000 (0.0-0.012) X10*3/uL Nucleated RBC % (auto) 0.0 (0.0-0.2) /100WBC Neutrophils % (Manual) 86 H (45-73) % Band Neutrophils % 11 H (3-5) % Lymphocytes % (Manual) 2 L (20-40) % Metamyelocytes % 1 % Abs Neuts (Manual) 8.1 (2.0-8.3) X10*3/uL Lymphocytes # (Manual) 0.2 L (1.2-4.9) X10*3/uL Metamyelocytes # 0.1 X10*3/uL Platelet Estimate DECREASED (NORMAL) Plt Morphology Comment NORMAL RBC Morphology NORMAL Smear Tech's Comments MANUAL DIFF PT 16.3 H (10.9-12.4) SEC INR 1.4 H (0.9-1.1) VBG pH 7.43 (7.32-7.43) VBG pCO2 39 mmHg VBG pO2 57 mmHg VBG HCO3 26 (22-26) mmol/L VBG O2 Saturation 87.0 % VBG Base Excess 1.9 mmol/L Sodium 141 (135-145) mmol/L Potassium 3.5 (3.3-5.1) mmol/L Chloride 110 H (96-108) mmol/L Carbon Dioxide 26 (22-29) mmol/L Anion Gap 9 L (12-20) BUN 15 (9-16) mg/dL Creatinine 0.76 (0.5-1.4) mg/dL Estim Creat Clear Calc 133.9 Estimated GFR > 60 POC Glucose 103 (60-115) mg/dL Random Glucose 109 (60-115) mg/dL Lactic Acid 1.6 (0.5-2.0) mmol/L Calcium 8.6 (8.4-10.2) mg/dL Magnesium 1.4 L* (1.6-2.6) mg/dL Total Bilirubin 2.0 H (0.0-1.0) mg/dL Direct Bilirubin 0.7 H (0.0-0.5) mg/dL AST 29 (5-37) U/L ALT 11 (0-40) U/L Alkaline Phosphatase 53 (39-117) U/L Ammonia 48 (13-55) umol/L Total Creatine Kinase 30 L (38-174) U/L Troponin I High Sens 20.5 D (<3.5-35.0) ng/L C-Reactive Protein 0.20 (< or = 0.50) mg/dL Total Protein 6.7 (6.5-8.0) g/dL Albumin 3.6 (3.5-5.0) g/dL Lipase 20 (8-78) U/L Urine Color Urine Appearance Urine pH (5.0-9.0) Ur Specific [place] (1.005-1.025) Urine Protein (Neg-Trace) mg/dL Urine Glucose (UA) (Negative) mg/dL Urine Ketones (Negative) mg/dL Urine Blood (Negative) Urine Nitrite (Negative) Ur Leukocyte Esterase (Negative) Urine Opiates Screen (Not Detect) Ur Buprenorphine Scrn (Not Detect) ng/mL Ur Oxycodone Screen (Not Detect) ng/mL Urine Methadone Screen (Not Detect) ng/mL Urine Fentanyl Screen (Not Detect) Ur Barbiturates Screen (Not Detect) Ur Phencyclidine Scrn (Not Detect) Ur Amphetamines Screen (Not Detect) U Benzodiazepines Scrn (Not Detect) Urine Cocaine Screen (Not Detect) U Marijuana (THC) Screen (Not Detect) Ethyl Alcohol < 10 mg/dL Influenza Type A (PCR) NEGATIVE (Negative) Influenza Type B (PCR) NEGATIVE (Negative) RSV RNA Qual (PCR) NEGATIVE (Negative) SARS-CoV-2 RNA (RT-PCR) NEGATIVE (Negative) 06/13/25 Range/Units 19:52 WBC (4.8-10.8) X10*3/uL RBC (4.60-5.80) X10*6/uL Hgb (14.0-18.0) g/dl Hct (42.0-52.0) % MCV (80.0-98.0) fL MCH (27.0-33.0) pg MCHC (31.0-36.0) g/dl RDW (11.0-16.0) % Plt Count (160-400) X10*3/uL MPV (9.4-12.4) fL Immature Gran % (Auto) Neut % (Auto) Lymph % (Auto) [place] % (Auto) Eos % (Auto) Baso % (Auto) Lymph # (Auto) [place] # (Auto) Eos # (Auto) Baso # (Auto) Abs Immat Gran (auto) Absolute Neuts (auto) Absolute Nucleated RBC (0.0-0.012) X10*3/uL Nucleated RBC % (auto) (0.0-0.2) /100WBC Neutrophils % (Manual) (45-73) % Band Neutrophils % (3-5) % Lymphocytes % (Manual) (20-40) % Metamyelocytes % % Abs Neuts (Manual) (2.0-8.3) X10*3/uL Lymphocytes # (Manual) (1.2-4.9) X10*3/uL Metamyelocytes # X10*3/uL Platelet Estimate (NORMAL) Plt Morphology Comment RBC Morphology Smear Tech's Comments PT (10.9-12.4) SEC INR (0.9-1.1) VBG pH (7.32-7.43) VBG pCO2 mmHg VBG pO2 mmHg VBG HCO3 (22-26) mmol/L VBG O2 Saturation % VBG Base Excess mmol/L Sodium (135-145) mmol/L Potassium (3.3-5.1) mmol/L Chloride (96-108) mmol/L Carbon Dioxide (22-29) mmol/L Anion Gap (12-20) BUN (9-16) mg/dL Creatinine (0.5-1.4) mg/dL Estim Creat Clear Calc Estimated GFR POC Glucose (60-115) mg/dL Random Glucose (60-115) mg/dL Lactic Acid (0.5-2.0) mmol/L Calcium (8.4-10.2) mg/dL Magnesium (1.6-2.6) mg/dL Total Bilirubin (0.0-1.0) mg/dL Direct Bilirubin (0.0-0.5) mg/dL AST (5-37) U/L ALT (0-40) U/L Alkaline Phosphatase (39-117) U/L Ammonia (13-55) umol/L Total Creatine Kinase (38-174) U/L Troponin I High Sens (<3.5-35.0) ng/L C-Reactive Protein (< or = 0.50) mg/dL Total Protein (6.5-8.0) g/dL Albumin (3.5-5.0) g/dL Lipase (8-78) U/L Urine Color Yellow Urine Appearance Clear Urine pH 5.0 (5.0-9.0) Ur Specific [place] >= 1.030 H (1.005-1.025) Urine Protein Negative (Neg-Trace) mg/dL Urine Glucose (UA) Negative (Negative) mg/dL Urine Ketones Negative (Negative) mg/dL Urine Blood Negative (Negative) Urine Nitrite Negative (Negative) Ur Leukocyte Esterase Negative (Negative) Urine Opiates Screen Not Detected (Not Detect) Ur Buprenorphine Scrn Not Detected (Not Detect) ng/mL Ur Oxycodone Screen Not Detected (Not Detect) ng/mL Urine Methadone Screen Not Detected (Not Detect) ng/mL Urine Fentanyl Screen Not Detected (Not Detect) Ur Barbiturates Screen Not Detected (Not Detect) Ur Phencyclidine Scrn Not Detected (Not Detect) Ur Amphetamines Screen Not Detected (Not Detect) U Benzodiazepines Scrn Not Detected (Not Detect) Urine Cocaine Screen Not Detected (Not Detect) U Marijuana (THC) Screen Not Detected (Not Detect) Ethyl Alcohol mg/dL Influenza Type A (PCR) (Negative) Influenza Type B (PCR) (Negative) RSV RNA Qual (PCR) (Negative) SARS-CoV-2 RNA (RT-PCR) (Negative) Critical Care Time Critical Care Time Critical Care Time: Yes Total Critical Care Time: 35 Attestation: The patient was critically ill with a high probability of imminent or life- threatening deterioration. ?I spent greater than 30 minutes of discontinuous time evaluating the patient, delivering critical care at the bedside, discussing evaluating data with consultants. ?Critical care time does not include time spent performing separately billable procedures or teaching. ?Time spent performing critical care with 35 minutes. Discharge Plan Discharge Clinical Impression: Acute febrile illness, Acute metabolic encephalopathy Patient Disposition: Admitted As Inpatient
--- NOTE | 2025-06-13 15:18 | ECG_ITS ---
Test Reason : SEPSIS Blood Pressure : */* mmHG Vent. Rate : 85 BPM Atrial Rate : 85 BPM P-R Int : 190 ms QRS Dur : 90 ms QT Int : 366 ms P-R-T Axes : 59 37 47 degrees QTcB Int : 435 ms Normal sinus rhythm Normal ECG When compared with ECG of 13-May-2025 21:25, No significant change was found Referred By: Julian Borjas Electronically Signed By: Carlos A Guo
[2025-06-13 16:00] LABS: Glucose, Whole Blood 103 mg/dL (60-115)
[2025-06-13 16:11] LABS: Hematocrit 37.1 % (42.0-52.0); Hemoglobin 12.7 g/dl (14.0-18.0); Mean Corpuscular HGB Conc 34.2 g/dl (31.0-36.0); Mean Corpuscular Hemoglobin 30.8 pg (27.0-33.0); Mean Corpuscular Volume 89.8 fL (80.0-98.0); NRBC Abs Auto 0.000 X10*3/uL (0.0-0.012); NRBC Pct Auto 0.0 /100WBC (0.0-0.2); Red Blood Count 4.13 X10*6/uL (4.60-5.80); White Blood Count 8.4 X10*3/uL (4.8-10.8)
[2025-06-13 16:12] LABS: Platelet Count 43 X10*3/uL (160-400)
[2025-06-13 16:14] LABS: Ammonia 48 umol/L (13-55)
[2025-06-13] MEDS: SODIUM CHLORIDE 4356 ML IV (16:16)
[2025-06-13 16:17] LABS: INTERNATIONAL NORM RATIO 1.4 (0.9-1.1); Prothrombin Time 16.3 SEC (10.9-12.4)
[2025-06-13 16:20] LABS: VBG HCO3 26 mmol/L (22-26); VBG O2 % Saturation 87.0 %
[2025-06-13 16:25] LABS: Venous Blood Gas Refer to POC result
[2025-06-13] MEDS: vancomycin/NS 2,000 MG/500 ML PLAST..BAG 250 MG IV (16:27)
[2025-06-13 16:28] LABS: Alanine Aminotransferase 11 U/L (0-40); Albumin Level 3.6 g/dL (3.5-5.0); Alkaline Phosphatase 53 U/L (39-117); Anion Gap 9 (12-20); Aspartate Amino Transferase 29 U/L (5-37); Blood Urea Nitrogen 15 mg/dL (9-16); Calcium 8.6 mg/dL (8.4-10.2); Carbon Dioxide 26 mmol/L (22-29); Chloride 110 mmol/L (96-108); Creatinine Clr Calc Pharmacy 133.9; Estimated Glomerular Filt Rate > 60; Lipase 20 U/L (8-78); Magnesium 1.4 mg/dL (1.6-2.6); Potassium 3.5 mmol/L (3.3-5.1); Sodium 141 mmol/L (135-145); Total Protein 6.7 g/dL (6.5-8.0)
--- NOTE | 2025-06-13 16:29 | PC.NURSE ---
Patient presents to ED after being found by family unresponsive at home Patient was laying on the ground incontinent Family reports downtime of possible a couple hours A&O to self Recal temp 103.3, probe in place IV 20 in left hand and 18G in right forearm 2L NS running along with tylenol and vanco Provider in to see patient Plan of care on going
[2025-06-13 16:30] LABS: Troponin-I High Sensitivity 20.5 ng/L (<3.5-35.0)
[2025-06-13 16:34] LABS: Neutrophils Percent Manual 86 % (45-73)
[2025-06-13 16:35] LABS: Band Neutrophils Percent 11 % (3-5); Lymphocytes Absolute Manual 0.2 X10*3/uL (1.2-4.9); Lymphocytes Percent Manual 2 % (20-40); Metamyelocytes Absolute 0.1 X10*3/uL; Metamyelocytes Percent 1 %; Neutrophils Absolute Manual 8.1 X10*3/uL (2.0-8.3)
[2025-06-13 16:36] LABS: RBC Morphology NORMAL
[2025-06-13 16:44] LABS: Resp Syncy Virus RNA Qual PCR NEGATIVE (Negative); SARS COV2 PCR INHOUSE NEGATIVE (Negative)
[2025-06-13] MEDS: iohexoL 350 MG/ML 100 ML INFUS..BTL IV (17:21)
[2025-06-13] MEDS: Magnesium Sulfate/H2O 2 GM/50 ML PIGGYBACK IV (17:39)
--- OUTSIDE RECORDS SUMMARY | 2025-06-13 18:05 | XMS_ITS | Clinical Summary ---
Author Organization [facility] Address [id number] [place] [id number] Care Team Providers Care High School Music Instructor Name Role Phone Milena Ghotra MD Primary Care Provider [phone] Medical History Medical History Date Comments Transaminitis [...] age to complete this topic Care Teams High School Music Instructor Relationship Specialty Start Date End Date Milena Ghotra MD PCP - General Internal Medicine 07/26/20
--- OUTSIDE RECORDS SUMMARY | 2025-06-13 18:05 | XMS_ITS | Patient Health Record ---
[facility] Address [address] [place] [address] Care Team Providers Care Take Away Worker Name Role Phone Emigdio TUCKER[facility] Primary [facility] Provider Garcia Villareal Unavailable [phone] Allergies No Known Allergies Reason For Referral [...] atherosclerosis of arteries of lower limbs (disorder) ([id number] ) Atherosclerosis of [place] artery of both lower extremities, with unspecified presence of clinical manifestation (I70.203) Active confirmed Plan Of Treatment Pending Test Test Name Order Date [id number] NAIL, 6 OR MORE 08/26/2023 [id number] SKIN LESIONS, 2 TO 4 08/26/20 23 Insurance Providers Payer Name Payer Address Payer Phone Subscriber Number Group Number Insured Name Patient Relationship to Insured Coverage Start Date Coverage End Date [employer] Medicare [id number] [address] [address] [place] [address] [id number] Gomez Meyer Self - patient is the insured Medical (General) History Medical History History ICD Code High blood pressure Surgical History Surgery Date(Month/Year)
[2025-06-13] MEDS: Lactated Ringers 1,000 ML 999 ML IV (18:45)
--- NOTE | 2025-06-13 19:16 | PC.NURSE ---
assumed care of pt, sister at bedside. Pt state he is hungry. Purewick and Fluids intact .
--- NOTE | 2025-06-13 19:22 | PC.NURSE ---
pt boosted in bed and given a ham sandwich and sugar free matteo harrison.
[2025-06-13 20:00] LABS: Appearance Urine Clear; Glucose Urine UA Negative (Negative); PH 5.0 (5.0-9.0); Specific Gravity - Urine >= 1.030 (1.005-1.025)
[2025-06-13 20:12] LABS: Cannabinoid Screen Urine Not Detected (Not Detect)
--- NOTE | 2025-06-13 20:28 | PHA.MEDREC ---
Addendum entered by Graham Cook RP 06/13/25 20:47: Reviewed by [facility] Original Note: Pharmacy Consult ? Medication Reconciliation Pharmacy has completed the medication reconciliation. Spoke with pt and he confirmed his medications. Pt confirmed he is no longer taking Mavret and states he started developing diarrhea and his PCP told him to stop that in the last few weeks to see if it'll help; pt diarrhea subsided once med was stopped.
--- NOTE | 2025-06-13 20:36 | PM.IMHP ---
History of Present Illness Date of Service: 06/13/25 Attending physician on admission: Aakash Lockwood Chief Complaint: AMS Patient is a 69-year-old male with a past medical history significant for cirrhosis, hepatitis-C, history alcohol use and recent admission for strep bacteremia with unknown source, who presented to the ED due to altered mental status and fever 104.4 today. The patient's sister reported that he was fine this morning however later in the afternoon he was not responding to phone calls and when the brother checked on him he was altered and febrile. When EMS arrived he was covered in stool and urine. During his recent admission about a month ago for strep bacteremia he had a negative workup for source including negative echo. He was discharged on 05/19/2025 on cefpodoxime times 12 days per ID recommendations. he followed up with his primary care doctor 1-2 days after discharge and reported diarrhea with the cefpodoxime and discontinued. It is unclear if he was started on a new antibiotic. the diarrhea resolved. He was feeling well, had a colonoscopy last week outpatient. He denies any chest pain, shortness of breath, nausea, vomiting, abdominal pain, URI symptoms, photosensitivity, headache or urinary symptoms. he is still confused and having a hard time providing any additional history but confirms the above. Workup in the ED with negative chest x-ray, abdominopelvic CT, head CT and UA. Blood pressure is labile, AMS and fever improved with IV Tylenol and 30 cc/kg fluid bolus +3 L. Review of Systems Constitutional: Constitutional: Denies body ache(s), Denies chills, Denies fatigue, Denies fever(s) and Denies headache(s) Eyes: Eyes: Denies change in vision ENT: Denies headache(s), Denies nasal congestion, Denies nasal discharge, Denies neck pain and Denies sore throat Cardiovascular: Cardiovascular: Denies chest pain, Denies rapid heart rate, Reports leg edema, Denies lightheadedness and Denies dyspnea Respiratory: Respiratory: Denies chest congestion, Denies cough, Denies dyspnea and Denies wheezing Gastrointestinal: Gastrointestinal: Denies abdominal pain, Denies bloating, Denies constipation, Denies diarrhea, Denies nausea and Denies vomiting Genitourinary: Genitourinary: Denies oliguria, Denies dysuria and Denies urinary urgency Musculoskeletal: Musculoskeletal: Denies back pain, Denies myalgias and Denies neck pain Integumentary/Breasts: Skin/Breast: Denies rash Neurologic: Reports confusion and Denies headache(s) Psychiatric: Psychiatric: Reports confusion Endocrine: Endocrine: Denies fatigue Hematologic/Lymphatic: Hematologic/Lymphatic: Denies easy bleeding and Denies easy bruising Allergic/Immunologic: Allergic/Immunologic: Denies wheezing [facility] Medical History Chronic hepatitis C Hepatosplenomegaly Neutropenia Morbid obesity due to excess calories Tobacco use disorder Morbid obesity Cirrhosis Bicytopenia Functional capacity: independent ambulation Surgical History Hx of colonoscopy Social History Household Members: Family Housing: House Do you presently have visiting nurse or other home services: No Alcohol intake: current Alcohol intake frequency: former alcohol drinker Alcohol type: beer Patient Tobacco Use Status: Current everyday Tobacco user Tobacco use type: Cigarette Cigarette Packs Per Day: 0.5 Cigarettes Per Day: 10.0 Years Smoked: 30 e-Cigarette/Vaping Use: Never Used service: No Current occupational status: retired Gender identity: Male Cognitive needs: No Hearing needs: No Vision needs: Yes Narrative: quitting smoking. no etoh x years. no drug use. Meds Allergies Allergy/AdvReac Type Severity Reaction Status Date / Time No Known Allergies Allergy Verified 06/13/25 15:19 Active Medications: Current Medications Acetaminophen (Acetaminophen 325 Mg Tablet) 650 mg PO Q6H PRN PRN Reason: Pain, Mild 1-3,fever,headache Calcium Carbonate (Calcium Carbonate 750 Mg Tab.Chew) 750 mg PO Q4H PRN PRN Reason: Heartburn Magnesium Hydroxide (Milk Of Magnesia 30 Ml Oral.Susp) 30 ml PO DAILY PRN PRN Reason: Constipation Melatonin (Melatonin 3 Mg Tablet) 6 mg PO BEDTIME PRN PRN Reason: Insomnia Ondansetron HCl (Ondansetron Hcl 4 Mg/2 Ml Vial) 4 mg IVPUSH Q8H PRN PRN Reason: Nausea and Vomiting Oxycodone HCl (Oxycodone Hcl Immed Release 5 Mg Tablet) 5 mg PO Q6H PRN PRN Reason: Pain, Severe (Pain Scale 7-10) Sodium Chloride (0.9 % Sodium Chloride Flush 3 Ml Syringe) 3 ml IVFLUSH QSHIFT KRZYSZTOF Sucralfate (Sucralfate Oral Suspension 1 Gm/10 Ml Oral.Susp) gm PO QID KRZYSZTOF Tramadol HCl (Tramadol Hcl 50 Mg Tablet) 50 mg PO Q6H PRN PRN Reason: Pain, Moderate(Pain Scale 4-6) Home Medications ?Medication ?Instructions ?Recorded ?Confirmed ?Last Taken ?Type sucralfate 100 mg/mL oral 10 ml PO QID 06/13/25 06/13/25 06/13/25 History suspension Physical Exam Vital Signs and Narrative: Vital Signs: Last Vital Signs Temp 100.6 F H 06/13/25 18:36 Pulse 84 06/13/25 18:36 Resp 10 L 06/13/25 18:36 BP 100/57 L 06/13/25 18:36 Pulse Ox 96 06/13/25 18:36 O2 Del Method Room Air 06/13/25 18:36 BMI result Body Mass Index 44.6 General: Alert, oriented to person, place, not time, no acute distress Resp: CTA bilaterally. no crackles or rhonchi CVS: S1, S2, RRR GI: +BS, NT, distended, patient reports this is baseline Skin: Warm, dry Neuro: Cranial nerves II-XII grossly intact bilaterally. Motor grossly intact bilaterally. no photosensitivity or neck pain Extremities: 2+ pitting edema Psych: Appropriate affect Const: General: confusion Orientation/consciousness: confusion Neuro: General: confusion Results Labs 06/15/25 06:44 06/15/25 06:44 Labs: Laboratory Results - last 24 hr 06/13/25 06/13/25 06/13/25 15:16 15:52 16:05 MCV 89.8 MCH 30.8 MCHC 34.2 RDW 13.9 Plt Count 43 L MPV 12.0 Immature Gran % (Auto) Cancelled Neut % (Auto) Cancelled Lymph % (Auto) Cancelled [place] % (Auto) Cancelled Eos % (Auto) Cancelled Baso % (Auto) Cancelled Lymph # (Auto) Cancelled [place] # (Auto) Cancelled Eos # (Auto) Cancelled Baso # (Auto) Cancelled Abs Immat Gran (auto) Cancelled Absolute Neuts (auto) Cancelled Absolute Nucleated RBC 0.000 Nucleated RBC % (auto) 0.0 Neutrophils % (Manual) 86 H Band Neutrophils % 11 H Lymphocytes % (Manual) 2 L Metamyelocytes % 1 Abs Neuts (Manual) 8.1 Lymphocytes # (Manual) 0.2 L Metamyelocytes # 0.1 Platelet Estimate DECREASED Plt Morphology Comment NORMAL RBC Morphology NORMAL Smear Tech's Comments MANUAL DIFF PT 16.3 H INR 1.4 H VBG pH 7.43 VBG pCO2 39 VBG pO2 57 VBG HCO3 26 VBG O2 Saturation 87.0 VBG Base Excess 1.9 Anion Gap 9 L Estim Creat Clear Calc 133.9 Estimated GFR > 60 POC Glucose 103 Random Glucose 109 Lactic Acid 1.6 Calcium 8.6 Magnesium 1.4 L* Total Bilirubin 2.0 H Direct Bilirubin 0.7 H AST 29 ALT 11 Alkaline Phosphatase 53 Ammonia 48 Total Creatine Kinase 30 L Troponin I High Sens 20.5 D C-Reactive Protein 0.20 Total Protein 6.7 Albumin 3.6 Lipase 20 Urine Color Urine Appearance Urine pH Ur Specific [place] Urine Protein Urine Glucose (UA) Urine Ketones Urine Blood Urine Nitrite Ur Leukocyte Esterase Urine Opiates Screen Ur Buprenorphine Scrn Ur Oxycodone Screen Urine Methadone Screen Urine Fentanyl Screen Ur Barbiturates Screen Ur Phencyclidine Scrn Ur Amphetamines Screen U Benzodiazepines Scrn Urine Cocaine Screen U Marijuana (THC) Screen Ethyl Alcohol < 10 Influenza Type A (PCR) NEGATIVE Influenza Type B (PCR) NEGATIVE RSV RNA Qual (PCR) NEGATIVE SARS-CoV-2 RNA (RT-PCR) NEGATIVE 06/13/25 19:52 MCV MCH MCHC RDW Plt Count MPV Immature Gran % (Auto) Neut % (Auto) Lymph % (Auto) [place] % (Auto) Eos % (Auto) Baso % (Auto) Lymph # (Auto) [place] # (Auto) Eos # (Auto) Baso # (Auto) Abs Immat Gran (auto) Absolute Neuts (auto) Absolute Nucleated RBC Nucleated RBC % (auto) Neutrophils % (Manual) Band Neutrophils % Lymphocytes % (Manual) Metamyelocytes % Abs Neuts (Manual) Lymphocytes # (Manual) Metamyelocytes # Platelet Estimate Plt Morphology Comment RBC Morphology Smear Tech's Comments PT INR VBG pH VBG pCO2 VBG pO2 VBG HCO3 VBG O2 Saturation VBG Base Excess Anion Gap Estim Creat Clear Calc Estimated GFR POC Glucose Random Glucose Lactic Acid Calcium Magnesium Total Bilirubin Direct Bilirubin AST ALT Alkaline Phosphatase Ammonia Total Creatine Kinase Troponin I High Sens C-Reactive Protein Total Protein Albumin Lipase Urine Color Yellow Urine Appearance Clear Urine pH 5.0 Ur Specific [place] >= 1.030 H Urine Protein Negative Urine Glucose (UA) Negative Urine Ketones Negative Urine Blood Negative Urine Nitrite Negative Ur Leukocyte Esterase Negative Urine Opiates Screen Not Detected Ur Buprenorphine Scrn Not Detected Ur Oxycodone Screen Not Detected Urine Methadone Screen Not Detected Urine Fentanyl Screen Not Detected Ur Barbiturates Screen Not Detected Ur Phencyclidine Scrn Not Detected Ur Amphetamines Screen Not Detected U Benzodiazepines Scrn Not Detected Urine Cocaine Screen Not Detected U Marijuana (THC) Screen Not Detected Ethyl Alcohol Influenza Type A (PCR) Influenza Type B (PCR) RSV RNA Qual (PCR) SARS-CoV-2 RNA (RT-PCR) Imaging Radiologist's Impressions: Impressions Chest X-Ray 06/13/25 16:45 IMPRESSION: No acute disease. Electronically signed by: Vladislav Castelan MD 06/13/2025 04:54 PM EDT Assessment and Plan (1) Acute metabolic encephalopathy: Status: Acute (2) Sepsis: Qualifiers: Sepsis acute organ dysfunction status: without acute organ dysfunction Sepsis type: Streptococcus, unspecified Qualified Code(s): A40.9 - Streptococcal sepsis, unspecified Status: Acute (3) Hypomagnesemia: Status: Acute (4) Hyperbilirubinemia: Status: Acute (5) Morbid obesity: Status: Acute Plan Patient is a 69-year-old male with a past medical history significant for cirrhosis, hepatitis-C, history alcohol use and recent admission for strep bacteremia with unknown source, who presented to the ED due to altered mental status and fever 104.4 today. Recent admission for strep bacteremia, did not complete antibiotic course, returns with acute metabolic encephalopathy, sepsis, likely bacteremia. Acute metabolic encephalopathy with sepsis, likely bacteremia -- recent strep bacteremia, incomplete abx tx - vancomycin and zosyn pending blood cultures - ID consult - hold further fluids due to pitting edema. BP stable. - monitor CBC and CMP hypomagnesemia - repleated - repeat in AM hyperbilirubinemia, likely dehydration - monitor CMP cirrhosis, LFTs at baseline bicyotopenia, at baseline - monitor CBC hx etoh abuse, in remission morbid obesity - weight loss encouraged med rec pending full code VTE prophy: pneumoboots Pt with acute metabolic encephalopathy with sepsis, likely bacteremia as source, requiring admission for at least 2 midnight stay for IV antibiotics, further evaluation and monitoring. Quality Stroke Does the patient have a stroke diagnosis?: No VTE Prior VTE?: No VTE Risk Level:: Medical - moderate - high VTE Device Contraindication: N/A - Device Ordered VTE Drug Contraindication: Treatment Not Indicated
[2025-06-13] MEDS: Sucralfate Oral Suspension 1 GM/10 ML ORAL.SUSP PO (21:22)
--- NOTE | 2025-06-13 21:31 | PC.NURSE ---
pt medicated per MAR. pt temp 100.8, provider advised.
--- NOTE | 2025-06-13 21:37 | PC.NURSE ---
provider advised this RN to apply cooling packs to pt in order to reduce temp, current temp 100.8 core, last Tylenol given at 2025
[2025-06-14] VITALS (24 sets, daily range): BP systolic 77–143; BP diastolic 40–65; PULSE 57–79; RESP 12–22; TEMP 36.7–38.7; O2SAT 95–100; BMI 46.9
[2025-06-14 04:13] LABS: Hematocrit 35.7 % (42.0-52.0); Hemoglobin 12.5 g/dl (14.0-18.0); Imm Gran Abs Auto 0.05 X10*3/uL (0.00-0.03); Imm Gran Pct Auto 0.7 % (0.0-0.4); Lymphocytes Absolute Auto 0.4 X10*3/uL (1.2-4.9); MANUAL DIFF FLAG SCAN; Mean Corpuscular HGB Conc 35.0 g/dl (31.0-36.0); Mean Corpuscular Hemoglobin 31.4 pg (27.0-33.0); Mean Corpuscular Volume 89.7 fL (80.0-98.0); NRBC Abs Auto 0.000 X10*3/uL (0.0-0.012); NRBC Pct Auto 0.0 /100WBC (0.0-0.2); Red Blood Count 3.98 X10*6/uL (4.60-5.80); SCAN SMEAR FLAG 1; White Blood Count 7.5 X10*3/uL (4.8-10.8)
[2025-06-14 04:22] LABS: Platelet Count 35 X10*3/uL (160-400)
[2025-06-14 04:28] LABS: Alanine Aminotransferase 15 U/L (0-40); Albumin Level 3.3 g/dL (3.5-5.0); Alkaline Phosphatase 43 U/L (39-117); Anion Gap 12 (12-20); Aspartate Amino Transferase 34 U/L (5-37); Blood Urea Nitrogen 16 mg/dL (9-16); Calcium 8.2 mg/dL (8.4-10.2); Carbon Dioxide 22 mmol/L (22-29); Chloride 111 mmol/L (96-108); Creatinine Clr Calc Pharmacy 118.4; Estimated Glomerular Filt Rate > 60; Magnesium 1.7 mg/dL (1.6-2.6); Potassium 3.7 mmol/L (3.3-5.1); Sodium 141 mmol/L (135-145); Total Protein 6.4 g/dL (6.5-8.0)
--- NOTE | 2025-06-14 04:54 | PC.NURSE ---
Addendum entered by Cece Gar RN 06/14/25 05:01: pt temp 101.7 core, given ibuprofen per provider. Original Note: pt medicated per NOV.
[2025-06-14] MEDS: 0.9 % Sodium Chloride Flush 3 ML SYRINGE IVFLUSH ×3 (08:40→20:45)
[2025-06-14] MEDS: Sucralfate Oral Suspension 1 GM/10 ML ORAL.SUSP PO ×4 (08:41→20:43)
--- NOTE | 2025-06-14 09:39 | PC.NURSE ---
Pt is alert, in recliner. Noted with BPs trending low, Pt assisted into hospital bed. Amanda Urias notified. Plan for Albumin. Pt denies any associated sx, no dizziness, SOB. Skin color remains unchanged from initial assessment.
[2025-06-14] MEDS: Albumin Human 25 % 100 ML 133.33 ML IV ×2 (09:42→10:25)
--- NOTE | 2025-06-14 10:22 | HO.PM.IMPN ---
Subjective Subjective Date of Service: 06/14/25 Interval History: seen and examined this morning follow up for fever, AMS awake, alert, sitting up in chair; confusion appears much improved, able to tell me where he is and why he is here fever resolved, but blood pressure still on low side he denies any abdominal pain, cough, dizziness Review of Systems Review of Systems: Yes all other systems are reviewed and are negative Constitutional Constitutional: Denies chills and Reports fever(s) ENT Ears, Nose, Mouth, and Throat: Denies dizziness Cardiovascular Cardiovascular: Denies chest pain, Denies palpitations and Denies dyspnea Respiratory Respiratory: Denies cough and Denies dyspnea Gastrointestinal Gastrointestinal: Denies abdominal pain, Denies nausea and Denies vomiting Neurologic Neurologic: Denies dizziness Endocrine Endocrine: Denies palpitations Physical Exam Vital Signs: Vital Signs: Last Vital Signs Temp 98.8 F 06/14/25 10:05 Pulse 57 06/14/25 10:12 Resp 12 06/14/25 10:05 BP 93/43 L 06/14/25 10:12 Pulse Ox 96 06/14/25 10:05 O2 Del Method Room Air 06/14/25 10:05 BMI result Body Mass Index 44.6 Const: General: cooperative, no acute distress, alert and awake Nutritional Appearance: obese Orientation/consciousness: patient oriented x3 Resp: Effort & Inspection: normal respiratory effort, able to speak in complete sentences, no respiratory distress and no use of accessory muscles Cardio: Rate: regular rate GI: Inspection: No distended and Yes obesity Palpation (GI): Soft to palpation Neuro: General: patient oriented x3, moves all extremities and CN's II-XI intact bilaterally Extrem: Other: 2+ pitting edema bilaterally Objective Data Active Medications Acetaminophen (Acetaminophen 325 Mg Tablet) 650 mg PO Q6H PRN On Hold: 06/13/25 22:44 PRN Reason: Pain, Mild 1-3,fever,headache Calcium Carbonate (Calcium Carbonate 750 Mg Tab.Chew) 750 mg PO Q4H PRN PRN Reason: Heartburn Acetaminophen (Ofirmev) 1,000 mg in 100 mls @ 400 mls/hr IV Q6H KRZYSZTOF Last Infusion: 06/14/25 05:11 Dose: Infused Documented By: MYRANDA Albumin Human (Kedbumin 25 %) 100 mls @ 133.333 mls/hr IV Q1H KRZYSZTOF Stop: 06/14/25 11:29 Last Admin: 06/14/25 09:42 Dose: 133.33 mls/hr Documented By: DAVID Ibuprofen (Ibuprofen 600 Mg Tablet) 600 mg PO Q8H PRN PRN Reason: Fever >101 Last Admin: 06/14/25 04:47 Dose: 600 mg Documented By: MYRANDA Magnesium Hydroxide (Milk Of Magnesia 30 Ml Oral.Susp) 30 ml PO DAILY PRN PRN Reason: Constipation Melatonin (Melatonin 3 Mg Tablet) 6 mg PO BEDTIME PRN PRN Reason: Insomnia Ondansetron HCl (Ondansetron Hcl 4 Mg/2 Ml Vial) 4 mg IVPUSH Q8H PRN PRN Reason: Nausea and Vomiting Oxycodone HCl (Oxycodone Hcl Immed Release 5 Mg Tablet) 5 mg PO Q6H PRN PRN Reason: Pain, Severe (Pain Scale 7-10) Sodium Chloride (0.9 % Sodium Chloride Flush 3 Ml Syringe) 3 ml IVFLUSH QSHIFT [facility] Last Admin: 06/14/25 08:40 Dose: 3 ml Documented By: ISMAEL Sucralfate (Sucralfate Oral Suspension 1 Gm/10 Ml Oral.Susp) 1 gm PO QID [facility] Last Admin: 06/14/25 08:41 Dose: 1 gm Documented By: ISMAEL Tramadol HCl (Tramadol Hcl 50 Mg Tablet) 50 mg PO Q6H PRN PRN Reason: Pain, Moderate(Pain Scale 4-6) Labs 06/14/25 03:53 06/14/25 03:53 Labs: Laboratory Results - last 24 hr 06/13/25 06/13/25 06/13/25 15:16 15:52 16:05 MCV 89.8 MCH 30.8 MCHC 34.2 RDW 13.9 Plt Count 43 L MPV 12.0 Immature Gran % (Auto) Cancelled Neut % (Auto) Cancelled Lymph % (Auto) Cancelled [place] % (Auto) Cancelled Eos % (Auto) Cancelled Baso % (Auto) Cancelled Lymph # (Auto) Cancelled [place] # (Auto) Cancelled Eos # (Auto) Cancelled Baso # (Auto) Cancelled Abs Immat Gran (auto) Cancelled Absolute Neuts (auto) Cancelled Absolute Nucleated RBC 0.000 Nucleated RBC % (auto) 0.0 Neutrophils % (Manual) 86 H Band Neutrophils % 11 H Lymphocytes % (Manual) 2 L Metamyelocytes % 1 Abs Neuts (Manual) 8.1 Lymphocytes # (Manual) 0.2 L Metamyelocytes # 0.1 Platelet Estimate DECREASED Plt Morphology Comment NORMAL RBC Morphology NORMAL Smear Tech's Comments MANUAL DIFF PT 16.3 H INR 1.4 H VBG pH 7.43 VBG pCO2 39 VBG pO2 57 VBG HCO3 26 VBG O2 Saturation 87.0 VBG Base Excess 1.9 Anion Gap 9 L Estim Creat Clear Calc 133.9 Estimated GFR > 60 POC Glucose 103 Random Glucose 109 Lactic Acid 1.6 Calcium 8.6 Magnesium 1.4 L* Total Bilirubin 2.0 H Direct Bilirubin 0.7 H AST 29 ALT 11 Alkaline Phosphatase 53 Ammonia 48 Total Creatine Kinase 30 L Troponin I High Sens 20.5 D C-Reactive Protein 0.20 Total Protein 6.7 Albumin 3.6 Lipase 20 Urine Color Urine Appearance Urine pH Ur Specific [place] Urine Protein Urine Glucose (UA) Urine Ketones Urine Blood Urine Nitrite Ur Leukocyte Esterase Urine Opiates Screen Ur Buprenorphine Scrn Ur Oxycodone Screen Urine Methadone Screen Urine Fentanyl Screen Ur Barbiturates Screen Ur Phencyclidine Scrn Ur Amphetamines Screen U Benzodiazepines Scrn Urine Cocaine Screen U Marijuana (THC) Screen Ethyl Alcohol < 10 Influenza Type A (PCR) NEGATIVE Influenza Type B (PCR) NEGATIVE RSV RNA Qual (PCR) NEGATIVE SARS-CoV-2 RNA (RT-PCR) NEGATIVE 06/13/25 06/14/25 19:52 03:53 MCV 89.7 MCH 31.4 MCHC 35.0 RDW 14.1 Plt Count 35 L MPV 11.3 Immature Gran % (Auto) 0.7 H Neut % (Auto) 91.6 H Lymph % (Auto) 5.2 L [place] % (Auto) 2.4 Eos % (Auto) 0.0 Baso % (Auto) 0.1 Lymph # (Auto) 0.4 L [place] # (Auto) 0.2 Eos # (Auto) 0.0 Baso # (Auto) 0.0 Abs Immat Gran (auto) 0.05 H Absolute Neuts (auto) 6.9 Absolute Nucleated RBC 0.000 Nucleated RBC % (auto) 0.0 Neutrophils % (Manual) Band Neutrophils % Lymphocytes % (Manual) Metamyelocytes % Abs Neuts (Manual) Lymphocytes # (Manual) Metamyelocytes # Platelet Estimate Plt Morphology Comment RBC Morphology Smear Tech's Comments VERIFIED PT INR VBG pH VBG pCO2 VBG pO2 VBG HCO3 VBG O2 Saturation VBG Base Excess Anion Gap 12 Estim Creat Clear Calc 118.4 Estimated GFR > 60 POC Glucose Random Glucose 91 Lactic Acid Calcium 8.2 L Magnesium 1.7 Total Bilirubin 1.6 H Direct Bilirubin AST 34 ALT 15 Alkaline Phosphatase 43 Ammonia Total Creatine Kinase Troponin I High Sens C-Reactive Protein Total Protein 6.4 L Albumin 3.3 L Lipase Urine Color Yellow Urine Appearance Clear Urine pH 5.0 Ur Specific [place] >= 1.030 H Urine Protein Negative Urine Glucose (UA) Negative Urine Ketones Negative Urine Blood Negative Urine Nitrite Negative Ur Leukocyte Esterase Negative Urine Opiates Screen Not Detected Ur Buprenorphine Scrn Not Detected Ur Oxycodone Screen Not Detected Urine Methadone Screen Not Detected Urine Fentanyl Screen Not Detected Ur Barbiturates Screen Not Detected Ur Phencyclidine Scrn Not Detected Ur Amphetamines Screen Not Detected U Benzodiazepines Scrn Not Detected Urine Cocaine Screen Not Detected U Marijuana (THC) Screen Not Detected Ethyl Alcohol Influenza Type A (PCR) Influenza Type B (PCR) RSV RNA Qual (PCR) SARS-CoV-2 RNA (RT-PCR) Microbiology Microbiology Results: Microbiology 06/13/25 15:52 Blood Culture - Preliminary Blood - Venous Prelim: GPC Gram Stain only 06/13/25 15:52 Blood Culture - Preliminary Blood - Venous Prelim: GPC Gram Stain only Assessment and Plan (1) Bacteremia: Status: Acute (2) Sepsis: Status: Acute Plan Patient is a 69-year-old male with a past medical history significant for cirrhosis, hepatitis-C, history alcohol use and recent admission for strep bacteremia with unknown source, who presented to the ED due to altered mental status and fever 104.4 today. Recent admission for strep bacteremia, did not complete antibiotic course, returns with acute metabolic encephalopathy, sepsis, likely bacteremia. Acute metabolic encephalopathy and sepsis likely due to recurrent bacteremia; recent admission for group g strep bacteremia with incomplete abx tx; mental status improving with resolution of fever CT AP negative for infectious source, UA negative Received empiric vancomycin and Zosyn. 2/2 blood cultures growing GPC - we will treat with 2 g IV ceftriaxone s/p 7L IVF due to soft bp, pt still on lower side, will give albumin and consider midodrine if needed - currently asymptomatic ID consult pending Follow final culture results hypomagnesemia replace and follow hyperbilirubinemia, likely dehydration trend cirrhosis with chronic anemia and thrombocytopenia LFTs at baseline hold coreg for low bp monitor CBC hx etoh abuse, in remission morbid obesity weight loss encouraged full code VTE prophy: pneumoboots Requires ongoing inpatient stay for acute metabolic encephalopathy with sepsis, likely bacteremia as source, requiring for IV antibiotics, further evaluation and monitoring. Quality Stroke Does the patient have a stroke diagnosis?: No VTE Prior VTE?: No VTE Risk Level:: Medical - moderate - high VTE Device Contraindication: N/A - Device Ordered VTE Drug Contraindication: Treatment Not Indicated
[2025-06-14 10:39] LABS: Chlamydia pneumoniae PCR Not Detected (Not Detect.); Coronavirus 229E PCR Not Detected (Not Detect.); Coronavirus HKU1 PCR Not Detected (Not Detect.); Coronavirus NL63 PCR Not Detected (Not Detect.); Coronavirus OC43 PCR Not Detected (Not Detect.); RSV PCR Not Detected (Not Detect.); Rhino/Enterovirus PCR Not Detected (Not Detect.)
[2025-06-14 10:56] LABS: Influenza A H1 PCR Not Detected (Not Detect.); Influenza A H1-2009 PCR Not Detected (Not Detect.); Influenza A H3 PCR Not Detected (Not Detect.); SARS-CoV-2 PCR Not Detected (Not Detect.)
--- NOTE | 2025-06-14 13:02 | HO.NURTONUR ---
Pt had no changes overnight to POC, this AM on day shift he had an episode of hypotension in the sys 70-80. Pt was given 2 bag sof albumin, and has remained asymptomatic with good results sys now int he low 100s, PA alerted if pt became hypotensive again that she could order Midodrine if he remains asymptomatic. Pt has been being monitored via continuous rectal temp, has been afebrile, APAP on hold by PA and primary nurse at this time.
--- NOTE | 2025-06-14 16:13 | MHC.CM.PN ---
PT REPORTS HE LIVES WITH HIS SISTER, HER AND HER SON HE IS INDEPENDENT WITH CARE, HAS NO DME AND NO SERVICES DECLINES A HCP PCP: PAULINA HENRIQUEZ IMM DELIVERED DCP: HOME VIA PRIVATE TRANSPORT
[2025-06-15 03:32] VITALS: BP 134/69; PULSE 63; RESP 17; TEMP 36.2; O2SAT 95
[2025-06-15 07:14] LABS: MANUAL DIFF FLAG NO
[2025-06-15 07:21] VITALS: BP 125/62; PULSE 63; RESP 18; TEMP 37; O2SAT 97
[2025-06-15 07:21] LABS: Hematocrit 34.5 % (42.0-52.0); Hemoglobin 11.6 g/dl (14.0-18.0); Imm Gran Abs Auto 0.02 X10*3/uL (0.00-0.03); Imm Gran Pct Auto 0.6 % (0.0-0.4); Lymphocytes Absolute Auto 0.6 X10*3/uL (1.2-4.9); Mean Corpuscular HGB Conc 33.6 g/dl (31.0-36.0); Mean Corpuscular Hemoglobin 30.8 pg (27.0-33.0); Mean Corpuscular Volume 91.5 fL (80.0-98.0); NRBC Abs Auto 0.000 X10*3/uL (0.0-0.012); NRBC Pct Auto 0.0 /100WBC (0.0-0.2); Red Blood Count 3.77 X10*6/uL (4.60-5.80); White Blood Count 3.6 X10*3/uL (4.8-10.8)
[2025-06-15 07:22] LABS: Platelet Count 31 X10*3/uL (160-400)
[2025-06-15 07:37] LABS: Alanine Aminotransferase 12 U/L (0-40); Albumin Level 3.3 g/dL (3.5-5.0); Alkaline Phosphatase 42 U/L (39-117); Anion Gap 9 (12-20); Aspartate Amino Transferase 29 U/L (5-37); Blood Urea Nitrogen 16 mg/dL (9-16); Calcium 8.3 mg/dL (8.4-10.2); Carbon Dioxide 26 mmol/L (22-29); Chloride 109 mmol/L (96-108); Creatinine Clr Calc Pharmacy 141.5; Estimated Glomerular Filt Rate > 60; Potassium 4.0 mmol/L (3.3-5.1); Sodium 140 mmol/L (135-145); Total Protein 6.0 g/dL (6.5-8.0)
[2025-06-15] MEDS: 0.9 % Sodium Chloride Flush 3 ML SYRINGE IVFLUSH ×3 (08:22→20:01)
[2025-06-15] MEDS: Sucralfate Oral Suspension 1 GM/10 ML ORAL.SUSP PO ×4 (08:22→20:01)
[2025-06-15 08:25] LABS: Magnesium 1.8 mg/dL (1.6-2.6)
[2025-06-15 11:11] VITALS: BP 140/70; PULSE 67; RESP 20; TEMP 36.2; O2SAT 98
--- NOTE | 2025-06-15 13:02 | MHC.CM.PN ---
EMR REVIEWED, PT W/BACTEREMIA, REPEAT BC'S DRAWN TODAY 06/15, ANTIC PT WILL NEED COAT PADDER IV ABX, ID PENDING, CM WILL CONT TO FOLLOW DC NEEDS.
[2025-06-15 15:11] VITALS: BP 135/85; PULSE 65; RESP 19; TEMP 36.7; O2SAT 96
--- NOTE | 2025-06-15 16:47 | W.PM.IDCN ---
History of Present Illness Data of Consult Service Date: 06/15/25 Requesting physician: Nigel Salas Primary Care Provider: Isaak Beal MD HPI Reason for consult: Group B strep bacteremia He presents with chills and fever and encephalopathy. He has Group B strep bacteremia. I had seen him last month for Group G strep bactermia. He has cirrhosis and varices He has colonoscopy and tubular adenoma ,removed. Review of Systems Review of Systems: Yes all other systems are reviewed and are negative PMFSH Past Medical History Medical History Chronic hepatitis C Hepatosplenomegaly Neutropenia Morbid obesity due to excess calories Tobacco use disorder Morbid obesity Cirrhosis Bicytopenia Family History Family history: reviewed and not pertinent Surgical History Surgical History Hx of colonoscopy Social History Social History Household Members: Family Housing: House Do you presently have visiting nurse or other home services: No Alcohol intake: current Alcohol intake frequency: former alcohol drinker Alcohol type: beer Patient Tobacco Use Status: Current everyday Tobacco user Tobacco use type: Cigarette Cigarette Packs Per Day: 0.5 Cigarettes Per Day: 10.0 Years Smoked: 30 e-Cigarette/Vaping Use: Never Used service: No Current occupational status: retired Gender identity: Male Cognitive needs: No Hearing needs: No Vision needs: Yes Meds Allergies Allergy/AdvReac Type Severity Reaction Status Date / Time No Known Allergies Allergy Verified 06/13/25 15:19 Active Medications: Current Medications Acetaminophen (Acetaminophen 325 Mg Tablet) 650 mg PO Q6H PRN On Hold: 06/13/25 22:44 PRN Reason: Pain, Mild 1-3,fever,headache Calcium Carbonate (Calcium Carbonate 750 Mg Tab.Chew) 750 mg PO Q4H PRN PRN Reason: Heartburn Ceftriaxone Sodium (Ceftriaxone Sodium 2 Gm Vial) 2 gm IVPUSH Q24H [id number] Last Admin: 06/15/25 11:02 Dose: 2 gm Acetaminophen (Ofirmev) 1,000 mg in 100 mls @ 400 mls/hr IV Q6H PRN PRN Reason: fever Magnesium Hydroxide (Milk Of Magnesia 30 Ml Oral.Susp) 30 ml PO DAILY PRN PRN Reason: Constipation Melatonin (Melatonin 3 Mg Tablet) 6 mg PO BEDTIME PRN PRN Reason: Insomnia Ondansetron HCl (Ondansetron Hcl 4 Mg/2 Ml Vial) 4 mg IVPUSH Q8H PRN PRN Reason: Nausea and Vomiting Oxycodone HCl (Oxycodone Hcl Immed Release 5 Mg Tablet) 5 mg PO Q6H PRN PRN Reason: Pain, Severe (Pain Scale 7-10) Sodium Chloride (0.9 % Sodium Chloride Flush 3 Ml Syringe) [facility] Last Admin: 06/15/25 16:41 Dose: 3 ml Sucralfate (Sucralfate Oral Suspension 1 Gm/10 Ml Oral.Susp) 1 gm PO QID [facility] Last Admin: 06/15/25 16:41 Dose: 1 gm Tramadol HCl (Tramadol Hcl 50 Mg Tablet) 50 mg PO Q6H PRN PRN Reason: Pain, Moderate(Pain Scale 4-6) Home Medications ?Medication ?Instructions ?Recorded ?Confirmed ?Last Taken ?Type sucralfate 100 mg/mL oral 10 ml PO QID 06/13/25 06/13/25 06/13/25 History suspension Physical Exam Vital Signs: Vital Signs: Last Vital Signs Temp 98.1 F 06/15/25 15:11 Pulse 65 06/15/25 15:11 Resp 19 06/15/25 15:11 BP 135/85 06/15/25 15:11 Pulse Ox 96 06/15/25 15:11 O2 Del Method Room Air 06/15/25 15:11 BMI result Body Mass Index 46.9 Const: General: cooperative HEENT: Head: Yes normal to inspection Face and sinus: Yes normal facial exam Mouth: Normal oral and palatal mucosa present Teeth and gingiva: dentition normal Eyes: General: appearance normal, both eyes and all related structures Pupils: Equal, round and reactive pupils present Resp: Effort & Inspection: normal respiratory effort Cardio: Rate: regular rate Rhythm: regular rhythm GI: Palpation (GI): Soft to palpation and nontender : General: Yes no CVA tenderness Back/Spine/Pelvis: Back: no CVA tenderness Skin: General skin exam: no rashes or lesions noted Neuro: General: moves all extremities Cranial nerves: Yes Equal, round and reactive pupils present Extrem: General: Yes normal to inspection Psych: Appearance: grossly normal Results Labs 06/15/25 06:44 06/15/25 06:44 Labs: Short CBC 06/15/25 Range/Units 06:44 WBC 3.6 L (4.8-10.8) X10*3/uL Hgb 11.6 L (14.0-18.0) g/dl Hct 34.5 L (42.0-52.0) % Plt Count 31 L (160-400) X10*3/uL BMP 06/15/25 06:44 Sodium 140 Potassium 4.0 Chloride 109 H Carbon Dioxide 26 BUN 16 Creatinine 0.74 Calcium 8.3 L Liver Function 06/15/25 Range/Units 06:44 Total Bilirubin 0.5 (0.0-1.0) mg/dL AST 29 (5-37) U/L ALT 12 (0-40) U/L Alkaline Phosphatase 42 (39-117) U/L Albumin 3.3 L (3.5-5.0) g/dL Microbiology Microbiology Results: Microbiology 06/13/25 15:52 Blood - Venous Blood Culture - Final Strep agalactiae (Grp B) 06/13/25 15:52 Blood - Venous Blood Culture - Final Strep agalactiae (Grp B) Assessment and Plan (1) Bacteremia: Status: Acute Plan He has recurrent typeable strep bacteremias. This is probably due to liver disease as SBP causes this at times. Since also second episode within two months IV Ceftriaxone 2 g daily for 14 days and consider prophylaxis with po PCN 250 mg bid or Levaquin 500 mg three times a week after.
--- NOTE | 2025-06-15 16:56 | HO.PM.IMPN ---
Subjective Subjective Date of Service: 06/15/25 Interval History: No acute events overnight Mentation appears back to baseline No fevers or chills No N/V or abd pain Has been eating and drinking without difficulty Review of Systems Review of Systems: Yes all other systems are reviewed and are negative Physical Exam Vital Signs: Vital Signs: Last Vital Signs Temp 98.1 F 06/15/25 15:11 Pulse 65 06/15/25 15:11 Resp 19 06/15/25 15:11 BP 135/85 06/15/25 15:11 Pulse Ox 96 06/15/25 15:11 O2 Del Method Room Air 06/15/25 15:11 BMI result Body Mass Index 46.9 Objective Data Active Medications Acetaminophen (Acetaminophen 325 Mg Tablet) 650 mg PO Q6H PRN On Hold: 06/13/25 22:44 PRN Reason: Pain, Mild 1-3,fever,headache Calcium Carbonate (Calcium Carbonate 750 Mg Tab.Chew) 750 mg PO Q4H PRN PRN Reason: Heartburn Ceftriaxone Sodium (Ceftriaxone Sodium 2 Gm Vial) 2 gm IVPUSH Q24H [facility] Last Admin: 06/15/25 11:02 Dose: 2 gm Documented By: XAVIER Acetaminophen (Ofirmev) 1,000 mg in 100 mls @ 400 mls/hr IV Q6H PRN PRN Reason: fever Magnesium Hydroxide (Milk Of Magnesia 30 Ml Oral.Susp) 30 ml PO DAILY PRN PRN Reason: Constipation Melatonin (Melatonin 3 Mg Tablet) 6 mg PO BEDTIME PRN PRN Reason: Insomnia Ondansetron HCl (Ondansetron Hcl 4 Mg/2 Ml Vial) 4 mg IVPUSH Q8H PRN PRN Reason: Nausea and Vomiting Oxycodone HCl (Oxycodone Hcl Immed Release 5 Mg Tablet) 5 mg PO Q6H PRN PRN Reason: Pain, Severe (Pain Scale 7-10) Sodium Chloride (0.9 % Sodium Chloride Flush 3 Ml Syringe) 3 ml IVFLUSH QSHIFT [facility] Last Admin: 06/15/25 16:41 Dose: 3 ml Documented By: XAVIER Sucralfate (Sucralfate Oral Suspension 1 Gm/10 Ml Oral.Susp) 1 gm PO QID [facility] Last Admin: 06/15/25 16:41 Dose: 1 gm Documented By: HO.ARTING Tramadol HCl (Tramadol Hcl 50 Mg Tablet) 50 mg PO Q6H PRN PRN Reason: Pain, Moderate(Pain Scale 4-6) Labs 06/15/25 06:44 06/15/25 06:44 Labs: Laboratory Results - last 24 hr 06/15/25 06:44 MCV 91.5 MCH 30.8 MCHC 33.6 RDW 14.3 Plt Count 31 L MPV 12.4 Immature Gran % (Auto) 0.6 H Neut % (Auto) 74.3 H Lymph % (Auto) 16.2 L [place] % (Auto) 6.1 Eos % (Auto) 2.5 Baso % (Auto) 0.3 Lymph # (Auto) 0.6 L [place] # (Auto) 0.2 Eos # (Auto) 0.1 Baso # (Auto) 0.0 Abs Immat Gran (auto) 0.02 Absolute Neuts (auto) 2.7 Absolute Nucleated RBC 0.000 Nucleated RBC % (auto) 0.0 Anion Gap 9 L Estim Creat Clear Calc 141.5 Estimated GFR > 60 Random Glucose 108 Calcium 8.3 L Magnesium 1.8 Total Bilirubin 0.5 AST 29 ALT 12 Alkaline Phosphatase 42 Total Protein 6.0 L Albumin 3.3 L Microbiology Microbiology Results: Microbiology 06/13/25 15:52 Blood Culture - Final Blood - Venous Strep agalactiae (Grp B) 06/13/25 15:52 Blood Culture - Final Blood - Venous Strep agalactiae (Grp B) Assessment and Plan (1) Bacteremia: Status: Acute Plan Patient is a 69-year-old male with a past medical history significant for cirrhosis, hepatitis-C, history alcohol use and recent admission for strep bacteremia with unknown source, who presented to the ED due to altered mental status and fever 104.4 today. Recent admission for strep bacteremia, did not complete antibiotic course, returns with acute metabolic encephalopathy, sepsis, likely bacteremia. Acute metabolic encephalopathy and sepsis likely due to recurrent bacteremia; recent admission for group g strep bacteremia with incomplete abx tx; mental status back to baseline with resolution of fever CT AP negative for infectious source, UA negative Pt with cirrhosis and varices, possibly secondary to SBP Received empiric vancomycin and Zosyn. 2/2 blood cultures growing GPC - we will treat with 2 g IV ceftriaxone s/p 7L IVF due to soft bp, BP improved after albumin; consider midodrine if needed - currently asymptomatic ID consulted, recommend ceftriaxone 2 g daily times total of 14 days, repeat echocardiogram to rule out endocarditis, and likely prophylactics with either penicillin 250 mg b.i.d. or Levaquin 500 mg 3 times a week [address] orders for midline placement on Wednesday Will get repeat BCx hypomagnesemia, resolved hyperbilirubinemia, resolved likely due to dehydration cirrhosis with chronic anemia and thrombocytopenia LFTs at baseline HTN Continue Coreg hx etoh abuse, in remission morbid obesity weight loss encouraged full code VTE prophy: pneumoboots Requires ongoing inpatient stay for treatment with recurrent bacteremia likely secondary to SBP that will require IV antibiotics and midline placement on Wednesday for outpatient IV antibiotics. Quality Stroke Does the patient have a stroke diagnosis?: No VTE Prior VTE?: No VTE Risk Level:: Medical - moderate - high VTE Device Contraindication: N/A - Device Ordered VTE Drug Contraindication: Treatment Not Indicated
[2025-06-15 17:12] VITALS: BP 126/62; PULSE 67; RESP 18; TEMP 36.8; O2SAT 99
[2025-06-15 19:13] VITALS: BP 136/70; PULSE 64; RESP 18; TEMP 36.6; O2SAT 97
[2025-06-16] VITALS: BP 138/70; PULSE 66; RESP 16; TEMP 36.7; O2SAT 97
[2025-06-16 07:26] VITALS: BP 124/76; PULSE 59; RESP 20; TEMP 36.1; O2SAT 99
[2025-06-16 07:36] LABS: MANUAL DIFF FLAG NO
[2025-06-16 07:42] LABS: Hematocrit 33.1 % (42.0-52.0); Hemoglobin 11.2 g/dl (14.0-18.0); Imm Gran Abs Auto 0.00 X10*3/uL (0.00-0.03); Imm Gran Pct Auto 0.0 % (0.0-0.4); Lymphocytes Absolute Auto 0.7 X10*3/uL (1.2-4.9); Mean Corpuscular HGB Conc 33.8 g/dl (31.0-36.0); Mean Corpuscular Hemoglobin 30.6 pg (27.0-33.0); Mean Corpuscular Volume 90.4 fL (80.0-98.0); NRBC Abs Auto 0.000 X10*3/uL (0.0-0.012); NRBC Pct Auto 0.0 /100WBC (0.0-0.2); Red Blood Count 3.66 X10*6/uL (4.60-5.80); White Blood Count 2.8 X10*3/uL (4.8-10.8)
[2025-06-16 07:50] LABS: Platelet Count 33 X10*3/uL (160-400)
[2025-06-16] MEDS: Sucralfate Oral Suspension 1 GM/10 ML ORAL.SUSP PO ×4 (07:54→21:49)
[2025-06-16] MEDS: 0.9 % Sodium Chloride Flush 3 ML SYRINGE IVFLUSH ×3 (07:56→21:49)
[2025-06-16 08:09] LABS: Alanine Aminotransferase 12 U/L (0-40); Albumin Level 3.2 g/dL (3.5-5.0); Alkaline Phosphatase 45 U/L (39-117); Anion Gap 9 (12-20); Aspartate Amino Transferase 26 U/L (5-37); Blood Urea Nitrogen 14 mg/dL (9-16); Calcium 8.2 mg/dL (8.4-10.2); Carbon Dioxide 25 mmol/L (22-29); Chloride 111 mmol/L (96-108); Creatinine Clr Calc Pharmacy 158.7; Estimated Glomerular Filt Rate > 60; Potassium 3.5 mmol/L (3.3-5.1); Sodium 141 mmol/L (135-145); Total Protein 5.9 g/dL (6.5-8.0)
[2025-06-16 11:15] VITALS: BP 118/69; PULSE 54; RESP 20; TEMP 36.9; O2SAT 97
--- NOTE | 2025-06-16 13:32 | P.PNIM_ITS ---
Subjective Subjective Date of Service: 06/16/25 Interval History: No acute events overnight Overall feeling well SOB at baseline; no new cough No N/V, has been tolerating full diet Stool has been quite soft once restarting abx Denies abd pain Review of Systems Review of Systems: Yes all other systems are reviewed and are negative Physical Exam 2 Exam: Exam: General: AOx3, no acute distress Resp: CTA bilaterally CVS: S1, S2, RRR GI: +BS, NT, soft but mildly distended Skin: Warm, dry Neuro: Cranial nerves II-XII grossly intact bilaterally. Motor grossly intact bilaterally Extremities: No edema Psych: Appropriate affect Vital Signs: Vital Signs: Last Vital Signs Temp 98.4 F 06/16/25 11:15 Pulse 54 06/16/25 11:15 Resp 20 06/16/25 11:15 BP 118/69 06/16/25 11:15 Pulse Ox 97 06/16/25 11:15 O2 Del Method Room Air 06/16/25 11:15 BMI result Body Mass Index 46.9 Objective Data Active Medications Acetaminophen (Acetaminophen 325 Mg Tablet) 650 mg PO Q6H PRN On Hold: 06/13/25 22:44 PRN Reason: Pain, Mild 1-3,fever,headache Calcium Carbonate (Calcium Carbonate 750 Mg Tab.Chew) 750 mg PO Q4H PRN PRN Reason: Heartburn Ceftriaxone Sodium (Ceftriaxone Sodium 2 Gm Vial) 2 gm IVPUSH Q24H [facility] Last Admin: 06/16/25 13:02 Dose: 2 gm Documented By: LYDIA Acetaminophen (Ofirmev) 1,000 mg in 100 mls @ 400 mls/hr IV Q6H PRN PRN Reason: fever Magnesium Hydroxide (Milk Of Magnesia 30 Ml Oral.Susp) 30 ml PO DAILY PRN PRN Reason: Constipation Melatonin (Melatonin 3 Mg Tablet) 6 mg PO BEDTIME PRN PRN Reason: Insomnia Ondansetron HCl (Ondansetron Hcl 4 Mg/2 Ml Vial) 4 mg IVPUSH Q8H PRN PRN Reason: Nausea and Vomiting Oxycodone HCl (Oxycodone Hcl Immed Release 5 Mg Tablet) 5 mg PO Q6H PRN PRN Reason: Pain, Severe (Pain Scale 7-10) Sodium Chloride (0.9 % Sodium Chloride Flush 3 Ml Syringe) 3 ml IVFLUSH QSHIFT [facility] Last Admin: 06/16/25 07:56 Dose: 3 ml Documented By: LYDIA Sucralfate (Sucralfate Oral Suspension 1 Gm/10 Ml Oral.Susp) 1 gm PO QID [facility] Last Admin: 06/16/25 07:54 Dose: 1 gm Documented By: LYDIA Tramadol HCl (Tramadol Hcl 50 Mg Tablet) 50 mg PO Q6H PRN PRN Reason: Pain, Moderate(Pain Scale 4-6) Labs 06/16/25 07:13 06/16/25 07:13 Labs: Laboratory Results - last 24 hr 06/16/25 07:13 MCV 90.4 MCH 30.6 MCHC 33.8 RDW 14.1 Plt Count 33 L MPV 11.4 Immature Gran % (Auto) 0.0 Neut % (Auto) 62.4 Lymph % (Auto) 25.9 [place] % (Auto) 7.8 Eos % (Auto) 3.2 Baso % (Auto) 0.7 Lymph # (Auto) 0.7 L [place] # (Auto) 0.2 Eos # (Auto) 0.1 Baso # (Auto) 0.0 Abs Immat Gran (auto) 0.00 Absolute Neuts (auto) 1.8 L Absolute Nucleated RBC 0.000 Nucleated RBC % (auto) 0.0 Anion Gap 9 L Estim Creat Clear Calc 158.7 Estimated GFR > 60 Random Glucose 106 Calcium 8.2 L Total Bilirubin 0.4 AST 26 ALT 12 Alkaline Phosphatase 45 Total Protein 5.9 L Albumin 3.2 L Microbiology Microbiology Results: Microbiology 06/15/25 08:37 Blood Culture - Preliminary Blood - Venous No growth after 24 hours. 06/15/25 08:36 Blood Culture - Preliminary Blood - Venous No growth after 24 hours. 06/13/25 15:52 Blood Culture - Final Blood - Venous Strep agalactiae (Grp B) 06/13/25 15:52 Blood Culture - Final Blood - Venous Strep agalactiae (Grp B) Assessment and Plan (1) Bacteremia: Status: Acute Plan Patient is a 69-year-old male with a past medical history significant for cirrhosis, hepatitis-C, history alcohol use and recent admission for strep bacteremia with unknown source, who presented to the ED due to altered mental status and fever 104.4 today. Recent admission for strep bacteremia, did not complete antibiotic course, returns with acute metabolic encephalopathy, sepsis, likely bacteremia. Acute metabolic encephalopathy and sepsis likely due to recurrent bacteremia; recent admission for group g strep bacteremia with incomplete abx tx; mental status back to baseline with resolution of fever CT AP negative for infectious source, UA negative Pt with cirrhosis and varices, possibly secondary to SBP Received empiric vancomycin and Zosyn. 2/2 blood cultures growing GPC - we will treat with 2 g IV ceftriaxone s/p 7L IVF due to soft bp, BP improved after albumin; consider midodrine if needed - currently asymptomatic ID consulted, recommend ceftriaxone 2 g daily times total of 14 days, repeat echocardiogram to rule out endocarditis, and possible prophylactics with either penicillin 250 mg b.i.d. or Levaquin 500 mg 3 times a week [address] orders for midline placement on Wednesday Repeat BCx negative after 24h hypomagnesemia, resolved hyperbilirubinemia, resolved likely due to dehydration cirrhosis with chronic anemia and thrombocytopenia LFTs at baseline HTN Continue Coreg hx etoh abuse, in remission morbid obesity weight loss encouraged full code VTE prophy: pneumoboots Requires ongoing inpatient stay for treatment with recurrent bacteremia likely secondary to SBP that will require IV antibiotics and midline placement on Wednesday for outpatient IV antibiotics. Quality Stroke Does the patient have a stroke diagnosis?: No VTE Prior VTE?: No VTE Risk Level:: Medical - moderate - high VTE Device Contraindication: N/A - Device Ordered VTE Drug Contraindication: Treatment Not Indicated
[2025-06-16] MEDS: Ammonium Lactate 12 % Lotion 226 GM BOTTLE 1 APPL TOPICAL ×2 (14:17→21:48)
[2025-06-16 15:30] VITALS: BP 116/64; PULSE 62; RESP 16; TEMP 36.4; O2SAT 94
[2025-06-16 19:35] VITALS: BP 132/60; PULSE 62; RESP 20; TEMP 36.6; O2SAT 96
[2025-06-16 23:18] VITALS: BP 114/60; PULSE 62; RESP 18; TEMP 37.4; O2SAT 94
[2025-06-17 02:40] VITALS: BP 135/64; PULSE 62; RESP 18; TEMP 36; O2SAT 97
[2025-06-17 07:39] VITALS: BP 152/67; PULSE 64; RESP 16; TEMP 36.2; O2SAT 95
--- NOTE | 2025-06-17 07:44 | P.PNIM_ITS ---
Subjective Subjective Date of Service: 06/17/25 Interval History: Feeling well No acute events overnight No fever or chills Denies abdominal pain Has been eating and drinking okay Review of Systems Review of Systems: Yes all other systems are reviewed and are negative Physical Exam 2 Exam: Exam: General: AOx3, no acute distress Resp: CTA bilaterally CVS: S1, S2, RRR GI: +BS, NT, soft but mildly distended Skin: Warm, dry Neuro: Cranial nerves II-XII grossly intact bilaterally. Motor grossly intact bilaterally Extremities: No edema. Right lower extremity with erythema and dry, cracked skin Psych: Appropriate affect Vital Signs: Vital Signs: Last Vital Signs Temp 97.1 F 06/17/25 07:39 Pulse 64 06/17/25 07:39 Resp 16 06/17/25 07:39 BP 152/67 H 06/17/25 07:39 Pulse Ox 95 06/17/25 07:39 O2 Del Method Room Air 06/17/25 07:39 BMI result Body Mass Index 46.9 Objective Data Active Medications Acetaminophen (Acetaminophen 325 Mg Tablet) 650 mg PO Q6H PRN On Hold: 06/13/25 22:44 PRN Reason: Pain, Mild 1-3,fever,headache Calcium Carbonate (Calcium Carbonate 750 Mg Tab.Chew) 750 mg PO Q4H PRN PRN Reason: Heartburn Ceftriaxone Sodium (Ceftriaxone Sodium 2 Gm Vial) 2 gm IVPUSH Q24H [facility] Last Admin: 06/16/25 13:02 Dose: 2 gm Documented By: LYDIA Acetaminophen (Ofirmev) 1,000 mg in 100 mls @ 400 mls/hr IV Q6H PRN PRN Reason: fever Lactic Acid (Ammonium Lactate 12 % Lotion 226 Gm Bottle) 1 appl TOPICAL BID [facility]; Protocol Last Admin: 06/16/25 21:48 Dose: 1 appl Documented By: JOVANY Magnesium Hydroxide (Milk Of Magnesia 30 Ml Oral.Susp) 30 ml PO DAILY PRN PRN Reason: Constipation Melatonin (Melatonin 3 Mg Tablet) 6 mg PO BEDTIME PRN PRN Reason: Insomnia Ondansetron HCl (Ondansetron Hcl 4 Mg/2 Ml Vial) 4 mg IVPUSH Q8H PRN PRN Reason: Nausea and Vomiting Oxycodone HCl (Oxycodone Hcl Immed Release 5 Mg Tablet) 5 mg PO Q6H PRN PRN Reason: Pain, Severe (Pain Scale 7-10) Sodium Chloride (0.9 % Sodium Chloride Flush 3 Ml Syringe) 3 ml IVFLUSH QSHIFT [facility] Last Admin: 06/16/25 21:49 Dose: 3 ml Documented By: JOVANY Sucralfate (Sucralfate Oral Suspension 1 Gm/10 Ml Oral.Susp) 1 gm PO QID [facility] Last Admin: 06/16/25 21:49 Dose: 1 gm Documented By: JOVANY Tramadol HCl (Tramadol Hcl 50 Mg Tablet) 50 mg PO Q6H PRN PRN Reason: Pain, Moderate(Pain Scale 4-6) Labs 06/16/25 07:13 06/16/25 07:13 Labs: Laboratory Results - last 24 hr 06/16/25 07:13 MCV 90.4 MCH 30.6 MCHC 33.8 RDW 14.1 Plt Count 33 L MPV 11.4 Immature Gran % (Auto) 0.0 Neut % (Auto) 62.4 Lymph % (Auto) 25.9 [place] % (Auto) 7.8 Eos % (Auto) 3.2 Baso % (Auto) 0.7 Lymph # (Auto) 0.7 L [place] # (Auto) 0.2 Eos # (Auto) 0.1 Baso # (Auto) 0.0 Abs Immat Gran (auto) 0.00 Absolute Neuts (auto) 1.8 L Absolute Nucleated RBC 0.000 Nucleated RBC % (auto) 0.0 Anion Gap 9 L Estim Creat Clear Calc 158.7 Estimated GFR > 60 Random Glucose 106 Calcium 8.2 L Total Bilirubin 0.4 AST 26 ALT 12 Alkaline Phosphatase 45 Total Protein 5.9 L Albumin 3.2 L Microbiology Microbiology Results: Microbiology 06/15/25 08:37 Blood Culture - Preliminary Blood - Venous No growth after 24 hours. 06/15/25 08:36 Blood Culture - Preliminary Blood - Venous No growth after 24 hours. Assessment and Plan (1) Bacteremia: Status: Acute Plan Patient is a 69-year-old male with a past medical history significant for cirrhosis, hepatitis-C, history alcohol use and recent admission for strep bacteremia with unknown source, who presented to the ED due to altered mental status and fever 104.4 today. Recent admission for strep bacteremia, did not complete antibiotic course, returns with acute metabolic encephalopathy, sepsis, likely bacteremia. Acute metabolic encephalopathy and sepsis Likely due to recurrent bacteremia; recent admission for group g strep bacteremia with incomplete abx tx; mental status back to baseline with resolution of fever CT AP negative for infectious source, UA negative Pt with cirrhosis and varices, possibly secondary to SBP Received empiric vancomycin and Zosyn. 2/2 blood cultures growing GPC - we will treat with 2 g IV ceftriaxone s/p 7L IVF due to soft bp, BP improved after albumin ID consulted, recommend ceftriaxone 2 g daily for a total of 14 days, repeat echocardiogram to rule out endocarditis, and possible prophylactics with either penicillin 250 mg b.i.d. or Levaquin 500 mg 3 times a week [address] place orders for midline placement on Wednesday Repeat BCx negative after 48h hypomagnesemia, resolved hyperbilirubinemia, resolved likely due to dehydration cirrhosis with chronic anemia and thrombocytopenia LFTs at baseline HTN Continue Coreg hx etoh abuse, in remission morbid obesity weight loss encouraged full code VTE prophy: pneumoboots Requires ongoing inpatient stay for treatment with recurrent bacteremia likely secondary to SBP that will require IV antibiotics and midline placement on Wednesday for outpatient IV antibiotics. Quality Stroke Does the patient have a stroke diagnosis?: No VTE Prior VTE?: No VTE Risk Level:: Medical - moderate - high VTE Device Contraindication: N/A - Device Ordered VTE Drug Contraindication: Treatment Not Indicated
[2025-06-17] MEDS: Ammonium Lactate 12 % Lotion 226 GM BOTTLE 1 APPL TOPICAL ×2 (08:26→20:52)
[2025-06-17] MEDS: Sucralfate Oral Suspension 1 GM/10 ML ORAL.SUSP PO ×4 (08:26→20:50)
[2025-06-17] MEDS: 0.9 % Sodium Chloride Flush 3 ML SYRINGE IVFLUSH ×3 (08:27→20:50)
[2025-06-17 11:41] VITALS: BP 114/66; PULSE 63; RESP 18; TEMP 36.3; O2SAT 96
[2025-06-17 15:21] VITALS: BP 128/66; PULSE 58; RESP 18; TEMP 36.1; O2SAT 95
[2025-06-17 20:00] VITALS: BP 131/62; PULSE 98; RESP 18; TEMP 36.7; O2SAT 98
[2025-06-17 23:46] VITALS: BP 149/77; PULSE 60; RESP 19; TEMP 37.2; O2SAT 94
[2025-06-18 03:27] VITALS: BP 131/74; PULSE 61; RESP 20; TEMP 36.9; O2SAT 95
--- NOTE | 2025-06-18 07:00 | CA_ITS ---
Transthoracic Echocardiogram Patient (Last, First, Middle): Gomez Meyer, Gender: M Date of : 1955 Age: 69 Procedure Date: 06/18/2025 Procedure Type: Transthoracic Echocardiogram [place] [facility] [place]: 180.34 cm Weight: 152.41 kg BSA: 2.63 m2 Heart Rate: 61 bpm BP: 131 / 74 mmHg Senior Data Warehouse Architect: AINSLEY Referring MD: Nigel LOO Symptoms: Bacteremia, evaluate for endocarditis Study Quality: Technically Difficult w/Contrast ECG Rhythm: Sinus Conclusions: - The left ventricular systolic function is normal. The visually estimated ejection fraction is between 65-70%. - Visualization of valves is suboptimal. No obvious vegetations based on available image quality. Findings Procedure Information Contrast agent, definity, is being given per protocol without apparent complications. Left Ventricle Normal left ventricular cavity size. There is normal left ventricular wall thickness. The left ventricular systolic function is normal. The visually estimated ejection fraction is between 65-70%. There is no evidence of regional wall motion abnormalities. Diastolic function is normal for age. Right Ventricle The right ventricle was not well visualized. There is normal right ventricular systolic function. Atria The left atrium is normal in size. The right atrium was not well visualized. Aortic Valve The aortic valve was not well visualized. There is mild calcification of the aortic valve. There is no aortic valve stenosis. There is no aortic valve regurgitation. Mitral Valve The mitral valve appears normal. There is no mitral valve regurgitation. There is no mitral valve stenosis. Pulmonic Valve The pulmonic valve was not well visualized. Tricuspid Valve The tricuspid valve was not well visualized. Great Vessels The asc aorta is normal in size. Venous The inferior vena cava was not well visualized. The inferior vena cava is dilated. Pericardium/Pleural There is no evidence of pericardial effusion. Prior Study Comparison No significant change compared to prior study dated: 05/16/2025. Recommendations, Care & Conclusions Consider a BERNARD if clinically appropriate. Measurements 2D Linear Measurements IVSd: 0.72 0.6-0.9/0.6-1.0 cm LVIDd: 5.23 3.9-5.3/4.2-5.9 cm LVIDd Index: 1.99 2.4-3.2/2.2-3.1 cm/m2 LVIDs: 3.35 2.0-3.6 cm LVOT Diam: 2.50 3.0+(-)1.3 cm 2D Systolic Function EF 4C: 83.90 >55% EF 2C: 59.90 >55% EF BiP: 76.40 >55% Mitral Valve MV Pk E: 1.10 MV PK A: 0.60 MV Decel Time: 271.00 E/A: 1.80 E'Lateral: 9.79 E'Medial: 8.49 E/E' Med: 13.00 E/E' Lat: 11.20 PHT: 79.00 MVA PHT: 2.78 Decel [place]: 4.07 Aortic Valve AoV Pk Guzman: 1.54 AoV Pk Grad: 9.00 LVOT LVOT Pk Guzman: 1.27 LVOT Mn Guzman: 0.77 LVOT VTI: 0.27 LVOT Pk Grad: 6.00 LVOT Mn Grad: 3.00 LVOT Diam: 2.50 LVOT Area: 4.91 Diastolic Function MV Pk E: 1.10 MV Pk A: 0.60 E/A: 1.80 E'Medial: 8.49 E/E' Med: 13.00 E' Laterial: 9.79 E/E' Lat: 11.20 Right Ventricle TAPSE (mm): 22.00 TVS' Guzman: 10.90 Tricuspid Valve RA Press: 15.00 Great Vessels Aorta Sinus of Valsalva: 3.90 2.0-3.5 cm Ao Asc: 3.80 2.1-3.4 cm Pulmonary Veins Pulm Vein S/D 0.80 Pulmonary Valve PV Pk Guzman: 0.77 Peak PV Grad: 2.00 Updated in Other Vendor System with Status of Final Freddie Fuentes MD electronically signed on 06/18/2025 3:06:10 PM with status of Final
[2025-06-18 07:33] VITALS: BP 140/81; PULSE 56; RESP 18; TEMP 36.3; O2SAT 97
--- NOTE | 2025-06-18 09:18 | MHC.CM.PN ---
Addendum entered by Sadie Katz RN 06/18/25 09:55: [facility] ACCEPTS PATIENT FOR SERVICE. REFERRAL ALSO PLACED TO [facility]. Original Note: PATIENT OFF UNIT FOR MIDLINE PLACEMENT. PLAN IS FOR 14 DAYS OF IV CEFTRIAXONE 2 G DAILY. REFERRAL PLACED TO [facility]. CM FOLLOWING
[2025-06-18] MEDS: Ammonium Lactate 12 % Lotion 226 GM BOTTLE 1 APPL TOPICAL (09:41)
[2025-06-18] MEDS: Sucralfate Oral Suspension 1 GM/10 ML ORAL.SUSP PO ×3 (09:41→16:49)
[2025-06-18] MEDS: 0.9 % Sodium Chloride Flush 3 ML SYRINGE IVFLUSH (09:42)
--- NOTE | 2025-06-18 10:09 | HO.MIDLINE ---
Midline Insertion MIDLINE INSERTION Diagnosis: Bacteremia Indication: 10days Rocephin Pertinent Labs: reviewed Technique: Using sterile technique including cap and mask, glove and drape, the right arm was prepped and draped in the usual sterile fashion of full barrier technique with CHG. Using ultrasound guidance, right basilic vein access was obtained . 20g x 8cm Powerglide midline was positioned. The procedure was performed in [facility]. Ultrasound was used to document vein patency and for needle entry. A formal ultrasound picture was recorded. Vascular Receivable Manager has released the line for use and it is currently dressed with a StatLock, Tegaderm, and CHG disc. Verification has been performed for blood return and line patency. Arm Circumference: 33cm Equipment: Bard Powerglide ST Midline catheter Catheter Type: 20g 8cm non PASV Lot #: [id number]
[2025-06-18 11:36] VITALS: BP 129/74; PULSE 67; RESP 18; TEMP 36.4; O2SAT 95
--- NOTE | 2025-06-18 16:01 | MHC.CM.PN ---
PLAN IS FOR PATIENT TO [place] HOME TONIGHT. IS IN ROOM TO TRANSPORT. [facility] AND [facility] AT [facility].
--- NOTE | 2025-06-18 16:22 | P.DS_ITS ---
DS: Providers Provider Date of Service: 06/18/25 Date of admission: 06/13/25 20:03 Date of discharge: 06/18/25 Primary care physician: Isaak Beal MD Consults: 06/13/25 20:30 Consult to Infectious Diseases Routine Consulting Provider: [facility] Reason for consultation: recent bacteremia, fever, AMS Has provider been notified: No DS: Diagnosis Discharge Diagnosis (1) Bacteremia: Status: Acute (2) EtOH dependence: Status: Acute (3) Chronic hepatitis C: Status: Acute (4) Sepsis: Status: Acute (5) Group G streptococcal infection: Status: Acute (6) Acute encephalopathy due to infection: Status: Acute DS: Summary Hospital Course Hospital Course: 69-year-old male with a past medical history significant for cirrhosis, hepatitis-C, history alcohol use and recent admission for strep bacteremia with unknown source without antibiotic compliance, who presented to the ED due to altered mental status and fever 104.4, admitted with sepsis 2/2 strep G bacteremia, with superimposed acute septic encephalopathy. Acute metabolic encephalopathy and sepsis Likely due to recurrent bacteremia; recent admission for group g strep bacteremia with incomplete abx tx; mental status back to baseline with resolution of fever CT AP negative for infectious source, UA negative Pt with cirrhosis and varices, possibly secondary to SBP Received empiric vancomycin and Zosyn. 2/2 blood cultures growing GPC - we will treat with 2 g IV ceftriaxone s/p 7L IVF due to soft bp, BP improved after albumin Repeat BCx negative after 48h ID consulted, recommend ceftriaxone 2 g daily for a total of 14 days, repeat echocardiogram to rule out endocarditis, and possible prophylactics with either penicillin 250 mg b.i.d. or Levaquin 500 mg 3 times a week Right-sided midline placed for home antibiotic regimen Status at Discharge Functional status at discharge: independent ambulation Overall status at discharge: patient is back to baseline Time Attestation Total time managing care of this patient today: 45 mintues. Discharge Coordination Time (in mins): 15 Quality: Safe Use of Opioids Does Pt have an Active Cancer Diagnosis on the Problem List?: No Quality: Stroke Does the patient have a stroke diagnosis?: No Physical Exam Exam: Exam: General: A&O x3, oriented to time place person and situation, comfortable, no pain Cardiac: S1, S2 auscultated with no S3/4, no MRG. Well perfused. Respiratory: Normal breath sounds auscultated throughout all lung zones, without wheezing, rales. Normal rate. GI/ : No abdominal pain on palpation, no masses or distentions. MSK: Normal ambulation without pain at bony prominences or musculature. Right- sided PICC line Neurological: Normal neurological examination on overview, without obvious CN II-XII abnormalities. Vital Signs: Vital Signs: Last Vital Signs Temp 97.5 F 06/18/25 11:36 Pulse 67 06/18/25 11:36 Resp 18 06/18/25 11:36 BP 129/74 06/18/25 11:36 Pulse Ox 95 06/18/25 11:36 O2 Del Method Room Air 06/18/25 11:36 BMI result Body Mass Index 46.9 DS: Data Data Completed and Pending Labs on day of discharge: Preliminary micro results at discharge 06/15/25 08:36 Blood Culture - Preliminary Blood - Venous No growth after 48 hours. 06/15/25 08:37 Blood Culture - Preliminary Blood - Venous No growth after 48 hours. Discharge Plan Discharge Anticipated Discharge Date/Time: 06/18/25 16:25 Patient Disposition: Home Health Service Discharge Diagnosis: Sepsis 2/2 bacteremia, with acute septic encephalopathy in the setting of cirrhosis Referrals: [facility] [Other] - 1 Week [facility] [Outside] - 1 Week Isaak Beal MD [Primary Care Provider, Internal Medicine] - 1 Week Discharge Medications: New ceftriaxone 2 gram Recon Soln 2 g IVPUSH Q24H 14 Days Qty: 14 0RF levofloxacin 500 mg tablet 500 mg PO .q72hrs 15 Days Qty: 5 0RF Continued carvedilol 3.125 mg tablet 3.125 mg PO BID 90 Days Qty: 180 0RF Rx Instructions: must administer with a meal/food sucralfate 100 mg/mL suspension 10 ml PO QID Rx Instructions: Use after food/drink Discharge Orders: Discharge Order (Routine); Ordered 06/18/25 Ordered By: Kaden Solomon Diet: Advance to usual diet Activity on Discharge: As tolerated Stand Alone Forms: Patient Portal Discharge page Print Language: Ukrainian Care Plan Goals: Complete antibiotics until course is finished Health Concerns: As above Plan of Treatment: Continue antibiotic regimen Follow up with outpatient Infectious diseases Follow up with PCP within 1 week of discharge Assessment: Hemodynamically stable patient is, deemed safe for discharge after cultures negative for 48 hours. Continue IV antibiotics at home Follow up with outpatient ID with blood work
--- NOTE | 2025-06-18 16:30 | P.F2F_ITS ---
Service Date Service Date: 06/18/25 Encounter Date of encounter: 06/18/25 Reasons for Services Signs and symptoms assessed: Right-sided midline IV for IV antibiotic administration Reason for penitentiary: administration of IV, SQ, or IM injection, medication management, medication treatment and teach disease management Reason for physical therapy: home safety and mobility, therapeutic exercises, restore joint function, gait/transfer training, assess need for DME, ADL training and energy conservation Reason for occupational therapy: home safety and mobility, therapeutic exercises, restore joint function, gait/transfer training, assess need for DME, ADL training and energy conservation Homebound: Leaving the home is medically contraindicated at this time without the asist of a device and/or another person due th the listed conditions above and below. Reason homebound: unsteady gait / fall risk Certification: Based on the above findings, I certify that this patient is confined to the home and needs intermittent penitentiary care, physical therapy and/or speech therapy, or continues to need occupational therapy. The patient is under my care, and I have initiated the establishment of the plan of care. The patient will be followed by a physician who will periodically review the plan of care. Time Spent With Patient Time: Total time managing care of this patient today 15 minutes.
== END 2025-06-18 17:25 | disposition home health service (06) | DRG 871 ==
LOC: HO.ED 20:05 → HO.EDOVER 20:20 → HO.IMC 06-14 12:18
PROVIDERS: Physician Assistant; Physician Assistant Medical; Student in an Organized Health Care Education/Training Program; Admitting Provider Hospitalist; Emergency Provider Emergency Medicine; PCP Internal Medicine; Visit Provider Hospitalist
DX: A40.1 Sepsis due to streptococcus, group B (principal); G93.41 Metabolic encephalopathy; Z68.42 Body mass index [BMI] 45.0-49.9, adult; I85.10 Secondary esophageal varices without bleeding; F17.210 Nicotine dependence, cigarettes, uncomplicated; K74.60 Unspecified cirrhosis of liver; Z71.6 Tobacco abuse counseling; E83.42 Hypomagnesemia; E86.0 Dehydration; F10.11 Alcohol abuse, in remission; E66.01 Morbid (severe) obesity due to excess calories; Z71.3 Dietary counseling and surveillance; I10 Essential (primary) hypertension; Z20.822 Contact with and (suspected) exposure to COVID-19; Z79.899 Other long term (current) drug therapy
CPT/HCPCS: 36410; 36415; 70450; 71045; 74177; 80048; 80053; 80076; 80307; 81003; 82140; 82550; 82803; 82947; 83605; 83690; 83735; 84484; 85007; 85025; 85027; 85610; 86140; 87040; 87147; 87205; 87633; 87637; 93005; 93306; 99285; J0131; J0696; J2543; J3373; J3475; J7120; P9047; Q9957; Q9967

== ENCOUNTER → 2025-06-13 15:18 | Outpatient (BNV) | payer MEDICARE, SELFPAY | PROVIDERS: Emergency Provider Emergency Medicine; PCP Internal Medicine; Visit Provider Radiology Diagnostic Radiology | DX: R18.8 Other ascites (principal); R16.1 Splenomegaly, not elsewhere classified; I67.82 Cerebral ischemia; R41.82 Altered mental status, unspecified | CPT/HCPCS: 70450; 71045; 74177 ==

== ENCOUNTER → 2025-06-13 15:18 | Outpatient (BNV) | payer MEDICARE, SELFPAY | PROVIDERS: Admitting Provider Hospitalist; Emergency Provider Emergency Medicine; PCP Internal Medicine; Visit Provider Internal Medicine Cardiovascular Disease | DX: R41.0 Disorientation, unspecified (principal) | CPT/HCPCS: 93010 ==

== ENCOUNTER 2025-06-13 20:03 | Outpatient (BNV) | payer MEDICARE, SELFPAY | END 2025-06-18 07:00 | PROVIDERS: Admitting Provider Hospitalist; Emergency Provider Emergency Medicine; PCP Internal Medicine; Visit Provider Internal Medicine | DX: I35.8 Other nonrheumatic aortic valve disorders (principal); R78.81 Bacteremia | CPT/HCPCS: 93306 ==

== ENCOUNTER → 2025-06-13 20:03 | Outpatient (BNV) | payer MEDICARE, SELFPAY | PROVIDERS: Admitting Provider Hospitalist; Emergency Provider Emergency Medicine; PCP Internal Medicine; Visit Provider Physician Assistant Medical | DX: G93.41 Metabolic encephalopathy (principal); A40.9 Streptococcal sepsis, unspecified; E83.42 Hypomagnesemia; E80.6 Other disorders of bilirubin metabolism; E66.01 Morbid (severe) obesity due to excess calories; R78.81 Bacteremia | CPT/HCPCS: 99223; 99232; 99233 ==

== ENCOUNTER → 2025-06-13 20:03 | Outpatient (BNV) | payer MEDICARE, SELFPAY | PROVIDERS: Admitting Provider Hospitalist; Emergency Provider Emergency Medicine; PCP Internal Medicine; Visit Provider Internal Medicine | DX: R78.81 Bacteremia (principal) | CPT/HCPCS: 99222 ==

== ENCOUNTER 2025-06-29 13:48 | Outpatient (AMB) | payer MEDICARE, SELFPAY ==
--- NOTE | 2025-06-29 13:47 | A.OFFVIS_ITS ---
Vital Signs 3 06/29/25 13:52 Height 6 ft 2 in Weight 336 lb BMI 43.1 Pulse 62 Pulse Source Pulse Oximeter Pulse Oximetry (%) 97 Oxygen Delivery Method Room Air Intake Visit Reasons: C Reff/ end of antibiotic Allergies No Known Allergies Allergy (Verified 06/29/25 13:53) HPI Comments Details: History of Present Illness The patient is a 69-year-old male presenting with a follow-up visit for the management of streptococcal infections. He was hospitalized previously due to Group B Streptococcus bacteremia, confirmed on 06/13, preceded by a Group G Streptococcus infection on 05/13. The patient underwent a 16-day course of antibiotics, which ended two days ago, and reports that the Group B Streptococcus infection has resolved. No further growth of Group B Streptococcus was noted from ascitic fluid. He has experienced antibiotic-associated diarrhea in the past but is taking penicillin without this issue currently. He is currently afebrile with vital signs stable and exhibits a chronic abdominal distension. Review of Systems - Constitutional: Denies fever or chills. - Gastrointestinal: Reports antibiotic-associated diarrhea but none at present. - Respiratory: Denies cough or shortness of breath. - Cardiovascular: Denies palpitations. - Musculoskeletal: Denies joint pain or muscle weakness. - Dermatologic: Denies skin rashes, reports chronic irritation and cellulitis in the lower leg. Physical Exam - Vitals- Afebrile, vital signs stable. - Respiratory- Lungs clear. - Cardiovascular- Heart rate and rhythm regular. - Gastrointestinal- Abdomen soft, with some chronic distension. - Dermatologic- Noted chronic irritation in the lower leg, possible cellulitis. Results - Labs: Positive for Group B Streptococcus bacteremia on 06/13. Positive for Group G Streptococcus on 05/13. Plan Patient was informed and verbally consented to the use of an ambient scribe for clinic note documentation during this visit. 1. Bacteremia R78.81 The recent Group B Streptococcus bacteremia was resolved following antibiotic treatment. No further antibiotics like Levaquin will be offered. A prophylactic plan with Penicillin VK, 250 mg BID for one month with five refills, is advised. 2. Group G Streptococcus Infection The previous Group G Streptococcus infection is resolved. No new treatment is mandated at this juncture, but vigilance for recurrence is necessary. 3. Toxic gastroenteritis and colitis K52.1 Though the patient previously had antibiotic-associated diarrhea, he tolerates penicillin without symptoms now. Additional intervention is unwarranted unless symptoms reappear. 4. Cellulitis of unspecified part of limb L03.119 Chronic irritation and cellulitis of the lower leg require observation, with attention to potential infection exacerbations. Scheduled follow-up in six months will assess progression. Discussion Notes I discussed with the patient the clearance of his Group B Streptococcus bacteremia following appropriate antibiotic therapy. We reviewed the prophylactic use of Penicillin VK to prevent future recurrences. The benefits of this prophylaxis were outlined, emphasizing prevention of future infections. The patient is advised to monitor for symptoms such as fever or chills and return to the hospital if they occur. Monitoring for resolution of cellulitis in the lower leg, with regular observations as part of his long-term care, was also addressed. Medical Decision Making The patient presented following recent hospitalization for Group B Streptococcus bacteremia, treated effectively with antibiotics. A prophylactic approach with Penicillin VK was deemed suitable to prevent recurrence, given past history and completion of prior antibiotic regimen. Chronic irritation and possible cellulitis in the lower leg were noted, requiring continued observation to manage potential secondary infections. Follow-up in six months will assess intervention efficacy and status. Patient Instructions - Take Penicillin VK 250 mg twice daily as prescribed. - Monitor for fever, chills, or any new symptoms and return to the hospital if they occur. - Follow up in six months for a re-evaluation of condition and treatment efficacy. - Keep an eye on the lower leg for worsening irritation or signs of infection. [facility] Medical History Chronic hepatitis C Hepatosplenomegaly Neutropenia Morbid obesity due to excess calories Tobacco use disorder Morbid obesity Cirrhosis Bicytopenia Surgical History Hx of colonoscopy Social History Household Members: Family Housing: House Do you presently have visiting nurse or other home services: No Alcohol intake: current Alcohol intake frequency: former alcohol drinker Alcohol type: beer Comment: pt refused bed alarm Patient Tobacco Use Status: Current everyday Tobacco user Tobacco use type: Cigarette Cigarette Packs Per Day: 0.5 Cigarettes Per Day: 10.0 Years Smoked: 30 e-Cigarette/Vaping Use: Never Used service: No Current occupational status: retired Gender identity: Male Cognitive needs: No Hearing needs: No Vision needs: Yes Physical Exam Exam Exam: Vital Signs: Last Vital Signs Pulse 62 06/29/25 13:52 Pulse Ox 97 06/29/25 13:52 Oxygen Delivery Method Room Air 06/29/25 13:52 BMI result Body Mass Index 43.1 Const Other: Assessment & Plan Assessment & Plan (1) Recurrent cellulitis of lower extremity: Code(s): L03.119 - Cellulitis of unspecified part of limb Category: Medical Plan: as above (2) Group G streptococcal infection: Code(s): B95.4 - Other streptococcus as the cause of diseases classified elsewhere Category: Medical Plan: as above Medications: New 2 penicillin V potassium 250 mg PO BID 60 tabs 5RF 30 days Discontinued 2 levofloxacin Discontinued Reason: Doctor's Order 500 mg PO .q72hrs 15 days 5 tabs 0RF Coding Level of Care Code Est Pt Level 3 (68867) Diagnoses Recurrent cellulitis of lower extremity L03.119 Group G streptococcal infection B95.4
[2025-06-29 13:52] VITALS: PULSE 62; O2SAT 97; BMI 43.1
== END 2025-06-29 14:16 | disposition home or self-care (01) ==
LOC: HO.HCC 13:48
PROVIDERS: PCP Internal Medicine; Visit Provider Internal Medicine
DX: L03.119 Cellulitis of unspecified part of limb (principal); B95.4 Other streptococcus as the cause of diseases classified elsewhere
CPT/HCPCS: 99213

== ENCOUNTER → 2025-06-29 13:48 | Outpatient (BNVA) | payer MEDICARE, SELFPAY | PROVIDERS: PCP Internal Medicine; Visit Provider Internal Medicine | DX: L03.111 Cellulitis of right axilla (principal); B95.4 Other streptococcus as the cause of diseases classified elsewhere | CPT/HCPCS: 99212 ==

== ENCOUNTER 2025-07-03 07:44 | Outpatient (AMB) | payer MEDICARE, SELFPAY ==
--- OUTSIDE RECORDS SUMMARY | 2025-07-03 07:47 | XMS_ITS | Patient Health Record ---
[facility] Address [address] [place] [address] Care Team Providers Care Manager Contracting Name Role Phone Emigdio TUCKER, [facility] Primary Care Provider Garcia Villareal Unavailable [phone] Allergies No Known Allergies Reason For Referral [...] atherosclerosis of arteries of lower limbs (disorder) ([id number] ) Atherosclerosis of [place] artery of both lower extremities, with unspecified presence of clinical manifestation (I70.203) Active confirmed Plan Of Treatment Pending Test Test Name Order Date [id number] NAIL, 6 OR MORE 08/26/2023 [id number] SKIN LESIONS, 2 TO 4 08/26/20 23 Insurance Providers Payer Name Payer Address Payer Phone Subscriber Number Group Number Insured Name Patient Relationship to Insured Coverage Start Date Coverage End Date [employer] Medicare [id number] [address] [address] [place] [address] [id number] Gomez Meyer Self - patient is the insured Medical (General) History Medical History History ICD Code High blood pressure Surgical History Surgery Date(Month/Year)
--- OUTSIDE RECORDS SUMMARY | 2025-07-03 07:47 | XMS_ITS | Clinical Summary ---
Author Organization [facility] Address [address] [place] [id number] Care Team Providers Care Vp Site Name Role Phone Milena Ghotra MD Primary Care Provider [phone] Medical History Medical History Date Comments Transaminitis 10/23/2020 DX:Transaminitis Family History Medical History Relation Name Comments Heart attack Brother Relation Name Status Comments Brother Social History Tobacco Use Types Packs/Day Years Used Date Smoking Tobacco: Every Day Cigarettes 1 47.8 Started: 09/20/1977 Smokeless Tobacco: Never Alcohol Use Standard Drinks/Week Comments Yes 3 (1 standard drink = 0.6 oz pur e alcohol) Sex and Gender Information Value Date Recorded Sex Assigned at Not on file Legal Sex Male 12:09 PM EST Gender Identity Not on file Sexual Orientation Not on file Obstetrics History Plan of Treatment Health Maintenance Due Date Last Done Comments Colorectal Cancer Screening: Colonoscopy 1955 DTaP,Tdap,and Td Vaccines (1 - Tdap) 11/27/1974 Pneumococcal Vaccine: 50+ Ye ars (1 of 2 - PCV) 11/27/1974 Zoster Vaccines (1 of 2) 11/27/2005 Depression Screening 09/20/2024 Abdominal Aortic Aneurysm (A AA) Screen 12/03/2024 Cholesterol Screening (Lipid Panel) 12/03/2024 Falls Risk Assessment 12/03/2024 Hepatitis C [...] age to complete this topic Care Teams Vp Site Relationship Specialty Start Date End Date Milena Ghotra MD PCP - General Internal Medicine 07/26/20
[2025-07-03 08:02] VITALS: BP 132/70; PULSE 65; O2SAT 99; BMI 42.4
--- NOTE | 2025-07-03 08:02 | A.OFFPC_ITS ---
Vital Signs 07/03/25 08:02 Height 6 ft 2 in Weight 330 lb BMI 42.4 BP 132/70 Blood Pressure Location Lt brachial Position Sitting Pulse 65 Pulse Source Pulse Oximeter Pulse Oximetry (%) 99 Intake Visit Reasons: PE - see comments Orthodontist Required: No Accompanied by: Self / Same As Patient Allergies No Known Allergies Allergy (Verified 07/03/25 08:03) Medication List - Last Reconciled 07/03/25 by Isaak Beal MD carvedilol 3.125 mg PO BID 90 days penicillin V potassium 250 mg PO BID 30 days Tobacco use date assessed: 05/23/25 Fall risk assessment: No Falls in past year Last assessed Fall Risk: 07/03/25 Dental Screening Dental Screen Date: 05/23/25 HPI PE - see comments HPI Details History of Present Illness The patient is a 69-year-old male presenting with multiple chronic conditions for physical examination. Acute Bacteremia: - The patient was hospitalized at the [facility] April for bacteremia. - He was treated with intravenous antibi otics and discharged with resolved fever. Group G Streptococcal Sepsis: - A subsequent infection occurred approx imately one month after the initial hospitalization, this time caused by a different strain. - requiring treatment again and admissio n, currently on penicillin and is established with the infectious disease specialist. Hepatitis C: - The patient has a known diagnosis of H epatitis C, complicated by liver cirrhosis. Esophageal Varices: - Discovered during an endoscopy on May. - Endoscopy showed medium to large esoph ageal varices, likely due to portal hypertension. Portal Hypertensive Gastropathy and Ascites: - The patient's stomach is inflamed, and he presents with ascites, both related to long-term alcohol use. And hepatitis-C - The patient reports nausea occasionall y and reduced appetite. Liver Cirrhosis: - stable at that time but does not have follow-up appointment with the gastroenterology, we will send them a message to book a follow-up. Hemorrhoids: - Large hemorrhoids were found during a colonoscopy, contributing to occasional bleeding. Anemia: - The patient is slightly anemic, with a hemoglobin level of 11.2 g/dL. - White blood cell counts have fluctuate d, being low at times, particularly noted in May. Tubular Adenoma: - Detected during a colonoscopy, but neg ative for high-grade dysplasia. Surgical History: - Colonoscopy - Endoscopy Social History: - Lives with sister and [place], providing home support. - History of alcohol consumption, with a cknowledgment of past significant use. - Has experienced reduced appetite recen tly. Health Maintenance - Recommendation for flu vaccine, with s pecific advice for a stronger dose due to age. - Pneumonia vaccine discussed but curren tly refused by the patient. - Colonoscopy completed with recommendat ion for repeat in 2-3 years for surveillance. - History of tubular adenoma with a nega tive result for high-grade dysplasia. - patient refused tetanus vaccination. As well Crow of Care - Currently under care by a gastroentero logist, Dr. Crabtree, for management of liver-related complications. - Infectious disease follow-up appointme nt scheduled for December next year. problems - History of acute bacteremia requiring hospitalization - Group G Streptococcal sepsis - Hepatitis C - Portal hypertensive gastropathy - Esophageal varices - Ascites - Hemorrhoids - Hypertension - Liver cirrhosis - Tubular adenoma detected in past colon oscopy - History of alcohol use disorder Patient Instructions - Increase fiber intake to prevent hard stools and reduce hemorrhoid bleeding. - Avoid use of ibuprofen, naproxen, and similar NSAIDs to prevent gastrointestinal complications. - Ensure follow-up consultation with Dr. Crabtree for periodic management of liver conditions. - Visit pharmacy to obtain the recommend ed flu vaccine due to lack of availability at the doctor's office. Follow-up 1 year physical exam, in six-month follow-up Review of Systems - General: No fever no chills - Neurological: No headaches no dizzin ess - Ear nose throat: No sore throat no hearing difficulty no ear pain - Cardiovascular: No syncope, no chest pain, no palpitations - Gastrointestinal: No vomiting or diarrhea - Endocrine: No polyuria polydipsia no heat intolerance - Genitourinary: No dysuria - Skin: No new complaints Physical Exam General: Cooperative, healthy appearing, comfortable, no acute distress Orientation: Patient oriented x3 Head: Normal to inspection Ears: Within normal limit visually Nose: Normal external nose present Face and sinus: Normal facial exam Eyes: Appearance normal, extraocular movement intact pupils reactive Neck: Normal visual inspection and supple Respiratory: Normal respiratory effort and able to speak in complete sentences. Clear to auscultation, no stridor Cardiovascular: S1 and S2 RRR GI: Soft to palpation and nontender. Presence of ascites fluid Skin: Turgor normal, no acute findings Neuro: Patient oriented x3, motor intact, Romberg failed Extremities: swelling present in legs around ankles . [facility] Medical History Chronic hepatitis C Hepatosplenomegaly Neutropenia Morbid obesity due to excess calories Tobacco use disorder Morbid obesity Cirrhosis Bicytopenia Surgical History Hx of colonoscopy Social History Household Members: Family Housing: House Do you presently have visiting nurse or other home services: No Alcohol intake: current Alcohol intake frequency: former alcohol drinker Alcohol type: beer Comment: pt refused bed alarm Patient Tobacco Use Status: Current everyday Tobacco user Tobacco use type: Cigarette Cigarette Packs Per Day: 0.5 Cigarettes Per Day: 10.0 Years Smoked: 30 e-Cigarette/Vaping Use: Never Used service: No Current occupational status: retired Gender identity: Male Cognitive needs: No Hearing needs: No Vision needs: Yes Questionnaire PHQ-9 Over the last 2 weeks, how often have you been bothered by any of the following problems? 1. Little interest or pleasure in doing things: not at all 2. Feeling down, depressed, or hopeless: not at all 3. Trouble falling or staying asleep, or sleeping too much: not at all 4. Feeling tired or having little energy: not at all 5. Poor appetite or overeating: not at all 6. Feeling bad about yourself - or that you are a failure or have let yourself or your family down: not at all 7. Trouble concentrating on things, such as reading the newspaper or watching television: not at all 8. Moving or speaking so slowly that other people could have noticed. Or the opposite - being so fidgety or restless that you have been moving around a lot more than usual: not at all 9. Thoughts that you would be better off or of hurting yourself in some way: not at all Total score: 0 Depression Screening Interpretation: Negative Depression Screening Done: Yes 82459 - PHQ-9 Billing: Yes Source: Developed by Drs. Neftali Dale, Jessi Jones, Natanael Castro and colleagues, with an educational muna from [employer]. Thrive Questionnaire Date Thrive assessed: 07/03/25 I am a: Patient What is your living situation today?: I have a steady place to live Within the past 12 months, did the food you bought not last and you didn't have the money to get more?: Never true Within the past 12 months, did you worry whether your food would run out before you got money to buy more?: Never true Do you have trouble paying for medicines?: No Do you have trouble getting transportation to medical appointments?: No Do you have trouble paying your heating and electricity bill?: No Do you have trouble taking care of your child, family member or friend?: No Do you have trouble with day-to-day activities such as bathing, preparing meals, shopping, managing finances, etc.?: No Are you interested in more education?: No Please select the resources that you would like help with: None Currently or been in a relationship where the following occur: No concerns reported THRIVE Score: 0 AUDIT C Alcohol Use Questionnaire (AUDIT-C) 1. How often do you have a drink containing alcohol?: Monthly or less 2. How many drinks containing alcohol do you have on a typical day when you are drinking?: 3 or 4 3. How often do you have six or more drinks on one occasion?: Never Total Score: 2 Score Reviewed/Action Taken: Yes SHANICE-7 AMB Questionnaire SHANICE-7 Date SHANICE - 7 assessed: 05/23/25 Feeling nervous, anxious, or on edge: 0 = Not at all Not being able to stop or control worryin = Not at all Worrying too much about different things: 0 = Not at all Trouble relaxin = Not at all Being so restless that it is hard to sit still: 0 = Not at all Becoming easily annoyed or irritable: 0 = Not at all Feeling afraid as if something awful might happen: 0 = Not at all Total SHANICE-7 score (0-4 normal; 5-9 mild; 10-14 moderate; 15-21 severe): 0 Source: Developed by Drs. Neftali Dale, Jessi Jones, Natanael Castro and colleagues, with an educational muna from [employer]. SHANICE-7 Assessment Billing SHANICE-7 Assessment Tool: SHANICE-7 Assessment 65024 Physical exam (Primary Care) Vital Signs: Last Vital Signs Pulse 65 07/03/25 08:02 BP 132/70 07/03/25 08:02 Pulse Ox 99 07/03/25 08:02 BMI result Body Mass Index 42.4 Tobacco/Smoking Status: Tobacco use Status Tobacco use date assessed 05/23/25 07/03/25 08:07 Patient Tobacco Use Status Current everyday Tobacco 07/03/25 08:07 Tobacco use type Cigarette 07/03/25 08:07 e-Cigarette/Vaping Use Never Used 07/03/25 08:07 Depression Screening Interpretation: Negative Thrive Assessment: Date of Thrive Assessment Date Thrive assessed 07/03/25 07/03/25 08:07 Currently or been in a relationship where the following occur: No concerns reported Coding Level of Care Code Est Pt Level 4 (15370) Est Pt Prev Care >65y(17753) Diagnoses Encounter for general adult medical examination with abnormal findings Z00.01 Chronic hepatitis C without hepatic coma B18.2 Hepatic coma status: without hepatic coma Alcoholic cirrhosis of liver with ascites K70.31 Ascites presence: with ascites Ascites due to alcoholic cirrhosis K70.31 Ascites type: due to alcoholic cirrhosis Secondary esophageal varices without bleeding I85.10 Esophageal varices type: secondary Esophageal varices bleeding: without bleeding Chronic superficial gastritis without bleeding K29.30 Gastritis type: superficial Gastritis bleeding: without bleeding Internal hemorrhoids K64.8 Chronic anemia D64.9 Balance disorder R26.89 Risk for falls Z91.81 Additional Codes SHANICE-7 Assessment Billing - SHANICE-7 Assessment Tool: SHANICE-7 Assessment 51536 ([id number]) PHQ-9 - 86801 - PHQ-9 Billing: Yes ([id number]) Assessment & Plan Assessment & Plan (1) Encounter for general adult medical examination with abnormal findings: Code(s): Z00.01 - Encounter for general adult medical examination with abnormal findings Category: Medical (2) Chronic hepatitis C: Code(s): B18.2 - Chronic viral hepatitis C Category: Medical Qualifiers: Hepatic coma status: without hepatic coma Qualified Code(s): B18.2 - Chronic viral hepatitis C (3) Alcoholic cirrhosis of liver: Code(s): K70.30 - Alcoholic cirrhosis of liver without ascites Category: Medical Qualifiers: Ascites presence: with ascites Qualified Code(s): K70.31 - Alcoholic cirrhosis of liver with ascites (4) Ascites: Code(s): R18.8 - Other ascites Category: Medical Qualifiers: Ascites type: due to alcoholic cirrhosis Qualified Code(s): K70.31 - Alcoholic cirrhosis of liver with ascites (5) Esophageal varices: Code(s): I85.00 - Esophageal varices without bleeding Category: Medical Qualifiers: Esophageal varices type: secondary Esophageal varices bleeding: without bleeding Qualified Code(s): I85.10 - Secondary esophageal varices without bleeding (6) Chronic gastritis: Code(s): K29.50 - Unspecified chronic gastritis without bleeding Category: Medical Qualifiers: Gastritis type: superficial Gastritis bleeding: without bleeding Qualified Code(s): K29.30 - Chronic superficial gastritis without bleeding (7) Internal hemorrhoids: Code(s): K64.8 - Other hemorrhoids Category: Medical (8) Chronic anemia: Code(s): D64.9 - Anemia, unspecified Category: Medical (9) Balance disorder: Code(s): R26.89 - Other abnormalities of gait and mobility Category: Medical (10) Risk for falls: Code(s): Z91.81 - History of falling Category: Medical Plan Acute Bacteremia: - The patient was hospitalized at the end of April for bacteremia. - He was treated with intravenous antibiotics and discharged with resolved fever. Group G Streptococcal Sepsis: - A subsequent infection occurred approximately one month after the initial hospitalization, this time caused by a different strain. - requiring treatment again and admission, currently on penicillin and is established with the infectious disease specialist. Hepatitis C: - The patient has a known diagnosis of Hepatitis C, complicated by liver cirrhosis. Esophageal Varices: - Discovered during an endoscopy on June 05. - Endoscopy showed medium to large esophageal varices, likely due to portal hypertension. Portal Hypertensive Gastropathy and Ascites: - The patient's stomach is inflamed, and he presents with ascites, both related to long-term alcohol use. And hepatitis-C - The patient reports nausea occasionally and reduced appetite. Liver Cirrhosis: - stable at that time but does not have follow-up appointment with the gastroenterology, we will send them a message to book a follow-up. Hemorrhoids: - Large hemorrhoids were found during a colonoscopy, contributing to occasional bleeding. Anemia: - The patient is slightly anemic, with a hemoglobin level of 11.2 g/dL. - White blood cell counts have fluctuated, being low at times, particularly noted in May. Tubular Adenoma: - Detected during a colonoscopy, but negative for high-grade dysplasia. Surgical History: - Colonoscopy - Endoscopy Social History: - Lives with sister and [id number], providing home support. - History of alcohol consumption, with acknowledgment of past significant use. - Has experienced reduced appetite recently. Health Maintenance - Recommendation for flu vaccine, with specific advice for a stronger dose due to age. - Pneumonia vaccine discussed but currently refused by the patient. - Colonoscopy completed with recommendation for repeat in 2-3 years for surveillance. - History of tubular adenoma with a negative result for high-grade dysplasia. - patient refused tetanus vaccination. As well Crow of Care - Currently under care by a orthotic/prosthetic practitioner, Dr. Crabtree, for management of liver-related complications. - Infectious disease follow-up appointment scheduled for December next year. problems - History of acute bacteremia requiring hospitalization - Group G Streptococcal sepsis - Hepatitis C - Portal hypertensive gastropathy - Esophageal varices - Ascites - Hemorrhoids - Hypertension - Liver cirrhosis - Tubular adenoma detected in past colonoscopy - History of alcohol use disorder Patient Instructions - Increase fiber intake to prevent hard stools and reduce hemorrhoid bleeding. - Avoid use of ibuprofen, naproxen, and similar NSAIDs to prevent gastrointestinal complications. - Ensure follow-up consultation with Dr. Crabtree for periodic management of liver conditions. - Visit pharmacy to obtain the recommended flu vaccine due to lack of availability at the doctor's office. Follow-up 1 year physical exam, in six-month follow-up Review of Systems - General: No fever no chills - Neurological: No headaches no dizziness - Ear nose throat: No sore throat no hearing difficulty no ear pain - Cardiovascular: No syncope, no chest pain, no palpitations - Gastrointestinal: No vomiting or diarrhea - Endocrine: No polyuria polydipsia no heat intolerance - Genitourinary: No dysuria - Skin: No new complaints Physical Exam General: Cooperative, healthy appearing, comfortable, no acute distress Orientation: Patient oriented x3 Head: Normal to inspection Ears: Within normal limit visually Nose: Normal external nose present Face and sinus: Normal facial exam Eyes: Appearance normal, extraocular movement intact pupils reactive Neck: Normal visual inspection and supple Respiratory: Normal respiratory effort and able to speak in complete sentences. Clear to auscultation, no stridor Cardiovascular: S1 and S2 RRR GI: Soft to palpation and nontender. Presence of ascites fluid Skin: Turgor normal, no acute findings Neuro: Patient oriented x3, motor intact, Romberg failed Extremities: swelling present in legs around ankles .
== END 2025-07-03 08:40 | disposition home or self-care (01) ==
LOC: HO.HMCC 07:45
PROVIDERS: PCP Internal Medicine; Visit Provider Internal Medicine
DX: Z00.01 Encounter for general adult medical examination with abnormal findings (principal); B18.2 Chronic viral hepatitis C; K70.31 Alcoholic cirrhosis of liver with ascites; I85.10 Secondary esophageal varices without bleeding; K29.30 Chronic superficial gastritis without bleeding; K64.8 Other hemorrhoids; D64.9 Anemia, unspecified; R26.89 Other abnormalities of gait and mobility; Z91.81 History of falling

== ENCOUNTER → 2025-07-03 07:44 | Outpatient (BNVA) | payer MEDICARE, SELFPAY | PROVIDERS: PCP Internal Medicine; Visit Provider Internal Medicine | DX: Z00.01 Encounter for general adult medical examination with abnormal findings (principal); K76.6 Portal hypertension; K31.89 Other diseases of stomach and duodenum; D64.9 Anemia, unspecified; B18.2 Chronic viral hepatitis C; K70.31 Alcoholic cirrhosis of liver with ascites; I85.10 Secondary esophageal varices without bleeding; K29.30 Chronic superficial gastritis without bleeding; K64.8 Other hemorrhoids; R26.89 Other abnormalities of gait and mobility; Z91.81 History of falling | CPT/HCPCS: 96127; 99397 ==

== ENCOUNTER 2025-08-03 06:04 | Outpatient (REF) | payer MEDICARE, SELFPAY ==
--- OUTSIDE RECORDS SUMMARY | 2025-08-03 06:07 | XMS_ITS | Patient Health Record ---
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 Name Role Phone Emigdio TUCKER, [facility] Primary Care Provider Garcia Villareal Unavailable [phone] Allergies No Known Allergies Reason For Referral [...] atherosclerosis of arteries of lower limbs (disorder) ([id number] ) Atherosclerosis of [place] artery of both lower extremities, with unspecified presence of clinical manifestation (I70.203) Active confirmed Plan Of Treatment Pending Test Test Name Order Date [id number] NAIL, 6 OR MORE 08/26/2023 [id number] SKIN LESIONS, 2 TO 4 08/26/20 23 Insurance Providers Payer Name Payer Address Payer Phone Subscriber Number Group Number Insured Name Patient Relationship to Insured Coverage Start Date Coverage End Date [employer] Medicare [id number] [address] [address] [place] [address] [id number] Gomez Meyer Self - patient is the insured Medical (General) History Medical History History ICD Code High blood pressure Surgical History Surgery Date(Month/Year)
[2025-08-03 10:55] LABS: Alanine Aminotransferase 15 U/L (0-40); Albumin Level 3.7 g/dL (3.5-5.0); Alkaline Phosphatase 49 U/L (39-117); Aspartate Amino Transferase 24 U/L (5-37); Total Protein 6.8 g/dL (6.5-8.0)
[2025-08-06 13:47] LABS: HCV Log PCR <1.18 NOT DETECTED Log IU/mL (NOT DETECTED); HepC Viral Load <15 NOT DETECTED IU/mL (NOT DETECTED)
== END 2025-08-03 06:05 | disposition home or self-care (01) ==
LOC: HO.HMGCLDS 06:04
PROVIDERS: PCP Internal Medicine; Visit Provider Internal Medicine
DX: B18.2 Chronic viral hepatitis C (principal)
CPT/HCPCS: 36415; 80076; 87522

== ENCOUNTER 2025-08-29 13:30 | Outpatient (REF) | payer MEDICARE, SELFPAY ==
--- NOTE | ~2025-08-29 | XR_ITS ---
EXAMINATION: XR KNEE, RIGHT CLINICAL INFORMATION: M25.369 - Other instability, unspecified knee COMPARISON: None available. TECHNIQUE: Four views of the right knee. FINDINGS: No fracture, dislocation, or bone lesion. Alignment is anatomic. Minimal joint space narrowing medial and patellofemoral compartments. Minimal spurring of the tibial spines. No evidence of joint effusion. Normal-appearing soft tissues. XR/XR knee RT 2V IMPRESSION: 1. No acute bony or soft tissue abnormality. 2. Minimal degenerative arthrosis in the medial and lateral compartments. Electronically signed by: Ramírez Joyner MD 08/29/2025 02:13 PM TAMANNA
--- OUTSIDE RECORDS SUMMARY | 2025-08-29 21:42 | XMS_ITS | Clinical Summary ---
Author Organization [facility] Address [address] [place] [id number] Care Team Providers Care Vegetable Washing Machine Operator Name Role Phone Milena Ghotra MD Primary Care Provider [phone] Medical History Medical History Date Comments Transaminitis 10/23/2020 DX:Transaminitis Family History Medical History Relation Name Comments Heart attack Brother Relation Name Status Comments Brother Social History Tobacco Use Types Packs/Day Years Used Date Smoking Tobacco: Every Day Cigarettes 1 47.9 Started: 09/20/1977 Smokeless Tobacco: Never Alcohol Use Standard Drinks/Week Comments Yes 3 (1 standard drink = 0.6 oz pur e alcohol) Sex and Gender Information Value Date Recorded Sex Assigned at Not on file Legal Sex Male 12:09 PM EST Gender Identity Not on file Sexual Orientation Not on file Plan of Treatment Health Maintenance Due Date [...] Health Screening 12/03/2024 COVID-19 Vaccine ( - 2024-2 6 season) 2025 Influenza Vaccine (#1) 2025 RSV [...] age to complete this topic Care Teams Vegetable Washing Machine Operator Relationship Specialty Start Date End Date Milena Ghotra MD PCP - General Internal Medicine 07/26/20
--- OUTSIDE RECORDS SUMMARY | 2025-08-29 21:42 | XMS_ITS | Patient Health Record ---
Author [facility] Address [address] [place] [address] Care Team Providers Care Audit Associate Name Role Phone Emigdio TUCKER, [facility] Primary Care Provider Garcia Villareal Unavailable [phone] Allergies No Known Allergies Reason For Referral [...] atherosclerosis of arteries of lower limbs (disorder) ([id number] ) Atherosclerosis of [place] artery of both lower extremities, with unspecified presence of clinical manifestation (I70.203) Active confirmed Plan Of Treatment Pending Test Test Name Order Date [id number] NAIL, 6 OR MORE 08/26/2023 [id number] SKIN LESIONS, 2 TO 4 08/26/20 23 Insurance Providers Payer Name Payer Address Payer Phone Subscriber Number Group Number Insured Name Patient Relationship to Insured Coverage Start Date Coverage End Date [employer] Medicare [id number] [address] [address] [place] [address] [id number] Gomez Meyer Self - patient is the insured Medical (General) History Medical History History ICD Code High blood pressure Surgical History Surgery Date(Month/Year)
== END 2025-08-29 13:31 | disposition home or self-care (01) ==
LOC: HO.HMGCX 13:30
PROVIDERS: PCP Internal Medicine; Visit Provider Internal Medicine
DX: Z01.818 Encounter for other preprocedural examination (principal); M25.361 Other instability, right knee; H25.9 Unspecified age-related cataract; F17.210 Nicotine dependence, cigarettes, uncomplicated; B18.2 Chronic viral hepatitis C; K70.31 Alcoholic cirrhosis of liver with ascites
CPT/HCPCS: 73560; 96127; 99212

== ENCOUNTER 2025-08-29 13:30 | Outpatient (AMB) | payer MEDICARE, SELFPAY ==
--- NOTE | 2025-08-29 13:39 | MHC.PC.OV ---
Vital Signs 08/29/25 13:41 Height 6 ft 2 in Weight 325 lb BMI 41.7 BP 132/76 Blood Pressure Location Lt brachial Position Sitting Pulse 66 Pulse Source Pulse Oximeter Pulse Oximetry (%) 97 Intake Visit Reasons: pre -op for cataract surgery Allergies No Known Allergies Allergy (Verified 08/29/25 13:41) Medication List - Last Reconciled 08/29/25 by Isaak Beal MD carvedilol 3.125 mg PO BID 90 days penicillin V potassium 250 mg PO BID 30 days Tobacco use date assessed: 05/23/25 Fall risk assessment: No Falls in past year Last assessed Fall Risk: 08/29/25 Dental Screening Dental Screen Date: 05/23/25 HPI pre -op for cataract surgery HPI Details History The patient is a 69 year old male presenting for preoperative evaluation for cataract surgery. Bilateral Cataracts: - The patient is scheduled for bilateral cataract surgery with Dr. Yana Canales. - The surgeries are scheduled for September 05 and October 03. - He reports some blurry vision, particularly at night. Liver Cirrhosis and Chronic Hepatitis C: - The patient has a history of liver cirrhosis, chronic hepatitis C, and alcohol dependence. - He is followed by gastroenterology and is prescribed carvedilol. - He has an upcoming ultrasound on September 10 and an appointment with his senior business consultant on September 26. Osteoarthritis of right knee: - The patient reports clicking in his right knee. - He states the knee occasionally gives out while walking but denies pain or swelling. Medical History: - Liver cirrhosis - Chronic hepatitis C - Alcohol dependence, in remission - Osteoarthritis of the right knee - Cataracts Social History: - Tobacco Use: The patient currently smokes 5-6 cigarettes per day and is trying to quit. - Alcohol Use: He has a history of alcohol dependence. Diagnostic Results: - Labs (May): Hemoglobin was stable at 11.2 g/dL, electrolytes were stable, kidney function was intact, and albumin was 3.7 g/dL. - Echocardiogram (May of this year): Showed normal left ventricular systolic function with an ejection fraction of 65% and no significant valvular abnormalities. Medications - Carvedilol for liver cirrhosis, as prescribed by gastroenterology. Problem List - Cataract surgery, bilateral - Liver cirrhosis - Chronic hepatitis C - Alcohol dependence - Osteoarthritis of right knee - Nicotine dependence [facility] Medical History Chronic hepatitis C Hepatosplenomegaly Neutropenia Morbid obesity due to excess calories Tobacco use disorder Morbid obesity Cirrhosis Bicytopenia Surgical History Hx of colonoscopy Social History Household Members: Family Housing: House Do you presently have visiting nurse or other home services: No Alcohol intake: current Alcohol intake frequency: former alcohol drinker Alcohol type: beer Comment: pt refused bed alarm Patient Tobacco Use Status: Current everyday Tobacco user Tobacco use type: Cigarette Cigarette Packs Per Day: 0.5 Cigarettes Per Day: 10.0 Years Smoked: 30 e-Cigarette/Vaping Use: Never Used service: No Current occupational status: retired Gender identity: Male Cognitive needs: No Hearing needs: No Vision needs: Yes Questionnaire PHQ-9 Over the last 2 weeks, how often have you been bothered by any of the following problems? 1. Little interest or pleasure in doing things: not at all 2. Feeling down, depressed, or hopeless: not at all 3. Trouble falling or staying asleep, or sleeping too much: not at all 4. Feeling tired or having little energy: not at all 5. Poor appetite or overeating: not at all 6. Feeling bad about yourself - or that you are a failure or have let yourself or your family down: not at all 7. Trouble concentrating on things, such as reading the newspaper or watching television: not at all 8. Moving or speaking so slowly that other people could have noticed. Or the opposite - being so fidgety or restless that you have been moving around a lot more than usual: not at all 9. Thoughts that you would be better off or of hurting yourself in some way: not at all Total score: 0 Depression Screening Interpretation: Negative Depression Screening Done: Yes 65720 - PHQ-9 Billing: Yes Source: Developed by Drs. Neftali Dale, Jessi Jones, Natanael Castro and colleagues, with an educational muna from [employer]. Thrive Questionnaire Date Thrive assessed: 07/03/25 SHANICE-7 AMB Questionnaire SHANICE-7 Date SHANICE - 7 assessed: 09/03/25 Source: Developed by Drs. Neftali Dale, Jessi Jones, Natanael Castro and colleagues, with an educational muna from [employer]. Review of Systems Const Denies chills and Denies fever(s) ENT Denies epistaxis and Denies nasal discharge Card Denies chest pain Resp Denies chest congestion, Denies cough and Denies hemoptysis GI Denies diarrhea and Denies nausea Skin/Breast Denies rash Neuro Reports no additional complaints Psych Reports no additional complaints Endo Reports no additional complaints Physical exam (Primary Care) Vital Signs: Last Vital Signs Pulse 66 08/29/25 13:41 BP 132/76 08/29/25 13:41 Pulse Ox 97 08/29/25 13:41 BMI result Body Mass Index 41.7 Tobacco/Smoking Status: Tobacco use Status Tobacco use date assessed 05/23/25 08/29/25 13:40 Patient Tobacco Use Status Current everyday Tobacco 08/29/25 13:40 Tobacco use type Cigarette 08/29/25 13:40 e-Cigarette/Vaping Use Never Used 08/29/25 13:40 Depression Screening Interpretation: Negative Thrive Assessment: Date of Thrive Assessment Date Thrive assessed 07/03/25 08/29/25 13:40 Const General: cooperative, comfortable and no acute distress Orientation/consciousness: patient oriented x3 HENMT Head: Yes normocephalic Eyes General: appearance normal, both eyes and all related structures Neck Neck: Yes supple Resp Effort & Inspection: normal respiratory effort, no cough and no stridor Cardio Rhythm: regular rhythm Heart sounds: S1 normal heart sound present and S2 normal heart sound present Skin General skin exam: turgor normal Neuro General: patient oriented x3, tone normal and moves all extremities Coding Level of Care Code Est Pt Level 4 (28118) Diagnoses Pre-op evaluation Z01.818 Age-related cataract of both eyes, unspecified age-related cataract type H25.9 Age-related cataract type: unspecified Instability of right knee joint M25.361 Laterality: right Cigarette nicotine dependence without complication F17.210 Nicotine product type: cigarettes Substance use status: uncomplicated Chronic hepatitis C without hepatic coma B18.2 Hepatic coma status: without hepatic coma Alcoholic cirrhosis of liver with ascites K70.31 Ascites presence: with ascites Additional Codes PHQ-9 - 20513 - PHQ-9 Billing: Yes ([id number]) Assessment & Plan Assessment & Plan (1) Pre-op evaluation: Code(s): Z01.818 - Encounter for other preprocedural examination Category: Medical (2) Age-related cataract of both eyes: Code(s): H25.9 - Unspecified age-related cataract Category: Medical Qualifiers: Age-related cataract type: unspecified Qualified Code(s): H25.9 - Unspecified age-related cataract (3) Knee instability: Code(s): M25.369 - Other instability, unspecified knee Category: Medical Qualifiers: Laterality: right Qualified Code(s): M25.361 - Other instability, right knee (4) Nicotine dependence: Code(s): F17.200 - Nicotine dependence, unspecified, uncomplicated Category: Medical Qualifiers: Nicotine product type: cigarettes Substance use status: uncomplicated Qualified Code(s): F17.210 - Nicotine dependence, cigarettes, uncomplicated (5) Chronic hepatitis C: Code(s): B18.2 - Chronic viral hepatitis C Category: Medical Qualifiers: Hepatic coma status: without hepatic coma Qualified Code(s): B18.2 - Chronic viral hepatitis C (6) Alcoholic cirrhosis of liver: Code(s): K70.30 - Alcoholic cirrhosis of liver without ascites Category: Medical Qualifiers: Ascites presence: with ascites Qualified Code(s): K70.31 - Alcoholic cirrhosis of liver with ascites Plan 1. Cortical age-related cataract, bilateral H25.013 - The patient is medically stable and cleared for his upcoming bilateral cataract surgeries. - His blood pressure is well controlled, and a recent echocardiogram showed normal cardiac function. - A report will be faxed to Dr. Yana Canales. - He is scheduled for follow-up with me in December. 2. Chronic instability of knee, right knee M23.51 - An X-ray of the right knee has been ordered to evaluate his symptoms further. - Advised to use an MINI wrap around the knee for stability when walking. - Instructed to follow up for an orthopedic referral if needed. 3. Nicotine dependence, unspecified, uncomplicated F17.200 - Advised to quit smoking. Medical Decision Making The patient, a 69-year-old male, presented for a preoperative evaluation for his upcoming bilateral cataract surgeries scheduled for September 05 and October 03. His medical history is notable for liver cirrhosis secondary to chronic hepatitis C and past alcohol dependence, for which he takes carvedilol and is followed by gastroenterology. Review of his recent records revealed stable labs from May, including a hemoglobin of 11.2 and intact renal function. A recent echocardiogram showed a normal ejection fraction of 65% with no valvular issues. His blood pressure is well-controlled, and a physical exam of his lungs was clear. Given these stable findings, I find no contraindications to proceeding with the planned surgery. He also reported clicking and occasional instability in his right knee, consistent with osteoarthritis. I have ordered a right knee X-ray for further assessment and advised him to use an MINI wrap for stabilization. I also counseled him on smoking cessation. A report will be sent to the radiological technician, and he will follow up with me in December. Orders: Orders XR knee RT 2V Today M25.369 - Other instability, unspecified knee
[2025-08-29 13:41] VITALS: BP 132/76; PULSE 66; O2SAT 97; BMI 41.7
== END 2025-08-29 14:15 | disposition home or self-care (01) ==
LOC: HO.HMCC 13:32
PROVIDERS: PCP Internal Medicine; Visit Provider Internal Medicine
DX: H25.9 Unspecified age-related cataract (principal); B18.2 Chronic viral hepatitis C; K70.31 Alcoholic cirrhosis of liver with ascites; Z01.818 Encounter for other preprocedural examination; M25.361 Other instability, right knee; F17.210 Nicotine dependence, cigarettes, uncomplicated

== ENCOUNTER → 2025-08-29 14:02 | Outpatient (BNV) | payer MEDICARE, SELFPAY | PROVIDERS: PCP Internal Medicine; Visit Provider Radiology Diagnostic Radiology | DX: M17.11 Unilateral primary osteoarthritis, right knee (principal) | CPT/HCPCS: 73560 ==

== ENCOUNTER 2025-09-14 08:13 | Outpatient (REF) | payer MEDICARE, SELFPAY ==
--- NOTE | ~2025-09-14 | US_ITS ---
EXAMINATION: US ABDOMEN HISTORY: B18.2 - Chronic viral hepatitis C TECHNIQUE: Real-time grayscale ultrasound imaging of the abdomen was performed and images were reviewed. COMPARISON: Comparison is made with the prior examination dated 02/19/2025. FINDINGS: Liver: The right lobe of the liver measures 14.0 cm in size. The left lobe of the liver measures 10.1 cm in size. The liver demonstrates heterogeneous coarsened echotexture. No focal mass or intrahepatic biliary ductal dilatation is identified. There is normal hepatopedal flow in the portal vein. Gallbladder and biliary tree: The gallbladder is unremarkable, without evidence of calculi, wall thickening, or pericholecystic fluid. There is no sonographic Barragan sign. The common bile duct is normal in caliber measuring 3 mm in diameter. Kidneys: The right kidney measures 10.5 cm in length. The left kidney measures 12.0 cm in length. The kidneys are unremarkable, without evidence of masses, hydronephrosis, or calculi. Pancreas: The pancreatic head, neck, and body are unremarkable. The pancreatic tail is obscured by bowel gas. Spleen: The spleen is enlarged, measuring 17.2 cm in length. Abdominal aorta and inferior vena cava: The visualized portions of the abdominal aorta and inferior vena cava are normal in caliber. There is no free fluid in the abdomen. US/US abdomen complete IMPRESSION: 1. Coarsened hepatic echotexture. 2. Splenomegaly. Electronically signed by: Neftali Acosta MD 09/14/2025 09:12 AM [facility] [place]
--- OUTSIDE RECORDS SUMMARY | 2025-09-14 08:15 | XMS_ITS | Clinical Summary ---
Author Organization [facility] Address [address] [place] [address] Care Team Providers Care Activity Director Name Role Phone Milena Ghotra MD Primary Care Provider [phone] Medical History Medical History Date Comments Transaminitis 10/23/2020 DX:Transaminitis Family History Medical History Relation Name Comments Heart attack Brother Relation Name Status Comments Brother Social History Tobacco Use Types Packs/Day Years Used Date Smoking Tobacco: Every Day Cigarettes 1 48 Started: 09/20/1977 Smokeless Tobacco: Never Alcohol Use [...] age to complete this topic Care Teams Activity Director Relationship Specialty Start Date End Date Milena Ghotra MD PCP - General Internal Medicine 07/26/20
--- OUTSIDE RECORDS SUMMARY | 2025-09-14 08:15 | XMS_ITS | Patient Health Record ---
[facility] Address [address] [facility] [place] [address] Care Team Providers Care Captain Room Service Name Role Phone Emigdio TUCKER, [facility] Primary Care Provider Garcia Villareal Unavailable [phone] Allergies No Known Allergies Reason For Referral [...] atherosclerosis of arteries of lower limbs (disorder) ([id number] ) Atherosclerosis of [place] artery of both lower extremities, with unspecified presence of clinical manifestation (I70.203) Active confirmed Plan Of Treatment Pending Test Test Name Order Date [id number] NAIL, 6 OR MORE 08/26/2023 [id number] SKIN LESIONS, 2 TO 4 08/26/20 23 Insurance Providers Payer Name Payer Address Payer Phone Subscriber Number Group Number Insured Name Patient Relationship to Insured Coverage Start Date Coverage End Date [employer] Medicare [id number] [address] [address] [place] [address] [id number] Gomez Meyer Self - patient is the insured Medical (General) History Medical History History ICD Code High blood pressure Surgical History Surgery Date(Month/Year)
== END 2025-09-14 08:14 | disposition home or self-care (01) ==
LOC: HO.US 08:13
PROVIDERS: PCP Internal Medicine; Visit Provider Internal Medicine
DX: B18.2 Chronic viral hepatitis C (principal)
CPT/HCPCS: 76700

== ENCOUNTER → 2025-09-14 08:15 | Outpatient (BNV) | payer MEDICARE, SELFPAY | PROVIDERS: PCP Internal Medicine; Visit Provider Radiology Diagnostic Radiology | DX: B18.2 Chronic viral hepatitis C (principal); R16.1 Splenomegaly, not elsewhere classified; R93.2 Abnormal findings on diagnostic imaging of liver and biliary tract | CPT/HCPCS: 76700 ==